=== PATIENT | female | born 1945 | race African-American/Black ===

== ENCOUNTER 2016-11-30 12:54 | Inpatient (IN) | payer OTHER ==
--- NOTE | 2016-11-30 14:02 | PDOC ---
History of Present Illness <Taqueria Harmon - Last Filed: 11/30/16 16:55> - General History Source: Patient, Care Provider, Old Records Exam Limitations: No Limitations - History of Present Illness Initial Comments: 11/30/16 14:45 The patient is a 71 year old female, with a significant past medical history of COPD (sarcoidosis), hypertension, and DVT who presents to the emergency department complaining of respiratory distress for approximately 4 days. As per machine load clerk, the patient reports she presented to Dr. Escamilla's office 4 days ago, for wheezing and bronchospasms and was supposed to be admitted. However, machine load clerk reports the patient needed to be situated at home, since her daughter was away, before she could be admitted. Coal Washer Tender reports the patient was given medication, but she does not recall the name, and it did not provide any relief. Today, she reports following up with Dr. Escamilla, who found the patient had an overactive heartbeat and was short of breath, and recommended the patient present to the ED for further evaluation. However, as per records, the patient was seen today for wheezing and bronchospasm. In the ED the patient was eating a george, egg, and cheese sandwich with fries. The patient denies any diaphoresis or chest pain. The patient denies any fever, chills, cough, headache , or dizziness. The patient denies any recent travel or sick contacts. Allergies: None reported. Past Surgical History: Left hip fracture repair (1977) Social History: Former smoker. Denies alcohol or drug use. PCP: Dr. Escamilla Supervisor [employer]: Dr. Freeman <Santo Whitten - Last Filed: 11/30/16 17:00> - General Chief Complaint: Shortness of Breath Stated Complaint: ABNORMAL HEART BEAT Time Seen by Provider: 11/30/16 13:54 Past History - Past Medical History COPD: Yes (scarodosis) HTN: Yes Other medical history: dvt - Surgical History Orthopedic Surgery: Yes (repair left hip fracture 1977) - Psycho/Social/Smoking Cessation Hx Anxiety: No Suicidal Ideation: No Smoking History: Former smoker Have you smoked in the past 12 months: No Information on smoking cessation initiated: No Hx Alcohol Use: No Drug/Substance Use Hx: No Substance Use Type: None <Taqueria Harmon - Last Filed: 11/30/16 16:55> <Santo Whitten - Last Filed: 11/30/16 17:00> - Past Medical History Allergies/Adverse Reactions: Allergies Allergy/AdvReac Type Severity Reaction Status Date / Time No Known Allergies Allergy Verified 08/31/13 14:02 Home Medications: Ambulatory Orders Oxybutynin Chloride [Ditropan -] 5 mg PO BID 08/24/13 Prednisone [Deltasone -] 30 mg PO DAILY 08/24/13 Cholecalciferol (Vitamin D3) [Vitamin D3] 50,000 unit PO DAILY 11/30/16 Furosemide [Lasix -] 40 mg PO DAILY 11/30/16 Mirtazapine [Remeron Soltab -] 15 mg PO DAILY 11/30/16 Montelukast Na [Singulair -] 10 mg PO HS 11/30/16 Moxifloxacin HCl [Vigamox 0.5% Eye Drops -] 1 drop OS QID 11/30/16 Potassium Chloride 10 meq PO DAILY 11/30/16 Prednisolone 1% Ophthalmic [Pred Forte 1% -] 1 ml OS DAILY 11/30/16 Temazepam [Restoril] 30 mg PO HS 11/30/16 Warfarin Na [Coumadin] 4 mg PO ASDIR 11/30/16 Review of Systems - Review of Systems Able to Perform ROS?: Yes Comments:: 11/30/16 14:45 GENERAL/CONSTITUTIONAL: No fever or chills. No weakness. HEAD, EYES, EARS, NOSE AND THROAT: No change in vision. No ear pain or discharge. No sore throat. CARDIOVASCULAR: +Shortness of breath, +overactive heartbeat. No chest pain. RESPIRATORY: +Wheezing, +dyspnea, +dyspnea on exertion. No cough or hemoptysis. GASTROINTESTINAL: No nausea, vomiting, diarrhea or constipation. GENITOURINARY: No dysuria, frequency, or change in urination. MUSCULOSKELETAL: No joint or muscle swelling or pain. No neck or back pain. SKIN: No rash NEUROLOGIC: No headache, vertigo, loss of consciousness, or change in strength/ sensation. ENDOCRINE: No increased thirst. No abnormal weight change. HEMATOLOGIC/LYMPHATIC: No anemia, easy bleeding, or history of blood clots. ALLERGIC/IMMUNOLOGIC: No hives or skin allergy. <Santo Whitten - Last Filed: 11/30/16 17:00> *Physical Exam - Vital Signs Last Vital Signs Temp Pulse Resp BP Pulse Ox 97.7 F 97 H 33 H 120/67 97 11/30/16 13:09 11/30/16 13:09 11/30/16 13:09 11/30/16 13:09 11/30/16 13:09 <Taqueria Harmon - Last Filed: 11/30/16 16:55> - Vital Signs Last Vital Signs Temp Pulse Resp BP Pulse Ox 97.7 F 97 H 33 H 120/67 97 11/30/16 13:09 11/30/16 13:09 11/30/16 13:09 11/30/16 13:09 11/30/16 13:09 - Physical Exam Comments: 11/30/16 14:46 GENERAL: Awake, alert, and fully oriented, in no acute distress HEAD: No signs of trauma EYES: PERRLA, EOMI, sclera anicteric, conjunctiva clear ENT: Auricles normal inspection, hearing grossly normal, nares patent, oropharynx clear without exudates. Moist mucosa NECK: Normal ROM, supple, no lymphadenopathy, JVD, or masses LUNGS: Diffuse bilateral wheezing. No crackles HEART: Regular rate and rhythm, normal S1 and S2, no murmurs, rubs or gallops ABDOMEN: Soft, nontender, normoactive bowel sounds. No guarding, no rebound. No masses EXTREMITIES: Normal range of motion, no edema. No clubbing or cyanosis. No cords, erythema, or tenderness NEUROLOGICAL: Cranial nerves II through XII grossly intact. Normal speech, normal gait SKIN: Warm, Dry, normal turgor, no rashes or lesions noted. <Santo Whitten - Last Filed: 11/30/16 17:00> ED Treatment Course - LABORATORY CBC & Chemistry Diagram: 11/30/16 14:27 11/30/16 14:27 - RADIOLOGY Radiology Studies Ordered: Category Date Time Status CHEST X-RAY PORTABLE* [RAD] Stat Radiology 11/30/16 13:55 Ordered <Taqueria Harmon - Last Filed: 11/30/16 16:55> - LABORATORY CBC & Chemistry Diagram: 11/30/16 14:27 11/30/16 14:27 - RADIOLOGY Radiograph Interpretation: 11/30/16 15:19 EXAM: CXR INTERPRETED BY: Dr. Pope REVIEWED BY: Dr. Harmon IMPRESSION: No significant interval change or gross acute lung disease is present. <Santo Whitten - Last Filed: 11/30/16 17:00> Medical Decision Making - Medical Decision Making 11/30/16 14:46 Patient was sent in by Dr. Escamilla for wheezing and bronchospasms. Will workup for pneumonia. First call placed to Dr. Walton's answering service at 16:38. Awaiting call back. Case discussed with Dr. Champion at 16:55. <Santo Whitten - Last Filed: 11/30/16 17:00> *DC/Admit/Observation/Transfer - Discharge Dispostion Admit: Yes - Attestations Physician Attestion: 11/30/16 14:02 I, Dr. Taqureia Harmon, attest that this document has been prepared under my direction and personally reviewed by me in its entirety. I further attest, that it accurately reflects all work, treatment, procedures and medical decision -making performed by me. <Taqueria Harmon - Last Filed: 11/30/16 16:55> - Attestations Scribe Attestion: 11/30/16 14:47 Documentation prepared by Santo Whitten, acting as medical driver for Taqueria Harmon DO. <Santo Whitten - Last Filed: 11/30/16 17:00> Diagnosis at time of Disposition: Bronchitis, Sarcoidosis of lung, Wheezing on auscultation - Discharge Dispostion Condition at time of disposition: Improved
[2016-11-30 14:48] LABS: ARTERIAL BLD GAS O2 SATURATION 97.4 % (90-98.9); ARTERIAL BLOOD GAS BASE EXCESS 4.9 meq/l (-2-2); ARTERIAL BLOOD GAS pH 7.36 (7.35-7.45)
[2016-11-30 14:49] LABS: ALLENS TEST POSITIVE; ART PUNCT SITE RIGHT RADIAL; LPM/O2% 2L; PT. ON O2? YES; TYPE OF O2 NASAL
--- NOTE | 2016-11-30 14:52 | EKG ---
Test Reason : Blood Pressure : / mmHG Vent. Rate : 095 BPM Atrial Rate : 095 BPM P-R Int : 128 ms QRS Dur : 068 ms QT Int : 366 ms P-R-T Axes : 060 019 032 degrees QTc Int : 459 ms NORMAL SINUS RHYTHM NORMAL ECG WHEN COMPARED WITH ECG OF 16-JUL-2007 11:31, QT HAS LENGTHENED Confirmed by MADELEINE JAMES MD ([id number]) on 11/30/2016 2:52:12 PM Referred By: Confirmed By:MADELEINE JAMES MD
[2016-11-30 14:56] LABS: MCH 24.6 pg (25.7-33.7); MCHC 30.1 g/dl (32.0-36.0); MEAN CELL VOLUME 81.5 fl (80-96); MEAN PLT VOLUME 8.4 fl (7.5-11.1); PLATELET COUNT 231 K/MM3 (134-434); RDW 17.4 % (11.6-15.6); WHITE BLOOD COUNT 12.2 K/mm3 (4.0-10.0)
[2016-11-30 15:22] LABS: ALBUMIN 3.2 g/dl (3.4-5.0); ANION GAP 12 (8-16); BILIRUBIN,TOTAL 0.2 mg/dL (0.2-1.0); CO2 32 mmol/L (21-32); CREATININE 1.1 mg/dL (0.55-1.02); GLUCOSE,RANDOM 107 mg/dL (74-106); SGPT/ALT 24 U/L (12-78); TOT PROT 6.5 g/dl (6.4-8.2)
[2016-11-30 15:24] LABS: ALK PHOS 99 U/L (45-117); TROPONIN I < 0.02 ng/ml (0.00-0.05)
[2016-11-30 15:28] LABS: SGOT/AST 18 U/L (15-37)
[2016-11-30] MEDS ORDERED: methylPREDNISolone NA SUCC 125 MG/2 ML VIAL IVPB ONE (16:38)
[2016-11-30] MEDS ORDERED: MAGNESIUM SULF 50% (8.12 MEQ/2 ML-1 GM VIAL) IVPB ONE (16:38)
[2016-11-30] MEDS ORDERED: LEVOFLOXACIN 750 MG IVPB 150 ML IVPB ONE ×2 (16:38→17:01)
[2016-11-30] MEDS ORDERED: ALBUTEROL SO4 2.5/IPRATROPIUM 0.5 INH SOL 3 ML VIAL.NEB. NEB ONE ×2 (16:39→17:01)
[2016-11-30] MEDS ORDERED: MAGNESIUM SULF 50% (8.12 MEQ/2 ML-1 GM VIAL) ONE (17:00)
[2016-11-30] MEDS ORDERED: methylPREDNISolone NA SUCC 125 MG/2 ML VIAL ONE (17:01)
[2016-11-30] MEDS ORDERED: WARFARIN NA 3 MG TABLET PO SCH (18:45)
[2016-11-30] MEDS ORDERED: ACETAMINOPHEN 325 MG TABLET (FP) PO PRN (18:46)
[2016-11-30] MEDS ORDERED: ACETAMINOPHEN 325 MG TABLET (FP) ONE (19:08)
[2016-11-30] MEDS ORDERED: WARFARIN NA 1 MG TABLET (FP) ONE (19:08)
[2016-11-30 20:34] LABS: INR 2.45 (0.82-1.09); PROTHROMBIN TIME (PATIENT) 27.5 SEC (9.98-11.88)
[2016-11-30] MEDS: methylPREDNISolone NA SUCC 40 MG/1 ML VIAL IVPB SCH (21:57)
[2016-11-30] MEDS: MONTELUKAST NA 10 MG TABLET PO SCH (22:00)
[2016-11-30] MEDS: OXYBUTYNIN CHLORIDE 5 MG TABLET PO SCH (22:00)
[2016-11-30] MEDS: INSULIN SLIDING SCALE (NOVOLOG) 1 VIAL SQ SCH (22:03)
[2016-11-30] MEDS: ALBUTEROL SO4 2.5/IPRATROPIUM 0.5 INH SOL 3 ML VIAL.NEB. NEB SCH (23:05)
[2016-11-30] MEDS: TEMAZEPAM 15 MG CAPSULE PO SCH (23:53)
[2016-12-01 00:24] VITALS: BMI 37.0
[2016-12-01] MEDS: methylPREDNISolone NA SUCC 40 MG/1 ML VIAL IVPB SCH ×4 (03:02→22:11)
[2016-12-01] MEDS: INSULIN SLIDING SCALE (NOVOLOG) 1 VIAL SQ SCH ×4 (06:13→22:18)
[2016-12-01] MEDS: FUROSEMIDE 40 MG/4 ML INJECTABLE VIAL IVPUSH SCH ×2 (06:13→15:56)
[2016-12-01] MEDS: ALBUTEROL SO4 2.5/IPRATROPIUM 0.5 INH SOL 3 ML VIAL.NEB. NEB SCH ×3 (06:19→17:15)
[2016-12-01 07:24] LABS: MCH 24.7 pg (25.7-33.7); MCHC 30.4 g/dl (32.0-36.0); MEAN CELL VOLUME 81.2 fl (80-96); MEAN PLT VOLUME 8.4 fl (7.5-11.1); NEUTROPHILS 91.2 % (42.8-82.8); PLATELET COUNT 220 K/MM3 (134-434); RDW 17.4 % (11.6-15.6); WHITE BLOOD COUNT 10.2 K/mm3 (4.0-10.0)
[2016-12-01 07:40] LABS: INR 3.25 (0.82-1.09); PROTHROMBIN TIME (PATIENT) 36.6 SEC (9.98-11.88)
[2016-12-01 07:47] LABS: ALBUMIN 2.9 g/dl (3.4-5.0); ANION GAP 8 (8-16); CALCIUM 8.7 mg/dL (8.5-10.1); CO2 33 mmol/L (21-32); CREATININE 1.3 mg/dL (0.55-1.02); GLUCOSE,RANDOM 173 mg/dL (74-106); MAGNESIUM 2.4 mg/dL (1.8-2.4); SGOT/AST 14 U/L (15-37); SGPT/ALT 19 U/L (12-78); TOT PROT 6.1 g/dl (6.4-8.2)
[2016-12-01 07:53] LABS: ALK PHOS 90 U/L (45-117); BILIRUBIN,TOTAL 0.3 mg/dL (0.2-1.0); TROPONIN I < 0.02 ng/ml (0.00-0.05)
--- NOTE | 2016-12-01 09:58 | CONSULT ---
Consult Consult Specialty:: Nephrology Reason for Consultation:: elevated creatinine - History of Present Illness Chief Complaint: shortness of breath History of Present Illness: Pt is a 71 year old female with pmhx of sarcoidosis, COPD, HTN, and DVT who presents to the ER with increased shortness of breath for the last 5 days. She also complains of wheezing. She denies chest pain but feels that her hears is running fast. I was called to evaluate her for elevated creatinine. She denies history of CKD. She denies dysuria or hematuria. She is awake and alert. She denies use of nsaids. - History Source History Provided By: Patient, Medical Record - Past Medical History Cardio/Vascular: Yes: CHF, Deep Vein Thrombosis, HTN Pulmonary: Yes: COPD, Other (sarcoidosis) ...: No Rheumatology: Yes: Sarcoidosis - Past Surgical History Additional Surgical History: hip fracture - Alcohol/Substance Use Hx Alcohol Use: No - Smoking History Smoking history: Former smoker Have you smoked in the past 12 months: No Aproximately how many cigarettes per day: 0 Home Medications - Allergies Allergies/Adverse Reactions: Allergies Allergy/AdvReac Type Severity Reaction Status Date / Time No Known Allergies Allergy Verified 11/30/16 19:09 - Home Medications Home Medications: Ambulatory Orders Oxybutynin Chloride [Ditropan -] 5 mg PO BID 08/24/13 Prednisone [Deltasone -] 30 mg PO DAILY 08/24/13 Cholecalciferol (Vitamin D3) [Vitamin D3] 50,000 unit PO DAILY 11/30/16 Furosemide [Lasix -] 40 mg PO DAILY 11/30/16 Mirtazapine [Remeron Soltab -] 15 mg PO DAILY 11/30/16 Montelukast Na [Singulair -] 10 mg PO HS 11/30/16 Moxifloxacin HCl [Vigamox 0.5% Eye Drops -] 1 drop OS QID 11/30/16 Potassium Chloride 10 meq PO DAILY 11/30/16 Prednisolone 1% Ophthalmic [Pred Forte 1% -] 1 ml OS DAILY 11/30/16 Temazepam [Restoril] 30 mg PO HS 11/30/16 Warfarin Na [Coumadin] 4 mg PO ASDIR 11/30/16 Omep 40 12/01/16 Omeprazole 40 AM 12/01/16 Sennosides [Senna] 8.6 mg PO TID 12/01/16 Family Disease History - Family Disease History Family History: Denies Physical Exam Vital Signs: Vital Signs Temperature 98.4 F 12/01/16 09:13 Pulse Rate 130 H 12/01/16 09:13 Respiratory Rate 20 12/01/16 09:13 Blood Pressure 124/76 12/01/16 09:13 O2 Sat by Pulse Oximetry (%) 97 12/01/16 09:00 Constitutional: Yes: Anxious Eyes: Yes: Conjunctiva Clear HENT: Yes: Atraumatic Cardiovascular: Yes: Tachycardia, S1, S2 Respiratory: Yes: On Nasal O2, Wheezes Gastrointestinal: Yes: Soft Renal/: Yes: WNL Extremities: Yes: WNL Edema: Yes Edema: LLE: 1+, RLE: 1+ Neurological: Yes: Oriented Psychiatric: Yes: Oriented Labs: CBC, BMP 12/01/16 05:35 12/01/16 05:35 Laboratory Tests 11/30/16 11/30/16 11/30/16 14:27 14:27 14:40 WBC 12.2 H Hgb 11.5 ABG pH 7.36 ABG pCO2 at Pt Temp 56.7 H D ABG pO2 at Pt Temp 100.0 D ABG HCO3 31.0 H ABG O2 Sat (Measured) 97.4 ABG O2 Content 15.0 Sodium 144 Potassium 3.4 L Chloride 100 Carbon Dioxide 32 Anion Gap 12 BUN 20 H Creatinine 1.1 H Creat Clearance w eGFR Hemoglobin A1c % B-Natriuretic Peptide 12/01/16 12/01/16 12/01/16 05:35 05:35 09:37 WBC 10.2 H Hgb 10.5 L ABG pH ABG pCO2 at Pt Temp ABG pO2 at Pt Temp ABG HCO3 ABG O2 Sat (Measured) ABG O2 Content Sodium 142 Potassium 4.6 D Chloride 101 Carbon Dioxide 33 H Anion Gap BUN 23 H Creatinine 1.3 H Creat Clearance w eGFR 40.49 Hemoglobin A1c % 6.7 H B-Natriuretic Peptide 164.10 H Imaging - Results Chest X-ray: Report Reviewed Ultrasound: Report Reviewed (small left kidney) Problem List - Problems (1) Acute respiratory distress syndrome Code(s): J80 - ACUTE RESPIRATORY DISTRESS SYNDROME (2) Sarcoidosis of lung Code(s): D86.0 - SARCOIDOSIS OF LUNG (3) Tachycardia Code(s): R00.0 - TACHYCARDIA, UNSPECIFIED (4) Wheezing on auscultation Code(s): R06.2 - WHEEZING (5) CKD (chronic kidney disease) Code(s): N18.9 - CHRONIC KIDNEY DISEASE, UNSPECIFIED Assessment/Plan Current Medications Generic Name Dose Route Start Last Admin Trade Name Freq PRN Reason Stop Dose Admin Acetaminophen 650 mg 11/30/16 18:46 11/30/16 19:09 Tylenol - PO 650 mg Q4H PRN Administration FEVER OR PAIN Albuterol/Ipratropium 1 amp 12/01/16 00:00 12/01/16 11:39 Duoneb - NEB 1 amp QIDR PHOEBE Administration Furosemide 40 mg 12/02/16 10:00 Lasix - PO DAILY PHOEBE Levofloxacin 100 mls @ 100 mls/hr 12/01/16 10:00 12/01/16 11:07 Levaquin 500 Mg Premixed Ivpb - IVPB 100 mls/hr DAILY PHOEBE Administration Insulin Aspart 1 vial 11/30/16 22:00 12/01/16 12:01 Novolog Vial Sliding Scale - SQ Not Given ACHS PHOEBE Protocol Methylprednisolone Sodium Succinate 40 mg 11/30/16 21:00 12/01/16 15:50 Solu-Medrol - IVPB 40 mg Q6H-IV PHOEBE Administration Mirtazapine 15 mg 12/01/16 10:00 12/01/16 10:00 Remeron - PO Not Given DAILY PHOEBE Montelukast Sodium 10 mg 11/30/16 22:00 11/30/16 22:00 Singulair - PO 10 mg HS PHOEBE Administration Moxifloxacin HCl 1 drop 12/01/16 14:00 12/01/16 15:50 Vigamox 0.5% Eye Drops - OD Not Given TID PHOEBE Oxybutynin Chloride 5 mg 11/30/16 22:00 12/01/16 11:07 Ditropan - PO 5 mg BID PHOEBE Administration Potassium Chloride 10 meq 12/01/16 10:00 12/01/16 11:07 Kcl Oral Solution - PO 10 meq DAILY PHOEBE Administration Prednisolone Acetate 14.9925 drop 12/01/16 10:00 Pred Forte 1% - OS DAILY PHOEBE Senna 1 tab 12/01/16 13:15 12/01/16 15:50 Senna - PO 1 tab BID PHOEBE Administration Temazepam 30 mg 11/30/16 23:30 11/30/16 23:53 Restoril - PO 30 mg HS PHOEBE Administration Warfarin Sodium 4 mg 12/02/16 18:00 Coumadin - PO DAILY@1800 [facility] Impression 1. azotemia - likely CKD 2. CHF 3. HTN 4. hyperlipidemia 5. hx DVT 6. COPD 7. sarcoidosis 8. anemia Plan - renal ultrasound reviewed and she does have one smaller kidney - check ua - will need to obtain outpt records to check baseline creatinine - will comment more on etiology of kidney disease after reviewing urine studies. Pt says that she is unaware if the Sarcoid affected her kidneys. - agree with steroids as she is wheezing - repeat bmp in am - monitor on tele as she is tachycardic - check lower extremity ultrasound - will follow pt Dr Doty
[2016-12-01 09:59] LABS: CHOLESTEROL 177 mg/dL (50-200)
[2016-12-01] MEDS: MIRTAZAPINE 15 MG TABLET (FP) PO SCH (10:00)
[2016-12-01] MEDS ORDERED: prednisoLONE ACETATE 1% OPHTH SUSP 5 ML BOTTLE OS SCH (10:00)
[2016-12-01 10:11] LABS: LDL CHOLESTEROL (ONLY SJRH) 90 mg/dL (5-100)
[2016-12-01] MEDS ORDERED: METOPROLOL TARTRATE 25 MG TABLET (FP) PO ONE (10:15)
[2016-12-01] MEDS: POTASSIUM CHLORIDE 40 MEQ/30 ML UNIT DOSE CUP PO SCH (11:07)
[2016-12-01] MEDS: LEVOFLOXACIN 500 MG IVPB 100 ML IVPB SCH (11:07)
[2016-12-01] MEDS: OXYBUTYNIN CHLORIDE 5 MG TABLET PO SCH ×2 (11:07→22:11)
--- NOTE | 2016-12-01 12:34 | EKG ---
Test Reason : Blood Pressure : / mmHG Vent. Rate : 132 BPM Atrial Rate : 132 BPM P-R Int : 148 ms QRS Dur : 072 ms QT Int : 280 ms P-R-T Axes : 055 028 022 degrees QTc Int : 414 ms SINUS TACHYCARDIA NONSPECIFIC T WAVE ABNORMALITY ABNORMAL ECG WHEN COMPARED WITH ECG OF 30-NOV-2016 13:15, NO SIGNIFICANT CHANGE WAS FOUND Confirmed by MARCUS ATKINSON MD ([id number]) on 12/01/2016 12:34:46 PM Referred By: SHERRI LOPEZ Confirmed By:MARCUS ATKINSON MD
--- NOTE | 2016-12-01 15:43 | HP ---
Admitting History and Physical - Primary Care Physician PCP: Digna Walton - Admission Chief Complaint: DYSPNEA/CHEST PAIN History of Present Illness: The patient is a 71 year old female, with a significant past medical history of COPD (sarcoidosis), hypertension, and DVT who presents to the emergency department complaining of respiratory distress for approximately 4 days. As per stripping machine operator, the patient reports she presented to Dr. Escamilla's office 4 days ago, for wheezing and bronchospasms and was supposed to be admitted. However, stripping machine operator reports the patient needed to be situated at home, since her daughter was away, before she could be admitted. Medicaid Business Analyst reports the patient was given medication, but she does not recall the name, and it did not provide any relief. Today, she reports following up with Dr. Escamilla, who found the patient had an overactive heartbeat and was short of breath, and recommended the patient present to the ED for further evaluation. However, as per records, the patient was seen today for wheezing and bronchospasm. In the ED the patient was eating a george, egg, and cheese sandwich with fries. The patient denies any diaphoresis or chest pain. The patient denies any fever, chills, cough, headache , or dizziness. The patient denies any recent travel or sick contacts. History Source: Patient - Past Medical History Cardiovascular: Yes: HTN Pulmonary: Yes: COPD (SARCOIDOSIS), Other ...: No - Smoking History Smoking history: Former smoker Have you smoked in the past 12 months: No Aproximately how many cigarettes per day: 0 - Alcohol/Substance Use Hx Alcohol Use: No Home Medications - Allergies Allergies/Adverse Reactions: Allergies Allergy/AdvReac Type Severity Reaction Status Date / Time No Known Allergies Allergy Verified 11/30/16 19:09 - Home Medications Home Medications: Ambulatory Orders Oxybutynin Chloride [Ditropan -] 5 mg PO BID 08/24/13 Prednisone [Deltasone -] 30 mg PO DAILY 08/24/13 Cholecalciferol (Vitamin D3) [Vitamin D3] 50,000 unit PO DAILY 11/30/16 Furosemide [Lasix -] 40 mg PO DAILY 11/30/16 Mirtazapine [Remeron Soltab -] 15 mg PO DAILY 11/30/16 Montelukast Na [Singulair -] 10 mg PO HS 11/30/16 Moxifloxacin HCl [Vigamox 0.5% Eye Drops -] 1 drop OS QID 11/30/16 Potassium Chloride 10 meq PO DAILY 11/30/16 Prednisolone 1% Ophthalmic [Pred Forte 1% -] 1 ml OS DAILY 11/30/16 Temazepam [Restoril] 30 mg PO HS 11/30/16 Warfarin Na [Coumadin] 4 mg PO ASDIR 11/30/16 Omep 40 12/01/16 Omeprazole 40 AM 12/01/16 Sennosides [Senna] 8.6 mg PO TID 12/01/16 Review of Systems - Review of Systems Constitutional: reports: Weakness Eyes: reports: Eye Pain, Recent Change in Vision, Other HENT: reports: No Symptoms Neck: reports: No Symptoms Cardiovascular: reports: Shortness of Breath Respiratory: reports: Cough, SOB Gastrointestinal: reports: No Symptoms Genitourinary: reports: No Symptoms Musculoskeletal: reports: Joint Pain, Muscle Weakness Integumentary: reports: Other Neurological: reports: Pre-Existing Deficit, Weakness Endocrine: reports: No Symptoms Hematology/Lymphatic: reports: No Symptoms Physical Examination Vital Signs: Vital Signs Temperature 98.4 F 12/01/16 09:13 Pulse Rate 130 H 12/01/16 09:13 Respiratory Rate 20 12/01/16 09:13 Blood Pressure 124/76 12/01/16 09:13 O2 Sat by Pulse Oximetry (%) 97 12/01/16 09:00 Constitutional: Yes: Moderate Distress Eyes: Yes: Tearing, Other (LEFT EYE ERYTHEMA) HENT: Yes: WNL Neck: Yes: WNL Cardiovascular: Yes: Other Respiratory: Yes: On Nasal O2, Poor Air Entry, Rhonchi, SOB Gastrointestinal: Yes: WNL ...Rectal Exam: Yes: WNL Renal/: Yes: WNL Breast(s): Yes: WNL Musculoskeletal: Yes: Muscle Weakness Extremities: Yes: WNL Edema: Yes Edema: LLE: 1+, RLE: 1+ Peripheral Pulses WNL: Yes Integumentary: Yes: Rash, Venous Stasis Changes Wound/Incision: Yes: Other Neurological: Yes: Pre-Existing Deficit, Unsteady Gait ...Motor Strength: LLE, RLE Labs: CBC, BMP 12/01/16 05:35 12/01/16 05:35 Imaging - Results Chest X-ray: Report Reviewed Problem List - Problems (1) Bronchitis Code(s): J40 - BRONCHITIS, NOT SPECIFIED ACUTE OR CHRONIC (2) Sarcoidosis of lung Code(s): D86.0 - SARCOIDOSIS OF LUNG (3) Wheezing on auscultation Code(s): R06.2 - WHEEZING (4) Acute respiratory distress syndrome Code(s): J80 - ACUTE RESPIRATORY DISTRESS SYNDROME (5) Tachycardia Code(s): R00.0 - TACHYCARDIA, UNSPECIFIED Assessment/Plan TRANSFER TO TELEMETRY CARDIO EVAL STEROIDS IV 02 SUPPORT NEBS PULM EVAL AC LABS REVIEWED
[2016-12-01] MEDS: SENNOSIDES 8.6MG TABLET (FP) PO SCH ×2 (15:50→22:12)
[2016-12-01] MEDS: MOXIFLOXACIN HCL 0.5% OPHTHALMIC 3 ML BOTTLE OD SCH ×2 (15:50→22:25)
[2016-12-01] MEDS ORDERED: FUROSEMIDE 40 MG/4 ML INJECTABLE VIAL ONE (15:55)
--- NOTE | 2016-12-01 16:05 | CON.CARD ---
Consult Consult Specialty:: Cardiology Referred by:: Dr. Walton Reason for Consultation:: SOB - History of Present Illness Chief Complaint: SOB History of Present Illness: 71 yo female with sarcoidosis, COPD, HTN, and DVT, who was admitted n 11/30/16 with SOB over that prior 4 days. She was being treated for COPD exacerbation and today developed tachycardia and was transferred to telemetry floor. Patient denies any cardiac history and currently denies any significant symptoms other than SOB. ECG demonstrated sinus tachycardia. Trops (-) x2 and BNP only 164. CXR negative for acute pulmonary process. - History Source History Provided By: Patient Limitations to Obtaining History: No Limitations - Past Medical History Cardio/Vascular: Yes: HTN Pulmonary: Yes: COPD, Other (sarcoidosis) ...: No - Past Surgical History Additional Surgical History: Left hip fracture repair - Alcohol/Substance Use Hx Alcohol Use: No - Smoking History Smoking history: Former smoker Have you smoked in the past 12 months: No Aproximately how many cigarettes per day: 0 Home Medications - Allergies Allergies/Adverse Reactions: Allergies Allergy/AdvReac Type Severity Reaction Status Date / Time No Known Allergies Allergy Verified 11/30/16 19:09 - Home Medications Home Medications: Ambulatory Orders Oxybutynin Chloride [Ditropan -] 5 mg PO BID 08/24/13 Prednisone [Deltasone -] 30 mg PO DAILY 08/24/13 Cholecalciferol (Vitamin D3) [Vitamin D3] 50,000 unit PO DAILY 11/30/16 Furosemide [Lasix -] 40 mg PO DAILY 11/30/16 Mirtazapine [Remeron Soltab -] 15 mg PO DAILY 11/30/16 Montelukast Na [Singulair -] 10 mg PO HS 11/30/16 Moxifloxacin HCl [Vigamox 0.5% Eye Drops -] 1 drop OS QID 11/30/16 Potassium Chloride 10 meq PO DAILY 11/30/16 Prednisolone 1% Ophthalmic [Pred Forte 1% -] 1 ml OS DAILY 11/30/16 Temazepam [Restoril] 30 mg PO HS 11/30/16 Warfarin Na [Coumadin] 4 mg PO ASDIR 11/30/16 Omep 40 12/01/16 Omeprazole 40 AM 12/01/16 Sennosides [Senna] 8.6 mg PO TID 12/01/16 Family Disease History - Family Disease History Family History: Denies (premature CAD or SCD) Vital Signs: Vital Signs Temperature 98.4 F 12/01/16 09:13 Pulse Rate 130 H 12/01/16 09:13 Respiratory Rate 20 12/01/16 09:13 Blood Pressure 124/76 12/01/16 09:13 O2 Sat by Pulse Oximetry (%) 97 12/01/16 09:00 Constitutional: Yes: No Distress, Obese Eyes: Yes: Conjunctiva Clear, EOM Intact HENT: Yes: Atraumatic, Normocephalic Respiratory: Yes: CTA Bilaterally Gastrointestinal: Yes: Normal Bowel Sounds, Soft. No: Tenderness Cardiovascular: Yes: Tachycardia JVD: No Carotid Bruit: No Heart Sounds: Yes: S1, S2 Murmur: No: Systolic Murmur Edema: LLE: Trace, RLE: Trace Peripheral Pulses WNL: Yes Neurological: Yes: Alert, Oriented, Cran Nerves II-XII Intact Psychiatric: Yes: WNL - Other Data Labs, Other Data: CBC, BMP 12/01/16 05:35 12/01/16 05:35 INR, PTT INR 3.25 (0.82-1.09) H D 12/01/16 06:00 Troponin, BNP 12/01/16 05:35 Troponin I < 0.02 B-Natriuretic Peptide 164.10 H Troponin, BNP 12/01/16 05:35 Troponin I < 0.02 B-Natriuretic Peptide 164.10 H Echo: Report Reviewed (12/01/16 Echo: TDS. Normal LV size. Normal to mildly reduced LV systolic function. RV systolic function normal. Mild BRAULIO. Mod to severe TR. Pulmonary hypertension with RVSP 50-60 mmHg.) Imaging - Results Chest X-ray: Report Reviewed (11/30/16: No acute pulmonary process), Image Reviewed Assessment/Plan 71 yo female with sarcoidosis, COPD, HTN, and DVT, who was admitted n 11/30/16 with SOB over that prior 4 days. She was being treated for COPD exacerbation and today developed tachycardia and was transferred to telemetry floor. Cardiology was consulted for evaluation of dyspnea. ECG demonstrates sinus tachycardia. Trops (-) x2 and BNP only 164. CXR negative for acute pulmonary process. 12/01/16 Echo: TDS. Normal LV size. Normal to mildly reduced LV systolic function. RV systolic function normal. Mild BRAULIO. Mod to severe TR. Pulmonary hypertension with RVSP 50-60 mmHg. Suspect patient's dyspnea is due to COPD exacerbation/sarcoidosis. Low suspicion for CHF given CXR, low BNP, physical exam, and today's echo results. Noted pulmonary hypertension on today's echo is not unusual in patient with chronic lung disease. Patient's tachycardia is also likely secondary to her COPD exacerbation and dose of IV lasix she received this AM. RECS: No further cardiac work-up or intervention is clinically indicated at this time. Would not treat patient's tachycardia at this time as it is likely physiologic response to her current respiratory status and/or nebulizer treatments. Will discontinue further diuresis with IV lasix and resume her oral furosemide tomorrow given low suspicion for decompensated CHF for her clinical presentation. Further recs as per pulmonary. Will follow. Call with questions.
[2016-12-01] MEDS: MONTELUKAST NA 10 MG TABLET PO SCH (22:12)
[2016-12-01] MEDS: TEMAZEPAM 15 MG CAPSULE PO SCH (22:12)
[2016-12-01] MEDS ORDERED: MAGNESIUM HYDROX 2400MG/30ML ORAL SUSPENSION 30 ML CUP PO PRN (22:37)
[2016-12-01] MEDS: DOCUSATE SODIUM 100 MG CAPSULE (FP) PO SCH (22:52)
[2016-12-02] MEDS: methylPREDNISolone NA SUCC 40 MG/1 ML VIAL IVPB SCH ×4 (03:00→22:18)
[2016-12-02] MEDS: ALBUTEROL SO4 2.5/IPRATROPIUM 0.5 INH SOL 3 ML VIAL.NEB. NEB SCH ×4 (06:00→19:31)
[2016-12-02] MEDS: INSULIN SLIDING SCALE (NOVOLOG) 1 VIAL SQ SCH ×4 (06:46→22:25)
[2016-12-02] MEDS: MOXIFLOXACIN HCL 0.5% OPHTHALMIC 3 ML BOTTLE OD SCH ×3 (06:46→22:19)
[2016-12-02] MEDS: DOCUSATE SODIUM 100 MG CAPSULE (FP) PO SCH ×3 (06:46→22:18)
[2016-12-02 07:28] LABS: MCH 24.3 pg (25.7-33.7); MCHC 30.3 g/dl (32.0-36.0); MEAN CELL VOLUME 80.2 fl (80-96); MEAN PLT VOLUME 8.2 fl (7.5-11.1); PLATELET COUNT 212 K/MM3 (134-434); RDW 17.1 % (11.6-15.6); WHITE BLOOD COUNT 11.7 K/mm3 (4.0-10.0)
[2016-12-02 07:40] LABS: INR 3.1 (0.82-1.09); PROTHROMBIN TIME (PATIENT) 34.9 SEC (9.98-11.88)
[2016-12-02 07:48] LABS: BILIRUBIN,TOTAL 0.2 mg/dL (0.2-1.0); CALCIUM 8.7 mg/dL (8.5-10.1); CREATININE 1.3 mg/dL (0.55-1.02)
[2016-12-02 07:50] LABS: TOT PROT 5.9 g/dl (6.4-8.2)
[2016-12-02] MEDS: POTASSIUM CHLORIDE 40 MEQ/30 ML UNIT DOSE CUP PO SCH ×2 (11:26→11:53)
[2016-12-02] MEDS: MIRTAZAPINE 15 MG TABLET (FP) PO SCH (11:27)
[2016-12-02] MEDS: SENNOSIDES 8.6MG TABLET (FP) PO SCH ×2 (11:27→22:19)
[2016-12-02] MEDS: OXYBUTYNIN CHLORIDE 5 MG TABLET PO SCH ×2 (11:27→22:18)
[2016-12-02] MEDS: FUROSEMIDE 40 MG TABLET (FP) PO SCH (11:27)
[2016-12-02] MEDS: LEVOFLOXACIN 500 MG IVPB 100 ML IVPB SCH (11:27)
--- NOTE | 2016-12-02 11:40 | CON.PULM ---
Consult Consult Specialty:: PULMONARY Referred by:: Dr. Escamilla Reason for Consultation:: shortness of breath - History of Present Illness Chief Complaint: shortness of breath History of Present Illness: 71yo female with h/o HTN, sarcoidosis, COPD, chronic hypoxic respiratory failure , h/o DVT who was admitted for worsening shortness of breath x 4 days. No chest pain or palpitations. No fevers, chills or sweats. She does have a nonproductive cough and wheezing. She is maintained on Symbicort at home. She is a former long time smoker, quit 3 years ago. 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 - History Source History Provided By: Patient, Medical Record Limitations to Obtaining History: No Limitations - Past Medical History Cardio/Vascular: Yes: CHF, Deep Vein Thrombosis, HTN Pulmonary: Yes: COPD, Other (sarcoidosis) ...: No Rheumatology: Yes: Sarcoidosis - Past Surgical History Additional Surgical History: hip fracture - Alcohol/Substance Use Hx Alcohol Use: No - Smoking History Smoking history: Former smoker Have you smoked in the past 12 months: No Aproximately how many cigarettes per day: 0 Home Medications - Allergies Allergies/Adverse Reactions: Allergies Allergy/AdvReac Type Severity Reaction Status Date / Time No Known Allergies Allergy Verified 11/30/16 19:09 - Home Medications Home Medications: Ambulatory Orders Oxybutynin Chloride [Ditropan -] 5 mg PO BID 08/24/13 Prednisone [Deltasone -] 30 mg PO DAILY 08/24/13 Cholecalciferol (Vitamin D3) [Vitamin D3] 50,000 unit PO DAILY 11/30/16 Furosemide [Lasix -] 40 mg PO DAILY 11/30/16 Mirtazapine [Remeron Soltab -] 15 mg PO DAILY 11/30/16 Montelukast Na [Singulair -] 10 mg PO HS 11/30/16 Moxifloxacin HCl [Vigamox 0.5% Eye Drops -] 1 drop OS QID 11/30/16 Potassium Chloride 10 meq PO DAILY 11/30/16 Prednisolone 1% Ophthalmic [Pred Forte 1% -] 1 ml OS DAILY 11/30/16 Temazepam [Restoril] 30 mg PO HS 11/30/16 Warfarin Na [Coumadin] 4 mg PO ASDIR 11/30/16 Omep 40 12/01/16 Omeprazole 40 AM 12/01/16 Sennosides [Senna] 8.6 mg PO TID 12/01/16 Family Disease History - Family Disease History Other Family History: non-contributory Review of Systems - Review of Systems Constitutional: reports: Weakness. denies: Chills, Fever Eyes: denies: Recent Change in Vision HENT: denies: Nasal Congestion, Throat Pain Neck: denies: Stiffness, Tenderness Cardiovascular: reports: Shortness of Breath. denies: Chest Pain, Edema, Palpitations Respiratory: reports: Cough, SOB, SOB on Exertion, Wheezing. denies: Hemoptysis Gastrointestinal: denies: Abdominal Pain, Diarrhea, Nausea, Vomiting Genitourinary: denies: Dysuria, Hematuria Neurological: denies: Dizziness, Headache Physical Exam Vital Sings: Vital Signs Temperature 97.8 F 12/02/16 06:00 Pulse Rate 80 12/02/16 06:00 Respiratory Rate 20 12/02/16 06:00 Blood Pressure 118/65 12/02/16 06:00 O2 Sat by Pulse Oximetry (%) 96 12/01/16 21:00 Constitutional: Yes: Calm Eyes: Yes: Conjunctiva Clear, EOM Intact HENT: Yes: Atraumatic, Normocephalic Neck: Yes: Supple, Trachea Midline Cardiovascular: Yes: Regular Rate and Rhythm Respiratory: Yes: Rhonchi, Wheezes ...Clubbing: No Gastrointestinal: Yes: Normal Bowel Sounds, Soft, Abdomen, Obese. No: Tenderness Edema: Yes Neurological: Yes: Alert, Oriented Labs: CBC, BMP 12/02/16 05:35 12/02/16 05:35 ABG Results ABG pH 7.36 (7.35-7.45) 11/30/16 14:40 ABG pCO2 at Pt Temp 56.7 mmHg (35-45) H D 11/30/16 14:40 ABG pO2 at Pt Temp 100.0 mmHg (70-100) D 11/30/16 14:40 ABG HCO3 31.0 meq/L (22-26) H 11/30/16 14:40 ABG O2 Sat (Measured) 97.4 % (90-98.9) 11/30/16 14:40 ABG O2 Content 15.0 % vol (15-22) 11/30/16 14:40 ABG Base Excess 4.9 meq/l (-2-2) H 11/30/16 14:40 Imaging - Results Chest X-ray: Report Reviewed, Image Reviewed (no infiltrates) Problem List - Problems (1) Acute exacerbation of chronic obstructive pulmonary disease (COPD) Code(s): J44.1 - CHRONIC OBSTRUCTIVE PULMONARY DISEASE W (ACUTE) EXACERBATION (2) Sarcoidosis of lung Code(s): D86.0 - SARCOIDOSIS OF LUNG (3) Chronic respiratory failure with hypoxia Code(s): J96.11 - CHRONIC RESPIRATORY FAILURE WITH HYPOXIA (4) CKD (chronic kidney disease) Code(s): N18.9 - CHRONIC KIDNEY DISEASE, UNSPECIFIED Assessment/Plan Acute COPD Exacerbation Sarcoidosis Chronic Hypoxic Respiratory Failure h/o DVT - continue IV medrol - inhaled bronchodilators standing and PRN - O2 to keep SpO2 >90% - lasix - monitor urine output, creatinine - DVT prophylaxis Thank you for this consult Mitch Hunt MD
--- NOTE | 2016-12-02 13:19 | PN ---
Progress Note, Physician Chief Complaint: AWAKE ALERT BREATHING SLOWLY IMPROVING - Current Medication List Current Medications: Active Medications Acetaminophen (Tylenol -) 650 mg PO Q4H PRN PRN Reason: FEVER OR PAIN Last Admin: 11/30/16 19:09 Dose: 650 mg Albuterol/Ipratropium (Duoneb -) 1 amp NEB QIDR [facility] Last Admin: 12/02/16 06:00 Dose: 1 amp Docusate Sodium (Colace -) 100 mg PO TID [facility] Last Admin: 12/02/16 06:46 Dose: 100 mg Furosemide (Lasix -) 40 mg PO DAILY [facility] Last Admin: 12/02/16 11:27 Dose: 40 mg Levofloxacin (Levaquin 500 Mg Premixed Ivpb -) 100 mls @ 100 mls/hr IVPB DAILY [facility] Last Admin: 12/02/16 11:27 Dose: 100 mls/hr Insulin Aspart (Novolog Vial Sliding Scale -) 1 vial SQ ACHS [facility] PRN Reason: Protocol Last Admin: 12/02/16 11:28 Dose: Not Given Magnesium Hydroxide (Milk Of Magnesia -) 30 ml PO DAILY PRN PRN Reason: CONSTIPATION Methylprednisolone Sodium Succinate (Solu-Medrol -) 40 mg IVPB Q6H-IV [facility] Last Admin: 12/02/16 11:27 Dose: 40 mg Mirtazapine (Remeron -) 15 mg PO DAILY [facility] Last Admin: 12/02/16 11:27 Dose: 15 mg Montelukast Sodium (Singulair -) 10 mg PO [facility] Last Admin: 12/01/16 22:12 Dose: 10 mg Moxifloxacin HCl (Vigamox 0.5% Eye Drops -) 1 drop OD TID [facility] Last Admin: 12/02/16 06:46 Dose: 1 drop Oxybutynin Chloride (Ditropan -) 5 mg PO BID [facility] Last Admin: 12/02/16 11:27 Dose: 5 mg Potassium Chloride (Kcl Oral Solution -) 10 meq PO DAILY [facility] Last Admin: 12/02/16 11:53 Dose: Not Given Prednisolone Acetate (Pred Forte 1% -) 14.9925 drop OS DAILY [facility] Senna (Senna -) 1 tab PO BID [facility] Last Admin: 12/02/16 11:27 Dose: 1 tab Temazepam (Restoril -) 30 mg PO [facility] Last Admin: 12/01/16 22:12 Dose: 30 mg Warfarin Sodium (Coumadin -) 4 mg PO DAILY@1800 [facility] - Objective Vital Signs: Vital Signs Temperature 97.8 F 12/02/16 06:00 Pulse Rate 80 12/02/16 06:00 Respiratory Rate 20 12/02/16 06:00 Blood Pressure 118/65 12/02/16 06:00 O2 Sat by Pulse Oximetry (%) 96 12/01/16 21:00 Constitutional: Yes: Mild Distress Eyes: Yes: WNL HENT: Yes: WNL Neck: Yes: WNL Cardiovascular: Yes: Tachycardia, Murmur Respiratory: Yes: On Nasal O2, SOB, SOB on Exertion, Tachypnea Gastrointestinal: Yes: WNL Genitourinary: Yes: WNL Musculoskeletal: Yes: Back Pain, Muscle Pain, Muscle Weakness Extremities: Yes: WNL Edema: Yes Integumentary: Yes: WNL Wound/Incision: Yes: Clean/Dry Neurological: Yes: Other ...Motor Strength: LLE, RLE Psychiatric: Yes: WNL Labs: CBC, BMP 12/02/16 05:35 12/02/16 05:35 INR, PTT INR 3.10 (0.82-1.09) H 12/02/16 05:35 Problem List - Problems (1) Bronchitis Code(s): J40 - BRONCHITIS, NOT SPECIFIED ACUTE OR CHRONIC (2) Sarcoidosis of lung Code(s): D86.0 - SARCOIDOSIS OF LUNG (3) Wheezing on auscultation Code(s): R06.2 - WHEEZING (4) Acute respiratory distress syndrome Code(s): J80 - ACUTE RESPIRATORY DISTRESS SYNDROME (5) Tachycardia Code(s): R00.0 - TACHYCARDIA, UNSPECIFIED (6) Pulmonary hypertension Code(s): I27.2 - OTHER SECONDARY PULMONARY HYPERTENSION Assessment/Plan NO SIGNIFICANT TELEMETRY ALARMS CARDIO EVAL APPRECIATED ECHO SHOWS SEVERE TRICUSPID DISEASE WITH PULMONARY HTN STEROIDS IV 02 SUPPORT NEBS PULM EVAL AC LABS REVIEWED [facility]
--- NOTE | 2016-12-02 14:44 | PN ---
Progress Note, Physician History of Present Illness: Continues to report dyspnea, but no chest pain. - Current Medication List Current Medications: Active Medications Acetaminophen (Tylenol -) 650 mg PO Q4H PRN PRN Reason: FEVER OR PAIN Last Admin: 11/30/16 19:09 Dose: 650 mg Albuterol/Ipratropium (Duoneb -) 1 amp NEB QIDR [facility] Last Admin: 12/02/16 12:00 Dose: 1 amp Docusate Sodium (Colace -) 100 mg PO TID [facility] Last Admin: 12/02/16 06:46 Dose: 100 mg Furosemide (Lasix -) 40 mg PO DAILY [facility] Last Admin: 12/02/16 11:27 Dose: 40 mg Levofloxacin (Levaquin 500 Mg Premixed Ivpb -) 100 mls @ 100 mls/hr IVPB DAILY [facility] Last Admin: 12/02/16 11:27 Dose: 100 mls/hr Insulin Aspart (Novolog Vial Sliding Scale -) 1 vial SQ ACHS [facility] PRN Reason: Protocol Last Admin: 12/02/16 11:28 Dose: Not Given Magnesium Hydroxide (Milk Of Magnesia -) 30 ml PO DAILY PRN PRN Reason: CONSTIPATION Methylprednisolone Sodium Succinate (Solu-Medrol -) 40 mg IVPB Q6H-IV [facility] Last Admin: 12/02/16 11:27 Dose: 40 mg Mirtazapine (Remeron -) 15 mg PO DAILY [facility] Last Admin: 12/02/16 11:27 Dose: 15 mg Montelukast Sodium (Singulair -) 10 mg PO HS [facility] Last Admin: 12/01/16 22:12 Dose: 10 mg Moxifloxacin HCl (Vigamox 0.5% Eye Drops -) 1 drop OD TID [facility] Last Admin: 12/02/16 06:46 Dose: 1 drop Oxybutynin Chloride (Ditropan -) 5 mg PO BID [facility] Last Admin: 12/02/16 11:27 Dose: 5 mg Potassium Chloride (Kcl Oral Solution -) 10 meq PO DAILY [facility] Last Admin: 12/02/16 11:53 Dose: Not Given Prednisolone Acetate (Pred Forte 1% -) 14.9925 drop OS DAILY [facility] Senna (Senna -) 1 tab PO BID [facility] Last Admin: 12/02/16 11:27 Dose: 1 tab Temazepam (Restoril -) 30 mg PO HS [facility] Last Admin: 12/01/16 22:12 Dose: 30 mg Warfarin Sodium (Coumadin -) 4 mg PO DAILY@1800 [facility] - Objective Vital Signs: Vital Signs Temperature 98.6 F 12/02/16 09:59 Pulse Rate 88 12/02/16 09:59 Respiratory Rate 20 12/02/16 09:59 Blood Pressure 114/74 12/02/16 09:59 O2 Sat by Pulse Oximetry (%) 96 12/01/16 21:00 Constitutional: Yes: No Distress, Obese Eyes: Yes: Conjunctiva Clear, EOM Intact HENT: Yes: Atraumatic, Normocephalic Cardiovascular: Yes: Regular Rate and Rhythm. No: JVD Respiratory: Yes: CTA Bilaterally Gastrointestinal: Yes: Normal Bowel Sounds, Soft. No: Tenderness Edema: LLE: Trace, RLE: Trace Neurological: Yes: Alert, Oriented, Cran Nerves II-XII Intact Psychiatric: Yes: WNL Labs: CBC, BMP 12/02/16 05:35 12/02/16 05:35 INR, PTT INR 3.10 (0.82-1.09) H 12/02/16 05:35 Assessment/Plan 71 yo female with sarcoidosis, COPD, HTN, and DVT, who was admitted n 11/30/16 with SOB over that prior 4 days. She was being treated for COPD exacerbation and today developed tachycardia and was transferred to telemetry floor. Cardiology was consulted for evaluation of dyspnea. ECG demonstrates sinus tachycardia. Trops (-) x2 and BNP only 164. CXR negative for acute pulmonary process. 12/01/16 Echo: TDS. Normal LV size. Normal to mildly reduced LV systolic function. RV systolic function normal. Mild BRAULIO. Mod to severe TR. Pulmonary hypertension with RVSP 50-60 mmHg. Suspect patient's dyspnea is due to COPD exacerbation/sarcoidosis. Low suspicion for CHF given CXR, low BNP, physical exam, and echo results. Noted pulmonary hypertension on 12/01/16 echo is not unusual in patient with chronic lung disease. Patient's tachycardia was also likely secondary to her COPD exacerbation and dose of IV lasix she received this AM. Currently normal HR. RECS: No further cardiac work-up or intervention is clinically indicated at this time. No furhter with IV lasix given rise in BUN and Cr with one dose of 40 mg IV x1 yesterday. Patient to continue oral furosemide 40 mg po daily. Patient reports that she has been on coumadin for her DVT diagnosed ~ 1 year ago. Unclear as to why her outside gas fitter has been keeping her on coumadin beyond 6 months for acute treatment of her DVT. Put[employer]ing And Calking Supervisor may be using anticoagulation given her pulmonary hypertension, but there is no consensus regarding the benefit of anticoagulation in this scenario. Patient was instructed to inquire from her private gas fitter regarding duration of anticoagulation therapy. Further recs as per primary team and pulmonary. Will see prn. Please call with questions.
--- NOTE | 2016-12-02 16:16 | PN ---
Progress Note, Physician History of Present Illness: Pt seen and examined at bedside. She does not feel much better. She denies hematuria or dysuria. - Current Medication List Current Medications: Active Medications Acetaminophen (Tylenol -) 650 mg PO Q4H PRN PRN Reason: FEVER OR PAIN Last Admin: 11/30/16 19:09 Dose: 650 mg Albuterol/Ipratropium (Duoneb -) 1 amp NEB QIDR [facility] Last Admin: 12/02/16 12:00 Dose: 1 amp Docusate Sodium (Colace -) 100 mg PO TID [facility] Last Admin: 12/02/16 15:22 Dose: 100 mg Furosemide (Lasix -) 40 mg PO DAILY [facility] Last Admin: 12/02/16 11:27 Dose: 40 mg Levofloxacin (Levaquin 500 Mg Premixed Ivpb -) 100 mls @ 100 mls/hr IVPB DAILY [facility] Last Admin: 12/02/16 11:27 Dose: 100 mls/hr Insulin Aspart (Novolog Vial Sliding Scale -) 1 vial SQ ACHS [facility] PRN Reason: Protocol Last Admin: 12/02/16 11:28 Dose: Not Given Magnesium Hydroxide (Milk Of Magnesia -) 30 ml PO DAILY PRN PRN Reason: CONSTIPATION Methylprednisolone Sodium Succinate (Solu-Medrol -) 40 mg IVPB Q6H-IV [facility] Last Admin: 12/02/16 15:22 Dose: 40 mg Mirtazapine (Remeron -) 15 mg PO DAILY [facility] Last Admin: 12/02/16 11:27 Dose: 15 mg Montelukast Sodium (Singulair -) 10 mg PO HS [facility] Last Admin: 12/01/16 22:12 Dose: 10 mg Moxifloxacin HCl (Vigamox 0.5% Eye Drops -) 1 drop OD TID [facility] Last Admin: 12/02/16 15:22 Dose: 1 drop Oxybutynin Chloride (Ditropan -) 5 mg PO BID [facility] Last Admin: 12/02/16 11:27 Dose: 5 mg Potassium Chloride (Kcl Oral Solution -) 10 meq PO DAILY [facility] Last Admin: 12/02/16 11:53 Dose: Not Given Prednisolone Acetate (Pred Forte 1% -) 14.9925 drop OS DAILY [facility] Senna (Senna -) 1 tab PO BID [facility] Last Admin: 12/02/16 11:27 Dose: 1 tab Temazepam (Restoril -) 30 mg PO HS [facility] Last Admin: 12/01/16 22:12 Dose: 30 mg Warfarin Sodium (Coumadin -) 4 mg PO DAILY@1800 [facility] - Objective Vital Signs: Vital Signs Temperature 97.4 F L 12/02/16 15:56 Pulse Rate 91 H 12/02/16 15:56 Respiratory Rate 20 12/02/16 15:56 Blood Pressure 125/66 12/02/16 15:56 O2 Sat by Pulse Oximetry (%) 96 12/01/16 21:00 Constitutional: Yes: Calm Eyes: Yes: Conjunctiva Clear HENT: Yes: Atraumatic Neck: Yes: Supple Cardiovascular: Yes: S1, S2 Respiratory: Yes: On Nasal O2, Wheezes Gastrointestinal: Yes: Soft, Abdomen, Obese Genitourinary: Yes: WNL Musculoskeletal: Yes: WNL Edema: Yes Edema: LLE: 2+, RLE: 2+ Neurological: Yes: Oriented Psychiatric: Yes: Oriented Labs: CBC, BMP 12/02/16 05:35 12/02/16 05:35 INR, PTT INR 3.10 (0.82-1.09) H 12/02/16 05:35 Problem List - Problems (1) Acute respiratory distress syndrome Code(s): J80 - ACUTE RESPIRATORY DISTRESS SYNDROME (2) Sarcoidosis of lung Code(s): D86.0 - SARCOIDOSIS OF LUNG (3) Tachycardia Code(s): R00.0 - TACHYCARDIA, UNSPECIFIED (4) Wheezing on auscultation Code(s): R06.2 - WHEEZING (5) CKD (chronic kidney disease) Code(s): N18.9 - CHRONIC KIDNEY DISEASE, UNSPECIFIED Assessment/Plan Current Medications Generic Name Dose Route Start Last Admin Trade Name Freq PRN Reason Stop Dose Admin Acetaminophen 650 mg 11/30/16 18:46 11/30/16 19:09 Tylenol - PO 650 mg Q4H PRN Administration FEVER OR PAIN Albuterol/Ipratropium 1 amp 12/01/16 00:00 12/02/16 12:00 Duoneb - NEB 1 amp QIDR [facility] Administration Docusate Sodium 100 mg 12/01/16 22:45 12/02/16 15:22 Colace - PO 100 mg TID [facility] Administration Furosemide 40 mg 12/02/16 10:00 12/02/16 11:27 Lasix - PO 40 mg DAILY [facility] Administration Levofloxacin 100 mls @ 100 mls/hr 12/01/16 10:00 12/02/16 11:27 Levaquin 500 Mg Premixed Ivpb - IVPB 100 mls/hr DAILY [facility] Administration Insulin Aspart 1 vial 11/30/16 22:00 12/02/16 11:28 Novolog Vial Sliding Scale - SQ Not Given ACHS [facility] Protocol Magnesium Hydroxide 30 ml 12/01/16 22:37 Milk Of Magnesia - PO DAILY PRN CONSTIPATION Methylprednisolone Sodium Succinate 40 mg 11/30/16 21:00 12/02/16 15:22 Solu-Medrol - IVPB 40 mg Q6H-IV [facility] Administration Mirtazapine 15 mg 12/01/16 10:00 12/02/16 11:27 Remeron - PO 15 mg DAILY [facility] Administration Montelukast Sodium 10 mg 11/30/16 22:00 12/01/16 22:12 Singulair - PO 10 mg HS [facility] Administration Moxifloxacin HCl 1 drop 12/01/16 14:00 12/02/16 15:22 Vigamox 0.5% Eye Drops - OD 1 drop TID [facility] Administration Oxybutynin Chloride 5 mg 11/30/16 22:00 12/02/16 11:27 Ditropan - PO 5 mg BID [facility] Administration Potassium Chloride 10 meq 12/01/16 10:00 12/02/16 11:53 Kcl Oral Solution - PO Not Given DAILY [facility] Prednisolone Acetate 14.9925 drop 12/01/16 10:00 Pred Forte 1% - OS DAILY [facility] Senna 1 tab 12/01/16 13:15 12/02/16 11:27 Senna - PO 1 tab BID [facility] Administration Temazepam 30 mg 11/30/16 23:30 12/01/16 22:12 Restoril - PO 30 mg HS [facility] Administration Warfarin Sodium 4 mg 12/02/16 18:00 Coumadin - PO DAILY@1800 [facility] Impression 1. azotemia - likely CKD 2. CHF 3. HTN 4. hyperlipidemia 5. hx DVT 6. COPD 7. sarcoidosis 8. anemia Plan - renal function not changed - check ua, spoke to nurse to get sample - will give an extra dose of lasix - repeat labs in am - lower extremity ultrasound neg for dvt - renal ultrasound reviewed and she does have one smaller kidney - will follow pt Dr Doty
[2016-12-02] MEDS ORDERED: FUROSEMIDE 40 MG/4 ML INJECTABLE VIAL IVPB ONE (16:22)
[2016-12-02] MEDS: WARFARIN NA 2 MG TABLET (UD) PO SCH (17:17)
[2016-12-02 17:30] LABS: URINE APPEARANCE CLEAR; URINE BILIRUBIN NEGATIVE (NEGATIVE); URINE COLOR STRAW; URINE GLUCOSE (UA) NEGATIVE (NEGATIVE); URINE KETONE NEGATIVE (NEGATIVE); URINE LEUK ESTERASE NEGATIVE (NEGATIVE); URINE NITRITE NEGATIVE (NEGATIVE); URINE PROTEIN NEGATIVE (NEGATIVE); URINE UROBILINOGEN NEGATIVE E.U./dl (0.2-1.0)
[2016-12-02 17:33] LABS: URINE BLOOD 1+ (NEGATIVE)
[2016-12-02 17:34] LABS: URINE BACTERIA RARE /hpf (NONE SEEN); URINE HYALINE CAST 12 /lpf; URINE MUCUS RARE; URINE RBC <1 /hpf (0-3); URINE WBC 1 /hpf (3-5)
[2016-12-02] MEDS: TEMAZEPAM 15 MG CAPSULE PO SCH (22:18)
[2016-12-02] MEDS: MONTELUKAST NA 10 MG TABLET PO SCH (22:19)
[2016-12-03] MEDS: ALBUTEROL SO4 2.5/IPRATROPIUM 0.5 INH SOL 3 ML VIAL.NEB. NEB SCH ×5 (01:00→23:05)
[2016-12-03] MEDS: methylPREDNISolone NA SUCC 40 MG/1 ML VIAL IVPB SCH ×4 (02:21→21:12)
[2016-12-03] MEDS: DOCUSATE SODIUM 100 MG CAPSULE (FP) PO SCH ×3 (05:59→21:16)
[2016-12-03] MEDS: INSULIN SLIDING SCALE (NOVOLOG) 1 VIAL SQ SCH ×4 (06:00→21:17)
[2016-12-03] MEDS: MOXIFLOXACIN HCL 0.5% OPHTHALMIC 3 ML BOTTLE OD SCH ×3 (06:00→21:18)
[2016-12-03 07:48] LABS: CALCIUM 8.3 mg/dL (8.5-10.1); CREATININE 1.3 mg/dL (0.55-1.02)
[2016-12-03] MEDS: OXYBUTYNIN CHLORIDE 5 MG TABLET PO SCH ×2 (09:42→21:16)
[2016-12-03] MEDS: SENNOSIDES 8.6MG TABLET (FP) PO SCH ×3 (09:42→21:17)
[2016-12-03] MEDS: FUROSEMIDE 40 MG TABLET (FP) PO SCH ×2 (09:42→14:34)
[2016-12-03] MEDS: POTASSIUM CHLORIDE 40 MEQ/30 ML UNIT DOSE CUP PO SCH ×2 (09:43→09:46)
[2016-12-03] MEDS ORDERED: LEVOFLOXACIN 500 MG IVPB 100 ML IVPB SCH (10:00)
--- NOTE | 2016-12-03 10:25 | PN ---
Progress Note, Physician Chief Complaint: awake c/o constipation breathing improving - Current Medication List Current Medications: Active Medications Acetaminophen (Tylenol -) 650 mg PO Q4H PRN PRN Reason: FEVER OR PAIN Albuterol/Ipratropium (Duoneb -) 1 amp NEB QIDR [facility] Last Admin: 12/03/16 05:35 Dose: 1 amp Docusate Sodium (Colace -) 100 mg PO TID [facility] Last Admin: 12/03/16 05:59 Dose: 100 mg Furosemide (Lasix -) 40 mg PO DAILY [facility] Last Admin: 12/03/16 09:42 Dose: 40 mg Levofloxacin (Levaquin 500 Mg Premixed Ivpb -) 100 mls @ 100 mls/hr IVPB DAILY [facility] Insulin Aspart (Novolog Vial Sliding Scale -) 1 vial SQ ACHS [facility] PRN Reason: Protocol Last Admin: 12/03/16 06:00 Dose: Not Given Magnesium Hydroxide (Milk Of Magnesia -) 30 ml PO DAILY PRN PRN Reason: CONSTIPATION Methylprednisolone Sodium Succinate (Solu-Medrol -) 40 mg IVPB Q6H-IV [facility] Last Admin: 12/03/16 09:42 Dose: 40 mg Mirtazapine (Remeron -) 15 mg PO HS [facility] Montelukast Sodium (Singulair -) 10 mg PO HS [facility] Moxifloxacin HCl (Vigamox 0.5% Eye Drops -) 1 drop OD TID [facility] Last Admin: 12/03/16 06:00 Dose: 1 drop Oxybutynin Chloride (Ditropan -) 5 mg PO BID [facility] Last Admin: 12/03/16 09:42 Dose: 5 mg Polyethylene Glycol (Miralax (For Daily Use) -) 17 gm PO DAILY [facility] Potassium Chloride (K-Dur -) 10 meq PO DAILY [facility] Prednisolone Acetate (Pred Forte 1% -) 14.9925 drop OS DAILY [facility] Senna (Senna -) 1 tab PO TID [facility] Temazepam (Restoril -) 30 mg PO HS [facility] Warfarin Sodium (Coumadin -) 4 mg PO DAILY@1800 [facility] Last Admin: 12/02/16 17:17 Dose: Not Given - Objective Vital Signs: Vital Signs Temperature 97.3 F L 12/03/16 06:00 Pulse Rate 94 H 12/03/16 06:00 Respiratory Rate 22 12/03/16 06:00 Blood Pressure 138/76 12/03/16 06:00 O2 Sat by Pulse Oximetry (%) 96 12/02/16 20:55 Constitutional: Yes: Mild Distress Eyes: Yes: WNL HENT: Yes: WNL Neck: Yes: WNL Cardiovascular: Yes: Regular Rate and Rhythm, Murmur Respiratory: Yes: On Nasal O2, Poor Air Entry Gastrointestinal: Yes: Distention Genitourinary: Yes: WNL Musculoskeletal: Yes: Muscle Weakness Extremities: Yes: WNL Edema: No Peripheral Pulses WNL: Yes Integumentary: Yes: WNL Wound/Incision: Yes: Clean/Dry Neurological: Yes: Unsteady Gait ...Motor Strength: LLE, RLE Psychiatric: Yes: WNL Labs: CBC, BMP 12/02/16 05:35 12/03/16 06:00 INR, PTT INR 3.10 (0.82-1.09) H 12/02/16 05:35 Problem List - Problems (1) Bronchitis Code(s): J40 - BRONCHITIS, NOT SPECIFIED ACUTE OR CHRONIC (2) Sarcoidosis of lung Code(s): D86.0 - SARCOIDOSIS OF LUNG (3) Wheezing on auscultation Code(s): R06.2 - WHEEZING (4) Acute respiratory distress syndrome Code(s): J80 - ACUTE RESPIRATORY DISTRESS SYNDROME (5) Tachycardia Code(s): R00.0 - TACHYCARDIA, UNSPECIFIED (6) Pulmonary hypertension Code(s): I27.2 - OTHER SECONDARY PULMONARY HYPERTENSION Assessment/Plan NO SIGNIFICANT TELEMETRY ALARMS NOW ON MED-SURG CARDIO EVAL APPRECIATED ECHO SHOWS SEVERE TRICUSPID DISEASE WITH PULMONARY HTN STEROIDS IV 02 SUPPORT NEBS PULM EVAL AC LABS REVIEWED [facility]
[2016-12-03] MEDS: POTASSIUM CHLORIDE TABS 10 MEQ TABLET.ER (FP) PO SCH (10:55)
[2016-12-03] MEDS: ACETAMINOPHEN 325 MG TABLET (FP) PO PRN (10:55)
--- NOTE | 2016-12-03 11:00 | PN ---
Progress Note (short form) - Note Progress Note: RENALPt is awake and alert comfortable if not moving has dyspnea Last Vital Signs Temp Pulse Resp BP Pulse Ox 97.3 F L 94 H 22 138/76 96 12/03/16 06:00 12/03/16 06:00 12/03/16 06:00 12/03/16 06:00 12/02/16 20:55 lungs has dry crackles and wheezes cvs s1s2 rr abd soft ext +edema neuro a+ox3 CBC, BMP 12/02/16 05:35 12/03/16 06:00 Current Medications Generic Name Dose Route Start Last Admin Trade Name Freq PRN Reason Stop Dose Admin Acetaminophen 650 mg 12/02/16 23:35 Tylenol - PO Q4H PRN FEVER OR PAIN Albuterol/Ipratropium 1 amp 12/03/16 00:00 12/03/16 05:35 Duoneb - NEB 1 amp QIDR [facility] Administration Docusate Sodium 100 mg 12/01/16 22:45 12/03/16 05:59 Colace - PO 100 mg TID [facility] Administration Furosemide 40 mg 12/02/16 10:00 12/03/16 09:42 Lasix - PO 40 mg DAILY [facility] Administration Levofloxacin 100 mls @ 100 mls/hr 12/03/16 10:00 Levaquin 500 Mg Premixed Ivpb - IVPB DAILY [facility] Insulin Aspart 1 vial 12/03/16 07:00 12/03/16 06:00 Novolog Vial Sliding Scale - SQ Not Given ACHS [facility] Protocol Magnesium Hydroxide 30 ml 12/01/16 22:37 Milk Of Magnesia - PO DAILY PRN CONSTIPATION Methylprednisolone Sodium Succinate 40 mg 12/03/16 03:00 12/03/16 09:42 Solu-Medrol - IVPB 40 mg Q6H-IV [facility] Administration Mirtazapine 15 mg 12/03/16 22:00 Remeron - PO HS [facility] Montelukast Sodium 10 mg 12/03/16 22:00 Singulair - PO HS [facility] Moxifloxacin HCl 1 drop 12/01/16 14:00 12/03/16 06:00 Vigamox 0.5% Eye Drops - OD 1 drop TID [facility] Administration Oxybutynin Chloride 5 mg 12/03/16 10:00 12/03/16 09:42 Ditropan - PO 5 mg BID [facility] Administration Polyethylene Glycol 17 gm 12/03/16 10:30 Miralax (For Daily Use) - PO DAILY [facility] Potassium Chloride 10 meq 12/03/16 10:30 K-Dur - PO DAILY [facility] Prednisolone Acetate 14.9925 drop 12/03/16 10:00 Pred Forte 1% - OS DAILY [facility] Senna 1 tab 12/03/16 14:00 Senna - PO TID [facility] Temazepam 30 mg 12/03/16 22:00 Restoril - PO HS [facility] Warfarin Sodium 4 mg 12/02/16 18:00 12/02/16 17:17 Coumadin - PO Not Given DAILY@1800 [facility] Impression 1. azotemia - likely CKD- has smallish kidneys 2. CHF 3. HTN 4. hyperlipidemia 5. hx DVT 6. COPD 7. sarcoidosis- possible cause of ckd 8. anemia 9. bun in part high from steoids Plan continue steroids diuretics cautious use of oxybutynin which can cause urinary retention would increase lasix to bid given edema and dyspnea at rest MV
[2016-12-03 11:01] LABS: INR 2.11 (0.82-1.09); PROTHROMBIN TIME (PATIENT) 23.6 SEC (9.98-11.88)
--- NOTE | 2016-12-03 12:35 | PN ---
Progress Note (short form) - Note Progress Note: PULMONARY States breathing slightly better but still with cough, wheezing, chest tightness. Last Vital Signs Temp Pulse Resp BP Pulse Ox 97.3 F L 94 H 22 138/76 96 12/03/16 06:00 12/03/16 06:00 12/03/16 06:00 12/03/16 06:00 12/02/16 20:55 Gen: mildly tachypneic at rest Heart: RRR Lung: scattered bilateral wheezes, rhonchi Abd: soft, nontender Ext: + edema CBC, BMP 12/02/16 05:35 12/03/16 06:00 Active Medications Acetaminophen (Tylenol -) 650 mg PO Q4H PRN PRN Reason: FEVER OR PAIN Last Admin: 12/03/16 10:55 Dose: 650 mg Albuterol/Ipratropium (Duoneb -) 1 amp NEB QIDR [facility] Last Admin: 12/03/16 05:35 Dose: 1 amp Docusate Sodium (Colace -) 100 mg PO TID [facility] Last Admin: 12/03/16 05:59 Dose: 100 mg Furosemide (Lasix -) 40 mg PO BID@0600,1400 [facility] Levofloxacin (Levaquin 500 Mg Premixed Ivpb -) 100 mls @ 100 mls/hr IVPB DAILY [facility] Last Admin: 12/03/16 10:51 Dose: 100 mls/hr Insulin Aspart (Novolog Vial Sliding Scale -) 1 vial SQ ACHS [facility] PRN Reason: Protocol Last Admin: 12/03/16 11:56 Dose: Not Given Magnesium Hydroxide (Milk Of Magnesia -) 30 ml PO DAILY PRN PRN Reason: CONSTIPATION Methylprednisolone Sodium Succinate (Solu-Medrol -) 40 mg IVPB Q6H-IV [facility] Last Admin: 12/03/16 09:42 Dose: 40 mg Mirtazapine (Remeron -) 15 mg PO HS [facility] Montelukast Sodium (Singulair -) 10 mg PO HS [facility] Moxifloxacin HCl (Vigamox 0.5% Eye Drops -) 1 drop OD TID [facility] Last Admin: 12/03/16 06:00 Dose: 1 drop Oxybutynin Chloride (Ditropan -) 5 mg PO BID [facility] Last Admin: 12/03/16 09:42 Dose: 5 mg Polyethylene Glycol (Miralax (For Daily Use) -) 17 gm PO DAILY [facility] Potassium Chloride (K-Dur -) 10 meq PO DAILY [facility] Last Admin: 12/03/16 10:55 Dose: 10 meq Prednisolone Acetate (Pred Forte 1% -) 14.9925 drop OS DAILY [facility] Senna (Senna -) 1 tab PO TID [facility] Temazepam (Restoril -) 30 mg PO HS [facility] Warfarin Sodium (Coumadin -) 4 mg PO DAILY@1800 [facility] Last Admin: 12/02/16 17:17 Dose: Not Given A/P Acute COPD Exacerbation Acute Bronchitis Sarcoidosis Chronic Hypoxic Respiratory Failure h/o DVT - continue medrol at current dose - inhaled bronchodilators standing and PRN - antibiotics - O2 to keep SpO2 >90% - lasix - monitor urine output, creatinine - DVT prophylaxis Problem List - Problems (1) Acute exacerbation of chronic obstructive pulmonary disease (COPD) Code(s): J44.1 - CHRONIC OBSTRUCTIVE PULMONARY DISEASE W (ACUTE) EXACERBATION (2) Sarcoidosis of lung Code(s): D86.0 - SARCOIDOSIS OF LUNG (3) Chronic respiratory failure with hypoxia Code(s): J96.11 - CHRONIC RESPIRATORY FAILURE WITH HYPOXIA (4) CKD (chronic kidney disease) Code(s): N18.9 - CHRONIC KIDNEY DISEASE, UNSPECIFIED
[2016-12-03] MEDS: POLYETHYLENE GLYCOL 3350 119 GM BTL PO SCH (14:35)
[2016-12-03] MEDS: WARFARIN NA 2 MG TABLET (UD) PO SCH (17:52)
--- NOTE | 2016-12-03 20:05 | CON.GI ---
Consult Consult Specialty:: GI Referred by:: Dr Champion Reason for Consultation:: Constipation - History of Present Illness Chief Complaint: Patient admitted with progressive dyspnea History of Present Illness: 71 F with 30 year h/o sarcoid, COPD, HTN, admitted with 5 days of progressive dyspnea. She states no CP but tachy on admission with rate 120-130, read as sinus tach. I am called for constipation. Patient states she has a long history of constipation and takes Senakot and a stool softener daily when at home. She states this regimen works well for her. She was placed on miralax and senna here and has already had a large BM. She denies blood in the stool. - History Source History Provided By: Patient, Family Member (Brother, who is a nurse educator and an [employer] TE[employer]ICIAN.) Limitations to Obtaining History: No Limitations - Past Medical History Cardio/Vascular: Yes: CHF, Deep Vein Thrombosis, HTN Pulmonary: Yes: COPD, Other (sarcoidosis) ...: No Rheumatology: Yes: Sarcoidosis - Past Surgical History Additional Surgical History: hip fracture - Alcohol/Substance Use Hx Alcohol Use: No - Smoking History Smoking history: Former smoker Have you smoked in the past 12 months: No Aproximately how many cigarettes per day: 0 Home Medications - Allergies Allergies/Adverse Reactions: Allergies Allergy/AdvReac Type Severity Reaction Status Date / Time No Known Allergies Allergy Verified 11/30/16 19:09 - Home Medications Home Medications: Ambulatory Orders Oxybutynin Chloride [Ditropan -] 5 mg PO BID 08/24/13 Prednisone [Deltasone -] 30 mg PO DAILY 08/24/13 Cholecalciferol (Vitamin D3) [Vitamin D3] 50,000 unit PO DAILY 11/30/16 Furosemide [Lasix -] 40 mg PO DAILY 11/30/16 Mirtazapine [Remeron Soltab -] 15 mg PO DAILY 11/30/16 Montelukast Na [Singulair -] 10 mg PO HS 11/30/16 Moxifloxacin HCl [Vigamox 0.5% Eye Drops -] 1 drop OS QID 11/30/16 Potassium Chloride 10 meq PO DAILY 11/30/16 Prednisolone 1% Ophthalmic [Pred Forte 1% -] 1 ml OS DAILY 11/30/16 Temazepam [Restoril] 30 mg PO HS 11/30/16 Warfarin Na [Coumadin] 4 mg PO ASDIR 11/30/16 Omep 40 12/01/16 Omeprazole 40 AM 12/01/16 Sennosides [Senna] 8.6 mg PO TID 12/01/16 Family Disease History - Family Disease History Other Family History: non-contributory Physical Exam-GI Vital Signs: Vital Signs Temperature 98.6 F 12/03/16 18:10 Pulse Rate 95 H 12/03/16 18:10 Respiratory Rate 22 12/03/16 18:10 Blood Pressure 129/65 12/03/16 18:10 O2 Sat by Pulse Oximetry (%) 96 12/03/16 09:00 Constitutional: Yes: Well Nourished, Mild Distress (somewhat short of breath on nasal O2) HENT: Yes: Normocephalic Neck: Yes: Supple Cardiovascular: Yes: Regular Rate and Rhythm Respiratory: Yes: On Nasal O2 (mild dyspnea) Gastrointestinal Inspection: Yes: Distention ...Auscultate: Yes: Normoactive Bowel Sounds ...Palpate: Yes: Soft, Tenderness (R/LLQ-mild) ...Percussion: Yes: Tympanitic Labs: CBC, BMP 12/02/16 05:35 12/03/16 06:00 INR, PTT INR 2.11 (0.82-1.09) H D 12/03/16 07:00 Assessment/Plan Constipation, now resolved on appropriate bowel regimen. Not a candidate for procedures due to impaired cardio-pulmonary status Continue poresent regimen. Would be happy to follow as outpatient
[2016-12-03] MEDS ORDERED: INSULIN (NOVOLOG) ASPART 100 UNITS/ML 10ML VIAL ONE (21:09)
[2016-12-03] MEDS ORDERED: TEMAZEPAM 15 MG CAPSULE PO SCH (22:00)
[2016-12-03] MEDS ORDERED: MIRTAZAPINE 15 MG TABLET (FP) PO SCH (22:00)
[2016-12-03] MEDS ORDERED: MONTELUKAST NA 10 MG TABLET PO SCH (22:00)
[2016-12-04] MEDS: predniSONE 20 MG TABLET (UD) PO SCH ×2 (00:41→09:45)
[2016-12-04] MEDS: SENNOSIDES 8.6MG TABLET (FP) PO SCH ×2 (06:35→13:06)
[2016-12-04] MEDS: FUROSEMIDE 40 MG TABLET (FP) PO SCH ×2 (06:35→13:06)
[2016-12-04] MEDS: DOCUSATE SODIUM 100 MG CAPSULE (FP) PO SCH ×2 (06:35→13:06)
[2016-12-04] MEDS: MOXIFLOXACIN HCL 0.5% OPHTHALMIC 3 ML BOTTLE OD SCH ×2 (06:36→13:04)
[2016-12-04] MEDS: INSULIN SLIDING SCALE (NOVOLOG) 1 VIAL SQ SCH ×2 (06:37→10:55)
[2016-12-04] MEDS ORDERED: INSULIN (NOVOLOG) ASPART 100 UNITS/ML 10ML VIAL ONE (06:48)
[2016-12-04] MEDS: ALBUTEROL SO4 2.5/IPRATROPIUM 0.5 INH SOL 3 ML VIAL.NEB. NEB SCH ×2 (06:50→11:35)
[2016-12-04 07:38] LABS: INR 1.8 (0.82-1.09)
[2016-12-04] MEDS ORDERED: PT OWN MED DRAWER 7, Y5N ONE (09:00)
[2016-12-04] MEDS: ACETAMINOPHEN 325 MG TABLET (FP) PO PRN (09:44)
[2016-12-04] MEDS: POLYETHYLENE GLYCOL 3350 119 GM BTL PO SCH (09:45)
[2016-12-04] MEDS: POTASSIUM CHLORIDE TABS 10 MEQ TABLET.ER (FP) PO SCH (09:45)
[2016-12-04] MEDS: OXYBUTYNIN CHLORIDE 5 MG TABLET PO SCH (09:45)
[2016-12-04] MEDS: prednisoLONE ACETATE 1% OPHTH SUSP 5 ML BOTTLE OS SCH ×2 (09:46→09:50)
[2016-12-04] MEDS ORDERED: LEVOFLOXACIN 250 MG TABLET (FP) PO SCH (10:00)
--- NOTE | 2016-12-04 11:43 | DS ---
Physical Examination Vital Signs: Vital Signs Temperature 97 F L 12/04/16 08:04 Pulse Rate 88 12/04/16 08:04 Respiratory Rate 20 12/04/16 08:04 Blood Pressure 147/80 12/04/16 08:04 O2 Sat by Pulse Oximetry (%) 98 12/04/16 09:00 Constitutional: Yes: No Distress Eyes: Yes: WNL HENT: Yes: WNL Neck: Yes: WNL Cardiovascular: Yes: WNL Respiratory: Yes: Diminished, On Nasal O2, Poor Air Entry Gastrointestinal: Yes: WNL Renal/: Yes: WNL Musculoskeletal: Yes: Muscle Weakness Extremities: Yes: WNL Edema: Yes Peripheral Pulses WNL: Yes Integumentary: Yes: WNL Wound/Incision: Yes: Clean/Dry Neurological: Yes: WNL ...Motor Strength: WNL, LLE, RLE Psychiatric: Yes: WNL Labs: CBC, BMP 12/02/16 05:35 12/03/16 06:00 Discharge Summary Reason For Visit: PULMONARY SARCOIDOSIS; BRONCHITIS Current Active Problems Acute exacerbation of chronic obstructive pulmonary disease (COPD) (Acute) Acute respiratory distress syndrome (Acute) Bronchitis (Acute) CKD (chronic kidney disease) (Acute) Chronic respiratory failure with hypoxia (Acute) Pulmonary hypertension (Acute) Sarcoidosis of lung (Acute) Tachycardia (Acute) Wheezing on auscultation (Acute) Procedures: Principal: CT SCAN Other Procedures: LABS Hospital Course: ADMITTED TACHYCARDIA/RESP DISTRESS, TREATED IV ABX/STEROIDS/02 SUPPORT Condition: Improved - Instructions Diet, Activity, Other Instructions: LOW SODIUM ADA Disposition: ALF FACILITY - Home Medications Comprehensive Discharge Medication List: Ambulatory Orders Oxybutynin Chloride [Ditropan -] 5 mg PO BID 08/24/13 Cholecalciferol (Vitamin D3) [Vitamin D3] 50,000 unit PO DAILY 11/30/16 Furosemide [Lasix -] 40 mg PO DAILY 11/30/16 Mirtazapine [Remeron Soltab -] 15 mg PO DAILY 11/30/16 Montelukast Na [Singulair -] 10 mg PO HS 11/30/16 Moxifloxacin HCl [Vigamox 0.5% -] 1 drop OS QID 11/30/16 Potassium Chloride 10 meq PO DAILY 11/30/16 Prednisolone 1% Ophthalmic [Pred Forte 1% -] 1 ml OS DAILY 11/30/16 Temazepam [Restoril -] 30 mg PO HS 11/30/16 Warfarin Na [Coumadin -] 4 mg PO ASDIR 11/30/16 Omep 40 12/01/16 Omeprazole 40 AM 12/01/16 Sennosides [Senna] 8.6 mg PO TID 12/01/16 Acetaminophen [Tylenol .Regular Strength -] 650 mg PO Q4H PRN #0 tablet Albuterol 2.5/Ipratropium 0.5 [Duoneb -] 1 amp NEB QIDR amp 12/04/16 Docusate Sodium [Colace -] 100 mg PO TID 12/04/16 Furosemide [Lasix -] 40 mg PO BID@0600,1400 tablet 12/04/16 Insulin Sliding Scale [Novolog Vial Sliding Scale -] 1 vial SQ ACHS units 12/04 Levofloxacin [Levaquin -] 250 mg PO DAILY #3 tablet 12/04/16 Magnesium Hydrox 2400MG/30Ml [Milk of Magnesia -] 30 ml PO DAILY PRN #0 Montelukast Na [Singulair -] 10 mg PO HS tablet 12/04/16 Moxifloxacin HCl [Vigamox 0.5% -] 1 drop OD TID 12/04/16 Polyethylene Glycol 3350 [Miralax 119 gm Btl -] 17 gm PO DAILY bottle 12/04/16 Potassium Chloride [K-Dur -] 10 meq PO DAILY 12/04/16 Prednisone [Deltasone -] 20 mg PO BID tablet 12/04/16 Sennosides [Senna -] 1 tab PO TID tablet 12/04/16 Temazepam [Restoril -] 30 mg PO HS MDD 1 12/04/16 Warfarin Na [Coumadin -] 4 mg PO DAILY@1800 tablet 12/04/16
--- NOTE | 2016-12-04 12:32 | PN ---
Progress Note (short form) - Note Progress Note: RENAL Pt is awake and alert comfortable if not moving has dyspnea Last Vital Signs Temp Pulse Resp BP Pulse Ox 97 F L 88 20 147/80 98 12/04/16 08:04 12/04/16 08:04 12/04/16 08:04 12/04/16 08:04 12/04/16 09:00 lungs has dry crackles no wheezes cvs s1s2 rr abd soft ext +edema neuro a+ox3 CBC, BMP 12/02/16 05:35 12/03/16 06:00 Current Medications Generic Name Dose Route Start Last Admin Trade Name Freq PRN Reason Stop Dose Admin Acetaminophen 650 mg 12/02/16 23:35 12/04/16 09:44 Tylenol - PO 650 mg Q4H PRN Administration FEVER OR PAIN Albuterol/Ipratropium 1 amp 12/03/16 00:00 12/04/16 11:35 Duoneb - NEB 1 amp QIDR [facility] Administration Docusate Sodium 100 mg 12/01/16 22:45 12/04/16 06:35 Colace - PO 100 mg TID [facility] Administration Furosemide 40 mg 12/03/16 14:00 12/04/16 06:35 Lasix - PO 40 mg BID@0600,1400 [facility] Administration Insulin Aspart 1 vial 12/03/16 07:00 12/04/16 10:55 Novolog Vial Sliding Scale - SQ Not Given ACHS [facility] Protocol Levofloxacin 250 mg 12/04/16 10:00 12/04/16 09:45 Levaquin - PO 250 mg DAILY [facility] Administration Magnesium Hydroxide 30 ml 12/01/16 22:37 Milk Of Magnesia - PO DAILY PRN CONSTIPATION Mirtazapine 15 mg 12/03/16 22:00 12/03/16 21:17 Remeron - PO 15 mg HS [facility] Administration Montelukast Sodium 10 mg 12/03/16 22:00 12/03/16 21:18 Singulair - PO 10 mg HS [facility] Administration Moxifloxacin HCl 1 drop 12/01/16 14:00 12/04/16 06:36 Vigamox 0.5% Eye Drops - OD Not Given TID [facility] Oxybutynin Chloride 5 mg 12/03/16 10:00 12/04/16 09:45 Ditropan - PO 5 mg BID [facility] Administration Polyethylene Glycol 17 gm 12/03/16 10:30 12/04/16 09:45 Miralax (For Daily Use) - PO 17 gm DAILY [facility] Administration Potassium Chloride 10 meq 12/03/16 10:30 12/04/16 09:45 K-Dur - PO 10 meq DAILY [facility] Administration Prednisolone Acetate 1 drop 12/04/16 10:00 12/04/16 09:50 Pred Forte 1% - OS Not Given DAILY [facility] Prednisone 20 mg 12/03/16 22:00 12/04/16 09:45 Deltasone - PO 20 mg BID [facility] Administration Senna 1 tab 12/03/16 14:00 12/04/16 06:35 Senna - PO 1 tab TID [facility] Administration Temazepam 30 mg 12/03/16 22:00 12/03/16 21:17 Restoril - PO 30 mg HS [facility] Administration Warfarin Sodium 4 mg 12/02/16 18:00 12/03/16 17:52 Coumadin - PO 4 mg DAILY@1800 [facility] Administration Impression 1. azotemia - likely CKD- has smallish kidneys 2. CHF 3. HTN 4. hyperlipidemia 5. hx DVT 6. COPD 7. sarcoidosis- possible cause of ckd 8. anemia 9. bun in part high from steoids Plan continue steroids diuretics cautious use of oxybutynin which can cause urinary retention continue current management no objecton to dc with close follow up MV
[2016-12-04 13:41] VITALS: BP 117/57; PULSE 98; TEMP 98
== END 2016-12-04 13:58 | DRG 191 ==
LOC: JER 12:54 → JERBED 16:56 → J7W 21:12 → J4W 12-01 14:04 → J5S 12-02 23:11
PROVIDERS: ADMIT Family Medicine; ATTEND Family Medicine
DX: J44.1 Chronic obstructive pulmonary disease with (acute) exacerbation (principal); I13.0 Hypertensive heart and chronic kidney disease with heart failure and stage 1 through stage 4 chronic kidney disease, or unspecified chronic kidney disease; J96.11 Chronic respiratory failure with hypoxia; J20.9 Acute bronchitis, unspecified; I27.2 Other secondary pulmonary hypertension; R00.0 Tachycardia, unspecified; K59.00 Constipation, unspecified; E78.5 Hyperlipidemia, unspecified; D64.9 Anemia, unspecified; N18.9 Chronic kidney disease, unspecified; Z87.891 Personal history of nicotine dependence; D86.0 Sarcoidosis of lung; I50.9 Heart failure, unspecified
CPT/HCPCS: 36415; 36600; 71010-TC; 76775-TC; 76856-TC; 80048; 80053; 80061; 81003; 81015; 82550; 82803; 83036; 83721; 83735; 83880; 84484; 85025; 85027; 85610; 86038; 93005; 93010; 93306-TC; 93880-TC; 93970-TC; 94640; 97116-GP; 97161-GP; 99284-25

== ENCOUNTER 2017-06-01 23:27 | Inpatient (IN) | payer OTHER ==
[2017-06-01 23:50] VITALS: BMI 37.1
[2017-06-02] MEDS ORDERED: ASPIRIN 81 MG CHEWABLE TABLETS PO ONE (00:28)
--- NOTE | 2017-06-02 00:28 | PDOC ---
History of Present Illness <Olga Delgadillo - Last Filed: 06/02/17 02:02> <Mita Ku - Last Filed: 06/02/17 02:37> - General Chief Complaint: Chest Pain Stated Complaint: COPD Time Seen by Provider: 06/02/17 00:07 - History of Present Illness Initial Comments: 06/02/17 00:38 The patient is a 72 year old female, with a significant past medical history of COPD (sarcoidosis), O2 dependency, hypertension, and DVT who presents to the emergency department complaining of chest pain and shortness of breath today. She describes the chest pain as diffuse across her upper chest, bilaterally. The patients daughter states her mother was also complaining of pain to her left arm at the time her chest pain started upon ems/patient arrival to the ED today. The patients daughter reports the patient was discharged from [facility] on , 05/27/17. The patient is currently sleeping and when she is aroused, wakes up and states I took my sleeping meds and i want to go to bed. The patient denies any recent travel or sick contacts. The patient denies fever, chills, cough, headache, or dizziness. The patient denies hematuria, dysuria, frequency, or urgency. The patient denies diarrhea, constipation, hematochezia. Allergies: None reported. Past Surgical History: Left hip fracture repair (1977) Social History: Former smoker. Denies alcohol or drug use. PCP: Dr. Escamilla Rake Operator: Dr. Freeman (Olga Delgadillo) Past History <Olga Delgadillo - Last Filed: 06/02/17 02:02> - Past Medical History COPD: Yes (sarcoidosis) HTN: Yes - Surgical History Abdominal Surgery: (hysterectomy) Orthopedic Surgery: Yes (repair left hip fracture 1977) - Psycho/Social/Smoking Cessation Hx Anxiety: No Suicidal Ideation: No Smoking History: Unknown if ever smoked Have you smoked in the past 12 months: No Number of Cigarettes Smoked Daily: 0 Cigars Per Day: 0 Information on smoking cessation initiated: No Hx Alcohol Use: No Drug/Substance Use Hx: No Substance Use Type: None Hx Substance Use Treatment: No <Mita Ku - Last Filed: 06/02/17 02:37> - Past Medical History Allergies/Adverse Reactions: Allergies Allergy/AdvReac Type Severity Reaction Status Date / Time No Known Allergies Allergy Verified 06/01/17 23:45 Home Medications: Ambulatory Orders Oxybutynin Chloride [Ditropan -] 5 mg PO BID 08/24/13 Cholecalciferol (Vitamin D3) [Vitamin D3] 50,000 unit PO DAILY 11/30/16 Mirtazapine [Remeron Soltab -] 15 mg PO DAILY 11/30/16 Omeprazole 40 mg PO AM 12/01/16 Sennosides [Senna] 8.6 mg PO TID 12/01/16 Acetaminophen [Tylenol .Regular Strength -] 650 mg PO Q4H PRN #0 tablet Albuterol 2.5/Ipratropium 0.5 [Duoneb -] 1 amp NEB QIDR amp 12/04/16 Docusate Sodium [Colace -] 100 mg PO TID 12/04/16 Furosemide [Lasix -] 40 mg PO BID@0600,1400 tablet 12/04/16 Insulin Sliding Scale [Novolog Vial Sliding Scale -] 1 vial SQ ACHS units 12/04 Magnesium Hydrox 2400MG/30Ml [Milk of Magnesia -] 30 ml PO DAILY PRN #0 Montelukast Na [Singulair -] 10 mg PO HS tablet 12/04/16 Potassium Chloride [K-Dur -] 10 meq PO DAILY 12/04/16 Temazepam [Restoril -] 30 mg PO HS MDD 1 12/04/16 Ferrous Sulfate 325 mg PO DAILY 12/17/16 Warfarin Na [Coumadin -] 4.5 mg PO DAILY@1800 12/17/16 Polyethylene Glycol 3350 [Miralax 119 gm Btl -] 17 gm PO DAILY PRN 06/02/17 Review of Systems - Review of Systems Able to Perform ROS?: Yes <Olga Delgadillo - Last Filed: 06/02/17 02:02> <Mita Ku - Last Filed: 06/02/17 02:37> - Review of Systems Comments:: 06/02/17 00:38 CONSTITUTIONAL: Absent: fever, chills, diaphoresis, generalized weakness, malaise, loss of appetite HEENT: Absent: rhinorrhea, nasal congestion, throat pain, throat swelling, difficulty swallowing, mouth swelling, ear pain, eye pain, visual Changes CARDIOVASCULAR: (+) chest pain, Absent: syncope, palpitations, irregular heart rate, lightheadedness, peripheral edema RESPIRATORY: (+) shortness of breath, Absent: cough, dyspnea with exertion, orthopnea, wheezing, stridor, hemoptysis GASTROINTESTINAL: Absent: abdominal pain, abdominal distension, nausea, vomiting, diarrhea, constipation, melena, hematochezia GENITOURINARY: Absent: dysuria, frequency, urgency, hesitancy, hematuria, flank pain, genital pain MUSCULOSKELETAL: Absent: myalgia, arthralgia, joint swelling SKIN: Absent: rash, itching, pallor HEMATOLOGIC/IMMUNOLOGIC: Absent: easy bleeding, easy bruising, lymphadenopathy, frequent infections ENDOCRINE: Absent: unexplained weight gain, unexplained weight loss, heat intolerance, cold intolerance NEUROLOGIC: Absent: headache, focal weakness or paresthesias, dizziness, unsteady gait, seizure, mental status changes, bladder or bowel incontinence PSYCHIATRIC: Absent: anxiety, depression, suicidal or homicidal ideation, hallucinations. (Olag Delgadillo) *Physical Exam <Olga Delgadillo - Last Filed: 06/02/17 02:02> <Mita Ku - Last Filed: 06/02/17 02:37> - Vital Signs Last Vital Signs Temp Pulse Resp BP Pulse Ox 98.0 F 102 H 16 134/77 94 L 06/01/17 23:45 06/02/17 00:10 06/01/17 23:45 06/01/17 23:45 06/01/17 23:45 - Physical Exam Comments: 06/02/17 00:39 GENERAL: (+) Mild respiratory distress, somnolent but arousable. Well developed, well nourished. Awake and alert. HEENT: Normocephalic, atraumatic. PERRLA, EOMI. No conjunctival pallor. Sclera are non- icteric. Moist mucous membranes. Oropharynx is clear. NECK: Supple. Full ROM. No JVD. Carotid pulses 2+ and symmetric, without bruits. No thyromegaly. No lymphadenopathy. CARDIOVASCULAR: (+) Tachycardic rate and normal rhythm. No murmurs, rubs, or gallops. Distal pulses are 2+ and symmetric. PULMONARY: (+) scattered course wheezes bilaterally. Mild respiratory distress. No rales or rhonchi. ABDOMINAL: Soft. Non-tender. Non-distended. No rebound or guarding. No organomegaly. Normoactive bowel sounds. MUSCULOSKELETAL Normal range of motion at all joints. No bony deformities or tenderness. No CVA tenderness. EXTREMITIES: No cyanosis. No clubbing. No edema. No calf tenderness. SKIN: Warm and dry. Normal capillary refill. No rashes. No jaundice. NEUROLOGICAL: Alert, awake, appropriate. Cranial nerves 2-12 intact. Normoreflexic in the upper and lower extremities. Normal speech. Toes are down-going bilaterally. Gait is normal without ataxia. PSYCHIATRIC: Cooperative. Good eye contact. Appropriate mood and affect. (Olga Delgadillo) Heart Score/ECG Review - History History: Slightly suspicious - Electrocardiogram EKG: Normal - Age Age: >/= 65 - Risk Factors Risk Factors Heart Score: Yes Hx Hypertension, Yes Hx Diabetes, Yes Hx Obesity Based on the list above the patient has:: >/=3 risk factors or Hx atherosclerotic disease - Troponin Troponin: </= normal limit - Score Heart Score - Total: 4 <Mita Ku - Last Filed: 06/02/17 02:37> ED Treatment Course - LABORATORY CBC & Chemistry Diagram: 06/02/17 00:50 06/02/17 00:50 <Olga Delgadillo - Last Filed: 06/02/17 02:02> - LABORATORY CBC & Chemistry Diagram: 06/02/17 00:50 06/02/17 00:50 <Mita Ku - Last Filed: 06/02/17 02:37> - ADDITIONAL ORDERS Additional order review: Laboratory Results 06/02/17 06/02/17 00:50 00:37 INR 2.45 H D Sodium 141 Potassium 4.2 Chloride 97 L Carbon Dioxide 35 H Anion Gap 9 BUN 30 H D Creatinine 1.5 H Creat Clearance w eGFR 34.23 Random Glucose 115 H D Calcium 8.4 L Magnesium 2.1 Total Bilirubin 0.4 D AST 10 L ALT 18 D Alkaline Phosphatase 62 Creatine Kinase 43 Troponin I 0.02 B-Natriuretic Peptide 209.96 H Total Protein 5.8 L Albumin 3.1 L 06/02/17 00:50 RBC 4.42 MCV 94.0 MCHC 32.9 RDW 17.1 H MPV 8.4 Neutrophils % 76.0 Lymphocytes % 14.2 D Monocytes % 7.8 D Eosinophils % 1.3 D Basophils % 0.7 D - RADIOLOGY Radiology Studies Ordered: Category Date Time Status CHEST X-RAY PORTABLE* [RAD] Stat Radiology 06/02/17 00:28 Taken Radiograph Interpretation: 06/02/17 01:29 On preliminary read by Dr. Ku, the patient's CXR reveals chronic interstitial lung disease/sarcoidoisis. Unchanged when compared to a CXR from 2013. (Olga Delgadillo) - Medications Given in the ED: ED Medications Discontinued Medications Generic Name Dose Route Start Last Admin Trade Name Freq PRN Reason Stop Dose Admin Albuterol/Ipratropium 1 amp 06/02/17 01:00 06/02/17 01:12 Duoneb - NEB 06/02/17 01:46 1 amp Q15M PHOEBE Administration Methylprednisolone Sodium Succinate 125 mg 06/02/17 00:59 06/02/17 01:12 Solu-Medrol - IVPB 06/02/17 01:00 125 mg ONCE ONE Administration Medical Decision Making <Olga Delgadillo - Last Filed: 06/02/17 02:02> <Mita Ku - Last Filed: 06/02/17 02:37> - Medical Decision Making 06/02/17 01:43 Dr. Walton was paged at this time requesting a call back for doctor to doctor consult. (Olga Delgadillo) 06/02/17 01:45 72-year-old female brought in by ambulance for chest pain and shortness of breath. Past medical history significant for sarcoidosis, blindness in the left eye Patient is sleeping. Her daughter states that the patient took her sleeping medicine prior to arrival. -the daughter states the patient was discharged from [facility] on and has since developed increasing shortness of breath -. The ambulance was called initially for the patient's shortness of breath and while on the ambulance gurney had transient chest pain, midsternal, radiating to the left. Initially it was 5 out of 10. First troponin is negative. Initially she came in sinus tachycardia 126. Heart rate is now down to 102 Given steroids and respiratory treatments Chest x-ray unchanged from prior 06/02/17 02:00 Impression COPD exacerbation (Mita Ku) *DC/Admit/Observation/Transfer <Olga Delgadillo - Last Filed: 06/02/17 02:02> - Discharge Dispostion Admit: Yes <Mita Ku - Last Filed: 06/02/17 02:37> Diagnosis at time of Disposition: Chronic respiratory failure with hypoxia, Sarcoidosis of lung - Discharge Dispostion Decision to Admit order Date/Time: Decision to Admit Order Category Date Time Status Decision to Admit to Hospital Routine Admission 06/02/17 02:32 Active - Referrals Referrals: Digna Walton MD [Primary Care Provider] - - Attestations Scribe Attestion: 06/02/17 00:39 Documentation prepared by Olga Delgadillo, acting as medical appointment scheduler for Mita Ku MD (Olga Delgadillo)
[2017-06-02] MEDS ORDERED: methylPREDNISolone NA SUCC 125 MG/2 ML VIAL IVPB ONE (00:59)
[2017-06-02 01:01] LABS: BASOPHIL 0.7 % (0-2.0); EOSINOPHIL 1.3 % (0-4.5); MCH 30.9 pg (25.7-33.7); MCHC 32.9 g/dl (32.0-36.0); MEAN PLT VOLUME 8.4 fl (7.5-11.1); PLATELET COUNT 165 K/MM3 (134-434); RDW 17.1 % (11.6-15.6); WHITE BLOOD COUNT 8.8 K/mm3 (4.0-10.0)
[2017-06-02] MEDS ORDERED: methylPREDNISolone NA SUCC 125 MG/2 ML VIAL ONE (01:05)
[2017-06-02] MEDS: ALBUTEROL SO4 2.5/IPRATROPIUM 0.5 INH SOL 3 ML VIAL.NEB. NEB SCH ×6 (01:05→12:21)
[2017-06-02 01:09] LABS: INR 2.45 (0.82-1.09); PROTHROMBIN TIME (PATIENT) 27.4 SEC (9.98-11.88)
[2017-06-02 01:35] LABS: ALBUMIN 3.1 g/dl (3.4-5.0); ANION GAP 9 (8-16); BILIRUBIN,TOTAL 0.4 mg/dL (0.2-1.0); CALCIUM 8.4 mg/dL (8.5-10.1); CO2 35 mmol/L (21-32); CREATININE 1.5 mg/dL (0.55-1.02); GLUCOSE,RANDOM 115 mg/dL (74-106); MAGNESIUM 2.1 mg/dL (1.8-2.4); SGOT/AST 10 U/L (15-37); SGPT/ALT 18 U/L (12-78); TOT PROT 5.8 g/dl (6.4-8.2)
[2017-06-02 01:38] LABS: ALK PHOS 62 U/L (45-117); CPK 43 IU/L (26-192); TROPONIN I 0.02 ng/ml (0.00-0.05)
[2017-06-02] MEDS ORDERED: POLYETHYLENE GLYCOL 3350 119 GM BTL PO PRN (02:50)
[2017-06-02] MEDS ORDERED: MAGNESIUM HYDROX 2400MG/30ML ORAL SUSPENSION 30 ML CUP PO PRN (02:50)
[2017-06-02] MEDS: FUROSEMIDE 40 MG TABLET (FP) PO SCH ×2 (06:49→13:15)
[2017-06-02] MEDS ORDERED: FUROSEMIDE 40 MG TABLET (FP) ONE (06:49)
[2017-06-02] MEDS: DOCUSATE SODIUM 100 MG CAPSULE (FP) PO SCH ×3 (06:49→21:24)
[2017-06-02] MEDS ORDERED: DOCUSATE SODIUM 100 MG CAPSULE (FP) PO ONE (06:49)
[2017-06-02] MEDS: SENNOSIDES 8.6MG TABLET (FP) PO SCH ×3 (06:50→21:24)
[2017-06-02 06:58] LABS: URINE APPEARANCE SLCLOUDY; URINE BILIRUBIN NEGATIVE (NEGATIVE); URINE BLOOD 2+ (NEGATIVE); URINE COLOR DKYELLOW; URINE GLUCOSE (UA) NEGATIVE (NEGATIVE); URINE KETONE TRACE (NEGATIVE); URINE LEUK ESTERASE TRACE (NEGATIVE); URINE NITRITE NEGATIVE (NEGATIVE); URINE PROTEIN NEGATIVE (NEGATIVE); URINE UROBILINOGEN NEGATIVE mg/dL (0.2-1.0)
[2017-06-02] MEDS: INSULIN SLIDING SCALE (NOVOLOG) 1 VIAL SQ SCH ×6 (07:24→21:24)
[2017-06-02 07:37] LABS: URINE HYALINE CAST 8 /lpf; URINE MUCUS RARE; URINE RBC 3 /hpf (0-3); URINE WBC 2 /hpf (3-5)
[2017-06-02] MEDS: methylPREDNISolone NA SUCC 125 MG/2 ML VIAL IVPB SCH ×3 (09:18→21:24)
[2017-06-02] MEDS: PANTOPRAZOLE 40 MG TABLET (FP) PO SCH (09:19)
[2017-06-02] MEDS: POTASSIUM CHLORIDE TABS 10 MEQ TABLET.ER (FP) PO SCH (09:19)
[2017-06-02] MEDS: OXYBUTYNIN CHLORIDE 5 MG TABLET PO SCH ×2 (09:19→21:24)
--- NOTE | 2017-06-02 10:45 | EKG ---
Test Reason : Blood Pressure : / mmHG Vent. Rate : 126 BPM Atrial Rate : 126 BPM P-R Int : 134 ms QRS Dur : 074 ms QT Int : 318 ms P-R-T Axes : 020 016 034 degrees QTc Int : 460 ms SINUS TACHYCARDIA NONSPECIFIC T WAVE ABNORMALITY ABNORMAL ECG WHEN COMPARED WITH ECG OF 01-DEC-2016 08:37, NO SIGNIFICANT CHANGE WAS FOUND Confirmed by TABATHA LABOY MD ([id number]) on 06/02/2017 10:44:40 AM Referred By: Confirmed By:TABATHA LABOY MD
[2017-06-02] MEDS: ACETAMINOPHEN 325 MG TABLET (FP) PO PRN (10:57)
[2017-06-02] MEDS ORDERED: ACETAMINOPHEN 325 MG TABLET (FP) ONE (10:59)
[2017-06-02] MEDS ORDERED: ALBUTEROL SO4 2.5/IPRATROPIUM 0.5 INH SOL 3 ML VIAL.NEB. NEB ONE (12:21)
--- NOTE | 2017-06-02 14:06 | CON.PULM ---
Consult Consult Specialty:: PULMONARY Referred by:: GAGE Reason for Consultation:: COUGH/WHEEZE/SOB - History of Present Illness Chief Complaint: COUGH/WHEEZE/SOB History of Present Illness: 71yo female with h/o HTN, sarcoidosis, COPD, chronic hypoxic respiratory failure , h/o DVT who was admitted for worsening shortness of breath and chest pain described as left shoulder pain radiating to arm x 4 days. No fevers, chills or sweats. She does have a nonproductive cough and wheezing. She is maintained on Symbicort at home. She is a former long time smoker, quit 3 years ago. 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 No: Fibromyalgia - Past Surgical History Past Surgical History: Yes: Hysterectomy, Joint Replacement - Alcohol/Substance Use Hx Alcohol Use: No History of Substance Use: reports: None - Smoking History Smoking history: Unknown if ever smoked Have you smoked in the past 12 months: No Aproximately how many cigarettes per day: 0 - Social History Usual Living Arrangement: Alone ADL: Independent Place of : [facility] History of Recent Travel: No Home Medications - Allergies Allergies/Adverse Reactions: Allergies Allergy/AdvReac Type Severity Reaction Status Date / Time No Known Allergies Allergy Verified 06/01/17 23:45 - Home Medications Home Medications: Ambulatory Orders Oxybutynin Chloride [Ditropan -] 5 mg PO BID 08/24/13 Cholecalciferol (Vitamin D3) [Vitamin D3] 50,000 unit PO DAILY 11/30/16 Mirtazapine [Remeron Soltab -] 15 mg PO DAILY 11/30/16 Omeprazole 40 mg PO AM 12/01/16 Sennosides [Senna] 8.6 mg PO TID 12/01/16 Acetaminophen [Tylenol .Regular Strength -] 650 mg PO Q4H PRN #0 tablet Albuterol 2.5/Ipratropium 0.5 [Duoneb -] 1 amp NEB QIDR amp 12/04/16 Docusate Sodium [Colace -] 100 mg PO TID 12/04/16 Furosemide [Lasix -] 40 mg PO BID@0600,1400 tablet 12/04/16 Insulin Sliding Scale [Novolog Vial Sliding Scale -] 1 vial SQ ACHS units 12/04 Magnesium Hydrox 2400MG/30Ml [Milk of Magnesia -] 30 ml PO DAILY PRN #0 Montelukast Na [Singulair -] 10 mg PO HS tablet 12/04/16 Potassium Chloride [K-Dur -] 10 meq PO DAILY 12/04/16 Temazepam [Restoril -] 30 mg PO HS MDD 1 12/04/16 Ferrous Sulfate 325 mg PO DAILY 12/17/16 Warfarin Na [Coumadin -] 4.5 mg PO DAILY@1800 12/17/16 Polyethylene Glycol 3350 [Miralax 119 gm Btl -] 17 gm PO DAILY PRN 06/02/17 Family Disease History - Family Disease History Family History: Unremarkable Review of Systems - Review of Systems Cardiovascular: reports: Chest Pain, Shortness of Breath. denies: Palpitations Respiratory: reports: Cough, Exercise Intolerance, SOB, SOB on Exertion, Wheezing. denies: Hemoptysis Gastrointestinal: denies: Abdominal Pain Genitourinary: denies: Burning Physical Exam Vital Sings: Vital Signs Temperature 97.5 F L 06/02/17 13:22 Pulse Rate 93 H 06/02/17 13:22 Respiratory Rate 16 06/02/17 13:22 Blood Pressure 108/66 06/02/17 13:22 O2 Sat by Pulse Oximetry (%) 96 06/02/17 13:22 Constitutional: Yes: Anxious Eyes: Yes: EOM Intact HENT: Yes: Normocephalic Neck: Yes: Trachea Midline Cardiovascular: Yes: Regular Rate and Rhythm, Tachycardia Respiratory: Yes: Diminished, Rales, Wheezes Gastrointestinal: Yes: Soft, Abdomen, Obese Edema: No Neurological: Yes: Alert Labs: ALL REVIEWED Imaging - Results Chest X-ray: Image Reviewed Problem List - Problems (1) Chronic respiratory failure with hypoxia Code(s): J96.11 - CHRONIC RESPIRATORY FAILURE WITH HYPOXIA (2) Sarcoidosis of lung Code(s): D86.0 - SARCOIDOSIS OF LUNG (3) Acute exacerbation of chronic obstructive pulmonary disease (COPD) Code(s): J44.1 - CHRONIC OBSTRUCTIVE PULMONARY DISEASE W (ACUTE) EXACERBATION (4) Acute respiratory distress syndrome Code(s): J80 - ACUTE RESPIRATORY DISTRESS SYNDROME (5) Bronchitis Code(s): J40 - BRONCHITIS, NOT SPECIFIED ACUTE OR CHRONIC (6) Pulmonary hypertension Code(s): I27.2 - OTHER SECONDARY PULMONARY HYPERTENSION (7) Tachycardia Code(s): R00.0 - TACHYCARDIA, UNSPECIFIED Assessment/Plan (1) Acute exacerbation of chronic obstructive pulmonary disease (COPD) Code(s): J44.1 - CHRONIC OBSTRUCTIVE PULMONARY DISEASE W (ACUTE) EXACERBATION (2) Sarcoidosis of lung Code(s): D86.0 - SARCOIDOSIS OF LUNG (3) Chronic respiratory failure with hypoxia Code(s): J96.11 - CHRONIC RESPIRATORY FAILURE WITH HYPOXIA (4) CKD (chronic kidney disease) Code(s): N18.9 - CHRONIC KIDNEY DISEASE, UNSPECIFIED IV STEROIDS/ANTIBIOTICS/BRONCHODILATORS/CT CHEST WHEN STABLE PANCULTURE/URINE FOR ANTIGENS INFLU SCREENING Bisi ANDERSEN MD
--- NOTE | 2017-06-02 15:16 | CON.CARD ---
Consult Consult Specialty:: Cardiology Reason for Consultation:: Chest pain - History of Present Illness History of Present Illness: 72 F with sarcoidosis, COPD, chronic respiratory failure, DVT on AC was admitted wit hincreasing dyspnea and intermittent chest pain. She describes 3 months of intermittent Lt chest pain and arm pain lasting about 30 min of gradual onset-offset. She is essentially non-ambulatory and able to ambulate with a walker at home otherwise uses a wheelchair. Currently pain free. 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 No: Fibromyalgia - Past Surgical History Past Surgical History: Yes: Hysterectomy, Joint Replacement - Alcohol/Substance Use Hx Alcohol Use: No History of Substance Use: reports: None - Smoking History Smoking history: Unknown if ever smoked Have you smoked in the past 12 months: No Aproximately how many cigarettes per day: 0 - Social History Usual Living Arrangement: Alone ADL: Independent History of Recent Travel: No Home Medications - Allergies Allergies/Adverse Reactions: Allergies Allergy/AdvReac Type Severity Reaction Status Date / Time No Known Allergies Allergy Verified 06/01/17 23:45 - Home Medications Home Medications: Ambulatory Orders Oxybutynin Chloride [Ditropan -] 5 mg PO BID 08/24/13 Cholecalciferol (Vitamin D3) [Vitamin D3] 50,000 unit PO DAILY 11/30/16 Mirtazapine [Remeron Soltab -] 15 mg PO DAILY 11/30/16 Omeprazole 40 mg PO AM 12/01/16 Sennosides [Senna] 8.6 mg PO TID 12/01/16 Acetaminophen [Tylenol .Regular Strength -] 650 mg PO Q4H PRN #0 tablet Albuterol 2.5/Ipratropium 0.5 [Duoneb -] 1 amp NEB QIDR amp 12/04/16 Docusate Sodium [Colace -] 100 mg PO TID 12/04/16 Furosemide [Lasix -] 40 mg PO BID@0600,1400 tablet 12/04/16 Insulin Sliding Scale [Novolog Vial Sliding Scale -] 1 vial SQ ACHS units 12/04 Magnesium Hydrox 2400MG/30Ml [Milk of Magnesia -] 30 ml PO DAILY PRN #0 Montelukast Na [Singulair -] 10 mg PO HS tablet 12/04/16 Potassium Chloride [K-Dur -] 10 meq PO DAILY 12/04/16 Temazepam [Restoril -] 30 mg PO HS MDD 1 12/04/16 Ferrous Sulfate 325 mg PO DAILY 12/17/16 Warfarin Na [Coumadin -] 4.5 mg PO DAILY@1800 12/17/16 Polyethylene Glycol 3350 [Miralax 119 gm Btl -] 17 gm PO DAILY PRN 06/02/17 Review of Systems - Review of Systems Constitutional: reports: No Symptoms Eyes: reports: No Symptoms HENT: reports: No Symptoms Neck: reports: No Symptoms Cardiovascular: reports: Chest Pain, Shortness of Breath Respiratory: reports: SOB Gastrointestinal: reports: No Symptoms Genitourinary: reports: No Symptoms Neurological: reports: No Symptoms Endocrine: reports: No Symptoms Vital Signs: Vital Signs Temperature 97.5 F L 06/02/17 13:22 Pulse Rate 93 H 06/02/17 13:22 Respiratory Rate 16 06/02/17 13:22 Blood Pressure 108/66 06/02/17 13:22 O2 Sat by Pulse Oximetry (%) 96 06/02/17 13:22 Constitutional: Yes: Mild Distress, Obese Eyes: Yes: Conjunctiva Clear HENT: Yes: Atraumatic, Normocephalic Neck: Yes: Supple, Trachea Midline Respiratory: Yes: Regular, Diminished, On Nasal O2, SOB Gastrointestinal: Yes: Normal Bowel Sounds, Soft Cardiovascular: Yes: Tachycardia JVD: No Carotid Bruit: No Heart Sounds: Yes: S1, S2 - Other Data Labs, Other Data: INR, PTT INR 2.45 (0.82-1.09) H D 06/02/17 00:37 Troponin, BNP 06/02/17 06:58 Troponin I < 0.02 Troponin, BNP 06/02/17 06:58 Troponin I < 0.02 NSR no STT changes Imaging - Results Chest X-ray: Report Reviewed Problem List - Problems (1) Chronic respiratory failure with hypoxia Code(s): J96.11 - CHRONIC RESPIRATORY FAILURE WITH HYPOXIA (2) Sarcoidosis of lung Code(s): D86.0 - SARCOIDOSIS OF LUNG Assessment/Plan 71 YO F with chronic respiratory failure, DVT, sarcoidosis, admitted with dyspnea and intermittent chest pain. CXR does not suggest heart failure however has mild BNP elevation. Her TP and ECG are normal. An echocardiogram from 11/2016 was technically limited but possibly with mildly reduced LV systolic function. No significant valvular pathology. Suspect COPD exacerbation with a component of mild volume overload. Patient being managed with steroids and diuretics. Avoid beta mickie or other medications for treating her sinus tachycardia. Echocardiogram Check lipid profile. If has chest pain obtain ECG. Continue Telemetry.
[2017-06-02] MEDS ORDERED: WARFARIN NA 2.5 MG TABLET (FP) ONE (17:09)
[2017-06-02] MEDS ORDERED: WARFARIN NA 2 MG TABLET (UD) ONE (17:09)
[2017-06-02] MEDS: WARFARIN NA 2.5 MG, WARFARIN NA 2 MG PO SCH (17:49)
[2017-06-02] MEDS ORDERED: WARFARIN NA 2 MG TABLET (UD) PO SCH (18:00)
[2017-06-02] MEDS: METHYL SALICYLATE/MENTHOL OINT 30 GM TUBE TP SCH (21:00)
[2017-06-02] MEDS ORDERED: PT OWN MED DRAWER 7, Y5N ONE (21:03)
[2017-06-02] MEDS: LIDOCAINE PATCH REMOVAL MC SCH (21:22)
[2017-06-02] MEDS: TEMAZEPAM 15 MG CAPSULE PO SCH (21:24)
[2017-06-02] MEDS: MONTELUKAST NA 10 MG TABLET PO SCH (21:24)
[2017-06-02] MEDS ORDERED: LIDOCAINE PATCH REMOVAL MC SCH (22:00)
[2017-06-02] MEDS ORDERED: hydrOXYzine HCL 25 MG TABLET (FP) PO SCH (22:00)
--- NOTE | 2017-06-03 02:26 | HP ---
Admitting History and Physical - Primary Care Physician PCP: Digna Walton - Admission Chief Complaint: DYSPNEA/SOB/FATIGUE/WEAKNESS History of Present Illness: 72 Y/O FEMALE WELL KNOWN TO MY SERVICE WITH LONG HISTORY COPD ACUTE ON CHRONIC WITH FREQUENT EXACERBATIONS, SARCOIDOSIS, DM, HTN, LIPIDEMIA, OBESITY, OXYGEN DEPENDENT PRESENTS TO ER WITH DAUGHTER BECAUSE SHE FEELS " I AM DYING "... PATIENT REPORTS SEVERE WEAKNESS, MALNUTRITION, POOR APPETITE, MEMORY LOSS, SHORT OF BREATH, DYSPNEA AT REST. 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 No: Fibromyalgia - Past Surgical History Past Surgical History: Yes: Hysterectomy, Joint Replacement - Smoking History Smoking history: Unknown if ever smoked Have you smoked in the past 12 months: No Aproximately how many cigarettes per day: 0 - Alcohol/Substance Use Hx Alcohol Use: No History of Substance Use: reports: None - Social History ADL: Independent History of Recent Travel: No Home Medications - Allergies Allergies/Adverse Reactions: Allergies Allergy/AdvReac Type Severity Reaction Status Date / Time No Known Allergies Allergy Verified 06/01/17 23:45 - Home Medications Home Medications: Ambulatory Orders Oxybutynin Chloride [Ditropan -] 5 mg PO BID 08/24/13 Cholecalciferol (Vitamin D3) [Vitamin D3] 50,000 unit PO DAILY 11/30/16 Mirtazapine [Remeron Soltab -] 15 mg PO DAILY 11/30/16 Omeprazole 40 mg PO AM 12/01/16 Sennosides [Senna] 8.6 mg PO TID 12/01/16 Acetaminophen [Tylenol .Regular Strength -] 650 mg PO Q4H PRN #0 tablet Albuterol 2.5/Ipratropium 0.5 [Duoneb -] 1 amp NEB QIDR amp 12/04/16 Docusate Sodium [Colace -] 100 mg PO TID 12/04/16 Furosemide [Lasix -] 40 mg PO BID@0600,1400 tablet 12/04/16 Insulin Sliding Scale [Novolog Vial Sliding Scale -] 1 vial SQ ACHS units 12/04 Magnesium Hydrox 2400MG/30Ml [Milk of Magnesia -] 30 ml PO DAILY PRN #0 Montelukast Na [Singulair -] 10 mg PO HS tablet 12/04/16 Potassium Chloride [K-Dur -] 10 meq PO DAILY 12/04/16 Temazepam [Restoril -] 30 mg PO HS MDD 1 12/04/16 Ferrous Sulfate 325 mg PO DAILY 12/17/16 Warfarin Na [Coumadin -] 4.5 mg PO DAILY@1800 12/17/16 Polyethylene Glycol 3350 [Miralax 119 gm Btl -] 17 gm PO DAILY PRN 06/02/17 Review of Systems - Review of Systems Constitutional: reports: Loss of Appetite, Weakness Eyes: reports: Other HENT: reports: No Symptoms Neck: reports: No Symptoms Cardiovascular: reports: Shortness of Breath Respiratory: reports: Cough, SOB Gastrointestinal: reports: No Symptoms Genitourinary: reports: Incontinence Musculoskeletal: reports: Back Pain, Joint Pain, Muscle Weakness Integumentary: reports: No Symptoms Neurological: reports: Pre-Existing Deficit, Weakness Endocrine: reports: No Symptoms Hematology/Lymphatic: reports: No Symptoms Psychiatric: reports: Anxiety Physical Examination Vital Signs: Vital Signs Temperature 98 F 06/02/17 21:00 Pulse Rate 117 H 06/02/17 21:00 Respiratory Rate 18 06/02/17 21:00 Blood Pressure 119/68 06/02/17 21:00 O2 Sat by Pulse Oximetry (%) 96 06/02/17 21:00 Constitutional: Yes: Moderate Distress Eyes: Yes: Ptosis, Other HENT: Yes: WNL Neck: Yes: WNL Cardiovascular: Yes: Murmur Respiratory: Yes: Cough, Diminished, On Nasal O2, SOB Gastrointestinal: Yes: WNL Musculoskeletal: Yes: Back Pain, Muscle Pain, Muscle Weakness Edema: Yes Edema: LLE: 1+, RLE: 1+ Peripheral Pulses WNL: Yes Integumentary: Yes: WNL Wound/Incision: Yes: Dressing Dry and Intact Neurological: Yes: Pre-Existing Deficit ...Motor Strength: LLE, RLE Psychiatric: Yes: Other (MEMORY LOSS) Imaging - Results Chest X-ray: Report Reviewed Problem List - Problems (1) Chronic respiratory failure with hypoxia Code(s): J96.11 - CHRONIC RESPIRATORY FAILURE WITH HYPOXIA (2) Sarcoidosis of lung Code(s): D86.0 - SARCOIDOSIS OF LUNG (3) Acute exacerbation of chronic obstructive pulmonary disease (COPD) Code(s): J44.1 - CHRONIC OBSTRUCTIVE PULMONARY DISEASE W (ACUTE) EXACERBATION (4) Acute respiratory distress syndrome Code(s): J80 - ACUTE RESPIRATORY DISTRESS SYNDROME (5) CKD (chronic kidney disease) Code(s): N18.9 - CHRONIC KIDNEY DISEASE, UNSPECIFIED (6) Pulmonary hypertension Code(s): I27.2 - OTHER SECONDARY PULMONARY HYPERTENSION (7) Shoulder pain Code(s): M25.519 - PAIN IN UNSPECIFIED SHOULDER Qualifiers: Chronicity: acute Laterality: left Qualified Code(s): M25.512 - Pain in left shoulder (8) Memory loss due to medical condition Code(s): R41.3 - OTHER AMNESIA (9) Weakness Code(s): R53.1 - WEAKNESS Assessment/Plan STEROIDS IV PULMONARY AND CARDIOLOGY EVAL CHRONIC RENAL FAILURE, WILL NEED F/U 02 SUPPORT XRAYS C-SPINE AND LEFT SHOULDER PAIN CONTROL NEUROLOGY EVAL FOR MEMORY LOSS
[2017-06-03] MEDS: methylPREDNISolone NA SUCC 125 MG/2 ML VIAL IVPB SCH ×4 (02:50→22:22)
[2017-06-03] MEDS: DOCUSATE SODIUM 100 MG CAPSULE (FP) PO SCH ×5 (05:14→22:20)
[2017-06-03] MEDS: SENNOSIDES 8.6MG TABLET (FP) PO SCH ×5 (05:14→22:20)
[2017-06-03] MEDS: INSULIN SLIDING SCALE (NOVOLOG) 1 VIAL SQ SCH ×4 (06:34→22:21)
[2017-06-03] MEDS: ALBUTEROL SO4 2.5/IPRATROPIUM 0.5 INH SOL 3 ML VIAL.NEB. NEB SCH ×5 (06:35→23:08)
[2017-06-03] MEDS: FUROSEMIDE 40 MG TABLET (FP) PO SCH ×2 (07:00→14:09)
[2017-06-03 07:33] LABS: INR 2.29 (0.82-1.09); PROTHROMBIN TIME (PATIENT) 25.6 SEC (9.98-11.88)
[2017-06-03 07:39] LABS: MCH 30.9 pg (25.7-33.7); MCHC 32.9 g/dl (32.0-36.0); MEAN CELL VOLUME 93.8 fl (80-96); MEAN PLT VOLUME 8.8 fl (7.5-11.1); PLATELET COUNT 151 K/MM3 (134-434); RDW 16.9 % (11.6-15.6); WHITE BLOOD COUNT 10.8 K/mm3 (4.0-10.0)
[2017-06-03 07:59] LABS: ALBUMIN 2.7 g/dl (3.4-5.0); ANION GAP 10 (8-16); BILIRUBIN,TOTAL 0.3 mg/dL (0.2-1.0); CALCIUM 8.1 mg/dL (8.5-10.1); CO2 32 mmol/L (21-32); CREATININE 1.2 mg/dL (0.55-1.02); GLUCOSE,RANDOM 154 mg/dL (74-106); SGOT/AST 7 U/L (15-37); SGPT/ALT 17 U/L (12-78); TOT PROT 5.1 g/dl (6.4-8.2)
[2017-06-03 08:00] LABS: ALK PHOS 49 U/L (45-117)
[2017-06-03 08:50] LABS: BASOPHIL (MANUAL) 0 % (0-2.0); PLATELET ESTIMATE ADEQUATE (NORMAL)
[2017-06-03 08:51] LABS: METAMYELOCYTE 1 % (0-2)
[2017-06-03] MEDS: LIDOCAINE 5% TOPICAL PATCH TP SCH (10:29)
[2017-06-03] MEDS: OXYBUTYNIN CHLORIDE 5 MG TABLET PO SCH ×2 (10:29→22:20)
[2017-06-03] MEDS: METHYL SALICYLATE/MENTHOL OINT 30 GM TUBE TP SCH (10:29)
[2017-06-03] MEDS: POTASSIUM CHLORIDE TABS 10 MEQ TABLET.ER (FP) PO SCH (10:29)
[2017-06-03] MEDS: PANTOPRAZOLE 40 MG TABLET (FP) PO SCH (10:30)
--- NOTE | 2017-06-03 11:08 | PN ---
Progress Note, Physician Chief Complaint: AWAKE ALERT STILL SOB - Current Medication List Current Medications: Active Medications Acetaminophen (Tylenol -) 650 mg PO Q4H PRN PRN Reason: FEVER OR PAIN Last Admin: 06/02/17 10:57 Dose: 650 mg Albuterol/Ipratropium (Duoneb -) 1 amp NEB QIDR [facility] Last Admin: 06/03/17 06:35 Dose: 1 amp Docusate Sodium (Colace -) 100 mg PO TID [facility] Last Admin: 06/03/17 10:42 Dose: 100 mg Furosemide (Lasix -) 40 mg PO BID@0600,1400 [facility] Last Admin: 06/03/17 07:00 Dose: 40 mg Hydroxyzine HCl (Atarax -) 25 mg PO HS [facility] Insulin Aspart (Novolog Vial Sliding Scale -) 1 vial SQ ACHS [facility] PRN Reason: Protocol Last Admin: 06/03/17 06:34 Dose: Not Given Lidocaine (Lidoderm Patch -) 1 patch TP DAILY [facility] Last Admin: 06/03/17 10:29 Dose: 1 patch Magnesium Hydroxide (Milk Of Magnesia -) 30 ml PO DAILY PRN PRN Reason: CONSTIPATION Methyl Salicylate (Elliott-Leigh -) 1 applic TP DAILY [facility] Last Admin: 06/03/17 10:29 Dose: 1 applic Methylprednisolone Sodium Succinate (Solu-Medrol -) 80 mg IVPB Q6H-IV [facility] Last Admin: 06/03/17 10:28 Dose: 80 mg Miscellaneous (Lidoderm Patch Removal) 1 each MC DAILY@2200 [facility] Last Admin: 06/02/17 21:22 Dose: Not Given Montelukast Sodium (Singulair -) 10 mg PO HS [facility] Last Admin: 06/02/17 21:24 Dose: 10 mg Oxybutynin Chloride (Ditropan -) 5 mg PO BID [facility] Last Admin: 06/03/17 10:29 Dose: 5 mg Pantoprazole Sodium (Protonix -) 40 mg PO DAILY [facility] Last Admin: 06/03/17 10:30 Dose: 40 mg Polyethylene Glycol (Miralax (For Daily Use) -) 17 gm PO DAILY PRN PRN Reason: CONSTIPATION Potassium Chloride (K-Dur -) 10 meq PO DAILY [facility] Last Admin: 06/03/17 10:29 Dose: 10 meq Prednisolone Acetate (Pred Forte 1% -) 1 drop OD BID [facility] Senna (Senna -) 1 tab PO TID [facility] Last Admin: 06/03/17 10:43 Dose: 1 tab Temazepam (Restoril -) 30 mg PO HS [facility] Last Admin: 06/02/17 21:24 Dose: 30 mg Tobramycin Sulfate (Tobrex Ophthalmic Ointment -) 1 applic OD TID [facility] Warfarin Sodium 2.5 mg/ (Warfarin Sodium 2 mg) 4.5 mg PO DAILY@1800 [facility] Last Admin: 06/02/17 17:49 Dose: 4.5 mg - Objective Vital Signs: Vital Signs Temperature 97.9 F 06/03/17 01:00 Pulse Rate 85 06/03/17 01:00 Respiratory Rate 18 06/03/17 01:00 Blood Pressure 95/63 06/03/17 01:00 O2 Sat by Pulse Oximetry (%) 96 06/02/17 21:00 Constitutional: Yes: Mild Distress Eyes: Yes: Ptosis HENT: Yes: WNL Neck: Yes: WNL Cardiovascular: Yes: Murmur Respiratory: Yes: Cough, On Nasal O2, Poor Air Entry Gastrointestinal: Yes: WNL Genitourinary: Yes: Incontinence Musculoskeletal: Yes: Muscle Weakness Extremities: Yes: WNL Edema: Yes Edema: LLE: 2+, RLE: 2+ Peripheral Pulses WNL: Yes Integumentary: Yes: WNL, Erythema Wound/Incision: Yes: Dressing Dry and Intact Neurological: Yes: Pre-Existing Deficit ...Motor Strength: LLE, RLE Psychiatric: Yes: WNL Labs: CBC, BMP 06/03/17 05:35 06/03/17 05:35 INR, PTT INR 2.29 (0.82-1.09) H 06/03/17 05:35 Problem List - Problems (1) Chronic respiratory failure with hypoxia Code(s): J96.11 - CHRONIC RESPIRATORY FAILURE WITH HYPOXIA (2) Sarcoidosis of lung Code(s): D86.0 - SARCOIDOSIS OF LUNG (3) Acute exacerbation of chronic obstructive pulmonary disease (COPD) Code(s): J44.1 - CHRONIC OBSTRUCTIVE PULMONARY DISEASE W (ACUTE) EXACERBATION (4) Acute respiratory distress syndrome Code(s): J80 - ACUTE RESPIRATORY DISTRESS SYNDROME (5) CKD (chronic kidney disease) Code(s): N18.9 - CHRONIC KIDNEY DISEASE, UNSPECIFIED (6) Pulmonary hypertension Code(s): I27.2 - OTHER SECONDARY PULMONARY HYPERTENSION (7) Shoulder pain Code(s): M25.519 - PAIN IN UNSPECIFIED SHOULDER Qualifiers: Chronicity: acute Laterality: left Qualified Code(s): M25.512 - Pain in left shoulder (8) Memory loss due to medical condition Code(s): R41.3 - OTHER AMNESIA (9) Weakness Code(s): R53.1 - WEAKNESS Assessment/Plan IV STEROIDS NEBS PT [place] OOB TO CHAIR 02 SUPPORT WILL
[2017-06-03] MEDS: prednisoLONE ACETATE 1% OPHTH SUSP 5 ML BOTTLE OD SCH ×2 (12:08→22:21)
--- NOTE | 2017-06-03 12:42 | PN ---
Progress Note (short form) - Note Progress Note: Awake eating lunch. Breathing feels a little better today. SOB is mildly improved. No hemoptysis. No CP. Intake & Output 05/31/17 06/01/17 06/02/17 06/03/17 23:59 23:59 23:59 23:59 Intake Total 50 240 Balance 50 240 Weight 230 lb 230 lb 222 lb 4 oz Last Vital Signs Temp Pulse Resp BP Pulse Ox 97.9 F 86 18 95/63 93 L 06/03/17 01:00 06/03/17 11:32 06/03/17 01:00 06/03/17 01:00 06/03/17 11:32 Active Medications Acetaminophen (Tylenol -) 650 mg PO Q4H PRN PRN Reason: FEVER OR PAIN Last Admin: 06/02/17 10:57 Dose: 650 mg Albuterol/Ipratropium (Duoneb -) 1 amp NEB QIDR [facility] Last Admin: 06/03/17 11:30 Dose: 1 amp Docusate Sodium (Colace -) 100 mg PO TID [facility] Last Admin: 06/03/17 10:42 Dose: 100 mg Furosemide (Lasix -) 40 mg PO BID@0600,1400 [facility] Last Admin: 06/03/17 07:00 Dose: 40 mg Hydroxyzine HCl (Atarax -) 25 mg PO HS [facility] Insulin Aspart (Novolog Vial Sliding Scale -) 1 vial SQ ACHS [facility] PRN Reason: Protocol Last Admin: 06/03/17 06:34 Dose: Not Given Lidocaine (Lidoderm Patch -) 1 patch TP DAILY [facility] Last Admin: 06/03/17 10:29 Dose: 1 patch Magnesium Hydroxide (Milk Of Magnesia -) 30 ml PO DAILY PRN PRN Reason: CONSTIPATION Methyl Salicylate (Elliott-Leigh -) 1 applic TP DAILY [facility] Last Admin: 06/03/17 10:29 Dose: 1 applic Methylprednisolone Sodium Succinate (Solu-Medrol -) 80 mg IVPB Q6H-IV [facility] Last Admin: 06/03/17 10:28 Dose: 80 mg Miscellaneous (Lidoderm Patch Removal) 1 each MC DAILY@2200 [facility] Last Admin: 06/02/17 21:22 Dose: Not Given Montelukast Sodium (Singulair -) 10 mg PO HS [facility] Last Admin: 09/13/17 21:24 Dose: 10 mg Oxybutynin Chloride (Ditropan -) 5 mg PO BID [facility] Last Admin: 06/03/17 10:29 Dose: 5 mg Pantoprazole Sodium (Protonix -) 40 mg PO DAILY [facility] Last Admin: 06/03/17 10:30 Dose: 40 mg Polyethylene Glycol (Miralax (For Daily Use) -) 17 gm PO DAILY PRN PRN Reason: CONSTIPATION Potassium Chloride (K-Dur -) 10 meq PO DAILY [facility] Last Admin: 06/03/17 10:29 Dose: 10 meq Prednisolone Acetate (Pred Forte 1% -) 1 drop OD BID [facility] Senna (Senna -) 1 tab PO TID [facility] Last Admin: 06/03/17 10:43 Dose: 1 tab Temazepam (Restoril -) 30 mg PO HS [facility] Last Admin: 06/02/17 21:24 Dose: 30 mg Tobramycin Sulfate (Tobrex Ophthalmic Ointment -) 1 applic OD TID [facility] Warfarin Sodium 2.5 mg/ (Warfarin Sodium 2 mg) 4.5 mg PO DAILY@1800 [facility] Last Admin: 06/02/17 17:49 Dose: 4.5 mg Constitutional: Yes: Awake and alert Eyes: Yes: EOM Intact HENT: Yes: Normocephalic Neck: Yes: Trachea Midline Cardiovascular: Yes: Regular Rate and Rhythm, Tachycardia Respiratory: Yes: Bilateral coarse rhonchi and expiratory Wheezes Gastrointestinal: Yes: Soft, Abdomen, Obese Edema: No Neurological: Yes: Alert Labs: Laboratory Results - last 24 hr 06/02/17 06/02/17 06/02/17 06:45 17:48 21:23 WBC RBC Hgb Hct MCV MCH MCHC RDW Plt Count MPV Neutrophils % Neutrophils % (Manual) Band Neuts % (Manual) Lymphocytes % Lymphocytes % (Manual) Monocytes % (Manual) Eosinophils % (Manual) Basophils % (Manual) Platelet Estimate INR Sodium Potassium Chloride Carbon Dioxide Anion Gap BUN Creatinine Creat Clearance w eGFR POC Glucometer 250 128 Random Glucose Calcium Total Bilirubin AST ALT Alkaline Phosphatase Total Protein Albumin Urine Color Dkyellow Urine Appearance Slcloudy Urine pH 5.0 Ur Specific [place] >= 1.030 H Urine Protein Negative Urine Glucose (UA) Negative Urine Ketones Trace H Urine Blood 2+ H Urine Nitrite Negative Urine Bilirubin Negative Urine Urobilinogen Negative Urine RBC 3 Urine WBC 2 Ur Epithelial Cells Rare Hyaline Casts 8 Urine Mucus Rare 06/03/17 06/03/17 06/03/17 05:35 05:35 05:35 WBC 10.8 H RBC 3.75 Hgb 11.6 D Hct 35.2 D MCV 93.8 MCH 30.9 MCHC 32.9 RDW 16.9 H Plt Count 151 MPV 8.8 Neutrophils % Y Neutrophils % (Manual) 85 H Band Neuts % (Manual) 2 Lymphocytes % Y Lymphocytes % (Manual) 10 Monocytes % (Manual) 2 L Eosinophils % (Manual) 0 Basophils % (Manual) 0 Platelet Estimate Adequate INR 2.29 H Sodium 141 Potassium 4.7 Chloride 99 Carbon Dioxide 32 Anion Gap 10 BUN 31 H Creatinine 1.2 H Creat Clearance w eGFR 44.29 POC Glucometer Random Glucose 154 H D Calcium 8.1 L Total Bilirubin 0.3 D AST 7 L D ALT 17 Alkaline Phosphatase 49 D Total Protein 5.1 L Albumin 2.7 L Urine Color Urine Appearance Urine pH Ur Specific [place] Urine Protein Urine Glucose (UA) Urine Ketones Urine Blood Urine Nitrite Urine Bilirubin Urine Urobilinogen Urine RBC Urine WBC Ur Epithelial Cells Hyaline Casts Urine Mucus 06/03/17 06:31 WBC RBC Hgb Hct MCV MCH MCHC RDW Plt Count MPV Neutrophils % Neutrophils % (Manual) Band Neuts % (Manual) Lymphocytes % Lymphocytes % (Manual) Monocytes % (Manual) Eosinophils % (Manual) Basophils % (Manual) Platelet Estimate INR Sodium Potassium Chloride Carbon Dioxide Anion Gap BUN Creatinine Creat Clearance w eGFR POC Glucometer 165 Random Glucose Calcium Total Bilirubin AST ALT Alkaline Phosphatase Total Protein Albumin Urine Color Urine Appearance Urine pH Ur Specific [place] Urine Protein Urine Glucose (UA) Urine Ketones Urine Blood Urine Nitrite Urine Bilirubin Urine Urobilinogen Urine RBC Urine WBC Ur Epithelial Cells Hyaline Casts Urine Mucus Problem List - Problems (1) Chronic respiratory failure with hypoxia Code(s): J96.11 - CHRONIC RESPIRATORY FAILURE WITH HYPOXIA (2) Sarcoidosis of lung Code(s): D86.0 - SARCOIDOSIS OF LUNG (3) Acute exacerbation of chronic obstructive pulmonary disease (COPD) Code(s): J44.1 - CHRONIC OBSTRUCTIVE PULMONARY DISEASE W (ACUTE) EXACERBATION (4) Acute respiratory distress syndrome Code(s): J80 - ACUTE RESPIRATORY DISTRESS SYNDROME (5) Bronchitis Code(s): J40 - BRONCHITIS, NOT SPECIFIED ACUTE OR CHRONIC (6) Pulmonary hypertension Code(s): I27.2 - OTHER SECONDARY PULMONARY HYPERTENSION (7) Tachycardia Code(s): R00.0 - TACHYCARDIA, UNSPECIFIED IV STEROIDS ABX BRONCHODILATORS CT CHEST FOLLOW CULTURES O2 NEEDED VTE PROPHYLAXIS SUNNY JUNIOR
[2017-06-03] MEDS: oxyCODONE HCL 5 MG TABLET PO PRN ×2 (12:59→18:42)
--- NOTE | 2017-06-03 14:15 | PN ---
Progress Note, Physician Chief Complaint: Cardiology FU Telem NSR Shoulder pain reproducible History of Present Illness: 72 F with sarcoidosis, COPD, chronic respiratory failure, DVT on AC was admitted wit hincreasing dyspnea and intermittent chest pain. She describes 3 months of intermittent Lt chest pain and arm pain lasting about 30 min of gradual onset-offset. She is essentially non-ambulatory and able to ambulate with a walker at home otherwise uses a wheelchair. - Current Medication List Current Medications: Active Medications Acetaminophen (Tylenol -) 650 mg PO Q4H PRN PRN Reason: FEVER OR PAIN Last Admin: 06/02/17 10:57 Dose: 650 mg Albuterol/Ipratropium (Duoneb -) 1 amp NEB QIDR [facility] Last Admin: 06/03/17 11:30 Dose: 1 amp Docusate Sodium (Colace -) 100 mg PO TID [facility] Last Admin: 06/03/17 10:42 Dose: 100 mg Furosemide (Lasix -) 40 mg PO BID@0600,1400 [facility] Last Admin: 06/03/17 07:00 Dose: 40 mg Hydroxyzine HCl (Atarax -) 25 mg PO [facility] Insulin Aspart (Novolog Vial Sliding Scale -) 1 vial SQ ACHS [facility] PRN Reason: Protocol Last Admin: 06/03/17 06:34 Dose: Not Given Lidocaine (Lidoderm Patch -) 1 patch TP DAILY [facility] Last Admin: 06/03/17 10:29 Dose: 1 patch Magnesium Hydroxide (Milk Of Magnesia -) 30 ml PO DAILY PRN PRN Reason: CONSTIPATION Methyl Salicylate (Elliott-Leigh -) 1 applic TP DAILY [facility] Last Admin: 06/03/17 10:29 Dose: 1 applic Methylprednisolone Sodium Succinate (Solu-Medrol -) 80 mg IVPB Q6H-IV [facility] Last Admin: 06/03/17 10:28 Dose: 80 mg Miscellaneous (Lidoderm Patch Removal) 1 each MC DAILY@2200 [facility] Last Admin: 06/02/17 21:22 Dose: Not Given Montelukast Sodium (Singulair -) 10 mg PO HS [facility] Last Admin: 06/02/17 21:24 Dose: 10 mg Oxybutynin Chloride (Ditropan -) 5 mg PO BID [facility] Last Admin: 06/03/17 10:29 Dose: 5 mg Oxycodone HCl (Roxicodone -) 5 mg PO Q6H PRN PRN Reason: PAIN Pantoprazole Sodium (Protonix -) 40 mg PO DAILY [facility] Last Admin: 06/03/17 10:30 Dose: 40 mg Polyethylene Glycol (Miralax (For Daily Use) -) 17 gm PO DAILY PRN PRN Reason: CONSTIPATION Potassium Chloride (K-Dur -) 10 meq PO DAILY [facility] Last Admin: 06/03/17 10:29 Dose: 10 meq Prednisolone Acetate (Pred Forte 1% -) 1 drop OD BID [facility] Senna (Senna -) 1 tab PO TID [facility] Last Admin: 06/03/17 10:43 Dose: 1 tab Temazepam (Restoril -) 30 mg PO HS [facility] Last Admin: 06/02/17 21:24 Dose: 30 mg Tobramycin Sulfate (Tobrex Ophthalmic Ointment -) 1 applic OD TID [facility] Warfarin Sodium 2.5 mg/ (Warfarin Sodium 2 mg) 4.5 mg PO DAILY@1800 [facility] Last Admin: 06/02/17 17:49 Dose: 4.5 mg - Objective Vital Signs: Vital Signs Temperature 97.9 F 06/03/17 01:00 Pulse Rate 86 06/03/17 11:32 Respiratory Rate 18 06/03/17 01:00 Blood Pressure 95/63 06/03/17 01:00 O2 Sat by Pulse Oximetry (%) 93 L 06/03/17 11:32 Constitutional: Yes: No Distress, Calm Eyes: Yes: Conjunctiva Clear, EOM Intact HENT: Yes: Atraumatic, Normocephalic Neck: Yes: Supple, Trachea Midline Respiratory: Yes: Regular, Rhonchi Gastrointestinal: Yes: Normal Bowel Sounds Edema: Yes Edema: LLE: Trace, RLE: Trace Labs: CBC, BMP 06/03/17 05:35 06/03/17 05:35 INR, PTT INR 2.29 (0.82-1.09) H 06/03/17 05:35 Problem List - Problems (1) Chronic respiratory failure with hypoxia Code(s): J96.11 - CHRONIC RESPIRATORY FAILURE WITH HYPOXIA (2) Sarcoidosis of lung Code(s): D86.0 - SARCOIDOSIS OF LUNG Assessment/Plan 71 YO F with chronic respiratory failure, DVT, sarcoidosis, admitted with dyspnea and intermittent chest pain/shoulder pain. CXR does not suggest heart failure however has mild BNP elevation. Her TP and ECG are normal. An echocardiogram from 11/2016 was technically limited but possibly with mildly reduced LV systolic function. No significant valvular pathology. Reproducible and musculoskeletal shoulder pain. Echocardiogram DC Telemetry tomorrow if OK
[2017-06-03] MEDS: TOBRAMYCIN 0.3% OPHTH OINT 3.5 GM OD SCH ×2 (16:09→22:22)
[2017-06-03] MEDS ORDERED: WARFARIN NA 2 MG TABLET (UD) ONE (16:13)
[2017-06-03] MEDS ORDERED: WARFARIN NA 2.5 MG TABLET (FP) ONE (16:13)
[2017-06-03] MEDS: WARFARIN NA 2.5 MG, WARFARIN NA 2 MG PO SCH (17:09)
--- NOTE | 2017-06-03 18:45 | CONSULT ---
Consult Consult Specialty:: Nephrology Reason for Consultation:: CKD - History of Present Illness Chief Complaint: chest pain History of Present Illness: Pt is a 72 year old female with pmhx of COPD, sarcoidosis, DVT and HTN who presented to the ER complaining of chest pain and shortness of breath. She felt the symptoms before coming to the hospital. The chest pain was sharp and radiated down her arm. She also complains of shortness of breath. I was called to evaluate her for elevated creatinine. She denies history of CKD. She does have sarcoid. She denies nsaid use. She denies hematuria or dysuria. She does complain of lower extremity edema. - History Source History Provided By: Patient - Past Medical History Cardio/Vascular: Yes: CHF, Deep Vein Thrombosis, HTN Pulmonary: Yes: COPD, Other (sarcoidosis) ...: No Musculoskeletal: Yes: Chronic low back pain Rheumatology: Yes: Sarcoidosis - Past Surgical History Past Surgical History: Yes: Hysterectomy, Joint Replacement - Alcohol/Substance Use Hx Alcohol Use: No History of Substance Use: reports: None - Smoking History Smoking history: Unknown if ever smoked Have you smoked in the past 12 months: No Aproximately how many cigarettes per day: 0 - Social History Usual Living Arrangement: Alone ADL: Independent History of Recent Travel: No Home Medications - Allergies Allergies/Adverse Reactions: Allergies Allergy/AdvReac Type Severity Reaction Status Date / Time No Known Allergies Allergy Verified 06/01/17 23:45 - Home Medications Home Medications: Ambulatory Orders Oxybutynin Chloride [Ditropan -] 5 mg PO BID 08/24/13 Cholecalciferol (Vitamin D3) [Vitamin D3] 50,000 unit PO DAILY 11/30/16 Mirtazapine [Remeron Soltab -] 15 mg PO DAILY 11/30/16 Omeprazole 40 mg PO AM 12/01/16 Sennosides [Senna] 8.6 mg PO TID 12/01/16 Acetaminophen [Tylenol .Regular Strength -] 650 mg PO Q4H PRN #0 tablet Albuterol 2.5/Ipratropium 0.5 [Duoneb -] 1 amp NEB QIDR amp 12/04/16 Docusate Sodium [Colace -] 100 mg PO TID 12/04/16 Furosemide [Lasix -] 40 mg PO BID@0600,1400 tablet 12/04/16 Insulin Sliding Scale [Novolog Vial Sliding Scale -] 1 vial SQ ACHS units 12/04 Magnesium Hydrox 2400MG/30Ml [Milk of Magnesia -] 30 ml PO DAILY PRN #0 Montelukast Na [Singulair -] 10 mg PO HS tablet 12/04/16 Potassium Chloride [K-Dur -] 10 meq PO DAILY 12/04/16 Temazepam [Restoril -] 30 mg PO HS MDD 1 12/04/16 Ferrous Sulfate 325 mg PO DAILY 12/17/16 Warfarin Na [Coumadin -] 4.5 mg PO DAILY@1800 12/17/16 Polyethylene Glycol 3350 [Miralax 119 gm Btl -] 17 gm PO DAILY PRN 06/02/17 Family Disease History - Family Disease History Family History: Denies Review of Systems - Review of Systems Constitutional: reports: Malaise Eyes: reports: No Symptoms HENT: reports: No Symptoms Neck: reports: No Symptoms Cardiovascular: reports: Chest Pain, Edema, Shortness of Breath Respiratory: reports: SOB Musculoskeletal: reports: No Symptoms Integumentary: reports: No Symptoms Neurological: reports: No Symptoms Endocrine: reports: No Symptoms Physical Exam Vital Signs: Vital Signs Temperature 97.9 F 06/03/17 14:00 Pulse Rate 96 H 06/03/17 14:00 Respiratory Rate 18 06/03/17 01:00 Blood Pressure 111/47 06/03/17 14:00 O2 Sat by Pulse Oximetry (%) 93 L 06/03/17 11:32 Constitutional: Yes: Calm HENT: Yes: Atraumatic Cardiovascular: Yes: S1, S2 Respiratory: Yes: Diminished, On Nasal O2 Gastrointestinal: Yes: Soft, Abdomen, Obese Renal/: Yes: WNL Musculoskeletal: Yes: WNL Edema: Yes Edema: LLE: 1+, RLE: 1+ Neurological: Yes: Oriented Psychiatric: Yes: Oriented Labs: CBC, BMP 06/03/17 05:35 06/03/17 05:35 Laboratory Tests 06/02/17 06/02/17 06/02/17 00:50 00:50 06:45 WBC 8.8 Hgb 13.7 D Sodium Potassium Chloride Carbon Dioxide Anion Gap BUN 30 H D Creatinine 1.5 H Creat Clearance w eGFR Urine Color Dkyellow Urine Appearance Slcloudy Urine pH 5.0 Ur Specific [place] >= 1.030 H Urine Protein Negative Urine Glucose (UA) Negative Urine Ketones Trace H Urine Blood 2+ H Urine Nitrite Negative Urine Bilirubin Negative Urine Urobilinogen Negative Urine RBC 3 Urine WBC 2 06/03/17 06/03/17 05:35 05:35 WBC 10.8 H Hgb 11.6 D Sodium 141 Potassium 4.7 Chloride 99 Carbon Dioxide 32 Anion Gap 10 BUN 31 H Creatinine 1.2 H Creat Clearance w eGFR 44.29 Urine Color Urine Appearance Urine pH Ur Specific [place] Urine Protein Urine Glucose (UA) Urine Ketones Urine Blood Urine Nitrite Urine Bilirubin Urine Urobilinogen Urine RBC Urine WBC Imaging - Results Chest X-ray: Report Reviewed Cat Scan: Report Reviewed Problem List - Problems (1) Chronic respiratory failure with hypoxia Code(s): J96.11 - CHRONIC RESPIRATORY FAILURE WITH HYPOXIA (2) Sarcoidosis of lung Code(s): D86.0 - SARCOIDOSIS OF LUNG (3) CKD (chronic kidney disease) Code(s): N18.9 - CHRONIC KIDNEY DISEASE, UNSPECIFIED Assessment/Plan Current Medications Generic Name Dose Route Start Last Admin Trade Name Freq PRN Reason Stop Dose Admin Acetaminophen 650 mg 06/02/17 02:50 06/02/17 10:57 Tylenol - PO 650 mg Q4H PRN Administration FEVER OR PAIN Albuterol/Ipratropium 1 amp 06/02/17 06:00 06/03/17 18:21 Duoneb - NEB 1 amp QIDR [facility] Administration Docusate Sodium 100 mg 06/02/17 06:00 06/03/17 14:09 Colace - PO 100 mg TID [facility] Administration Furosemide 40 mg 06/02/17 06:00 06/03/17 14:09 Lasix - PO 40 mg BID@0600,1400 [facility] Administration Hydroxyzine HCl 25 mg 06/03/17 22:00 Atarax - PO HS [facility] Insulin Aspart 1 vial 06/02/17 07:00 06/03/17 17:09 Novolog Vial Sliding Scale - SQ Not Given ACHS [facility] Protocol Lidocaine 1 patch 06/03/17 10:00 06/03/17 10:29 Lidoderm Patch - TP 1 patch DAILY [facility] Administration Magnesium Hydroxide 30 ml 06/02/17 02:50 Milk Of Magnesia - PO DAILY PRN CONSTIPATION Methyl Salicylate 1 applic 06/02/17 18:15 06/03/17 10:29 Elliott-Leigh - TP 1 applic DAILY [facility] Administration Methylprednisolone Sodium Succinate 80 mg 06/02/17 09:00 06/03/17 16:10 Solu-Medrol - IVPB 80 mg Q6H-IV [facility] Administration Miscellaneous 1 each 06/02/17 22:00 06/02/17 21:22 Lidoderm Patch Removal MC Not Given DAILY@2200 [facility] Montelukast Sodium 10 mg 06/02/17 22:00 06/02/17 21:24 Singulair - PO 10 mg HS [facility] Administration Oxybutynin Chloride 5 mg 06/02/17 10:00 06/03/17 10:29 Ditropan - PO 5 mg BID [facility] Administration Oxycodone HCl 5 mg 06/03/17 12:56 06/03/17 12:59 Roxicodone - PO 5 mg Q6H PRN Administration PAIN Pantoprazole Sodium 40 mg 06/02/17 10:00 06/03/17 10:30 Protonix - PO 40 mg DAILY [facility] Administration Polyethylene Glycol 17 gm 06/02/17 02:50 Miralax (For Daily Use) - PO DAILY PRN CONSTIPATION Potassium Chloride 10 meq 06/02/17 10:00 06/03/17 10:29 K-Dur - PO 10 meq DAILY [facility] Administration Prednisolone Acetate 1 drop 06/03/17 11:15 06/03/17 12:08 Pred Forte 1% - OD 1 drop BID [facility] Administration Senna 1 tab 06/02/17 06:00 06/03/17 14:09 Senna - PO 1 tab TID [facility] Administration Temazepam 30 mg 06/02/17 22:00 06/02/17 21:24 Restoril - PO 30 mg HS [facility] Administration Tobramycin Sulfate 1 applic 06/03/17 14:00 06/03/17 16:09 Tobrex Ophthalmic Ointment - OD 1 applic TID [facility] Administration Warfarin Sodium 2.5 mg/ 4.5 mg 06/02/17 18:00 06/03/17 17:09 Warfarin Sodium 2 mg PO 4.5 mg DAILY@1800 [facility] Administration Impression 1. CKD however will need to get baseline creatinine 2. sarcoid 3. r/p acs 4. hx DVT 5. COPD 6. 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
[2017-06-03] MEDS ORDERED: PT OWN MED DRAWER 7, Y5N ONE (22:00)
[2017-06-03] MEDS: MONTELUKAST NA 10 MG TABLET PO SCH (22:20)
[2017-06-03] MEDS: TEMAZEPAM 15 MG CAPSULE PO SCH (22:21)
[2017-06-03] MEDS: LIDOCAINE PATCH REMOVAL MC SCH (22:22)
[2017-06-03] MEDS: hydrOXYzine HCL 25 MG TABLET (FP) PO SCH (22:22)
[2017-06-04] MEDS: methylPREDNISolone NA SUCC 125 MG/2 ML VIAL IVPB SCH ×2 (03:32→08:46)
[2017-06-04] MEDS: ALBUTEROL SO4 2.5/IPRATROPIUM 0.5 INH SOL 3 ML VIAL.NEB. NEB SCH ×3 (06:22→17:22)
[2017-06-04] MEDS: FUROSEMIDE 40 MG TABLET (FP) PO SCH ×2 (06:32→14:29)
[2017-06-04] MEDS: TOBRAMYCIN 0.3% OPHTH OINT 3.5 GM OD SCH ×2 (06:32→21:42)
[2017-06-04] MEDS: DOCUSATE SODIUM 100 MG CAPSULE (FP) PO SCH ×3 (06:32→21:26)
[2017-06-04] MEDS: SENNOSIDES 8.6MG TABLET (FP) PO SCH ×3 (06:32→21:26)
[2017-06-04] MEDS: INSULIN SLIDING SCALE (NOVOLOG) 1 VIAL SQ SCH ×4 (06:35→21:40)
[2017-06-04] MEDS: oxyCODONE HCL 5 MG TABLET PO PRN (08:47)
[2017-06-04 08:58] LABS: ALBUMIN 2.9 g/dl (3.4-5.0); ALK PHOS 54 U/L (45-117); ANION GAP 9 (8-16); BILIRUBIN,TOTAL 0.2 mg/dL (0.2-1.0); CALCIUM 8.3 mg/dL (8.5-10.1); CO2 31 mmol/L (21-32); CREATININE 1.3 mg/dL (0.55-1.02); GLUCOSE,RANDOM 182 mg/dL (74-106); SGOT/AST 9 U/L (15-37); SGPT/ALT 18 U/L (12-78); TOT PROT 5.6 g/dl (6.4-8.2)
[2017-06-04] MEDS: METHYL SALICYLATE/MENTHOL OINT 30 GM TUBE TP SCH (10:40)
[2017-06-04] MEDS: OXYBUTYNIN CHLORIDE 5 MG TABLET PO SCH ×2 (10:41→21:27)
[2017-06-04] MEDS: POTASSIUM CHLORIDE TABS 10 MEQ TABLET.ER (FP) PO SCH (10:41)
[2017-06-04] MEDS: LIDOCAINE 5% TOPICAL PATCH TP SCH (10:41)
[2017-06-04] MEDS: CALCITONIN - SALMON SYNTHETIC 3.7 ML SPRAY.PUMP NS SCH (10:42)
[2017-06-04] MEDS: PANTOPRAZOLE 40 MG TABLET (FP) PO SCH (10:44)
[2017-06-04] MEDS: prednisoLONE ACETATE 1% OPHTH SUSP 5 ML BOTTLE OD SCH ×2 (10:44→21:31)
[2017-06-04] MEDS: CHOLECALCIFEROL (VITAMIN D3) 1,000 UNIT TABLET (FP) PO SCH (10:45)
--- NOTE | 2017-06-04 11:30 | PN ---
Progress Note, Physician History of Present Illness: PULMONARY ALERT,ON NASAL O2,DYSPNEIC. - Current Medication List Current Medications: Active Medications Acetaminophen (Tylenol -) 650 mg PO Q4H PRN PRN Reason: FEVER OR PAIN Last Admin: 06/02/17 10:57 Dose: 650 mg Albuterol/Ipratropium (Duoneb -) 1 amp NEB QIDR ON LICENSE OF [facility] Last Admin: 06/04/17 06:22 Dose: 1 amp Calcitonin (Miacalcin [facility] -) 200 units NS DAILY ON LICENSE OF [facility] Last Admin: 06/04/17 10:42 Dose: 200 units Cholecalciferol (Vitamin D3 -) 1,000 unit PO DAILY ON LICENSE OF [facility] Last Admin: 06/04/17 10:45 Dose: 1,000 unit Docusate Sodium (Colace -) 100 mg PO TID ON LICENSE OF [facility] Last Admin: 06/04/17 06:32 Dose: 100 mg Furosemide (Lasix -) 40 mg PO BID@0600,1400 ON LICENSE OF [facility] Last Admin: 06/04/17 06:32 Dose: 40 mg Hydroxyzine HCl (Atarax -) 25 mg PO HS ON LICENSE OF [facility] Last Admin: 06/03/17 22:22 Dose: 25 mg Insulin Aspart (Novolog Vial Sliding Scale -) 1 vial SQ ACHS [facility] PRN Reason: Protocol Last Admin: 06/04/17 06:35 Dose: Not Given Lidocaine (Lidoderm Patch -) 1 patch TP DAILY ON LICENSE OF [facility] Last Admin: 06/04/17 10:41 Dose: 1 patch Magnesium Hydroxide (Milk Of Magnesia -) 30 ml PO DAILY PRN PRN Reason: CONSTIPATION Methyl Salicylate (Elliott-Leigh -) 1 applic TP DAILY ON LICENSE OF [facility] Last Admin: 06/04/17 10:40 Dose: 1 applic Methylprednisolone Sodium Succinate (Solu-Medrol -) 80 mg IVPB Q6H-IV ON LICENSE OF [facility] Last Admin: 06/04/17 08:46 Dose: 80 mg Miscellaneous (Lidoderm Patch Removal) 1 each MC DAILY@2200 ON LICENSE OF [facility] Last Admin: 06/03/17 22:22 Dose: 1 each Montelukast Sodium (Singulair -) 10 mg PO HS ON LICENSE OF [facility] Last Admin: 06/03/17 22:20 Dose: 10 mg Oxybutynin Chloride (Ditropan -) 5 mg PO BID ON LICENSE OF [facility] Last Admin: 06/04/17 10:41 Dose: 5 mg Oxycodone HCl (Roxicodone -) 5 mg PO Q6H PRN PRN Reason: PAIN Last Admin: 06/04/17 08:47 Dose: 5 mg Pantoprazole Sodium (Protonix -) 40 mg PO DAILY ON [facility] OF [facility] Last Admin: 06/04/17 10:44 Dose: 40 mg Polyethylene Glycol (Miralax (For Daily Use) -) 17 gm PO DAILY PRN PRN Reason: CONSTIPATION Potassium Chloride (K-Dur -) 10 meq PO DAILY ON [facility] OF [facility] Last Admin: 06/04/17 10:41 Dose: 10 meq Prednisolone Acetate (Pred Forte 1% -) 1 drop OD BID ON LICENSE OF [facility] Last Admin: 06/04/17 10:44 Dose: Not Given Senna (Senna -) 1 tab PO TID ON LICENSE OF [facility] Last Admin: 06/04/17 06:32 Dose: 1 tab Temazepam (Restoril -) 30 mg PO HS ON [facility] OF [facility] Last Admin: 06/03/17 22:21 Dose: 30 mg Tobramycin Sulfate (Tobrex Ophthalmic Ointment -) 1 applic OD TID ON LICENSE OF [facility] Last Admin: 06/04/17 06:32 Dose: 1 applic Warfarin Sodium 2.5 mg/ (Warfarin Sodium 2 mg) 4.5 mg PO DAILY@1800 ON LICENSE OF [facility] Last Admin: 06/03/17 17:09 Dose: 4.5 mg - Objective Vital Signs: Vital Signs Temperature 98.2 F 06/04/17 06:00 Pulse Rate 91 H 06/04/17 06:00 Respiratory Rate 16 06/04/17 06:00 Blood Pressure 105/64 06/04/17 06:00 O2 Sat by Pulse Oximetry (%) 93 L 06/03/17 21:00 Constitutional: Yes: Well Nourished, Calm Eyes: Yes: WNL HENT: Yes: WNL Neck: Yes: WNL Cardiovascular: Yes: Regular Rate and Rhythm, S1, S2 Respiratory: Yes: Rhonchi (CALI RHONCHI AND CRACKLES) Gastrointestinal: Yes: Normal Bowel Sounds, Soft Extremities: Yes: WNL Edema: No Labs: CBC, BMP 06/03/17 05:35 06/04/17 06:00 INR, PTT INR 2.29 (0.82-1.09) H 06/03/17 05:35 - ....Imaging Cat Scan: Report Reviewed, Image Reviewed Assessment/Plan Problem List - Problems (1) Chronic respiratory failure with hypoxia Code(s): J96.11 - CHRONIC RESPIRATORY FAILURE WITH HYPOXIA (2) Sarcoidosis of lung Code(s): D86.0 - SARCOIDOSIS OF LUNG END STAGE WITH FIBROTIC LUNG (3) Acute exacerbation of chronic obstructive pulmonary disease (COPD) Code(s): J44.1 - CHRONIC OBSTRUCTIVE PULMONARY DISEASE W (ACUTE) EXACERBATION (4) Acute respiratory distress syndrome Code(s): J80 - ACUTE RESPIRATORY DISTRESS SYNDROME (5) Bronchitis Code(s): J40 - BRONCHITIS, NOT SPECIFIED ACUTE OR CHRONIC (6) Pulmonary hypertension Code(s): I27.2 - OTHER SECONDARY PULMONARY HYPERTENSION (7) Tachycardia Code(s): R00.0 - TACHYCARDIA, UNSPECIFIED CONT.IV STEROIDS ABX BRONCHODILATORS O2 VTE PROPHYLAXIS [place] [place]
[2017-06-04] MEDS ORDERED: INSULIN (NOVOLOG) ASPART 100 UNITS/ML 10ML VIAL ONE (11:36)
--- NOTE | 2017-06-04 12:29 | PN ---
Progress Note, Physician History of Present Illness: Pt seen and examined at bedside. She is awake and alert. She feels that her breathing is a little better. - Current Medication List Current Medications: Active Medications Acetaminophen (Tylenol -) 650 mg PO Q4H PRN PRN Reason: FEVER OR PAIN Last Admin: 06/02/17 10:57 Dose: 650 mg Albuterol/Ipratropium (Duoneb -) 1 amp NEB QIDR [facility] Last Admin: 06/04/17 11:20 Dose: 1 amp Calcitonin (Miacalcin Montezuma -) 200 units NS DAILY [facility] Last Admin: 06/04/17 10:42 Dose: 200 units Cholecalciferol (Vitamin D3 -) 1,000 unit PO DAILY [facility] Last Admin: 06/04/17 10:45 Dose: 1,000 unit Docusate Sodium (Colace -) 100 mg PO TID [facility] Last Admin: 06/04/17 06:32 Dose: 100 mg Furosemide (Lasix -) 40 mg PO BID@0600,1400 [facility] Last Admin: 06/04/17 06:32 Dose: 40 mg Hydroxyzine HCl (Atarax -) 25 mg PO HS [facility] Last Admin: 06/03/17 22:22 Dose: 25 mg Insulin Aspart (Novolog Vial Sliding Scale -) 1 vial SQ ACHS [facility] PRN Reason: Protocol Last Admin: 06/04/17 11:43 Dose: 2 units Lidocaine (Lidoderm Patch -) 1 patch TP DAILY [facility] Last Admin: 06/04/17 10:41 Dose: 1 patch Magnesium Hydroxide (Milk Of Magnesia -) 30 ml PO DAILY PRN PRN Reason: CONSTIPATION Methyl Salicylate (Elliott-Leigh -) 1 applic TP DAILY [facility] Last Admin: 06/04/17 10:40 Dose: 1 applic Methylprednisolone Sodium Succinate (Solu-Medrol -) 80 mg IVPB Q6H-IV [facility] Last Admin: 06/04/17 08:46 Dose: 80 mg Miscellaneous (Lidoderm Patch Removal) 1 each MC DAILY@2200 [facility] Last Admin: 06/03/17 22:22 Dose: 1 each Montelukast Sodium (Singulair -) 10 mg PO HS [facility] Last Admin: 06/03/17 22:20 Dose: 10 mg Oxybutynin Chloride (Ditropan -) 5 mg PO BID [facility] Last Admin: 09/15/17 10:41 Dose: 5 mg Oxycodone HCl (Roxicodone -) 5 mg PO Q6H PRN PRN Reason: PAIN Last Admin: 06/04/17 08:47 Dose: 5 mg Pantoprazole Sodium (Protonix -) 40 mg PO DAILY [facility] Last Admin: 06/04/17 10:44 Dose: 40 mg Polyethylene Glycol (Miralax (For Daily Use) -) 17 gm PO DAILY PRN PRN Reason: CONSTIPATION Potassium Chloride (K-Dur -) 10 meq PO DAILY [facility] Last Admin: 06/04/17 10:41 Dose: 10 meq Prednisolone Acetate (Pred Forte 1% -) 1 drop OD BID [facility] Last Admin: 06/04/17 10:44 Dose: Not Given Senna (Senna -) 1 tab PO TID [facility] Last Admin: 06/04/17 06:32 Dose: 1 tab Temazepam (Restoril -) 30 mg PO HS [facility] Last Admin: 06/03/17 22:21 Dose: 30 mg Tobramycin Sulfate (Tobrex Ophthalmic Ointment -) 1 applic OD TID [facility] Last Admin: 06/04/17 06:32 Dose: 1 applic Warfarin Sodium 2.5 mg/ (Warfarin Sodium 2 mg) 4.5 mg PO DAILY@1800 [facility] Last Admin: 06/03/17 17:09 Dose: 4.5 mg - Objective Vital Signs: Vital Signs Temperature 97.4 F L 06/04/17 10:00 Pulse Rate 89 06/04/17 11:20 Respiratory Rate 18 06/04/17 10:00 Blood Pressure 103/58 06/04/17 10:00 O2 Sat by Pulse Oximetry (%) 98 06/04/17 11:20 Constitutional: Yes: Calm HENT: Yes: Atraumatic Cardiovascular: Yes: S1, S2 Respiratory: Yes: On Nasal O2 Gastrointestinal: Yes: Soft Genitourinary: Yes: WNL Edema: Yes Edema: LLE: 1+, RLE: 1+ Neurological: Yes: Oriented Psychiatric: Yes: Oriented Labs: CBC, BMP 06/03/17 05:35 06/04/17 06:00 INR, PTT INR 2.29 (0.82-1.09) H 06/03/17 05:35 - ....Imaging Ultrasound: Report Reviewed Problem List - Problems (1) Chronic respiratory failure with hypoxia Code(s): J96.11 - CHRONIC RESPIRATORY FAILURE WITH HYPOXIA (2) Sarcoidosis of lung Code(s): D86.0 - SARCOIDOSIS OF LUNG (3) CKD (chronic kidney disease) Code(s): N18.9 - CHRONIC KIDNEY DISEASE, UNSPECIFIED Assessment/Plan Current Medications Generic Name Dose Route Start Last Admin Trade Name Freq PRN Reason Stop Dose Admin Acetaminophen 650 mg 06/02/17 02:50 06/02/17 10:57 Tylenol - PO 650 mg Q4H PRN Administration FEVER OR PAIN Albuterol/Ipratropium 1 amp 06/02/17 06:00 06/04/17 11:20 Duoneb - NEB 1 amp QIDR [facility] Administration Calcitonin 200 units 06/04/17 10:00 06/04/17 10:42 Miacalcin Montezuma - NS 200 units DAILY [facility] Administration Cholecalciferol 1,000 unit 06/04/17 10:00 06/04/17 10:45 Vitamin D3 - PO 1,000 unit DAILY [facility] Administration Docusate Sodium 100 mg 06/02/17 06:00 06/04/17 06:32 Colace - PO 100 mg TID [facility] Administration Furosemide 40 mg 06/02/17 06:00 06/04/17 06:32 Lasix - PO 40 mg BID@0600,1400 [facility] Administration Hydroxyzine HCl 25 mg 06/03/17 22:00 06/03/17 22:22 Atarax - PO 25 mg HS [facility] Administration Insulin Aspart 1 vial 06/02/17 07:00 06/04/17 11:43 Novolog Vial Sliding Scale - SQ 2 units ACHS [facility] Administration Protocol Lidocaine 1 patch 06/03/17 10:00 06/04/17 10:41 Lidoderm Patch - TP 1 patch DAILY [facility] Administration Magnesium Hydroxide 30 ml 06/02/17 02:50 Milk Of Magnesia - PO DAILY PRN CONSTIPATION Methyl Salicylate 1 applic 06/02/17 18:15 06/04/17 10:40 Elliott-Leigh - TP 1 applic DAILY [facility] Administration Methylprednisolone Sodium Succinate 80 mg 06/02/17 09:00 06/04/17 08:46 Solu-Medrol - IVPB 80 mg Q6H-IV [facility] Administration Miscellaneous 1 each 06/02/17 22:00 06/03/17 22:22 Lidoderm Patch Removal MC 1 each DAILY@2200 [facility] Administration Montelukast Sodium 10 mg 06/02/17 22:00 06/03/17 22:20 Singulair - PO 10 mg HS [facility] Administration Oxybutynin Chloride 5 mg 06/02/17 10:00 06/04/17 10:41 Ditropan - PO 5 mg BID [facility] Administration Oxycodone HCl 5 mg 06/03/17 12:56 06/04/17 08:47 Roxicodone - PO 5 mg Q6H PRN Administration PAIN Pantoprazole Sodium 40 mg 06/02/17 10:00 06/04/17 10:44 Protonix - PO 40 mg DAILY [facility] Administration Polyethylene Glycol 17 gm 06/02/17 02:50 Miralax (For Daily Use) - PO DAILY PRN CONSTIPATION Potassium Chloride 10 meq 06/02/17 10:00 06/04/17 10:41 K-Dur - PO 10 meq DAILY [facility] Administration Prednisolone Acetate 1 drop 06/03/17 11:15 06/04/17 10:44 Pred Forte 1% - OD Not Given BID [facility] Senna 1 tab 06/02/17 06:00 06/04/17 06:32 Senna - PO 1 tab TID [facility] Administration Temazepam 30 mg 06/02/17 22:00 06/03/17 22:21 Restoril - PO 30 mg HS [facility] Administration Tobramycin Sulfate 1 applic 06/03/17 14:00 06/04/17 06:32 Tobrex Ophthalmic Ointment - OD 1 applic TID [facility] Administration Warfarin Sodium 2.5 mg/ 4.5 mg 06/02/17 18:00 06/03/17 17:09 Warfarin Sodium 2 mg PO 4.5 mg DAILY@1800 [facility] Administration Impression 1. CKD 2. sarcoid 3. r/p acs 4. hx DVT 5. COPD 6. 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
--- NOTE | 2017-06-04 12:34 | PN ---
Progress Note, Physician Chief Complaint: AWAKE ALERT FEELING BETTER - Current Medication List Current Medications: Active Medications Acetaminophen (Tylenol -) 650 mg PO Q4H PRN PRN Reason: FEVER OR PAIN Last Admin: 06/02/17 10:57 Dose: 650 mg Albuterol/Ipratropium (Duoneb -) 1 amp NEB QIDR [facility] Last Admin: 06/04/17 11:20 Dose: 1 amp Calcitonin (Miacalcin [place] -) 200 units NS DAILY [facility] Last Admin: 06/04/17 10:42 Dose: 200 units Cholecalciferol (Vitamin D3 -) 1,000 unit PO DAILY [facility] Last Admin: 06/04/17 10:45 Dose: 1,000 unit Docusate Sodium (Colace -) 100 mg PO TID [facility] Last Admin: 06/04/17 06:32 Dose: 100 mg Furosemide (Lasix -) 40 mg PO BID@0600,1400 [facility] Last Admin: 06/04/17 06:32 Dose: 40 mg Hydroxyzine HCl (Atarax -) 25 mg PO HS [facility] Last Admin: 06/03/17 22:22 Dose: 25 mg Zoledronic Acid 5 mg/ (Miscellaneous) 100 mls @ 100 mls/hr IV ONCE ONE Stop: 06/04/17 13:29 Insulin Aspart (Novolog Vial Sliding Scale -) 1 vial SQ ACHS [facility] PRN Reason: Protocol Last Admin: 06/04/17 11:43 Dose: 2 units Lidocaine (Lidoderm Patch -) 1 patch TP DAILY [facility] Last Admin: 06/04/17 10:41 Dose: 1 patch Magnesium Hydroxide (Milk Of Magnesia -) 30 ml PO DAILY PRN PRN Reason: CONSTIPATION Methyl Salicylate (Elliott-Leigh -) 1 applic TP DAILY [facility] Last Admin: 06/04/17 10:40 Dose: 1 applic Methylprednisolone Sodium Succinate (Solu-Medrol -) 80 mg IVPB Q6H-IV [facility] Last Admin: 06/04/17 08:46 Dose: 80 mg Miscellaneous (Lidoderm Patch Removal) 1 each MC DAILY@2200 [facility] Last Admin: 06/03/17 22:22 Dose: 1 each Montelukast Sodium (Singulair -) 10 mg PO HS [facility] Last Admin: 06/03/17 22:20 Dose: 10 mg Oxybutynin Chloride (Ditropan -) 5 mg PO BID [facility] Last Admin: 06/04/17 10:41 Dose: 5 mg Oxycodone HCl (Roxicodone -) 5 mg PO Q6H PRN PRN Reason: PAIN Last Admin: 06/04/17 08:47 Dose: 5 mg Pantoprazole Sodium (Protonix -) 40 mg PO DAILY [facility] Last Admin: 06/04/17 10:44 Dose: 40 mg Polyethylene Glycol (Miralax (For Daily Use) -) 17 gm PO DAILY PRN PRN Reason: CONSTIPATION Potassium Chloride (K-Dur -) 10 meq PO DAILY [facility] Last Admin: 06/04/17 10:41 Dose: 10 meq Prednisolone Acetate (Pred Forte 1% -) 1 drop OD BID [facility] Last Admin: 06/04/17 10:44 Dose: Not Given Senna (Senna -) 1 tab PO TID [facility] Last Admin: 06/04/17 06:32 Dose: 1 tab Temazepam (Restoril -) 30 mg PO HS [facility] Last Admin: 06/03/17 22:21 Dose: 30 mg Tobramycin Sulfate (Tobrex Ophthalmic Ointment -) 1 applic OD TID [facility] Last Admin: 06/04/17 06:32 Dose: 1 applic Warfarin Sodium 2.5 mg/ (Warfarin Sodium 2 mg) 4.5 mg PO DAILY@1800 [facility] Last Admin: 06/03/17 17:09 Dose: 4.5 mg - Objective Vital Signs: Vital Signs Temperature 97.4 F L 06/04/17 10:00 Pulse Rate 89 06/04/17 11:20 Respiratory Rate 18 06/04/17 10:00 Blood Pressure 103/58 06/04/17 10:00 O2 Sat by Pulse Oximetry (%) 98 06/04/17 11:20 Constitutional: Yes: Mild Distress Eyes: Yes: Ptosis HENT: Yes: WNL Neck: Yes: WNL Cardiovascular: Yes: WNL Respiratory: Yes: Diminished, On Nasal O2 Gastrointestinal: Yes: WNL Genitourinary: Yes: Incontinence Musculoskeletal: Yes: Back Pain, Muscle Pain Extremities: Yes: WNL Edema: Yes Edema: LLE: 1+, RLE: 1+ Peripheral Pulses WNL: Yes Integumentary: Yes: WNL Wound/Incision: Yes: Clean/Dry Neurological: Yes: Pre-Existing Deficit ...Motor Strength: LLE, RLE Psychiatric: Yes: WNL Labs: CBC, BMP 06/03/17 05:35 06/04/17 06:00 INR, PTT INR 2.29 (0.82-1.09) H 06/03/17 05:35 Problem List - Problems (1) Chronic respiratory failure with hypoxia Code(s): J96.11 - CHRONIC RESPIRATORY FAILURE WITH HYPOXIA (2) Sarcoidosis of lung Code(s): D86.0 - SARCOIDOSIS OF LUNG (3) Acute exacerbation of chronic obstructive pulmonary disease (COPD) Code(s): J44.1 - CHRONIC OBSTRUCTIVE PULMONARY DISEASE W (ACUTE) EXACERBATION (4) Acute respiratory distress syndrome Code(s): J80 - ACUTE RESPIRATORY DISTRESS SYNDROME (5) CKD (chronic kidney disease) Code(s): N18.9 - CHRONIC KIDNEY DISEASE, UNSPECIFIED (6) Pulmonary hypertension Code(s): I27.2 - OTHER SECONDARY PULMONARY HYPERTENSION (7) Shoulder pain Code(s): M25.519 - PAIN IN UNSPECIFIED SHOULDER Qualifiers: Chronicity: acute Laterality: left Qualified Code(s): M25.512 - Pain in left shoulder (8) Memory loss due to medical condition Code(s): R41.3 - OTHER AMNESIA (9) Weakness Code(s): R53.1 - WEAKNESS Assessment/Plan IV STEROIDS TAPER TO PREDNISONE PO NEBS BID PT EVAL OOB TO CHAIR 02 SUPPORT RECLAST IV X 1 ANNUAL DOSE FOR OSTEOPOROSIS TX/PREVENTION
[2017-06-04] MEDS ORDERED: ZOLEDRONIC ACID/MAN/WATER 100 ML IVPB ONE (13:00)
[2017-06-04 13:58] LABS: URINE APPEARANCE CLEAR; URINE BILIRUBIN NEGATIVE (NEGATIVE); URINE BLOOD 1+ (NEGATIVE); URINE COLOR STRAW; URINE GLUCOSE (UA) 2+ (NEGATIVE); URINE KETONE NEGATIVE (NEGATIVE); URINE LEUK ESTERASE NEGATIVE (NEGATIVE); URINE NITRITE NEGATIVE (NEGATIVE); URINE PROTEIN NEGATIVE (NEGATIVE); URINE UROBILINOGEN NEGATIVE mg/dL (0.2-1.0)
[2017-06-04 14:10] LABS: URINE CREATININE 28.7 mg/dL (20-320)
[2017-06-04 14:35] LABS: URINE HYALINE CAST 26 /lpf; URINE MUCUS RARE; URINE RBC 1 /hpf (0-3); URINE WBC 1 /hpf (3-5)
[2017-06-04 19:04] LABS: INR 3.15 (0.82-1.09); PROTHROMBIN TIME (PATIENT) 35.5 SEC (9.98-11.88)
[2017-06-04] MEDS: WARFARIN NA 2.5 MG, WARFARIN NA 2 MG PO SCH (19:27)
[2017-06-04] MEDS: MONTELUKAST NA 10 MG TABLET PO SCH (21:26)
[2017-06-04] MEDS: TEMAZEPAM 15 MG CAPSULE PO SCH (21:27)
[2017-06-04] MEDS ORDERED: PT OWN MED DRAWER 7, Y5N ONE (21:30)
[2017-06-04] MEDS: hydrOXYzine HCL 25 MG TABLET (FP) PO SCH (21:30)
[2017-06-04] MEDS: LIDOCAINE PATCH REMOVAL MC SCH (21:39)
[2017-06-05] MEDS: INSULIN SLIDING SCALE (NOVOLOG) 1 VIAL SQ SCH ×4 (06:25→21:42)
[2017-06-05] MEDS: ALBUTEROL SO4 2.5/IPRATROPIUM 0.5 INH SOL 3 ML VIAL.NEB. NEB SCH ×4 (06:26→17:13)
[2017-06-05] MEDS: DOCUSATE SODIUM 100 MG CAPSULE (FP) PO SCH ×3 (06:29→21:43)
[2017-06-05] MEDS: FUROSEMIDE 40 MG TABLET (FP) PO SCH ×2 (06:29→14:53)
[2017-06-05] MEDS: SENNOSIDES 8.6MG TABLET (FP) PO SCH ×3 (06:29→21:43)
[2017-06-05 07:33] LABS: MCH 30.4 pg (25.7-33.7); MCHC 32.4 g/dl (32.0-36.0); MEAN CELL VOLUME 93.9 fl (80-96); MEAN PLT VOLUME 8.5 fl (7.5-11.1); PLATELET COUNT 146 K/MM3 (134-434); RDW 16.9 % (11.6-15.6); WHITE BLOOD COUNT 8.1 K/mm3 (4.0-10.0)
[2017-06-05 07:59] LABS: ANION GAP 5 (8-16); CALCIUM 7.9 mg/dL (8.5-10.1); CO2 38 mmol/L (21-32); CREATININE 0.9 mg/dL (0.55-1.02); GLUCOSE,RANDOM 74 mg/dL (74-106)
[2017-06-05 08:05] LABS: INR 2.46 (0.82-1.09); PROTHROMBIN TIME (PATIENT) 27.6 SEC (9.98-11.88)
[2017-06-05] MEDS ORDERED: PT OWN MED DRAWER 7, Y5N ONE ×2 (10:06→21:40)
[2017-06-05] MEDS: predniSONE 20 MG TABLET (UD) PO SCH (10:08)
[2017-06-05] MEDS: CHOLECALCIFEROL (VITAMIN D3) 1,000 UNIT TABLET (FP) PO SCH (10:09)
[2017-06-05] MEDS: POTASSIUM CHLORIDE TABS 10 MEQ TABLET.ER (FP) PO SCH (10:09)
[2017-06-05] MEDS: PANTOPRAZOLE 40 MG TABLET (FP) PO SCH (10:10)
[2017-06-05] MEDS: OXYBUTYNIN CHLORIDE 5 MG TABLET PO SCH ×2 (10:10→21:43)
[2017-06-05] MEDS: LIDOCAINE 5% TOPICAL PATCH TP SCH (10:11)
[2017-06-05] MEDS: METHYL SALICYLATE/MENTHOL OINT 30 GM TUBE TP SCH (10:48)
[2017-06-05] MEDS: TOBRAMYCIN 0.3% OPHTH OINT 3.5 GM OD SCH ×2 (10:48→21:42)
--- NOTE | 2017-06-05 11:25 | PN ---
Progress Note, Physician Chief Complaint: AWAKE ALERT FEELING BETTER NAD - Current Medication List Current Medications: Active Medications Acetaminophen (Tylenol -) 650 mg PO Q4H PRN PRN Reason: FEVER OR PAIN Last Admin: 06/02/17 10:57 Dose: 650 mg Albuterol/Ipratropium (Duoneb -) 1 amp NEB QIDR [facility] Last Admin: 06/05/17 06:26 Dose: 1 amp Calcitonin (Miacalcin [place] -) 200 units NS DAILY [facility] Last Admin: 06/04/17 10:42 Dose: 200 units Cholecalciferol (Vitamin D3 -) 1,000 unit PO DAILY [facility] Last Admin: 06/05/17 10:09 Dose: 1,000 unit Docusate Sodium (Colace -) 100 mg PO TID [facility] Last Admin: 06/05/17 06:29 Dose: 100 mg Furosemide (Lasix -) 40 mg PO BID@0600,1400 [facility] Last Admin: 06/05/17 06:29 Dose: 40 mg Hydroxyzine HCl (Atarax -) 25 mg PO [facility] Last Admin: 06/04/17 21:30 Dose: 25 mg Insulin Aspart (Novolog Vial Sliding Scale -) 1 vial SQ ACHS [facility] PRN Reason: Protocol Last Admin: 06/05/17 06:25 Dose: Not Given Lidocaine (Lidoderm Patch -) 1 patch TP DAILY [facility] Last Admin: 06/05/17 10:11 Dose: 1 patch Magnesium Hydroxide (Milk Of Magnesia -) 30 ml PO DAILY PRN PRN Reason: CONSTIPATION Methyl Salicylate (Elliott-Leigh -) 1 applic TP DAILY [facility] Last Admin: 06/04/17 10:40 Dose: 1 applic Miscellaneous (Lidoderm Patch Removal) 1 each MC DAILY@2200 [facility] Last Admin: 06/04/17 21:39 Dose: Not Given Montelukast Sodium (Singulair -) 10 mg PO HS [facility] Last Admin: 06/04/17 21:26 Dose: 10 mg Oxybutynin Chloride (Ditropan -) 5 mg PO BID [facility] Last Admin: 06/05/17 10:10 Dose: 5 mg Pantoprazole Sodium (Protonix -) 40 mg PO DAILY [facility] Last Admin: 06/05/17 10:10 Dose: 40 mg Polyethylene Glycol (Miralax (For Daily Use) -) 17 gm PO DAILY PRN PRN Reason: CONSTIPATION Potassium Chloride (K-Dur -) 10 meq PO DAILY [facility] Last Admin: 06/05/17 10:09 Dose: 10 meq Prednisone (Deltasone -) 50 mg PO DAILY [facility] Last Admin: 06/05/17 10:08 Dose: 50 mg Senna (Senna -) 1 tab PO TID [facility] Last Admin: 06/05/17 06:29 Dose: 1 tab Temazepam (Restoril -) 30 mg PO HS [facility] Last Admin: 06/04/17 21:27 Dose: 30 mg Tobramycin Sulfate (Tobrex Ophthalmic Ointment -) 1 applic OD BID [facility] Last Admin: 06/04/17 21:42 Dose: 1 applic Warfarin Sodium 2.5 mg/ (Warfarin Sodium 2 mg) 4.5 mg PO DAILY@1800 [facility] Last Admin: 06/04/17 19:27 Dose: Not Given - Objective Vital Signs: Vital Signs Temperature 98.2 F 06/05/17 06:00 Pulse Rate 81 06/05/17 06:00 Respiratory Rate 22 06/05/17 06:00 Blood Pressure 110/55 06/05/17 06:00 O2 Sat by Pulse Oximetry (%) 98 06/04/17 21:00 Constitutional: Yes: Mild Distress Eyes: Yes: WNL HENT: Yes: WNL Neck: Yes: WNL Cardiovascular: Yes: WNL Respiratory: Yes: Diminished, On Nasal O2 Gastrointestinal: Yes: WNL Musculoskeletal: Yes: Back Pain, Muscle Weakness Extremities: Yes: WNL Edema: Yes Edema: LLE: Trace, RLE: Trace Peripheral Pulses WNL: Yes Integumentary: Yes: Pressure Ulcer, Venous Stasis Changes Wound/Incision: Yes: Dressing Dry and Intact Neurological: Yes: Pre-Existing Deficit, Unsteady Gait, Weakness ...Motor Strength: LLE, RLE Psychiatric: Yes: Other Labs: CBC, BMP 06/05/17 05:48 06/05/17 05:48 INR, PTT INR 2.46 (0.82-1.09) H 06/05/17 05:48 Problem List - Problems (1) Chronic respiratory failure with hypoxia Code(s): J96.11 - CHRONIC RESPIRATORY FAILURE WITH HYPOXIA (2) Sarcoidosis of lung Code(s): D86.0 - SARCOIDOSIS OF LUNG (3) Acute exacerbation of chronic obstructive pulmonary disease (COPD) Code(s): J44.1 - CHRONIC OBSTRUCTIVE PULMONARY DISEASE W (ACUTE) EXACERBATION (4) Acute respiratory distress syndrome Code(s): J80 - ACUTE RESPIRATORY DISTRESS SYNDROME (5) CKD (chronic kidney disease) Code(s): N18.9 - CHRONIC KIDNEY DISEASE, UNSPECIFIED (6) Pulmonary hypertension Code(s): I27.2 - OTHER SECONDARY PULMONARY HYPERTENSION (7) Shoulder pain Code(s): M25.519 - PAIN IN UNSPECIFIED SHOULDER Qualifiers: Chronicity: acute Laterality: left Qualified Code(s): M25.512 - Pain in left shoulder (8) Memory loss due to medical condition Code(s): R41.3 - OTHER AMNESIA (9) Weakness Code(s): R53.1 - WEAKNESS Assessment/Plan IV STEROIDS TAPER TO PREDNISONE PO NEBS BID PT EVAL OOB TO CHAIR 02 SUPPORT RECLAST IV X 1 ANNUAL DOSE FOR OSTEOPOROSIS TX/PREVENTION
[2017-06-05] MEDS: CALCITONIN - SALMON SYNTHETIC 3.7 ML SPRAY.PUMP NS SCH (12:09)
--- NOTE | 2017-06-05 13:21 | PN ---
Progress Note (short form) - Note Progress Note: Breathing feels a little better today. SOB is slowly improving. No hemoptysis. No CP. Intake & Output 06/02/17 06/03/17 06/04/17 06/05/17 23:59 23:59 23:59 23:59 Intake Total 50 240 720 390 Balance 50 240 720 390 Weight 230 lb 222 lb 4 oz 228 lb 1 oz 223 lb 12.8 oz Last Vital Signs Temp Pulse Resp BP Pulse Ox 98.8 F 85 20 125/60 98 06/05/17 10:00 06/05/17 10:00 06/05/17 10:00 06/05/17 10:00 06/04/17 21:00 Active Medications Acetaminophen (Tylenol -) 650 mg PO Q4H PRN PRN Reason: FEVER OR PAIN Last Admin: 06/02/17 10:57 Dose: 650 mg Albuterol/Ipratropium (Duoneb -) 1 amp NEB QIDR [facility] Last Admin: 06/05/17 11:44 Dose: 1 amp Calcitonin (Miacalcin [place] -) 200 units NS DAILY [facility] Last Admin: 06/05/17 12:09 Dose: 200 units Cholecalciferol (Vitamin D3 -) 1,000 unit PO DAILY [facility] Last Admin: 06/05/17 10:09 Dose: 1,000 unit Docusate Sodium (Colace -) 100 mg PO TID [facility] Last Admin: 06/05/17 06:29 Dose: 100 mg Furosemide (Lasix -) 40 mg PO BID@0600,1400 [facility] Last Admin: 06/05/17 06:29 Dose: 40 mg Hydroxyzine HCl (Atarax -) 25 mg PO HS [facility] Last Admin: 06/04/17 21:30 Dose: 25 mg Insulin Aspart (Novolog Vial Sliding Scale -) 1 vial SQ ACHS [facility] PRN Reason: Protocol Last Admin: 06/05/17 12:21 Dose: Not Given Lidocaine (Lidoderm Patch -) 1 patch TP DAILY [facility] Last Admin: 06/05/17 10:11 Dose: 1 patch Magnesium Hydroxide (Milk Of Magnesia -) 30 ml PO DAILY PRN PRN Reason: CONSTIPATION Methyl Salicylate (Elliott-Leigh -) 1 applic TP DAILY [facility] Last Admin: 06/04/17 10:40 Dose: 1 applic Miscellaneous (Lidoderm Patch Removal) 1 each MC DAILY@2200 [facility] Last Admin: 06/04/17 21:39 Dose: Not Given Montelukast Sodium (Singulair -) 10 mg PO [facility] Last Admin: 06/04/17 21:26 Dose: 10 mg Oxybutynin Chloride (Ditropan -) 5 mg PO BID [facility] Last Admin: 06/05/17 10:10 Dose: 5 mg Pantoprazole Sodium (Protonix -) 40 mg PO DAILY [facility] Last Admin: 06/05/17 10:10 Dose: 40 mg Polyethylene Glycol (Miralax (For Daily Use) -) 17 gm PO DAILY PRN PRN Reason: CONSTIPATION Potassium Chloride (K-Dur -) 10 meq PO DAILY [facility] Last Admin: 06/05/17 10:09 Dose: 10 meq Prednisone (Deltasone -) 50 mg PO DAILY [facility] Last Admin: 06/05/17 10:08 Dose: 50 mg Senna (Senna -) 1 tab PO TID [facility] Last Admin: 06/05/17 06:29 Dose: 1 tab Temazepam (Restoril -) 30 mg PO [facility] Last Admin: 06/04/17 21:27 Dose: 30 mg Tobramycin Sulfate (Tobrex Ophthalmic Ointment -) 1 applic OD BID [facility] Last Admin: 06/04/17 21:42 Dose: 1 applic Warfarin Sodium 2.5 mg/ (Warfarin Sodium 2 mg) 4.5 mg PO DAILY@1800 [facility] Last Admin: 06/04/17 19:27 Dose: Not Given Constitutional: Yes: Awake and alert Eyes: Yes: EOM Intact HENT: Yes: Normocephalic Neck: Yes: Trachea Midline Cardiovascular: Yes: Regular Rate and Rhythm, Tachycardia Respiratory: Yes: Bilateral scattered rhonchi, no expiratory Wheezes Gastrointestinal: Yes: Soft, Abdomen, Obese Edema: No Neurological: Yes: Alert Labs: Laboratory Results - last 24 hr 06/04/17 06/04/17 06/04/17 13:35 13:35 17:20 WBC RBC Hgb Hct MCV MCH MCHC RDW Plt Count MPV PT with INR 35.50 H INR 3.15 H D Sodium Potassium Chloride Carbon Dioxide Anion Gap BUN Creatinine POC Glucometer Random Glucose Calcium Urine Color Straw Urine Appearance Clear Urine pH 5.0 Ur Specific [place] 1.010 Urine Protein Negative Urine Glucose (UA) 2+ H Urine Ketones Negative Urine Blood 1+ H Urine Nitrite Negative Urine Bilirubin Negative Urine Urobilinogen Negative Urine RBC 1 Urine WBC 1 Ur Epithelial Cells Rare Hyaline Casts 26 Urine Mucus Rare U Random Total Protein 5 Urine Creatinine 28.7 Protein/Creatinin Ratio 0.174 06/04/17 06/04/17 06/05/17 17:33 21:37 05:47 WBC RBC Hgb Hct MCV MCH MCHC RDW Plt Count MPV PT with INR INR Sodium Potassium Chloride Carbon Dioxide Anion Gap BUN Creatinine POC Glucometer 249 149 94 Random Glucose Calcium Urine Color Urine Appearance Urine pH Ur Specific [place] Urine Protein Urine Glucose (UA) Urine Ketones Urine Blood Urine Nitrite Urine Bilirubin Urine Urobilinogen Urine RBC Urine WBC Ur Epithelial Cells Hyaline Casts Urine Mucus U Random Total Protein Urine Creatinine Protein/Creatinin Ratio 06/05/17 06/05/17 06/05/17 05:48 05:48 05:48 WBC 8.1 RBC 3.71 Hgb 11.3 Hct 34.9 MCV 93.9 MCH 30.4 MCHC 32.4 RDW 16.9 H Plt Count 146 MPV 8.5 PT with INR 27.60 H INR 2.46 H Sodium 143 Potassium 3.8 Chloride 100 Carbon Dioxide 38 H D Anion Gap 5 L BUN 26 H D Creatinine 0.9 D POC Glucometer Random Glucose 74 D Calcium 7.9 L Urine Color Urine Appearance Urine pH Ur Specific [place] Urine Protein Urine Glucose (UA) Urine Ketones Urine Blood Urine Nitrite Urine Bilirubin Urine Urobilinogen Urine RBC Urine WBC Ur Epithelial Cells Hyaline Casts Urine Mucus U Random Total Protein Urine Creatinine Protein/Creatinin Ratio 06/05/17 12:19 WBC RBC Hgb Hct MCV MCH MCHC RDW Plt Count MPV PT with INR INR Sodium Potassium Chloride Carbon Dioxide Anion Gap BUN Creatinine POC Glucometer 101 Random Glucose Calcium Urine Color Urine Appearance Urine pH Ur Specific [place] Urine Protein Urine Glucose (UA) Urine Ketones Urine Blood Urine Nitrite Urine Bilirubin Urine Urobilinogen Urine RBC Urine WBC Ur Epithelial Cells Hyaline Casts Urine Mucus U Random Total Protein Urine Creatinine Protein/Creatinin Ratio Problem List - Problems (1) Chronic respiratory failure with hypoxia Code(s): J96.11 - CHRONIC RESPIRATORY FAILURE WITH HYPOXIA (2) Sarcoidosis of lung Code(s): D86.0 - SARCOIDOSIS OF LUNG (3) Acute exacerbation of chronic obstructive pulmonary disease (COPD) Code(s): J44.1 - CHRONIC OBSTRUCTIVE PULMONARY DISEASE W (ACUTE) EXACERBATION (4) Acute respiratory distress syndrome Code(s): J80 - ACUTE RESPIRATORY DISTRESS SYNDROME (5) Bronchitis Code(s): J40 - BRONCHITIS, NOT SPECIFIED ACUTE OR CHRONIC (6) Pulmonary hypertension Code(s): I27.2 - OTHER SECONDARY PULMONARY HYPERTENSION (7) Tachycardia Code(s): R00.0 - TACHYCARDIA, UNSPECIFIED AGREE WITH PREDNISONE SINGULAIR BRONCHODILATORS O2 NEEDED VTE PROPHYLAXIS [facility]
[2017-06-05] MEDS ORDERED: WARFARIN NA 2.5 MG TABLET (FP) ONE (17:59)
[2017-06-05] MEDS ORDERED: WARFARIN NA 2 MG TABLET (UD) ONE (17:59)
[2017-06-05] MEDS: WARFARIN NA 2.5 MG, WARFARIN NA 2 MG PO SCH (18:00)
[2017-06-05] MEDS: MONTELUKAST NA 10 MG TABLET PO SCH (21:43)
[2017-06-05] MEDS: TEMAZEPAM 15 MG CAPSULE PO SCH (21:43)
[2017-06-05] MEDS: hydrOXYzine HCL 25 MG TABLET (FP) PO SCH (21:43)
[2017-06-05] MEDS: LIDOCAINE PATCH REMOVAL MC SCH (21:44)
--- NOTE | 2017-06-05 22:28 | PN ---
Progress Note (short form) - Note Progress Note: Probable CKD sarcoidosis r/o acs hx DVT COPD HTN Current Medications Acetaminophen (Tylenol -) 650 mg PO Q4H PRN PRN Reason: FEVER OR PAIN Last Admin: 06/02/17 10:57 Dose: 650 mg Albuterol/Ipratropium (Duoneb -) 1 amp NEB QIDR [facility] Last Admin: 06/05/17 17:13 Dose: 1 amp Calcitonin (Miacalcin [place] -) 200 units NS DAILY [facility] Last Admin: 06/05/17 12:09 Dose: 200 units Cholecalciferol (Vitamin D3 -) 1,000 unit PO DAILY [facility] Last Admin: 06/05/17 10:09 Dose: 1,000 unit Docusate Sodium (Colace -) 100 mg PO TID [facility] Last Admin: 06/05/17 21:43 Dose: 100 mg Furosemide (Lasix -) 40 mg PO BID@0600,1400 [facility] Last Admin: 06/05/17 14:53 Dose: 40 mg Hydroxyzine HCl (Atarax -) 25 mg PO [facility] Last Admin: 06/05/17 21:43 Dose: 25 mg Insulin Aspart (Novolog Vial Sliding Scale -) 1 vial SQ ACHS [facility] PRN Reason: Protocol Last Admin: 06/05/17 21:42 Dose: Not Given Lidocaine (Lidoderm Patch -) 1 patch TP DAILY [facility] Last Admin: 06/05/17 10:11 Dose: 1 patch Magnesium Hydroxide (Milk Of Magnesia -) 30 ml PO DAILY PRN PRN Reason: CONSTIPATION Methyl Salicylate (Elliott-Leigh -) 1 applic TP DAILY [facility] Last Admin: 06/05/17 10:48 Dose: 1 applic Miscellaneous (Lidoderm Patch Removal) 1 each MC DAILY@2200 [facility] Last Admin: 06/05/17 21:44 Dose: Not Given Montelukast Sodium (Singulair -) 10 mg PO HS [facility] Last Admin: 06/05/17 21:43 Dose: 10 mg Oxybutynin Chloride (Ditropan -) 5 mg PO BID [facility] Last Admin: 06/05/17 21:43 Dose: 5 mg Pantoprazole Sodium (Protonix -) 40 mg PO DAILY [facility] Last Admin: 06/05/17 10:10 Dose: 40 mg Polyethylene Glycol (Miralax (For Daily Use) -) 17 gm PO DAILY PRN PRN Reason: CONSTIPATION Potassium Chloride (K-Dur -) 10 meq PO DAILY [facility] Last Admin: 06/05/17 10:09 Dose: 10 meq Prednisone (Deltasone -) 50 mg PO DAILY [facility] Last Admin: 06/05/17 10:08 Dose: 50 mg Senna (Senna -) 1 tab PO TID [facility] Last Admin: 06/05/17 21:43 Dose: 1 tab Temazepam (Restoril -) 30 mg PO HS [facility] Last Admin: 06/05/17 21:43 Dose: 30 mg Tobramycin Sulfate (Tobrex Ophthalmic Ointment -) 1 applic OD BID [facility] Last Admin: 06/05/17 21:42 Dose: 1 applic Warfarin Sodium 2.5 mg/ (Warfarin Sodium 2 mg) 4.5 mg PO DAILY@1800 [facility] Last Admin: 06/05/17 18:00 Dose: 4.5 mg Last Vital Signs Temp Pulse Resp BP Pulse Ox 98.1 F 90 20 103/56 98 06/05/17 18:00 06/05/17 18:00 06/05/17 18:00 06/05/17 18:00 06/04/17 21:00 Lungs dec BS Heart RRR Abd soft nontender CBC, BMP 06/05/17 05:48 06/05/17 05:48 s/p raheem, probably prerenal, now pretty much resolved persisting prerenal azotemia remaining, high BUN 2/2 steroids I expect it to resolve completely with hydration and tapering of steroids
[2017-06-06] MEDS: ALBUTEROL SO4 2.5/IPRATROPIUM 0.5 INH SOL 3 ML VIAL.NEB. NEB SCH ×5 (00:35→23:11)
[2017-06-06] MEDS: INSULIN SLIDING SCALE (NOVOLOG) 1 VIAL SQ SCH ×4 (06:30→22:00)
[2017-06-06] MEDS: SENNOSIDES 8.6MG TABLET (FP) PO SCH ×3 (06:30→22:05)
[2017-06-06] MEDS: DOCUSATE SODIUM 100 MG CAPSULE (FP) PO SCH ×3 (06:30→21:59)
[2017-06-06] MEDS: FUROSEMIDE 40 MG TABLET (FP) PO SCH ×2 (06:30→14:14)
[2017-06-06 08:00] LABS: INR 1.57 (0.82-1.09); PROTHROMBIN TIME (PATIENT) 17.4 SEC (9.98-11.88)
[2017-06-06] MEDS: PANTOPRAZOLE 40 MG TABLET (FP) PO SCH (09:29)
[2017-06-06] MEDS: predniSONE 20 MG TABLET (UD) PO SCH (09:29)
[2017-06-06] MEDS: CALCITONIN - SALMON SYNTHETIC 3.7 ML SPRAY.PUMP NS SCH (09:30)
[2017-06-06] MEDS: CHOLECALCIFEROL (VITAMIN D3) 1,000 UNIT TABLET (FP) PO SCH (09:30)
[2017-06-06] MEDS: LIDOCAINE 5% TOPICAL PATCH TP SCH (09:30)
[2017-06-06] MEDS: OXYBUTYNIN CHLORIDE 5 MG TABLET PO SCH ×2 (09:30→21:59)
[2017-06-06] MEDS: METHYL SALICYLATE/MENTHOL OINT 30 GM TUBE TP SCH (09:30)
[2017-06-06] MEDS: POTASSIUM CHLORIDE TABS 10 MEQ TABLET.ER (FP) PO SCH (09:30)
[2017-06-06] MEDS: TOBRAMYCIN 0.3% OPHTH OINT 3.5 GM OD SCH ×2 (09:31→22:06)
[2017-06-06] MEDS: ACETAMINOPHEN 325 MG TABLET (FP) PO PRN (10:11)
--- NOTE | 2017-06-06 13:17 | PN ---
Progress Note (short form) - Note Progress Note: OOB to chair. Appears overall better today. SOB is improving. No hemoptysis. No CP. Intake & Output 06/03/17 06/04/17 06/05/17 06/06/17 23:59 23:59 23:59 23:59 Intake Total 240 720 490 350 Balance 240 720 490 350 Weight 222 lb 4 oz 228 lb 1 oz 223 lb 12.8 oz 225 lb Last Vital Signs Temp Pulse Resp BP Pulse Ox 98.7 F 93 H 18 129/73 98 06/06/17 10:00 06/06/17 10:00 06/06/17 10:00 06/06/17 10:00 06/04/17 21:00 Active Medications Acetaminophen (Tylenol -) 650 mg PO Q4H PRN PRN Reason: FEVER OR PAIN Last Admin: 06/06/17 10:11 Dose: 650 mg Albuterol/Ipratropium (Duoneb -) 1 amp NEB QIDR [facility] Last Admin: 06/06/17 12:39 Dose: 1 amp Calcitonin (Miacalcin [place] -) 200 units NS DAILY [facility] Last Admin: 06/06/17 09:30 Dose: 200 units Cholecalciferol (Vitamin D3 -) 1,000 unit PO DAILY [facility] Last Admin: 06/06/17 09:30 Dose: 1,000 unit Docusate Sodium (Colace -) 100 mg PO TID [facility] Last Admin: 06/06/17 06:30 Dose: 100 mg Furosemide (Lasix -) 40 mg PO BID@0600,1400 [facility] Last Admin: 06/06/17 06:30 Dose: 40 mg Hydroxyzine HCl (Atarax -) 25 mg PO HS [facility] Last Admin: 06/05/17 21:43 Dose: 25 mg Insulin Aspart (Novolog Vial Sliding Scale -) 1 vial SQ ACHS [facility] PRN Reason: Protocol Last Admin: 06/06/17 06:30 Dose: Not Given Lidocaine (Lidoderm Patch -) 1 patch TP DAILY [facility] Last Admin: 06/06/17 09:30 Dose: 1 patch Magnesium Hydroxide (Milk Of Magnesia -) 30 ml PO DAILY [facility] PRN Reason: CONSTIPATION Methyl Salicylate ([place]lliott-Leigh -) 1 applic TP DAILY [facility] Last Admin: 06/06/17 09:30 Dose: 1 applic Miscellaneous (Lidoderm Patch Removal) 1 each MC DAILY@2200 [facility] Last Admin: 06/05/17 21:44 Dose: Not Given Montelukast Sodium (Singulair -) 10 mg PO [facility] Last Admin: 06/05/17 21:43 Dose: 10 mg Oxybutynin Chloride (Ditropan -) 5 mg PO BID [facility] Last Admin: 06/06/17 09:30 Dose: 5 mg Pantoprazole Sodium (Protonix -) 40 mg PO DAILY [facility] Last Admin: 06/06/17 09:29 Dose: 40 mg Polyethylene Glycol (Miralax (For Daily Use) -) 17 gm PO DAILY PRN PRN Reason: CONSTIPATION Potassium Chloride (K-Dur -) 10 meq PO DAILY [facility] Last Admin: 06/06/17 09:30 Dose: 10 meq Prednisone (Deltasone -) 50 mg PO DAILY [facility] Last Admin: 06/06/17 09:29 Dose: 50 mg Senna (Senna -) 1 tab PO TID [facility] Last Admin: 06/06/17 06:30 Dose: 1 tab Temazepam (Restoril -) 30 mg PO [facility] Last Admin: 06/05/17 21:43 Dose: 30 mg Tobramycin Sulfate (Tobrex Ophthalmic Ointment -) 1 applic OD BID [facility] Last Admin: 06/06/17 09:31 Dose: 1 applic Warfarin Sodium 2.5 mg/ (Warfarin Sodium 2 mg) 4.5 mg PO DAILY@1800 [facility] Last Admin: 06/05/17 18:00 Dose: 4.5 mg Constitutional: Yes: Awake and alert Eyes: Yes: EOM Intact HENT: Yes: Normocephalic Neck: Yes: Trachea Midline Cardiovascular: Yes: Regular Rate and Rhythm Respiratory: Yes: Bilateral scattered rhonchi, no expiratory Wheezes Gastrointestinal: Yes: Soft, Abdomen, Obese Edema: No Neurological: Yes: Alert Labs: Laboratory Results - last 24 hr 06/05/17 06/05/17 06/06/17 17:20 21:31 05:45 PT with INR 17.40 H INR 1.57 H D POC Glucometer 206 143 06/06/17 06/06/17 06:29 12:06 PT with INR INR POC Glucometer 83 92 Problem List - Problems (1) Chronic respiratory failure with hypoxia Code(s): J96.11 - CHRONIC RESPIRATORY FAILURE WITH HYPOXIA (2) Sarcoidosis of lung Code(s): D86.0 - SARCOIDOSIS OF LUNG (3) Acute exacerbation of chronic obstructive pulmonary disease (COPD) Code(s): J44.1 - CHRONIC OBSTRUCTIVE PULMONARY DISEASE W (ACUTE) EXACERBATION (4) Acute respiratory distress syndrome Code(s): J80 - ACUTE RESPIRATORY DISTRESS SYNDROME (5) Bronchitis Code(s): J40 - BRONCHITIS, NOT SPECIFIED ACUTE OR CHRONIC (6) Pulmonary hypertension Code(s): I27.2 - OTHER SECONDARY PULMONARY HYPERTENSION (7) Tachycardia Code(s): R00.0 - TACHYCARDIA, UNSPECIFIED PREDNISONE SINGULAIR BRONCHODILATORS O2 NEEDED VTE PROPHYLAXIS LASIX D/C PLANNING DR JUNIOR
--- NOTE | 2017-06-06 13:59 | PN ---
Progress Note, Physician Chief Complaint: awake alert feeling better - Current Medication List Current Medications: Active Medications Acetaminophen (Tylenol -) 650 mg PO Q4H PRN PRN Reason: FEVER OR PAIN Last Admin: 06/06/17 10:11 Dose: 650 mg Albuterol/Ipratropium (Duoneb -) 1 amp NEB QIDR [facility] Last Admin: 06/06/17 12:39 Dose: 1 amp Calcitonin (Miacalcin [place] -) 200 units NS DAILY [facility] Last Admin: 06/06/17 09:30 Dose: 200 units Cholecalciferol (Vitamin D3 -) 1,000 unit PO DAILY [facility] Last Admin: 06/06/17 09:30 Dose: 1,000 unit Docusate Sodium (Colace -) 100 mg PO TID [facility] Last Admin: 06/06/17 06:30 Dose: 100 mg Furosemide (Lasix -) 40 mg PO BID@0600,1400 [facility] Last Admin: 06/06/17 06:30 Dose: 40 mg Hydroxyzine HCl (Atarax -) 25 mg PO [facility] Last Admin: 06/05/17 21:43 Dose: 25 mg Insulin Aspart (Novolog Vial Sliding Scale -) 1 vial SQ ACHS [facility] PRN Reason: Protocol Last Admin: 06/06/17 06:30 Dose: Not Given Lidocaine (Lidoderm Patch -) 1 patch TP DAILY [facility] Last Admin: 06/06/17 09:30 Dose: 1 patch Magnesium Hydroxide (Milk Of Magnesia -) 30 ml PO DAILY PRN PRN Reason: CONSTIPATION Methyl Salicylate (Elliott-Leigh -) 1 applic TP DAILY [facility] Last Admin: 06/06/17 09:30 Dose: 1 applic Miscellaneous (Lidoderm Patch Removal) 1 each MC DAILY@2200 [facility] Last Admin: 06/05/17 21:44 Dose: Not Given Montelukast Sodium (Singulair -) 10 mg PO [facility] Last Admin: 06/05/17 21:43 Dose: 10 mg Oxybutynin Chloride (Ditropan -) 5 mg PO BID [facility] Last Admin: 06/06/17 09:30 Dose: 5 mg Pantoprazole Sodium (Protonix -) 40 mg PO DAILY [facility] Last Admin: 06/06/17 09:29 Dose: 40 mg Polyethylene Glycol (Miralax (For Daily Use) -) 17 gm PO DAILY PRN PRN Reason: CONSTIPATION Potassium Chloride (K-Dur -) 10 meq PO DAILY [facility] Last Admin: 06/06/17 09:30 Dose: 10 meq Prednisone (Deltasone -) 50 mg PO DAILY [facility] Last Admin: 06/06/17 09:29 Dose: 50 mg Senna (Senna -) 1 tab PO TID [facility] Last Admin: 06/06/17 06:30 Dose: 1 tab Temazepam (Restoril -) 30 mg PO HS [facility] Last Admin: 06/05/17 21:43 Dose: 30 mg Tobramycin Sulfate (Tobrex Ophthalmic Ointment -) 1 applic OD BID [facility] Last Admin: 06/06/17 09:31 Dose: 1 applic Warfarin Sodium 2.5 mg/ (Warfarin Sodium 2 mg) 4.5 mg PO DAILY@1800 [facility] Last Admin: 06/05/17 18:00 Dose: 4.5 mg - Objective Vital Signs: Vital Signs Temperature 98.7 F 06/06/17 10:00 Pulse Rate 93 H 06/06/17 10:00 Respiratory Rate 18 06/06/17 10:00 Blood Pressure 129/73 06/06/17 10:00 O2 Sat by Pulse Oximetry (%) 98 06/04/17 21:00 Constitutional: Yes: No Distress Eyes: Yes: WNL HENT: Yes: WNL Neck: Yes: WNL Cardiovascular: Yes: WNL Respiratory: Yes: On Nasal O2, SOB Gastrointestinal: Yes: WNL Musculoskeletal: Yes: WNL Extremities: Yes: WNL Edema: No Peripheral Pulses WNL: Yes Integumentary: Yes: WNL Wound/Incision: Yes: Clean/Dry Neurological: Yes: WNL ...Motor Strength: WNL Psychiatric: Yes: WNL Labs: CBC, BMP 06/05/17 05:48 06/05/17 05:48 INR, PTT INR 1.57 (0.82-1.09) H D 06/06/17 05:45 Problem List - Problems (1) Chronic respiratory failure with hypoxia Code(s): J96.11 - CHRONIC RESPIRATORY FAILURE WITH HYPOXIA (2) Sarcoidosis of lung Code(s): D86.0 - SARCOIDOSIS OF LUNG (3) Acute exacerbation of chronic obstructive pulmonary disease (COPD) Code(s): J44.1 - CHRONIC OBSTRUCTIVE PULMONARY DISEASE W (ACUTE) EXACERBATION (4) Acute respiratory distress syndrome Code(s): J80 - ACUTE RESPIRATORY DISTRESS SYNDROME (5) CKD (chronic kidney disease) Code(s): N18.9 - CHRONIC KIDNEY DISEASE, UNSPECIFIED (6) Pulmonary hypertension Code(s): I27.2 - OTHER SECONDARY PULMONARY HYPERTENSION (7) Shoulder pain Code(s): M25.519 - PAIN IN UNSPECIFIED SHOULDER Qualifiers: Chronicity: acute Laterality: left Qualified Code(s): M25.512 - Pain in left shoulder (8) Memory loss due to medical condition Code(s): R41.3 - OTHER AMNESIA (9) Weakness Code(s): R53.1 - WEAKNESS Assessment/Plan prednisone po taper pt eval oob to chair dc tomorrow home with vns
--- NOTE | 2017-06-06 17:02 | PN ---
Progress Note (short form) - Note Progress Note: Probable CKD sarcoidosis r/o acs hx DVT COPD HTN Last Vital Signs Temp Pulse Resp BP Pulse Ox 98.1 F 90 20 103/56 98 06/05/17 18:00 06/05/17 18:00 06/05/17 18:00 06/05/17 18:00 06/04/17 21:00 Lungs dec BS Heart RRR Abd soft nontender CBC, BMP 06/05/17 05:48 06/05/17 05:48 IMP- s/p raheem, probably prerenal, now pretty much resolved Plan- cmp tomorrow
[2017-06-06] MEDS ORDERED: WARFARIN NA 2 MG TABLET (UD) ONE (17:35)
[2017-06-06] MEDS ORDERED: WARFARIN NA 2.5 MG TABLET (FP) ONE (17:35)
[2017-06-06] MEDS: WARFARIN NA 2.5 MG, WARFARIN NA 2 MG PO SCH (17:49)
[2017-06-06] MEDS ORDERED: PT OWN MED DRAWER 7, Y5N ONE (21:48)
[2017-06-06] MEDS: TEMAZEPAM 15 MG CAPSULE PO SCH (21:59)
[2017-06-06] MEDS: LIDOCAINE PATCH REMOVAL MC SCH (22:00)
[2017-06-06] MEDS: hydrOXYzine HCL 25 MG TABLET (FP) PO SCH (22:00)
[2017-06-06] MEDS: MONTELUKAST NA 10 MG TABLET PO SCH (22:05)
[2017-06-07] MEDS: ALBUTEROL SO4 2.5/IPRATROPIUM 0.5 INH SOL 3 ML VIAL.NEB. NEB SCH ×2 (06:29→11:22)
[2017-06-07] MEDS: FUROSEMIDE 40 MG TABLET (FP) PO SCH ×2 (06:40→14:58)
[2017-06-07] MEDS: INSULIN SLIDING SCALE (NOVOLOG) 1 VIAL SQ SCH ×2 (06:41→12:19)
[2017-06-07] MEDS: SENNOSIDES 8.6MG TABLET (FP) PO SCH ×2 (06:41→14:58)
[2017-06-07] MEDS: DOCUSATE SODIUM 100 MG CAPSULE (FP) PO SCH ×2 (06:41→14:58)
[2017-06-07 06:46] VITALS: PULSE 83
--- NOTE | 2017-06-07 06:48 | DS ---
Physical Examination Vital Signs: Vital Signs Temperature 98.2 F 06/07/17 02:00 Pulse Rate 77 06/07/17 02:00 Respiratory Rate 20 06/07/17 02:00 Blood Pressure 114/66 06/07/17 02:00 O2 Sat by Pulse Oximetry (%) 98 06/04/17 21:00 Constitutional: Yes: No Distress Eyes: Yes: WNL HENT: Yes: WNL Neck: Yes: WNL Cardiovascular: Yes: WNL Respiratory: Yes: WNL Gastrointestinal: Yes: WNL Renal/: Yes: WNL Musculoskeletal: Yes: Back Pain Extremities: Yes: WNL Edema: Yes Peripheral Pulses WNL: Yes Integumentary: Yes: WNL Wound/Incision: Yes: Clean/Dry Neurological: Yes: Pre-Existing Deficit ...Motor Strength: LLE, RLE Psychiatric: Yes: WNL Labs: CBC, BMP 06/05/17 05:48 06/05/17 05:48 Discharge Summary Reason For Visit: CHRONIC OBSTRUCTION PULMONARY DISEASE/W ACCUTE EXA Current Active Problems Chronic respiratory failure with hypoxia (Acute) Memory loss due to medical condition (Acute) Sarcoidosis of lung (Acute) Shoulder pain (Acute) Weakness (Acute) Procedures: Principal: CT SCAN LUNGS Hospital Course: ADMITTED FOR ACUTE ON CHRONIC RESP DISTRESS/COPD WITH SARCOIDOSIS, TREATED WITH IV STEROIDS AND ABX, IMPROVED OVER STAY AT HOSPITAL WILL DC HOME WITH HOME CARE SERVICE AND F/U INR OUT PATIENT Condition: Stable - Instructions Diet, Activity, Other Instructions: CHECK INR IN 2 DAYS LOW SODIUM LOW FAT DIET TAPER PREDNISONE Referrals: Digna Walton MD [Primary Care Provider] - Disposition: VNS/HOME HEALTH CARE - Home Medications Comprehensive Discharge Medication List: Ambulatory Orders Oxybutynin Chloride [Ditropan -] 5 mg PO BID 08/24/13 Cholecalciferol (Vitamin D3) [Vitamin D3] 50,000 unit PO DAILY 11/30/16 Mirtazapine [Remeron Soltab -] 15 mg PO DAILY 11/30/16 Omeprazole 40 mg PO AM 12/01/16 Sennosides [Senna] 8.6 mg PO TID 12/01/16 Acetaminophen [Tylenol .Regular Strength -] 650 mg PO Q4H PRN #0 tablet Albuterol 2.5/Ipratropium 0.5 [Duoneb -] 1 amp NEB QIDR amp 12/04/16 Docusate Sodium [Colace -] 100 mg PO TID 12/04/16 Furosemide [Lasix -] 40 mg PO BID@0600,1400 tablet 12/04/16 Insulin Sliding Scale [Novolog Vial Sliding Scale -] 1 vial SQ ACHS units 12/04 Magnesium Hydrox 2400MG/30Ml [Milk of Magnesia -] 30 ml PO DAILY PRN #0 Montelukast Na [Singulair -] 10 mg PO HS tablet 12/04/16 Potassium Chloride [K-Dur -] 10 meq PO DAILY 12/04/16 Temazepam [Restoril -] 30 mg PO HS [facility] 1 12/04/16 Ferrous Sulfate 325 mg PO DAILY 12/17/16 Warfarin Na [Coumadin -] 4.5 mg PO DAILY@1800 12/17/16 Polyethylene Glycol 3350 [Miralax 119 gm Btl -] 17 gm PO DAILY PRN 06/02/17
[2017-06-07 07:36] LABS: INR 1.57 (0.82-1.09); PROTHROMBIN TIME (PATIENT) 17.4 SEC (9.98-11.88)
[2017-06-07 07:58] LABS: ALBUMIN 2.8 g/dl (3.4-5.0); CALCIUM 8.4 mg/dL (8.5-10.1)
[2017-06-07 08:06] LABS: ALK PHOS 52 U/L (45-117); ANION GAP 10 (8-16); BILIRUBIN,TOTAL 0.6 mg/dL (0.2-1.0); CO2 37 mmol/L (21-32); CREATININE 0.9 mg/dL (0.55-1.02); GLUCOSE,RANDOM 65 mg/dL (74-106); SGOT/AST 8 U/L (15-37); SGPT/ALT 18 U/L (12-78); TOT PROT 5.1 g/dl (6.4-8.2)
[2017-06-07] MEDS ORDERED: PT OWN MED DRAWER 7, Y5N ONE ×2 (10:30→12:48)
[2017-06-07] MEDS: POTASSIUM CHLORIDE TABS 10 MEQ TABLET.ER (FP) PO SCH (10:31)
[2017-06-07] MEDS: predniSONE 20 MG TABLET (UD) PO SCH (10:31)
[2017-06-07] MEDS: PANTOPRAZOLE 40 MG TABLET (FP) PO SCH (10:32)
[2017-06-07] MEDS: OXYBUTYNIN CHLORIDE 5 MG TABLET PO SCH (10:32)
[2017-06-07] MEDS: LIDOCAINE 5% TOPICAL PATCH TP SCH (10:32)
[2017-06-07] MEDS: CHOLECALCIFEROL (VITAMIN D3) 1,000 UNIT TABLET (FP) PO SCH (10:32)
[2017-06-07] MEDS: TOBRAMYCIN 0.3% OPHTH OINT 3.5 GM OD SCH (10:33)
[2017-06-07] MEDS: METHYL SALICYLATE/MENTHOL OINT 30 GM TUBE TP SCH (10:33)
[2017-06-07] MEDS: CALCITONIN - SALMON SYNTHETIC 3.7 ML SPRAY.PUMP NS SCH (12:56)
--- NOTE | 2017-06-07 13:20 | PN ---
Progress Note, Physician History of Present Illness: Pt seen and examined at bedside. She is awake and alert. She is eager to go home. She denies dysuria or hematuria. - Current Medication List Current Medications: Active Medications Acetaminophen (Tylenol -) 650 mg PO Q4H PRN PRN Reason: FEVER OR PAIN Last Admin: 06/06/17 10:11 Dose: 650 mg Albuterol/Ipratropium (Duoneb -) 1 amp NEB QIDR [facility] Last Admin: 06/07/17 11:22 Dose: 1 amp Calcitonin (Miacalcin [place] -) 200 units NS DAILY [facility] Last Admin: 06/07/17 12:56 Dose: 200 units Cholecalciferol (Vitamin D3 -) 1,000 unit PO DAILY [facility] Last Admin: 06/07/17 10:32 Dose: 1,000 unit Docusate Sodium (Colace -) 100 mg PO TID [facility] Last Admin: 06/07/17 06:41 Dose: 100 mg Furosemide (Lasix -) 40 mg PO BID@0600,1400 [facility] Last Admin: 06/07/17 06:40 Dose: 40 mg Hydroxyzine HCl (Atarax -) 25 mg PO HS [facility] Last Admin: 06/06/17 22:00 Dose: 25 mg Insulin Aspart (Novolog Vial Sliding Scale -) 1 vial SQ ACHS [facility] PRN Reason: Protocol Last Admin: 06/07/17 12:19 Dose: Not Given Lidocaine (Lidoderm Patch -) 1 patch TP DAILY [facility] Last Admin: 06/07/17 10:32 Dose: 1 patch Magnesium Hydroxide (Milk Of Magnesia -) 30 ml PO DAILY PRN PRN Reason: CONSTIPATION Methyl Salicylate (Elliott-Leigh -) 1 applic TP DAILY [facility] Last Admin: 06/07/17 10:33 Dose: 1 applic Miscellaneous (Lidoderm Patch Removal) 1 each MC DAILY@2200 [facility] Last Admin: 06/06/17 22:00 Dose: Not Given Montelukast Sodium (Singulair -) 10 mg PO HS [facility] Last Admin: 06/06/17 22:05 Dose: 10 mg Oxybutynin Chloride (Ditropan -) 5 mg PO BID [facility] Last Admin: 06/07/17 10:32 Dose: 5 mg Pantoprazole Sodium (Protonix -) 40 mg PO DAILY [facility] Last Admin: 06/07/17 10:32 Dose: 40 mg Polyethylene Glycol (Miralax (For Daily Use) -) 17 gm PO DAILY PRN PRN Reason: CONSTIPATION Potassium Chloride (K-Dur -) 10 meq PO DAILY [facility] Last Admin: 06/07/17 10:31 Dose: 10 meq Prednisone (Deltasone -) 50 mg PO DAILY [facility] Last Admin: 06/07/17 10:31 Dose: 50 mg Senna (Senna -) 1 tab PO TID [facility] Last Admin: 06/07/17 06:41 Dose: 1 tab Temazepam (Restoril -) 30 mg PO HS [facility] Last Admin: 06/06/17 21:59 Dose: 30 mg Tobramycin Sulfate (Tobrex Ophthalmic Ointment -) 1 applic OD BID [facility] Last Admin: 06/07/17 10:33 Dose: 1 applic Warfarin Sodium 2.5 mg/ (Warfarin Sodium 2 mg) 4.5 mg PO DAILY@1800 [facility] Last Admin: 06/06/17 17:49 Dose: 4.5 mg - Objective Vital Signs: Vital Signs Temperature 98 F 06/07/17 06:00 Pulse Rate 83 06/07/17 11:22 Respiratory Rate 18 06/07/17 06:00 Blood Pressure 122/81 06/07/17 06:00 O2 Sat by Pulse Oximetry (%) 98 06/07/17 11:22 Constitutional: Yes: Calm Eyes: Yes: Conjunctiva Clear HENT: Yes: Atraumatic Neck: Yes: Supple Cardiovascular: Yes: S1, S2 Respiratory: Yes: On Nasal O2 Gastrointestinal: Yes: Soft Genitourinary: Yes: WNL Edema: Yes Edema: LLE: 1+, RLE: 1+ Neurological: Yes: Oriented Psychiatric: Yes: Oriented Labs: CBC, BMP 06/05/17 05:48 06/07/17 05:35 INR, PTT INR 1.57 (0.82-1.09) H 06/07/17 05:35 Problem List - Problems (1) Chronic respiratory failure with hypoxia Code(s): J96.11 - CHRONIC RESPIRATORY FAILURE WITH HYPOXIA (2) Sarcoidosis of lung Code(s): D86.0 - SARCOIDOSIS OF LUNG (3) CKD (chronic kidney disease) Code(s): N18.9 - CHRONIC KIDNEY DISEASE, UNSPECIFIED Assessment/Plan Current Medications Generic Name Dose Route Start Last Admin Trade Name Freq PRN Reason Stop Dose Admin Acetaminophen 650 mg 06/02/17 02:50 06/06/17 10:11 Tylenol - PO 650 mg Q4H PRN Administration FEVER OR PAIN Albuterol/Ipratropium 1 amp 06/02/17 06:00 06/07/17 11:22 Duoneb - NEB 1 amp QIDR [facility] Administration Calcitonin 200 units 06/04/17 10:00 06/07/17 12:56 Miacalcin [place] - NS 200 units DAILY [facility] Administration Cholecalciferol 1,000 unit 06/04/17 10:00 06/07/17 10:32 Vitamin D3 - PO 1,000 unit DAILY [facility] Administration Docusate Sodium 100 mg 06/02/17 06:00 06/07/17 06:41 Colace - PO 100 mg TID [facility] Administration Furosemide 40 mg 06/04/17 14:00 06/07/17 06:40 Lasix - PO 40 mg BID@0600,1400 [facility] Administration Hydroxyzine HCl 25 mg 06/03/17 22:00 06/06/17 22:00 Atarax - PO 25 mg HS [facility] Administration Insulin Aspart 1 vial 06/02/17 07:00 06/07/17 12:19 Novolog Vial Sliding Scale - SQ Not Given ACHS [facility] Protocol Lidocaine 1 patch 06/03/17 10:00 06/07/17 10:32 Lidoderm Patch - TP 1 patch DAILY [facility] Administration Magnesium Hydroxide 30 ml 06/02/17 02:50 Milk Of Magnesia - PO DAILY PRN CONSTIPATION Methyl Salicylate 1 applic 06/02/17 18:15 06/07/17 10:33 [place]-Leigh - TP 1 applic DAILY [facility] Administration Miscellaneous 1 each 06/02/17 22:00 06/06/17 22:00 Lidoderm Patch Removal MC Not Given DAILY@2200 [facility] Montelukast Sodium 10 mg 06/02/17 22:00 06/06/17 22:05 Singulair - PO 10 mg HS [facility] Administration Oxybutynin Chloride 5 mg 06/02/17 10:00 06/07/17 10:32 Ditropan - PO 5 mg BID [facility] Administration Pantoprazole Sodium 40 mg 06/02/17 10:00 06/07/17 10:32 Protonix - PO 40 mg DAILY [facility] Administration Polyethylene Glycol 17 gm 06/02/17 02:50 Miralax (For Daily Use) - PO DAILY PRN CONSTIPATION Potassium Chloride 10 meq 06/02/17 10:00 06/07/17 10:31 K-Dur - PO 10 meq DAILY [facility] Administration Prednisone 50 mg 06/05/17 10:00 06/07/17 10:31 Deltasone - PO 50 mg DAILY [facility] Administration Senna 1 tab 06/02/17 06:00 06/07/17 06:41 Senna - PO 1 tab TID [facility] Administration Temazepam 30 mg 06/02/17 22:00 06/06/17 21:59 Restoril - PO 30 mg HS [facility] Administration Tobramycin Sulfate 1 applic 06/04/17 22:00 06/07/17 10:33 Tobrex Ophthalmic Ointment - OD 1 applic BID [facility] Administration Warfarin Sodium 2.5 mg/ 4.5 mg 06/02/17 18:00 06/06/17 17:49 Warfarin Sodium 2 mg PO 4.5 mg DAILY@1800 [facility] Administration Laboratory Tests 06/02/17 06/07/17 00:50 05:35 Creatinine 1.5 H 0.9 Impression 1. CKD 2. sarcoid 3. r/p acs 4. hx DVT 5. COPD 6. HTN Plan - renal function has stabilized - repeat ua as outpt to asses for hematuria and proteinuria - will need renal workup - possible sarcoid involvement of kidneys - discussed fluid and sodium restriction - cont with diuretics - monitor andreas Doty
[2017-06-07 14:48] VITALS: BP 118/74; TEMP 98.6
== END 2017-06-07 15:16 | disposition home health service (06) | DRG 191 ==
LOC: JER 23:27 → JERBED 06-02 02:32 → UNDOADMIN 06-02 02:44 → JERBED 06-02 02:44 → J4W 06-02 14:00
PROVIDERS: ADMIT Family Medicine; ATTEND Family Medicine
DX: J44.1 Chronic obstructive pulmonary disease with (acute) exacerbation (principal); J96.11 Chronic respiratory failure with hypoxia; Z99.81 Dependence on supplemental oxygen; Z86.718 Personal history of other venous thrombosis and embolism; Z87.891 Personal history of nicotine dependence; D86.0 Sarcoidosis of lung; E66.9 Obesity, unspecified; Z79.4 Long term (current) use of insulin; E11.22 Type 2 diabetes mellitus with diabetic chronic kidney disease; I12.9 Hypertensive chronic kidney disease with stage 1 through stage 4 chronic kidney disease, or unspecified chronic kidney disease; N18.9 Chronic kidney disease, unspecified; I27.2 Other secondary pulmonary hypertension; M25.512 Pain in left shoulder; R41.3 Other amnesia; Z68.36 Body mass index [BMI] 36.0-36.9, adult
CPT/HCPCS: 36415; 71010-TC; 71250-TC; 72050-TC; 73030-TC-LT; 76775-TC; 76856-TC; 80048; 80053; 81003; 81015; 82570; 83735; 83880; 84156; 84484; 85025; 85027; 85610; 87804; 87899; 93005; 93010; 94640; 99285-25; J3489

== ENCOUNTER 2017-10-01 08:51 | Inpatient (IN) | payer OTHER ==
[2017-10-01] MEDS ORDERED: methylPREDNISolone NA SUCC 125 MG/2 ML VIAL IVPB ONE (09:17)
[2017-10-01] MEDS ORDERED: ALBUTEROL SO4 2.5/IPRATROPIUM 0.5 INH SOL 3 ML VIAL.NEB. NEB ONE (09:17)
--- NOTE | 2017-10-01 09:17 | PDOC ---
History of Present Illness - General History Source: Patient Exam Limitations: No Limitations - History of Present Illness Initial Comments: 10/01/17 11:49 The patient is a 72 year old female, with a significant past medical history of COPD (sarcoidosis, on steroids), O2 dependency, hypertension, and DVT(on coumadin) who presents to the emergency department complaining of shortness of breath and a dry cough for approximately 4 days. The patient reports an increased nonproductive cough and associated shortness of breath for the past 4 days. Over the past couple of days patient has been using her inhaler, and her PCP, increased her dose of Prednisone to 30 daily, with minimal relief of symptoms. Today, patients SOB worsened and EMS was activated. During transport patient was given Epinephrine, 10 mg of Decadron, and 2 Combivents. Patient denies any associated chest pain, diaphoresis, palpitations, or lower extremity edema. She denies any recent fever, chills, congestion, headache, or dizziness. She denies any abdominal pain, nausea, vomiting, diarrhea, or constipation. She denies any dysuria, hematuria, frequency, or urgency. She denies any recent travel or sick contacts. Allergies: None reported. Past Surgical History: Left hip fracture repair (1977), Hysterectomy Social History: Former smoker. Denies alcohol or drug use. PCP: Dr. Khan Product Introduction Manager: Dr. Freeman <Santo Whitten - Last Filed: 10/01/17 13:06> - General History Source: Patient Exam Limitations: No Limitations <Migue Sarabia - Last Filed: 10/01/17 13:35> - General Chief Complaint: Shortness of Breath Stated Complaint: SOB Time Seen by Provider: 10/01/17 09:10 Past History <Santo Whitten - Last Filed: 10/01/17 13:06> - Past Medical History COPD: Yes (sarcoidosis) Diabetes: Yes HTN: Yes - Surgical History Abdominal Surgery: (hysterectomy) Orthopedic Surgery: Yes (repair left hip fracture 1977) - Suicide/Smoking/Psychosocial Hx Smoking History: Unknown if ever smoked Have you smoked in the past 12 months: No Number of Cigarettes Smoked Daily: 0 Cigars Per Day: 0 Information on smoking cessation initiated: No Hx Alcohol Use: No Drug/Substance Use Hx: No Substance Use Type: None Hx Substance Use Treatment: No <Migue Sarabia - Last Filed: 10/01/17 13:35> - Past Medical History Allergies/Adverse Reactions: Allergies Allergy/AdvReac Type Severity Reaction Status Date / Time No Known Allergies Allergy Verified 10/01/17 09:10 Home Medications: Ambulatory Orders Oxybutynin Chloride [Ditropan -] 15 mg PO DAILY 08/24/13 Omeprazole 40 mg PO AM 12/01/16 Sennosides [Senna] 8.6 mg PO TID 12/01/16 Albuterol 2.5/Ipratropium 0.5 [Duoneb -] 1 amp NEB QIDR amp 12/04/16 Montelukast Na [Singulair -] 10 mg PO HS tablet 12/04/16 Potassium Chloride [K-Dur -] 10 meq PO DAILY 12/04/16 Temazepam [Restoril -] 30 mg PO HS MDD 1 12/04/16 Warfarin Na [Coumadin -] 5 mg PO ASDIR 12/17/16 Furosemide [Lasix -] 40 mg PO BID@0600,1400 tablet 06/07/17 Calcium Carbonate/Vitamin D3 [Calcium 600 + Vit D 200 Tablet] 1 each PO DAILY Divalproex *ER* [Depakote *ER* -] 500 mg PO DAILY 10/01/17 Docusate Sodium [Colace] 100 mg PO TID 10/01/17 Mirtazapine [Remeron Soltab -] 15 mg PO DAILY 10/01/17 Prednisone [Deltasone -] 30 mg PO DAILY 10/01/17 Warfarin Na [Coumadin -] 4 mg PO ASDIR 10/01/17 Review of Systems - Review of Systems Able to Perform ROS?: Yes Comments:: 10/01/17 11:49 CONSTITUTIONAL: No reported: Fever, Chills, Diaphoresis, Generalized Weakness, Malaise, Loss of Appetite HEENT: No reported: Rhinorrhea, Nasal Congestion, Throat Pain, Throat Swelling, Difficulty Swallowing, Mouth Swelling, Ear Pain, Eye Pain, Visual Changes CARDIOVASCULAR: No reported: Chest Pain, Syncope, Palpitations, Irregular Heart Rate, Lightheadedness, Peripheral Edema RESPIRATORY: Reported: Cough, shortness of breath No reported: SOB with Exertion, Orthopnea, Wheezing, Stridor, Hemoptysis GASTROINTESTINAL: No reported: Abdominal pain, Abdominal Distension, Nausea, Vomiting, Diarrhea, Constipation, Melena, Hematochezia GENITOURINARY: No reported: Dysuria, Frequency, Urgency, Hesitancy, Flank Pain, Genital Pain MUSCULOSKELETAL: No reported: Myalgia, Arthralgia, Joint Swelling, Back pain, Neck Pain SKIN: No reported: Rash, Itching, Pallor NEUROLOGIC: No reported: Headache, Focal Weakness, Paresthesias, Vertigo, Lightheadedness, Unsteady Gait, Seizure, Mental Status Changes, Incontinence <Narda Whittenomilsy - Last Filed: 10/01/17 13:06> *Physical Exam - Vital Signs Last Vital Signs Temp Pulse Resp BP Pulse Ox 99.5 F 82 26 H 129/63 100 10/01/17 09:04 10/01/17 09:04 10/01/17 09:04 10/01/17 09:04 10/01/17 09:30 <FishNardaluda - Last Filed: 10/01/17 13:06> - Vital Signs Last Vital Signs Temp Pulse Resp BP Pulse Ox 99.5 F 82 26 H 129/63 100 10/01/17 09:04 10/01/17 09:04 10/01/17 09:04 10/01/17 09:04 10/01/17 09:04 - Physical Exam Comments: 10/01/17 11:19 GENERAL: The patient is somnolent but arounsable to verbal stimuli and fully oriented, +moderate respiratory distress, speaking in short segments, obese HEAD: Normocephalic, atraumatic. EYES: extraocular movements intact, sclera anicteric, conjunctiva clear. ENT: Normal voice, Moist mucous membranes. NECK: Normal range of motion, supple LUNGS: deminished breath sounds, wheezing diffusely HEART: Regular rate and rhythm, normal S1 and S2 without murmur, rub or gallop. ABDOMEN: Soft, nontender, normoactive bowel sounds. No guarding, no rebound. . No CVA tenderness EXTREMITIES: Normal range of motion, open wound on LLE no discharge, surrounding hyperpigmentation without redness, warmth. +edema NEUROLOGICAL: No facial assymetry, Normal speech, PSYCH: Normal mood, normal affect. SKIN: Warm, Dry, normal turgor, <No,Migue - Last Filed: 10/01/17 13:35> Heart Score/ECG Review - ECG Impressions Comment:: 10/01/17 09:50 Twelve-lead EKG was performed and reviewed by me. There is normal sinus rhythm with a rate of 102 Low voltage QRS T wave flattening in the lateral and inferior leads T-wave inversion in the anterior leads <Migue Sarabia - Last Filed: 10/01/17 13:35> ED Treatment Course - LABORATORY CBC & Chemistry Diagram: 10/01/17 09:30 10/01/17 09:30 - ADDITIONAL ORDERS Additional order review: Laboratory Results 10/01/17 10/01/17 09:30 09:30 PT with INR 18.60 H INR 1.65 H Sodium 144 Potassium 4.7 Chloride 106 Carbon Dioxide 33 H Anion Gap 5 L BUN 25 H Creatinine 1.2 H Creat Clearance w eGFR 44.29 Random Glucose 85 Calcium 8.0 L Total Bilirubin 0.4 D AST 32 D ALT 21 Alkaline Phosphatase 74 Total Protein 6.5 D Albumin 3.2 L 10/01/17 09:30 RBC 4.14 MCV 95.5 MCHC 30.1 L RDW 16.1 H MPV 8.2 Neutrophils % No Result Required. Lymphocytes % No Result Required. - RADIOLOGY Radiograph Interpretation: 10/01/17 13:06 EXAM: CXR INTERPRETED BY: Dr. Hernandez REVIEWED BY: Dr. Sarabia IMPRESSION: Unchanged contour of the cardiomediastinal silhouette. No pneumothorax is seen. Patient is rotated toward the right side. Increased lung markings noted in the right lower lobe. No evidence of blunting of the costophrenic angles. Bilateral apical pleural thickening. Mediastinal, hilar calcified adenopathy. The trachea is deviated to the right side. Please refer to the CT of the chest June 03, 2017 for additional findings. No evidence - Medications Given in the ED: ED Medications Discontinued Medications Generic Name Dose Route Start Last Admin Trade Name Freq PRN Reason Stop Dose Admin Albuterol/Ipratropium 1 amp 10/01/17 09:17 10/01/17 09:05 Duoneb - NEB 10/01/17 09:18 1 amp ONCE ONE Administration Magnesium Sulfate/Dextrose 2 200 mls @ 100 mls/hr 10/01/17 09:19 10/01/17 10: 22 gm/ Miscellaneous IVPB 10/01/17 11:18 100 mls/hr ONCE ONE Administration Methylprednisolone Sodium Succinate 125 mg 10/01/17 09:17 10/01/17 09:50 Solu-Medrol - IVPB 10/01/17 09:18 125 mg ONCE ONE Administration <Santo Whitten - Last Filed: 10/01/17 13:06> - LABORATORY CBC & Chemistry Diagram: 10/01/17 09:30 10/01/17 09:30 <Migue Sarabia - Last Filed: 10/01/17 13:35> Medical Decision Making - Medical Decision Making 10/01/17 11:22 First call placed to Dr. Khan at 11:23. Awaiting call back. Case discussed with Dr. Khan at 11:24 First call placed to Dr. Freeman at 11:27. Awaiting call back. Case discussed with Dr. Freeman at 11:28. <WhittenNardaluda - Last Filed: 10/01/17 13:06> - Medical Decision Making 10/01/17 09:48 72y F hx of COPD, Sarcoidosis, htn, dvt on coumadin presents with complaint of sob/couhg presents in acute respiratory distress, poorly moving air, hypoxic per EMS -given Decadron, epinephrine, Combivent by EMS. On arrival I was immediately bedside, the patient was started on BiPAP with significant improvement in her work of breathing, several Combivent, given magnesium and Solu-Medrol. Suspect COPD exacerbation possibly overlying pneumonia Will obtain chest x-ray, blood work, VBG anticipate admission will continue to closely monitor consider possible and the patient for respiratory failure 10/01/17 09:50 10/01/17 11:14 no infiltrate on exam labs reviewed abg pending merrill lstart pt on azithromycin due to suspect copd exacerbation will admit for further management will notify dr. khan 10/01/17 11:[address] khan and dr. freeman agree with admissio nfor furthe rmangaement Case discussed in detail with admitting physician including history, physical exam and ancillary studies. Admitting physician has assumed care for the patient, will follow all pending diagnostics and will complete the evaluation and treatment. 10/01/17 13:28 pts abg unchnaged clinically seems a bit more awake, as she vigourously shook her head when i asked her a quetsion and responds appropriately when i ask her questions. will obtain another blood gas at 2pm to reasses hussain fo rintubation. CRITICAL CARE DOCUMENTATION: I spent ~100 minutes of Critical Care time, excluding separately billable procedures, involving high complexity decision making to assess, manipulate and support vital system function(s) to treat single or multiple vital organ system failure and/or to prevent further life threatening deterioration of the patient' s condition. 10/01/17 13:34 will upgrade pt to ICU dr. bryanna vaughan. <Migue Sarabia - Last Filed: 10/01/17 13:35> *DC/Admit/Observation/Transfer - Attestations Scribe Attestion: 10/01/17 11:23 Documentation prepared by Santo Whitten, acting as medical language specialist for Migue Sarabia MD. <Santo Whitten - Last Filed: 10/01/17 13:06> - Discharge Dispostion Admit: Yes <Migue Sarabia - Last Filed: 10/01/17 13:35> Diagnosis at time of Disposition: COPD exacerbation, Sarcoid - Discharge Dispostion Condition at time of disposition: Guarded
[2017-10-01 09:44] LABS: HEMATOCRIT 39.6 % (32.4-45.2); HEMOGLOBIN 11.9 GM/dL (10.7-15.3); MCH 28.8 pg (25.7-33.7); MCHC 30.1 g/dl (32.0-36.0); MEAN CELL VOLUME 95.5 fl (80-96); MEAN PLT VOLUME 8.2 fl (7.5-11.1); PLATELET COUNT 248 K/MM3 (134-434); RBC 4.14 M/mm3 (3.60-5.2); RDW 16.1 % (11.6-15.6); WHITE BLOOD COUNT 9.4 K/mm3 (4.0-10.0)
[2017-10-01 10:01] LABS: INR 1.65 (0.82-1.09); PROTHROMBIN TIME (PATIENT) 18.6 SEC (9.98-11.88)
[2017-10-01 10:07] LABS: ALBUMIN 3.2 g/dl (3.4-5.0); ANION GAP 5 (8-16); BILIRUBIN,TOTAL 0.4 mg/dL (0.2-1.0); BLOOD UREA NITROGEN 25 mg/dL (7-18); CHLORIDE 106 mmol/L (98-107); CO2 33 mmol/L (21-32); CREATININE 1.2 mg/dL (0.55-1.02); GLUCOSE,RANDOM 85 mg/dL (74-106); SGPT/ALT 21 U/L (12-78); SODIUM 144 mmol/L (136-145)
[2017-10-01 10:08] LABS: ALK PHOS 74 U/L (45-117); TOT PROT 6.5 g/dl (6.4-8.2)
[2017-10-01 10:27] LABS: POTASSIUM 4.7 mmol/L (3.5-5.1); SGOT/AST 32 U/L (15-37)
[2017-10-01] MEDS ORDERED: AZITHROMYCIN IVPB 500 MG in DEXTROSE 5%-WATER - 250 ML IVPB ONE (10:40)
[2017-10-01 10:59] LABS: PLATELET ESTIMATE ADEQUATE
[2017-10-01] MEDS ORDERED: ALBUTEROL SO4 0.083% IH SOL 2.5 MG/3 ML VIAL.NEB. NEB ONE ×2 (11:34→11:55)
[2017-10-01 12:31] LABS: ARTERIAL BLOOD GAS pH 7.21 (7.35-7.45)
[2017-10-01 12:32] LABS: ALLENS TEST POSITIVE; ARTERIAL BLD GAS O2 SATURATION 98.8 % (90-98.9); ARTERIAL BLOOD GAS BASE EXCESS 1.8 meq/l (-2-2)
[2017-10-01 13:21] LABS: ALLENS TEST POSITIVE
[2017-10-01 13:24] LABS: ARTERIAL BLD GAS O2 SATURATION 99.1 % (90-98.9)
[2017-10-01 13:27] LABS: ARTERIAL BLOOD GAS pH 7.19 (7.35-7.45)
[2017-10-01 13:28] LABS: ARTERIAL BLOOD GAS BASE EXCESS -0.2 meq/l (-2-2)
--- NOTE | 2017-10-01 13:51 | PDOC ---
ED Treatment Course - LABORATORY CBC & Chemistry Diagram: 10/01/17 09:30 10/01/17 09:30 - ADDITIONAL ORDERS Additional order review: Laboratory Results 10/01/17 10/01/17 10/01/17 09:30 09:30 01:13 PT with INR 18.60 H INR 1.65 H Anticoagulation Therapy No Result Required. Puncture Site Right radial ABG pH 7.19 L* D ABG pCO2 at Pt Temp 79.0 H* D ABG pO2 at Pt Temp 166.0 H* D ABG HCO3 29.2 H ABG O2 Sat (Measured) 99.1 H ABG O2 Content 15.0 ABG Base Excess -0.2 Sorin Test Positive O2 Delivery Device Bipap Oxygen Flow Rate 35% Vent Mode S/t Vent Rate 14 Mechanical Rate Bipap PEEP 0.0 Pressure Support Vent 16/8 Sodium 144 Potassium 4.7 Chloride 106 Carbon Dioxide 33 H Anion Gap 5 L BUN 25 H Creatinine 1.2 H Creat Clearance w eGFR 44.29 Random Glucose 85 Calcium 8.0 L Total Bilirubin 0.4 D AST 32 D ALT 21 Alkaline Phosphatase 74 Total Protein 6.5 D Albumin 3.2 L 10/01/17 09:30 RBC 4.14 MCV 95.5 MCHC 30.1 L RDW 16.1 H MPV 8.2 Neutrophils % No Result Required. Lymphocytes % No Result Required. - RADIOLOGY Radiology Studies Ordered: Category Date Time Status CHEST X-RAY PORTABLE* [RAD] Stat Radiology 10/01/17 09:18 Completed - Medications Given in the ED: ED Medications Discontinued Medications Generic Name Dose Route Start Last Admin Trade Name Freq PRN Reason Stop Dose Admin Albuterol Sulfate 2 amp 10/01/17 11:55 10/01/17 12:00 Ventolin 0.083% Nebulizer Soln - NEB 10/01/17 11:56 2 amp ONCE ONE Administration Albuterol/Ipratropium 1 amp 10/01/17 09:17 10/01/17 09:05 Duoneb - NEB 10/01/17 09:18 1 amp ONCE ONE Administration Magnesium Sulfate/Dextrose 2 200 mls @ 100 mls/hr 10/01/17 09:19 10/01/17 10: 22 gm/ Miscellaneous IVPB 10/01/17 11:18 100 mls/hr ONCE ONE Administration Azithromycin 500 mg/ Dextrose 250 mls @ 250 mls/hr 10/01/17 10:40 10/01/17 11 :03 IVPB 10/01/17 11:39 250 mls/hr ONCE ONE Administration Methylprednisolone Sodium Succinate 125 mg 10/01/17 09:17 10/01/17 09:50 Solu-Medrol - IVPB 10/01/17 09:18 125 mg ONCE ONE Administration Medical Decision Making - Medical Decision Making 10/01/17 14:15 pt upgraded to ICU clinically seems better blood gas also seem much better *DC/Admit/Observation/Transfer Diagnosis at time of Disposition: COPD exacerbation, Sarcoid - Discharge Dispostion Condition at time of disposition: Critical Admit: Yes - Referrals - Patient Instructions - Post Discharge Activity
--- NOTE | 2017-10-01 13:53 | PN ---
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 FAILURE COPD LV DYSFUNCTION PULMONARY HTN H/O DVT NICOLE PLAN NIPPV INTUBATE IF PT DEVELOPES PROGRESSIVE RESPIRATORY DISTRESS/LETHARGY STEROIDS BRONCHODILATORS ABX ICU MONITORING F/U ABGS CHEST X-RAYS AC DR NORTON Problem List - Problems (1) Acute on chronic respiratory failure with hypoxia and hypercapnia Code(s): J96.21 - ACUTE AND CHRONIC RESPIRATORY FAILURE WITH HYPOXIA; J96.22 - ACUTE AND CHRONIC RESPIRATORY FAILURE WITH HYPERCAPNIA (2) COPD exacerbation Code(s): J44.1 - CHRONIC OBSTRUCTIVE PULMONARY DISEASE W (ACUTE) EXACERBATION (3) Sarcoid Code(s): D86.9 - SARCOIDOSIS, UNSPECIFIED (4) Pulmonary hypertension Code(s): I27.2 - OTHER SECONDARY PULMONARY HYPERTENSION * DO NOT USE * (5) Sarcoidosis of lung Code(s): D86.0 - SARCOIDOSIS OF LUNG (6) LV dysfunction Code(s): I51.9 - HEART DISEASE, UNSPECIFIED (7) DVT (deep venous thrombosis) Code(s): I82.409 - ACUTE EMBOLISM AND THOMBOS UNSP DEEP VN UNSP LOWER EXTREMITY (8) HTN (hypertension) Code(s): I10 - ESSENTIAL (PRIMARY) HYPERTENSION
[2017-10-01 14:10] LABS: ARTERIAL BLD GAS O2 SATURATION 99.3 % (90-98.9); ARTERIAL BLOOD GAS BASE EXCESS 1.1 meq/l (-2-2); ARTERIAL BLOOD GAS PCO2 64.1 mmHg (35-45); ARTERIAL BLOOD GAS pH 7.27 (7.35-7.45)
[2017-10-01 14:12] LABS: ALLENS TEST POSITIVE
[2017-10-01] MEDS ORDERED: ALBUTEROL SO4 2.5/IPRATROPIUM 0.5 INH SOL 3 ML VIAL.NEB. NEB PRN (14:40)
--- NOTE | 2017-10-01 14:50 | HP ---
Admitting History and Physical - Primary Care Physician PCP: Digna Walton - Admission Chief Complaint: RESP. DISTRESS History of Present Illness: ACUTE ON CHRONIC COPD WITH RESP DISTRESS History Source: Patient Limitations to Obtaining History: Clinical Condition - Past Medical History Cardiovascular: Yes: CHF, Deep Vein Thrombosis, HTN Pulmonary: Yes: COPD, Other (sarcoidosis) Heme/Onc: Yes: Anemia Musculoskeletal: Yes: Chronic low back pain Rheumatology: Yes: Sarcoidosis - Past Surgical History Past Surgical History: Yes: Hysterectomy, Joint Replacement - Smoking History Smoking history: Unknown if ever smoked Have you smoked in the past 12 months: No Aproximately how many cigarettes per day: 0 - Alcohol/Substance Use Hx Alcohol Use: No History of Substance Use: reports: None - Social History ADL: Independent History of Recent Travel: No Home Medications - Allergies Allergies/Adverse Reactions: Allergies Allergy/AdvReac Type Severity Reaction Status Date / Time No Known Allergies Allergy Verified 10/01/17 09:10 - Home Medications Home Medications: Ambulatory Orders Oxybutynin Chloride [Ditropan -] 15 mg PO DAILY 08/24/13 Omeprazole 40 mg PO AM 12/01/16 Sennosides [Senna] 8.6 mg PO TID 12/01/16 Albuterol 2.5/Ipratropium 0.5 [Duoneb -] 1 amp NEB QIDR amp 12/04/16 Montelukast Na [Singulair -] 10 mg PO HS tablet 12/04/16 Potassium Chloride [K-Dur -] 10 meq PO DAILY 12/04/16 Temazepam [Restoril -] 30 mg PO HS MDD 1 12/04/16 Warfarin Na [Coumadin -] 5 mg PO ASDIR 12/17/16 Furosemide [Lasix -] 40 mg PO BID@0600,1400 tablet 06/07/17 Calcium Carbonate/Vitamin D3 [Calcium 600 + Vit D 200 Tablet] 1 each PO DAILY Divalproex *ER* [Depakote *ER* -] 500 mg PO DAILY 10/01/17 Docusate Sodium [Colace] 100 mg PO TID 10/01/17 Mirtazapine [Remeron Soltab -] 15 mg PO DAILY 10/01/17 Prednisone [Deltasone -] 30 mg PO DAILY 10/01/17 Warfarin Na [Coumadin -] 4 mg PO ASDIR 10/01/17 Review of Systems - Review of Systems Constitutional: reports: Weakness Eyes: reports: No Symptoms HENT: reports: No Symptoms Neck: reports: No Symptoms Cardiovascular: reports: Shortness of Breath Respiratory: reports: Orthopnea, SOB Gastrointestinal: reports: No Symptoms Genitourinary: reports: No Symptoms Musculoskeletal: reports: Joint Pain Integumentary: reports: Wound (LEFT LEG) Neurological: reports: Pre-Existing Deficit Endocrine: reports: No Symptoms Hematology/Lymphatic: reports: No Symptoms Psychiatric: reports: No Symptoms Physical Examination Vital Signs: Vital Signs Temperature 99.5 F 10/01/17 09:04 Pulse Rate 99 H 10/01/17 14:10 Respiratory Rate 22 10/01/17 14:10 Blood Pressure 109/61 10/01/17 14:10 O2 Sat by Pulse Oximetry (%) 100 10/01/17 14:13 Constitutional: Yes: Severe Distress Eyes: Yes: WNL HENT: Yes: WNL Neck: Yes: WNL Cardiovascular: Yes: Tachycardia Respiratory: Yes: On BiPap, Poor Air Entry, SOB Gastrointestinal: Yes: WNL Renal/: Yes: WNL Musculoskeletal: Yes: Muscle Weakness Extremities: Yes: Other Edema: Yes Peripheral Pulses WNL: Yes Integumentary: Yes: Laceration (LEFT LEG) Wound/Incision: Yes: Dressing Removed (LEFT LOWER LEG WOUND HEALING WITH NO DISCHARGE CLEAN BORDERS, DRESSING REAPLLIED) Neurological: Yes: Pre-Existing Deficit, Unsteady Gait ...Motor Strength: LLE, RLE Psychiatric: Yes: WNL Labs: CBC, BMP 10/01/17 09:30 10/01/17 09:30 Imaging - Results Chest X-ray: Report Reviewed Problem List - Problems (1) Acute on chronic respiratory failure with hypoxia and hypercapnia Code(s): J96.21 - ACUTE AND CHRONIC RESPIRATORY FAILURE WITH HYPOXIA; J96.22 - ACUTE AND CHRONIC RESPIRATORY FAILURE WITH HYPERCAPNIA (2) COPD exacerbation Code(s): J44.1 - CHRONIC OBSTRUCTIVE PULMONARY DISEASE W (ACUTE) EXACERBATION (3) DVT (deep venous thrombosis) Code(s): I82.409 - ACUTE EMBOLISM AND THOMBOS UNSP DEEP VN UNSP LOWER EXTREMITY Qualifiers: DVT location: lower extremity (4) HTN (hypertension) Code(s): I10 - ESSENTIAL (PRIMARY) HYPERTENSION Qualifiers: Hypertension type: essential hypertension Qualified Code(s): I10 - Essential (primary) hypertension (5) LV dysfunction Code(s): I51.9 - HEART DISEASE, UNSPECIFIED (6) Sarcoid Code(s): D86.9 - SARCOIDOSIS, UNSPECIFIED (7) Acute exacerbation of chronic obstructive pulmonary disease (COPD) Code(s): J44.1 - CHRONIC OBSTRUCTIVE PULMONARY DISEASE W (ACUTE) EXACERBATION (8) CKD (chronic kidney disease) Code(s): N18.9 - CHRONIC KIDNEY DISEASE, UNSPECIFIED (9) Sarcoidosis of lung Code(s): D86.0 - SARCOIDOSIS OF LUNG (10) Weakness Code(s): R53.1 - WEAKNESS Assessment/Plan BIPAP FOR RESP SUPPORT NEBS STEROIDS PAIN CONTROL CHECK LABS/INR PULM EVAL ICU ADMISSION
[2017-10-01 16:16] VITALS: BMI 36.6
--- NOTE | 2017-10-01 17:14 | CONSULT ---
Consult Consult Specialty:: Pulm/CCU Referred by:: Dr. Walton Reason for Consultation:: COPD exacerbation - History of Present Illness Chief Complaint: SOB History of Present Illness: Patient is a 72 year old F with pmh of COPD, O2 dependent, HTN, and DVT (on coumadin) who presented with SOB and dry cough x4 days. Patient seen in ICU currently satting 100% on Bipap. Patient is lethargic, so history obtained from EMR. "The patient is a 72 year old female, with a significant past medical history of COPD (sarcoidosis, on steroids), O2 dependency, hypertension, and DVT(on coumadin) who presents to the emergency department complaining of shortness of breath and a dry cough for approximately 4 days. The patient reports an increased nonproductive cough and associated shortness of breath for the past 4 days. Over the past couple of days patient has been using her inhaler, and her PCP, increased her dose of Prednisone to 30 daily, with minimal relief of symptoms. Today, patients SOB worsened and EMS was activated. During transport patient was given Epinephrine, 10 mg of Decadron, and 2 Combivents. Patient denies any associated chest pain, diaphoresis, palpitations, or lower extremity edema. She denies any recent fever, chills, congestion, headache, or dizziness. She denies any abdominal pain, nausea, vomiting, diarrhea, or constipation. She denies any dysuria, hematuria, frequency, or urgency. She denies any recent travel or sick contacts." In the ICU, patient appears to be doing better. Patient is tired, but comfortable on bipap. - History Source History Provided By: Medical Record Limitations to Obtaining History: No Limitations - Past Medical History Cardio/Vascular: Yes: CHF, Deep Vein Thrombosis, HTN Pulmonary: Yes: COPD, Other (sarcoidosis) Musculoskeletal: Yes: Chronic low back pain Rheumatology: Yes: Sarcoidosis - Past Surgical History Past Surgical History: Yes: Hysterectomy, Joint Replacement - Alcohol/Substance Use Hx Alcohol Use: No History of Substance Use: reports: None - Smoking History Smoking history: Former smoker Have you smoked in the past 12 months: No - Social History Usual Living Arrangement: Alone ADL: Independent History of Recent Travel: No Home Medications - Allergies Allergies/Adverse Reactions: Allergies Allergy/AdvReac Type Severity Reaction Status Date / Time No Known Allergies Allergy Verified 10/01/17 09:10 - Home Medications Home Medications: Ambulatory Orders Oxybutynin Chloride [Ditropan -] 15 mg PO DAILY 08/24/13 Omeprazole 40 mg PO AM 12/01/16 Sennosides [Senna] 8.6 mg PO TID 12/01/16 Albuterol 2.5/Ipratropium 0.5 [Duoneb -] 1 amp NEB QIDR amp 12/04/16 Montelukast Na [Singulair -] 10 mg PO HS tablet 12/04/16 Potassium Chloride [K-Dur -] 10 meq PO DAILY 12/04/16 Temazepam [Restoril -] 30 mg PO HS MDD 1 12/04/16 Warfarin Na [Coumadin -] 5 mg PO ASDIR 12/17/16 Furosemide [Lasix -] 40 mg PO BID@0600,1400 tablet 06/07/17 Calcium Carbonate/Vitamin D3 [Calcium 600 + Vit D 200 Tablet] 1 each PO DAILY Divalproex *ER* [Depakote *ER* -] 500 mg PO DAILY 10/01/17 Docusate Sodium [Colace] 100 mg PO TID 10/01/17 Mirtazapine [Remeron Soltab -] 15 mg PO DAILY 10/01/17 Prednisone [Deltasone -] 30 mg PO DAILY 10/01/17 Warfarin Na [Coumadin -] 4 mg PO ASDIR 10/01/17 Physical Exam Vital Signs: Vital Signs Temperature 97.8 F 10/01/17 15:00 Pulse Rate 102 H 10/01/17 15:00 Respiratory Rate 20 10/01/17 15:00 Blood Pressure 122/67 10/01/17 15:00 O2 Sat by Pulse Oximetry (%) 100 10/01/17 14:13 GENERAL: Patient is lethargic but arousable. Patient apepars comfortable on bipap. HEAD: Normocephalic, atraumatic. EYES: Extraocular movements intact, sclera anicteric, conjunctiva clear. ENT: Unable to examine 2/2 to bipap NECK: Normal range of motion, supple LUNGS: Diminished breath sounds, Mild wheezing bilaterally HEART: Tachycardic, normal S1 and S2 without murmur, rub or gallop. ABDOMEN: Soft, nontender, normoactive bowel sounds. No guarding, no rebound. No CVA tenderness EXTREMITIES: Normal range of motion, Wound on LLE with dressing. mild pitting edema b/l NEUROLOGICAL: No facial asymmetry, Normal speech, Patient lethargic but arousable PSYCH: Normal mood, normal affect. SKIN: Warm, Dry, normal turgor, Labs: CBC, BMP 10/01/17 09:30 10/01/17 09:30 Assessment/Plan Patient is a 72 year old F with pmh of COPD, O2 dependent, HTN, and DVT (on coumadin) who presented with SOB and dry cough x4 days admitted to the ICU for COPD exacerbation. #Acute COPD exacerbation -3 ABG's in the ED. Patient trending in the right direction. -Patient received 1 dose of azithromycin & 2g Mg in the ED -Will repeat ABG. If patient worsens, may consider intubation -Duonebs q4h prn -Solumederol 60 mg q6h -F/u blood cx #History of DVTs -Patient on coumadin 4mg daily at home. INR subtheraputic in ICU -Currently cannot tolerate PO intake -Started lovenox 100 mg bid (1mg/kg bid) -Monitor INR and monitor for bleeding -Will order duplex to r/o dvt #HTN -Monitor BP -Hold antihypertensives while patient's BP is within range. Dispo: Continue ICU level of care
--- NOTE | 2017-10-01 17:26 | CONS ---
DATE OF CONSULTATION: REFERRING PHYSICIAN: Digna Walton MD HISTORY: The patient is a 72-year-old black female known to me from previous hospitalizations with past medical history of advanced pulmonary sarcoidosis with chronic hypoxic respiratory failure, advanced COPD, history of DVT, hypertension, history of smoking quit a few years ago admitted to [facility] who presented to [facility] earlier today with complaint of increased shortness of breath, dry cough for approximately 4 days. The patient apparently a week or so prior to this admission started developing a cough. She went to her PMD at which time she was given antibiotics as well as prednisone dose that was increased to 30 mg daily with minimal improvement. Today the patient started developing increasing shortness of breath and increasing cough. She was also noted to be with increasing lethargy. She presented to the emergency room with the above. On route to the emergency room, the patient was administered epinephrine and Decadron and 2 Combivents without any significant improvement. In the emergency room, the patient was noted to be lethargic. She was also noted to have acute or chronic hypoxemic, hypercapnic respiratory failure for which she was placed on BiPAP. There is no history of recent travel. There is no history of occupational exposure to chemicals or fumes. According to the sister, there are no recent fevers or chills. She did have some mild chest congestion or cough but no hemoptysis. Her cough was productive of clear sputum. PAST MEDICAL HISTORY: Again, includes advanced pulmonary sarcoid on chronic steroids, O2-dependent COPD, hypertension, DVT. REVIEW OF SYSTEMS: Unable to obtain from the patient as she is lethargic. MEDICATIONS: Prior to admission include Ditropan, omeprazole, Senna, DuoNeb, Singulair, K-Dur, Restoril, Coumadin, Lasix, Depakote, Remeron, Deltasone, and Coumadin. PHYSICAL EXAMINATION: General: The patient is an obese female well developed, well nourished lethargic on BiPAP. Vital Signs: Blood pressure is 109/61, respiratory rate is 22, O2 saturation is 97%. HEENT: Normocephalic and atraumatic. Neck: Supple. Heart: Regular S1, S2. Chest: A few scattered rhonchi bilaterally. Abdomen: Soft. Bowel sounds positive. Extremities: Left lower extremity mildly edematous. LABORATORIES: WBC 9.4, hemoglobin 11.9, hematocrit 39.6 with a platelet count of 248,000. There were 26 lymphocytes, 58 polys, 10 monocytes. INR is 1.65. Initial blood gas: PH 7.2, PCO2 of 80, PO2 of 160, bicarbonate 31, saturation 98. That was on a BiPAP at a rate of 14, IPAP of 12, and EPAP of 8. After changes, follow up blood gas pH 7.27, PCO2 of 64, PO2 of 163, bicarbonate 28, and saturation of 99. That was on BiPAP rate of 20, IPAP of 18, and EPAP of 8. Chemistry: BUN 25, creatinine 1.2. Chest x-ray reveals no acute infiltrates and/or effusions. There are chronic changes bilaterally. IMPRESSION: Acute on chronic hypoxemic, hypercapnic respiratory failure secondary to: 1. Advanced pulmonary sarcoid. 2. Chronic obstructive pulmonary disease exacerbation. 3. Most likely upper respiratory infection. 4. Hypertension. 5. History of deep vein thrombosis. PLAN: IV steroids. Inhaled bronchodilators. Supplemental O2 to maintain O2 saturations 90% of greater. BiPAP as needed. Obtain follow up arterial blood gases. Follow up chest x-rays and pending cultures. Continue anticoagulation and ICU monitoring. PAMELA NORTON M.D. [id number]
[2017-10-01] MEDS: methylPREDNISolone NA SUCC 40 MG/1 ML VIAL IVPUSH SCH ×2 (18:07→20:21)
[2017-10-01 18:36] LABS: ARTERIAL BLD GAS O2 SATURATION 98.9 % (90-98.9); ARTERIAL BLOOD GAS BASE EXCESS 1.3 meq/l (-2-2); ARTERIAL BLOOD GAS pH 7.28 (7.35-7.45)
[2017-10-01 18:38] LABS: ALLENS TEST POSITIVE
[2017-10-01 18:44] LABS: ARTERIAL BLOOD GAS PCO2 62.6 mmHg (35-45)
[2017-10-01] MEDS ORDERED: ENOXAPARIN NA (PORCINE) 100 MG/1 ML DISP.SYRIN SQ ONE (20:30)
[2017-10-02] MEDS: methylPREDNISolone NA SUCC 40 MG/1 ML VIAL IVPUSH SCH ×4 (02:15→21:25)
[2017-10-02] MEDS ORDERED: FUROSEMIDE 40 MG TABLET (FP) PO SCH (06:00)
[2017-10-02 06:17] LABS: BASO % 0.1 % (0-2.0); HEMOGLOBIN 10.1 GM/dL (10.7-15.3); LYMPH % 7.7 % (8-40); MCH 29.9 pg (25.7-33.7); MCHC 31.7 g/dl (32.0-36.0); MEAN CELL VOLUME 94.3 fl (80-96); MEAN PLT VOLUME 8.3 fl (7.5-11.1); MONO % 2.2 % (3.8-10.2); PLATELET COUNT 222 K/MM3 (134-434); RBC 3.39 M/mm3 (3.60-5.2); RDW 15.3 % (11.6-15.6); WHITE BLOOD COUNT 5.2 K/mm3 (4.0-10.0)
[2017-10-02 06:26] LABS: INR 2.1 (0.82-1.09); PROTHROMBIN TIME (PATIENT) 23.7 SEC (9.98-11.88)
[2017-10-02 06:29] LABS: ACTIVATED PTT 34.3 SECONDS (26.9-34.4)
[2017-10-02] MEDS: FUROSEMIDE 40 MG/4 ML INJECTABLE VIAL IVPUSH SCH ×2 (06:42→14:02)
[2017-10-02] MEDS: SENNOSIDES 8.6MG TABLET (FP) PO SCH ×3 (06:42→22:45)
[2017-10-02] MEDS: DOCUSATE SODIUM 100 MG CAPSULE (FP) PO SCH ×3 (06:42→21:28)
[2017-10-02 07:13] LABS: ARTERIAL BLD GAS O2 SATURATION 98.6 % (90-98.9); ARTERIAL BLOOD GAS BASE EXCESS 7.6 meq/l (-2-2); ARTERIAL BLOOD GAS pH 7.36 (7.35-7.45)
[2017-10-02 07:21] LABS: ALBUMIN 2.8 g/dl (3.4-5.0); ANION GAP 2 (8-16); BILIRUBIN,TOTAL 0.4 mg/dL (0.2-1.0); BLOOD UREA NITROGEN 24 mg/dL (7-18); CALCIUM 7.5 mg/dL (8.5-10.1); CHLORIDE 105 mmol/L (98-107); CO2 36 mmol/L (21-32); GLUCOSE,RANDOM 148 mg/dL (74-106); MAGNESIUM 2.7 mg/dL (1.8-2.4); POTASSIUM 4.6 mmol/L (3.5-5.1); SGOT/AST 8 U/L (15-37); SGPT/ALT 16 U/L (12-78); SODIUM 143 mmol/L (136-145)
[2017-10-02 07:21] LABS: ALLENS TEST POSITIVE
[2017-10-02 07:22] LABS: ALK PHOS 65 U/L (45-117); TOT PROT 5.7 g/dl (6.4-8.2)
[2017-10-02 07:42] LABS: ARTERIAL BLOOD GAS PCO2 62.1 mmHg (35-45)
[2017-10-02] MEDS ORDERED: PT OWN MED DRAWER 7, Y5N ONE ×2 (09:51→21:05)
[2017-10-02] MEDS: PANTOPRAZOLE 40 MG TABLET (FP) PO SCH (09:56)
[2017-10-02] MEDS: OXYBUTYNIN CHLORIDE 5 MG TABLET PO SCH ×2 (09:56→21:27)
[2017-10-02] MEDS: DIVALPROEX SODIUM 500 MG TABLET E.C. PO SCH ×2 (09:57→22:36)
[2017-10-02] MEDS ORDERED: ENOXAPARIN NA (PORCINE) 100 MG/1 ML DISP.SYRIN SQ SCH (10:00)
--- NOTE | 2017-10-02 10:48 | PN ---
Progress Note (short form) - Note Progress Note: PULMONARY/CCM Pt seen and examined in the ICU. Remains on BiPAP but reports improvement in breathing. +cough and wheezing. ABG this AM showing normalization of pH. Last Vital Signs Temp Pulse Resp BP Pulse Ox 98.2 F 92 H 20 116/65 100 10/02/17 06:00 10/02/17 09:00 10/02/17 06:00 10/02/17 06:00 10/02/17 09:00 Intake & Output 09/29/17 09/30/17 10/01/17 10/02/17 23:59 23:59 23:59 23:59 Intake Total 0 Output Total 900 Balance 0 -900 Weight 106.282 kg Gen: mildly tachypneic on BiPAP Heart: RRR Lung:distant breath sounds Abd: soft, nontender Ext: no edema CBC, BMP 10/02/17 05:50 10/02/17 05:50 Active Medications Albuterol/Ipratropium (Duoneb -) 1 amp NEB Q4H PRN PRN Reason: SHORTNESS OF BREATH Divalproex Sodium (Depakote -) 500 mg PO BID [facility] Last Admin: 10/02/17 09:57 Dose: 500 mg Docusate Sodium (Colace -) 100 mg PO TID [facility] Last Admin: 10/02/17 06:42 Dose: 100 mg Enoxaparin Sodium (Lovenox -) 100 mg SQ BID [facility] Last Admin: 10/02/17 09:56 Dose: 100 mg Furosemide (Lasix Injection -) 40 mg IVPUSH BID@0600,1400 [facility] Last Admin: 10/02/17 06:42 Dose: 40 mg Methylprednisolone Sodium Succinate (Solu-Medrol -) 60 mg IVPUSH Q6H-IV [facility] Last Admin: 10/02/17 09:55 Dose: 60 mg Montelukast Sodium (Singulair -) 10 mg PO HS [facility] Oxybutynin Chloride (Ditropan -) 5 mg PO BID [facility] Last Admin: 10/02/17 09:56 Dose: 5 mg Pantoprazole Sodium (Protonix -) 40 mg PO DAILY [facility] Last Admin: 10/02/17 09:56 Dose: 40 mg Senna (Senna -) 1 tab PO TID [facility] Last Admin: 10/02/17 06:42 Dose: 1 tab Temazepam (Restoril -) 15 mg PO HS [facility] Warfarin Sodium (Coumadin -) 5 mg PO DAILY@1800 [facility] A/P Acute on Chronic Hypoxic and Hypercapneic Respiratory Failrue Acute COPD Exacerbation Pulmonary Sarcoidosis Pulmonary HTN Acute on Chronic Diastolic Heart Failure h/o DVT Acute Kidney Injury improving - continue medrol at current dose - inhaled bronchodilators standing and PRN - IV lasix - monitor urine output, creatinine - continue anticoagulation - wean off BiPAP - PO as tolerated - can monitor on telemetry critical care time spent in reviewing chart, evaluating patient and formulating plan 35 min
--- NOTE | 2017-10-02 13:43 | PN ---
Progress Note, Physician Chief Complaint: AWAKE ON NC FEELING BETTER - Current Medication List Current Medications: Active Medications Albuterol/Ipratropium (Duoneb -) 1 amp NEB Q4H PRN PRN Reason: SHORTNESS OF BREATH Divalproex Sodium (Depakote -) 500 mg PO BID [facility] Last Admin: 10/02/17 09:57 Dose: 500 mg Docusate Sodium (Colace -) 100 mg PO TID [facility] Last Admin: 10/02/17 06:42 Dose: 100 mg Enoxaparin Sodium (Lovenox -) 100 mg SQ BID [facility] Last Admin: 10/02/17 09:56 Dose: 100 mg Furosemide (Lasix Injection -) 40 mg IVPUSH BID@0600,1400 [facility] Last Admin: 10/02/17 06:42 Dose: 40 mg Methylprednisolone Sodium Succinate (Solu-Medrol -) 60 mg IVPUSH Q6H-IV [facility] Last Admin: 10/02/17 09:55 Dose: 60 mg Montelukast Sodium (Singulair -) 10 mg PO [facility] Oxybutynin Chloride (Ditropan -) 5 mg PO BID [facility] Last Admin: 10/02/17 09:56 Dose: 5 mg Pantoprazole Sodium (Protonix -) 40 mg PO DAILY [facility] Last Admin: 10/02/17 09:56 Dose: 40 mg Senna (Senna -) 1 tab PO TID [facility] Last Admin: 10/02/17 06:42 Dose: 1 tab Temazepam (Restoril -) 15 mg PO [facility] Warfarin Sodium (Coumadin -) 5 mg PO DAILY@1800 [facility] - Objective Vital Signs: Vital Signs Temperature 98.8 F 10/02/17 10:00 Pulse Rate 86 10/02/17 10:00 Respiratory Rate 22 10/02/17 10:00 Blood Pressure 99/79 10/02/17 10:00 O2 Sat by Pulse Oximetry (%) 100 10/02/17 11:30 Constitutional: Yes: Mild Distress Eyes: Yes: WNL HENT: Yes: WNL Neck: Yes: WNL Cardiovascular: Yes: Other Respiratory: Yes: On Nasal O2, Poor Air Entry Gastrointestinal: Yes: WNL Genitourinary: Yes: Incontinence Musculoskeletal: Yes: Muscle Weakness Extremities: Yes: Other Edema: Yes Peripheral Pulses WNL: Yes Integumentary: Yes: Venous Stasis Changes Wound/Incision: Yes: Dressing Dry and Intact Neurological: Yes: Pre-Existing Deficit ...Motor Strength: LLE Psychiatric: Yes: WNL Labs: CBC, BMP 10/02/17 05:50 10/02/17 05:50 INR, PTT INR 2.10 (0.82-1.09) H 10/02/17 05:50 Problem List - Problems (1) Acute on chronic respiratory failure with hypoxia and hypercapnia Code(s): J96.21 - ACUTE AND CHRONIC RESPIRATORY FAILURE WITH HYPOXIA; J96.22 - ACUTE AND CHRONIC RESPIRATORY FAILURE WITH HYPERCAPNIA (2) COPD exacerbation Code(s): J44.1 - CHRONIC OBSTRUCTIVE PULMONARY DISEASE W (ACUTE) EXACERBATION (3) DVT (deep venous thrombosis) Code(s): I82.409 - ACUTE EMBOLISM AND THOMBOS UNSP DEEP VN UNSP LOWER EXTREMITY Qualifiers: DVT location: lower extremity (4) HTN (hypertension) Code(s): I10 - ESSENTIAL (PRIMARY) HYPERTENSION Qualifiers: Hypertension type: essential hypertension Qualified Code(s): I10 - Essential (primary) hypertension (5) LV dysfunction Code(s): I51.9 - HEART DISEASE, UNSPECIFIED (6) Sarcoid Code(s): D86.9 - SARCOIDOSIS, UNSPECIFIED (7) Acute exacerbation of chronic obstructive pulmonary disease (COPD) Code(s): J44.1 - CHRONIC OBSTRUCTIVE PULMONARY DISEASE W (ACUTE) EXACERBATION (8) CKD (chronic kidney disease) Code(s): N18.9 - CHRONIC KIDNEY DISEASE, UNSPECIFIED (9) Sarcoidosis of lung Code(s): D86.0 - SARCOIDOSIS OF LUNG (10) Weakness Code(s): R53.1 - WEAKNESS Assessment/Plan BIPAP FOR RESP SUPPORT NEBS STEROIDS PAIN CONTROL CHECK LABS/INR PULM EVAL APPRECIATED ECHO ORDERED PT EVAL ICU ADMISSION
[2017-10-02 15:05] LABS: INR 2.39 (0.82-1.09)
--- NOTE | 2017-10-02 15:47 | CON.CARD ---
Consult Consult Specialty:: cardiology Referred by:: Isabelle Reason for Consultation:: Shortness of breath - History of Present Illness Chief Complaint: Shortness of breath History of Present Illness: The patient is a 72-year-old female, who is obese, history of hypertension, sarcoidosis, COPD, on home oxygen, DVT on Coumadin, admitted 10/02/17 with generalized weakness and shortness of breath. The patient is symptomatically better. She is in mild respiratory distress. Denied chest pains and palpitations. - History Source History Provided By: Patient, Family Member, Medical Record Limitations to Obtaining History: Poor Historian - Past Medical History Cardio/Vascular: Yes: CHF, Deep Vein Thrombosis, HTN Pulmonary: Yes: COPD, Other (sarcoidosis) Musculoskeletal: Yes: Chronic low back pain Rheumatology: Yes: Sarcoidosis - Past Surgical History Past Surgical History: Yes: Hysterectomy, Joint Replacement - Alcohol/Substance Use Hx Alcohol Use: No History of Substance Use: reports: None - Smoking History Smoking history: Unknown if ever smoked Have you smoked in the past 12 months: No Aproximately how many cigarettes per day: 0 - Social History Usual Living Arrangement: Alone ADL: Independent History of Recent Travel: No Home Medications - Allergies Allergies/Adverse Reactions: Allergies Allergy/AdvReac Type Severity Reaction Status Date / Time No Known Allergies Allergy Verified 10/01/17 09:10 - Home Medications Home Medications: Ambulatory Orders Oxybutynin Chloride [Ditropan -] 15 mg PO DAILY 08/24/13 Omeprazole 40 mg PO AM 12/01/16 Sennosides [Senna] 8.6 mg PO TID 12/01/16 Albuterol 2.5/Ipratropium 0.5 [Duoneb -] 1 amp NEB QIDR amp 12/04/16 Montelukast Na [Singulair -] 10 mg PO HS tablet 12/04/16 Potassium Chloride [K-Dur -] 10 meq PO DAILY 12/04/16 Temazepam [Restoril -] 30 mg PO HS [facility] 1 12/04/16 Warfarin Na [Coumadin -] 5 mg PO ASDIR 12/17/16 Furosemide [Lasix -] 40 mg PO BID@0600,1400 tablet 06/07/17 Calcium Carbonate/Vitamin D3 [Calcium 600 + Vit D 200 Tablet] 1 each PO DAILY Divalproex *ER* [Depakote *ER* -] 500 mg PO DAILY 10/01/17 Docusate Sodium [Colace] 100 mg PO TID 10/01/17 Mirtazapine [Remeron Soltab -] 15 mg PO DAILY 10/01/17 Prednisone [Deltasone -] 30 mg PO DAILY 10/01/17 Warfarin Na [Coumadin -] 4 mg PO ASDIR 10/01/17 Review of Systems - Review of Systems Constitutional: reports: Lethargy, Malaise Eyes: reports: No Symptoms HENT: reports: No Symptoms Neck: reports: No Symptoms Cardiovascular: reports: Edema Respiratory: reports: Cough, SOB Gastrointestinal: reports: No Symptoms Genitourinary: reports: No Symptoms Breasts: reports: No Symptoms Reported Musculoskeletal: reports: Back Pain Integumentary: reports: No Symptoms Neurological: reports: No Symptoms Endocrine: reports: No Symptoms Hematology/Lymphatic: reports: No Symptoms Psychiatric: reports: No Symptoms Vital Signs: Vital Signs Temperature 98.7 F 10/02/17 14:00 Pulse Rate 108 H 10/02/17 14:00 Respiratory Rate 21 10/02/17 14:00 Blood Pressure 103/61 10/02/17 14:00 O2 Sat by Pulse Oximetry (%) 100 10/02/17 14:38 Constitutional: Yes: Obese Eyes: Yes: WNL HENT: Yes: WNL, Atraumatic, Normocephalic Neck: Yes: WNL, Supple, Trachea Midline Respiratory: Yes: Accessory Muscle Use, Cough, On Nasal O2, Poor Air Entry, SOB Gastrointestinal: Yes: WNL, Normal Bowel Sounds, Soft Renal/: Yes: WNL Cardiovascular: Yes: WNL, Regular Rate and Rhythm JVD: No Carotid Bruit: No PMI: Non-Displaced Heart Sounds: Yes: S1, S2 Murmur: Yes: Systolic Murmur, Grade 2 Musculoskeletal: Yes: Back Pain Edema: Yes Edema: LLE: 1+, RLE: 1+ Peripheral Pulses: 1+ Left Carotid, 1+ Right Carotid, 1+ Left Femoral, 1+ Right Femoral, 1+ Left Popliteal, 1+ Right Popliteal, 1+ Left Doralis Pedis, 1+ Right Dorsalis Pedis Integumentary: Yes: WNL Neurological: Yes: WNL Psychiatric: Yes: WNL - Other Data Labs, Other Data: CBC, BMP 10/02/17 05:50 10/02/17 05:50 INR, PTT INR 2.39 (0.82-1.09) H 10/02/17 14:30 Assessment/Plan 72-year-old obese female, we have a history of hypertension, COPD and sarcoidosis, on home oxygen, DVT of her lower extremity on Coumadin, now presenting with generalized weakness and shortness of breath. The patient has mild pulmonary congestion. She is responding to Lasix. There is no evidence of ischemia nor acute coronary syndrome. No angina. Telemetry showing sinus tachycardia at 110 bpm. Please continue intravenous Lasix as currently. Arrange for an echocardiogram. Aggressive respiratory toilet. Out of bed to chair, as possible. The patient is stable from the cardiac standpoint. We will follow results.
--- NOTE | 2017-10-02 17:17 | EKG ---
Test Reason : Blood Pressure : / mmHG Vent. Rate : 102 BPM Atrial Rate : 102 BPM P-R Int : 122 ms QRS Dur : 074 ms QT Int : 344 ms P-R-T Axes : 062 004 008 degrees QTc Int : 448 ms SINUS TACHYCARDIA LOW VOLTAGE QRS T WAVE ABNORMALITY, CONSIDER ANTERIOR ISCHEMIA ABNORMAL ECG WHEN COMPARED WITH ECG OF 01-JUN-2017 23:42, T WAVE INVERSION NOW EVIDENT IN ANTERIOR LEADS Confirmed by SHEREEN LUND MD ([id number]) on 10/02/2017 5:17:03 PM Referred By: Confirmed By:SHEREEN LUND MD
[2017-10-02] MEDS ORDERED: ACETAMINOPHEN 325 MG TABLET (FP) ONE (17:59)
[2017-10-02] MEDS: WARFARIN NA 5 MG TABLET (UD) PO SCH (18:04)
[2017-10-02] MEDS ORDERED: ACETAMINOPHEN 325 MG TABLET (FP) PO PRN (19:33)
[2017-10-02] MEDS: MONTELUKAST NA 10 MG TABLET PO SCH (21:28)
[2017-10-02] MEDS: TEMAZEPAM 15 MG CAPSULE PO SCH (21:28)
[2017-10-03] MEDS: methylPREDNISolone NA SUCC 40 MG/1 ML VIAL IVPUSH SCH ×4 (04:44→21:15)
[2017-10-03] MEDS: TEMAZEPAM 15 MG CAPSULE PO SCH ×2 (04:58→21:26)
[2017-10-03] MEDS: FUROSEMIDE 40 MG/4 ML INJECTABLE VIAL IVPUSH SCH ×2 (05:35→15:10)
[2017-10-03] MEDS: DOCUSATE SODIUM 100 MG CAPSULE (FP) PO SCH ×3 (05:35→21:15)
[2017-10-03] MEDS: SENNOSIDES 8.6MG TABLET (FP) PO SCH ×3 (05:35→21:15)
[2017-10-03 06:26] LABS: HEMATOCRIT 30.8 % (32.4-45.2); LYMPH % 6.9 % (8-40); MCH 30.6 pg (25.7-33.7); MCHC 32.4 g/dl (32.0-36.0); MEAN CELL VOLUME 94.3 fl (80-96); MEAN PLT VOLUME 8.1 fl (7.5-11.1); MONO % 3.6 % (3.8-10.2); NEUT % 89.5 % (42.8-82.8); PLATELET COUNT 214 K/MM3 (134-434); RBC 3.27 M/mm3 (3.60-5.2); RDW 15.6 % (11.6-15.6); WHITE BLOOD COUNT 7.9 K/mm3 (4.0-10.0)
[2017-10-03 07:07] LABS: CHLORIDE 102 mmol/L (98-107); POTASSIUM 4.8 mmol/L (3.5-5.1); SODIUM 142 mmol/L (136-145)
[2017-10-03 07:15] LABS: ALBUMIN 2.8 g/dl (3.4-5.0); ALK PHOS 61 U/L (45-117); ANION GAP 3 (8-16); BILIRUBIN,TOTAL 0.2 mg/dL (0.2-1.0); BLOOD UREA NITROGEN 32 mg/dL (7-18); CALCIUM 7.2 mg/dL (8.5-10.1); CO2 37 mmol/L (21-32); CREATININE 1.3 mg/dL (0.55-1.02); GLUCOSE,RANDOM 134 mg/dL (74-106); MAGNESIUM 2.4 mg/dL (1.8-2.4); PHOSPHOROUS 3.4 mg/dL (2.5-4.9); SGOT/AST 6 U/L (15-37); SGPT/ALT 16 U/L (12-78); TOT PROT 5.7 g/dl (6.4-8.2)
[2017-10-03] MEDS ORDERED: PT OWN MED DRAWER 7, Y5N ONE ×2 (09:34→21:14)
[2017-10-03] MEDS: OXYBUTYNIN CHLORIDE 5 MG TABLET PO SCH ×2 (09:37→21:15)
[2017-10-03] MEDS: DIVALPROEX SODIUM 500 MG TABLET E.C. PO SCH ×2 (09:37→21:15)
[2017-10-03] MEDS: PANTOPRAZOLE 40 MG TABLET (FP) PO SCH (09:37)
--- NOTE | 2017-10-03 11:07 | PN ---
Progress Note (short form) - Note Progress Note: PULMONARY Off BiPAP, still some shortness of breath. +cough and wheezing. Cough productive of green sputum. Last Vital Signs Temp Pulse Resp BP Pulse Ox 98.4 F 82 22 108/64 100 10/03/17 10:00 10/03/17 10:00 10/03/17 10:00 10/03/17 10:00 10/03/17 09:30 Intake & Output 09/30/17 10/01/17 10/02/17 10/03/17 23:59 23:59 23:59 23:59 Intake Total 0 120 120 Output Total 1300 300 Balance 0 -1180 -180 Weight 106.282 kg Gen: less tachypneic Heart: RRR Lung: scattered rhonchi Abd: soft, nontender Ext: no edema CBC, BMP 10/03/17 06:00 10/03/17 06:00 INR, PTT INR 2.39 (0.82-1.09) H 10/02/17 14:30 Active Medications Acetaminophen (Tylenol -) 650 mg PO Q6H PRN PRN Reason: FEVER Last Admin: 10/03/17 09:38 Dose: 650 mg Albuterol/Ipratropium (Duoneb -) 1 amp NEB Q4H PRN PRN Reason: SHORTNESS OF BREATH Divalproex Sodium (Depakote -) 500 mg PO BID [facility] Last Admin: 10/03/17 09:37 Dose: 500 mg Docusate Sodium (Colace -) 100 mg PO TID [facility] Last Admin: 10/03/17 05:35 Dose: 100 mg Furosemide (Lasix Injection -) 40 mg IVPUSH BID@0600,1400 [facility] Last Admin: 10/03/17 05:35 Dose: 40 mg Methylprednisolone Sodium Succinate (Solu-Medrol -) 60 mg IVPUSH Q6H-IV [facility] Last Admin: 10/03/17 09:36 Dose: 60 mg Montelukast Sodium (Singulair -) 10 mg PO HS [facility] Last Admin: 10/02/17 21:28 Dose: 10 mg Oxybutynin Chloride (Ditropan -) 5 mg PO BID [facility] Last Admin: 10/03/17 09:37 Dose: 5 mg Pantoprazole Sodium (Protonix -) 40 mg PO DAILY [facility] Last Admin: 10/03/17 09:37 Dose: 40 mg Senna (Senna -) 1 tab PO TID [facility] Last Admin: 10/03/17 05:35 Dose: 1 tab Temazepam (Restoril -) 15 mg PO HS [facility] Last Admin: 10/03/17 04:58 Dose: Not Given Warfarin Sodium (Coumadin -) 5 mg PO DAILY@1800 [facility] Last Admin: 10/02/17 18:04 Dose: 5 mg A/P Acute on Chronic Hypoxic and Hypercapneic Respiratory Failrue Acute COPD Exacerbation Pulmonary Sarcoidosis Pulmonary HTN Acute on Chronic Diastolic Heart Failure h/o DVT Acute Kidney Injury improving - continue medrol at current dose, can decrease in AM if continues to improve - inhaled bronchodilators standing and PRN - continue lasix - monitor urine output, creatinine - continue anticoagulation - BiPAP as needed - PO as tolerated
[2017-10-03] MEDS ORDERED: METOPROLOL TARTRATE 5 MG/5 ML VIAL IVPUSH PRN (11:23)
[2017-10-03] MEDS ORDERED: DIGOXIN 0.5 MG/2 ML AMPUL ONE (11:55)
--- NOTE | 2017-10-03 12:12 | PN ---
Progress Note, Physician Chief Complaint: Shortness of breath - Current Medication List Current Medications: Active Medications Acetaminophen (Tylenol -) 650 mg PO Q6H PRN PRN Reason: FEVER Last Admin: 10/03/17 09:38 Dose: 650 mg Albuterol/Ipratropium (Duoneb -) 1 amp NEB Q4H PRN PRN Reason: SHORTNESS OF BREATH Divalproex Sodium (Depakote -) 500 mg PO BID [facility] Last Admin: 10/03/17 09:37 Dose: 500 mg Docusate Sodium (Colace -) 100 mg PO TID [facility] Last Admin: 10/03/17 05:35 Dose: 100 mg Furosemide (Lasix Injection -) 40 mg IVPUSH BID@0600,1400 [facility] Last Admin: 10/03/17 05:35 Dose: 40 mg Methylprednisolone Sodium Succinate (Solu-Medrol -) 60 mg IVPUSH Q6H-IV [facility] Last Admin: 10/03/17 09:36 Dose: 60 mg Metoprolol Tartrate (Lopressor Injection -) 5 mg IVPUSH Q4H PRN PRN Reason: HYPERTENSION Montelukast Sodium (Singulair -) 10 mg PO [facility] Last Admin: 10/02/17 21:28 Dose: 10 mg Oxybutynin Chloride (Ditropan -) 5 mg PO BID [facility] Last Admin: 10/03/17 09:37 Dose: 5 mg Pantoprazole Sodium (Protonix -) 40 mg PO DAILY [facility] Last Admin: 10/03/17 09:37 Dose: 40 mg Senna (Senna -) 1 tab PO TID [facility] Last Admin: 10/03/17 05:35 Dose: 1 tab Temazepam (Restoril -) 15 mg PO [facility] Last Admin: 10/03/17 04:58 Dose: Not Given Warfarin Sodium (Coumadin -) 5 mg PO DAILY@1800 [facility] Last Admin: 10/02/17 18:04 Dose: 5 mg - Objective Vital Signs: Vital Signs Temperature 98.4 F 10/03/17 10:00 Pulse Rate 82 10/03/17 10:00 Respiratory Rate 22 10/03/17 10:00 Blood Pressure 108/64 10/03/17 10:00 O2 Sat by Pulse Oximetry (%) 100 10/03/17 09:30 Constitutional: Yes: No Distress, Calm, Obese Eyes: Yes: WNL HENT: Yes: WNL, Atraumatic, Normocephalic Neck: Yes: WNL, Supple, Trachea Midline Cardiovascular: Yes: Tachycardia, Pulse Irregular, S1, S2 Respiratory: Yes: Accessory Muscle Use, Poor Air Entry, Rhonchi, SOB Gastrointestinal: Yes: WNL, Normal Bowel Sounds, Soft ...Rectal Exam: Yes: Deferred Genitourinary: Yes: WNL Musculoskeletal: Yes: WNL Extremities: Yes: WNL Edema: Yes Edema: LLE: 1+, RLE: 1+ Peripheral Pulses WNL: No Peripheral Pulses: Left Radial: 1+, Right Radial: 1+, Left Doralis Pedis: 1+, Right Dorsalis Pedis: 1+, Left Femoral: 1+, Right Femoral: 1+ Integumentary: Yes: WNL Neurological: Yes: WNL, Alert, Oriented Psychiatric: Yes: WNL, Alert, Oriented Labs: CBC, BMP 10/03/17 06:00 10/03/17 06:00 INR, PTT INR 2.39 (0.82-1.09) H 10/02/17 14:30 Assessment/Plan The patient went into rapid atrial fibrillation. She is completely asymptomatic. The blood pressure is low. She received 5 mg of metoprolol push. Ventricular rates in the 160s. Please load digoxin. Give 0.5 mg IV now. 4 hours after the initial dose, give 0.25 IV once. 4 hours after the second dose, give another 0.25 mg IV. Do not complete the full load, if ventricular rates are below 100. Make sure that potassium is well repleted. Target INR is 2-3. The patient is already on Coumadin for a DVT. Please arrange for an echocardiogram.
[2017-10-03] MEDS ORDERED: DIGOXIN 0.5 MG/2 ML AMPUL IVPUSH ONE ×3 (12:30→20:30)
--- NOTE | 2017-10-03 12:38 | PN ---
Progress Note, Physician Chief Complaint: ASLEEP EVENTS REVIEWED NO ACUTE CHANGES - Current Medication List Current Medications: Active Medications Acetaminophen (Tylenol -) 650 mg PO Q6H PRN PRN Reason: FEVER Last Admin: 10/03/17 09:38 Dose: 650 mg Albuterol/Ipratropium (Duoneb -) 1 amp NEB Q4H PRN PRN Reason: SHORTNESS OF BREATH Digoxin (Lanoxin Injection -) 0.25 mg IVPUSH ONCE ONE Stop: 10/03/17 16:31 Digoxin (Lanoxin Injection -) 0.25 mg IVPUSH ONCE ONE Stop: 10/03/17 20:31 Divalproex Sodium (Depakote -) 500 mg PO BID [facility] Last Admin: 10/03/17 09:37 Dose: 500 mg Docusate Sodium (Colace -) 100 mg PO TID [facility] Last Admin: 10/03/17 05:35 Dose: 100 mg Furosemide (Lasix Injection -) 40 mg IVPUSH BID@0600,1400 [facility] Last Admin: 10/03/17 05:35 Dose: 40 mg Methylprednisolone Sodium Succinate (Solu-Medrol -) 60 mg IVPUSH Q6H-IV [facility] Last Admin: 10/03/17 09:36 Dose: 60 mg Metoprolol Tartrate (Lopressor Injection -) 5 mg IVPUSH Q4H PRN PRN Reason: HYPERTENSION Last Admin: 10/03/17 11:25 Dose: 5 mg Montelukast Sodium (Singulair -) 10 mg PO [facility] Last Admin: 10/02/17 21:28 Dose: 10 mg Oxybutynin Chloride (Ditropan -) 5 mg PO BID [facility] Last Admin: 10/03/17 09:37 Dose: 5 mg Pantoprazole Sodium (Protonix -) 40 mg PO DAILY [facility] Last Admin: 10/03/17 09:37 Dose: 40 mg Senna (Senna -) 1 tab PO TID [facility] Last Admin: 10/03/17 05:35 Dose: 1 tab Temazepam (Restoril -) 15 mg PO HS [facility] Last Admin: 10/03/17 04:58 Dose: Not Given Warfarin Sodium (Coumadin -) 5 mg PO DAILY@1800 [facility] Last Admin: 10/02/17 18:04 Dose: 5 mg - Objective Vital Signs: Vital Signs Temperature 98.4 F 10/03/17 10:00 Pulse Rate 155 H 10/03/17 11:55 Respiratory Rate 22 10/03/17 10:00 Blood Pressure 104/60 10/03/17 11:25 O2 Sat by Pulse Oximetry (%) 100 10/03/17 09:30 Constitutional: Yes: No Distress Eyes: Yes: WNL HENT: Yes: WNL Neck: Yes: WNL Cardiovascular: Yes: Pulse Irregular Respiratory: Yes: On Nasal O2, Poor Air Entry Gastrointestinal: Yes: WNL Genitourinary: Yes: Incontinence Musculoskeletal: Yes: Muscle Weakness Extremities: Yes: Other Edema: Yes Peripheral Pulses WNL: Yes Integumentary: Yes: Other Wound/Incision: Yes: Dressing Dry and Intact (LEFT LEG LACERATION HEALING) Neurological: Yes: Pre-Existing Deficit, Unsteady Gait ...Motor Strength: WNL Psychiatric: Yes: WNL Labs: CBC, BMP 10/03/17 06:00 10/03/17 06:00 INR, PTT INR 2.39 (0.82-1.09) H 10/02/17 14:30 Problem List - Problems (1) Acute on chronic respiratory failure with hypoxia and hypercapnia Code(s): J96.21 - ACUTE AND CHRONIC RESPIRATORY FAILURE WITH HYPOXIA; J96.22 - ACUTE AND CHRONIC RESPIRATORY FAILURE WITH HYPERCAPNIA (2) COPD exacerbation Code(s): J44.1 - CHRONIC OBSTRUCTIVE PULMONARY DISEASE W (ACUTE) EXACERBATION (3) DVT (deep venous thrombosis) Code(s): I82.409 - ACUTE EMBOLISM AND THOMBOS UNSP DEEP VN UNSP LOWER EXTREMITY Qualifiers: DVT location: lower extremity (4) HTN (hypertension) Code(s): I10 - ESSENTIAL (PRIMARY) HYPERTENSION Qualifiers: Hypertension type: essential hypertension Qualified Code(s): I10 - Essential (primary) hypertension (5) LV dysfunction Code(s): I51.9 - HEART DISEASE, UNSPECIFIED (6) Sarcoid Code(s): D86.9 - SARCOIDOSIS, UNSPECIFIED (7) Acute exacerbation of chronic obstructive pulmonary disease (COPD) Code(s): J44.1 - CHRONIC OBSTRUCTIVE PULMONARY DISEASE W (ACUTE) EXACERBATION (8) CKD (chronic kidney disease) Code(s): N18.9 - CHRONIC KIDNEY DISEASE, UNSPECIFIED (9) Sarcoidosis of lung Code(s): D86.0 - SARCOIDOSIS OF LUNG (10) Weakness Code(s): R53.1 - WEAKNESS Assessment/Plan BIPAP FOR RESP SUPPORT NEBS STEROIDS PAIN CONTROL CHECK LABS/INR PULM EVAL APPRECIATED ECHO ORDERED PT EVAL ICU ADMISSION
[2017-10-03] MEDS ORDERED: dilTIAZem HCL 125 MG/25 ML - 5 ML VIAL ONE (13:40)
[2017-10-03 14:43] LABS: INR 2.04 (0.82-1.09)
[2017-10-03] MEDS ORDERED: DILTIAZEM INJECTION 125 MG in DEXTROSE 5%-WATER - 100 ML IVPB SCH (15:00)
[2017-10-03] MEDS: WARFARIN NA 5 MG TABLET (UD) PO SCH (18:03)
[2017-10-03] MEDS: COLLAGENASE CLOSTRIDIUM HIST. 30 GRAMS TUBE TP SCH (18:14)
[2017-10-03] MEDS: MONTELUKAST NA 10 MG TABLET PO SCH (21:15)
[2017-10-04] MEDS: methylPREDNISolone NA SUCC 40 MG/1 ML VIAL IVPUSH SCH ×3 (02:04→17:17)
[2017-10-04] MEDS: DOCUSATE SODIUM 100 MG CAPSULE (FP) PO SCH ×3 (05:47→21:17)
[2017-10-04] MEDS: FUROSEMIDE 40 MG/4 ML INJECTABLE VIAL IVPUSH SCH ×2 (05:47→13:40)
[2017-10-04] MEDS: SENNOSIDES 8.6MG TABLET (FP) PO SCH ×3 (05:47→21:17)
[2017-10-04 07:24] LABS: HEMATOCRIT 34.8 % (32.4-45.2); HEMOGLOBIN 10.8 GM/dL (10.7-15.3); MCH 29.5 pg (25.7-33.7); MCHC 30.9 g/dl (32.0-36.0); MEAN CELL VOLUME 95.3 fl (80-96); MEAN PLT VOLUME 8.2 fl (7.5-11.1); PLATELET COUNT 208 K/MM3 (134-434); RBC 3.65 M/mm3 (3.60-5.2); RDW 15.7 % (11.6-15.6); WHITE BLOOD COUNT 9.8 K/mm3 (4.0-10.0)
[2017-10-04 07:25] LABS: ALBUMIN 2.9 g/dl (3.4-5.0); ANION GAP 2 (8-16); BLOOD UREA NITROGEN 37 mg/dL (7-18); CALCIUM 7.8 mg/dL (8.5-10.1); CHLORIDE 100 mmol/L (98-107); CO2 40 mmol/L (21-32); CREATININE 1.2 mg/dL (0.55-1.02); GLUCOSE,RANDOM 129 mg/dL (74-106); MAGNESIUM 2.8 mg/dL (1.8-2.4); PHOSPHOROUS 4.1 mg/dL (2.5-4.9); POTASSIUM 5.1 mmol/L (3.5-5.1); SGOT/AST 14 U/L (15-37); SGPT/ALT 20 U/L (12-78); SODIUM 142 mmol/L (136-145)
[2017-10-04 07:30] LABS: ALK PHOS 63 U/L (45-117); BILIRUBIN,TOTAL 0.2 mg/dL (0.2-1.0); TOT PROT 6.1 g/dl (6.4-8.2)
[2017-10-04 07:31] LABS: INR 2.58 (0.82-1.09); PROTHROMBIN TIME (PATIENT) 29.2 SEC (9.98-11.88)
[2017-10-04] MEDS: OXYBUTYNIN CHLORIDE 5 MG TABLET PO SCH ×2 (09:38→21:18)
[2017-10-04] MEDS: PANTOPRAZOLE 40 MG TABLET (FP) PO SCH (09:38)
[2017-10-04] MEDS: COLLAGENASE CLOSTRIDIUM HIST. 30 GRAMS TUBE TP SCH (09:38)
[2017-10-04] MEDS ORDERED: PT OWN MED DRAWER 7, Y5N ONE ×3 (10:37→21:17)
[2017-10-04] MEDS: DIVALPROEX SODIUM 500 MG TABLET E.C. PO SCH ×2 (10:39→21:18)
[2017-10-04 10:53] LABS: PLATELET ESTIMATE NORMAL
--- NOTE | 2017-10-04 11:27 | EKG ---
Test Reason : Blood Pressure : / mmHG Vent. Rate : 167 BPM Atrial Rate : 174 BPM P-R Int : 000 ms QRS Dur : 070 ms QT Int : 266 ms P-R-T Axes : 000 048 -12 degrees QTc Int : 443 ms ATRIAL FIBRILLATION WITH RAPID VENTRICULAR RESPONSE NONSPECIFIC T WAVE ABNORMALITY ABNORMAL ECG WHEN COMPARED WITH ECG OF 01-OCT-2017 09:05, ATRIAL FIBRILLATION HAS REPLACED SINUS RHYTHM VENT. RATE HAS INCREASED BY 65 BPM Confirmed by SHEREEN LUND MD ([id number]) on 10/04/2017 11:26:56 AM Referred By: Fco KELLER Confirmed By:SHEREEN LUND MD
[2017-10-04] MEDS: dilTIAZem HCL 30 MG TABLET (FP) PO SCH ×2 (11:50→17:17)
--- NOTE | 2017-10-04 12:03 | PN ---
Progress Note, Physician Chief Complaint: less sob tele nsr History of Present Illness: The patient is a 72-year-old female, who is obese, history of hypertension, sarcoidosis, COPD, on home oxygen, DVT on Coumadin, admitted 10/02/17 with generalized weakness and shortness of breath. she went into af with RVR given IV dilt 10/03/17 now in nsr. Echo done results pending. - Current Medication List Current Medications: Active Medications Acetaminophen (Tylenol -) 650 mg PO Q6H PRN PRN Reason: FEVER Last Admin: 10/03/17 09:38 Dose: 650 mg Albuterol/Ipratropium (Duoneb -) 1 amp NEB Q4H PRN PRN Reason: SHORTNESS OF BREATH Collagenase (Santyl -) 1 applic TP DAILY [facility] Last Admin: 10/04/17 09:38 Dose: 1 applic Diltiazem HCl (Cardizem -) 30 mg PO Q6HPO [facility] Last Admin: 10/04/17 11:50 Dose: 30 mg Divalproex Sodium (Depakote -) 500 mg PO BID [facility] Last Admin: 10/04/17 10:39 Dose: 500 mg Docusate Sodium (Colace -) 100 mg PO TID [facility] Last Admin: 10/04/17 05:47 Dose: 100 mg Furosemide (Lasix Injection -) 40 mg IVPUSH BID@0600,1400 [facility] Last Admin: 10/04/17 05:47 Dose: 40 mg Methylprednisolone Sodium Succinate (Solu-Medrol -) 60 mg IVPUSH Q6H-IV [facility] Last Admin: 10/04/17 09:38 Dose: 60 mg Metoprolol Tartrate (Lopressor Injection -) 5 mg IVPUSH Q4H PRN PRN Reason: HYPERTENSION Last Admin: 10/03/17 11:25 Dose: 5 mg Montelukast Sodium (Singulair -) 10 mg PO HS [facility] Last Admin: 10/03/17 21:15 Dose: 10 mg Oxybutynin Chloride (Ditropan -) 5 mg PO BID [facility] Last Admin: 10/04/17 09:38 Dose: 5 mg Pantoprazole Sodium (Protonix -) 40 mg PO DAILY [facility] Last Admin: 10/04/17 09:38 Dose: 40 mg Senna (Senna -) 1 tab PO TID [facility] Last Admin: 10/04/17 05:47 Dose: 1 tab Temazepam (Restoril -) 15 mg PO HS [facility] Last Admin: 10/03/17 21:26 Dose: 15 mg Warfarin Sodium (Coumadin -) 5 mg PO DAILY@1800 [facility] Last Admin: 10/03/17 18:03 Dose: 5 mg - Objective Vital Signs: Vital Signs Temperature 98.1 F 10/04/17 08:43 Pulse Rate 73 10/04/17 10:43 Respiratory Rate 20 10/04/17 08:43 Blood Pressure 118/68 10/04/17 08:43 O2 Sat by Pulse Oximetry (%) 100 10/04/17 10:43 Constitutional: Yes: No Distress Eyes: Yes: Conjunctiva Clear, EOM Intact HENT: Yes: Atraumatic Neck: Yes: Trachea Midline Cardiovascular: Yes: Regular Rate and Rhythm Respiratory: Yes: CTA Bilaterally Gastrointestinal: Yes: Normal Bowel Sounds, Soft Extremities: Yes: WNL Edema: No Peripheral Pulses WNL: Yes Labs: CBC, BMP 10/04/17 05:20 10/04/17 05:20 INR, PTT INR 2.58 (0.82-1.09) H 10/04/17 05:20 Problem List - Problems (1) PAF (paroxysmal atrial fibrillation) Assessment/Plan: Continue coumadin for INR 2-3. Echo done, results pending. Continue digoxin 0.125mg daily. Code(s): I48.0 - PAROXYSMAL ATRIAL FIBRILLATION
--- NOTE | 2017-10-04 13:24 | PN ---
Progress Note (short form) - Note Progress Note: PULMONARY Has not needed BiPAP. States breathing is improving. +cough with green sputum and wheezing. Cough productive of green sputum. Last Vital Signs Temp Pulse Resp BP Pulse Ox 98.1 F 73 20 118/68 98 10/04/17 08:43 10/04/17 10:43 10/04/17 08:43 10/04/17 08:43 10/04/17 12:30 Gen: less tachypneic Heart: RRR Lung: scattered rhonchi Abd: soft, nontender Ext: no edema CBC, BMP 10/04/17 05:20 10/04/17 05:20 Active Medications Acetaminophen (Tylenol -) 650 mg PO Q6H PRN PRN Reason: FEVER Last Admin: 10/03/17 09:38 Dose: 650 mg Albuterol/Ipratropium (Duoneb -) 1 amp NEB Q4H PRN PRN Reason: SHORTNESS OF BREATH Collagenase (Santyl -) 1 applic TP DAILY [facility] Last Admin: 10/04/17 09:38 Dose: 1 applic Diltiazem HCl (Cardizem -) 30 mg PO Q6HPO [facility] Last Admin: 10/04/17 11:50 Dose: 30 mg Divalproex Sodium (Depakote -) 500 mg PO BID [facility] Last Admin: 10/04/17 10:39 Dose: 500 mg Docusate Sodium (Colace -) 100 mg PO TID [facility] Last Admin: 10/04/17 05:47 Dose: 100 mg Furosemide (Lasix Injection -) 40 mg IVPUSH BID@0600,1400 [facility] Last Admin: 10/04/17 05:47 Dose: 40 mg Methylprednisolone Sodium Succinate (Solu-Medrol -) 60 mg IVPUSH Q6H-IV [facility] Last Admin: 10/04/17 09:38 Dose: 60 mg Metoprolol Tartrate (Lopressor Injection -) 5 mg IVPUSH Q4H PRN PRN Reason: HYPERTENSION Last Admin: 10/03/17 11:25 Dose: 5 mg Montelukast Sodium (Singulair -) 10 mg PO HS [facility] Last Admin: 10/03/17 21:15 Dose: 10 mg Oxybutynin Chloride (Ditropan -) 5 mg PO BID [facility] Last Admin: 10/04/17 09:38 Dose: 5 mg Pantoprazole Sodium (Protonix -) 40 mg PO DAILY [facility] Last Admin: 10/04/17 09:38 Dose: 40 mg Senna (Senna -) 1 tab PO TID [facility] Last Admin: 10/04/17 05:47 Dose: 1 tab Temazepam (Restoril -) 15 mg PO HS [facility] Last Admin: 10/03/17 21:26 Dose: 15 mg Warfarin Sodium (Coumadin -) 5 mg PO DAILY@1800 [facility] Last Admin: 10/03/17 18:03 Dose: 5 mg A/P Acute on Chronic Hypoxic and Hypercapneic Respiratory Failure improving Acute COPD Exacerbation Pulmonary Sarcoidosis Pulmonary HTN Acute on Chronic Diastolic Heart Failure h/o DVT Acute Kidney Injury improving - will decrease medrol to 40mg q8h - inhaled bronchodilators standing and PRN - continue lasix - monitor urine output, creatinine - continue anticoagulation - BiPAP as needed - PO as tolerated - PT eval
[2017-10-04] MEDS: WARFARIN NA 5 MG TABLET (UD) PO SCH (17:19)
--- NOTE | 2017-10-04 17:36 | PN ---
Progress Note, Physician Chief Complaint: AWAKE ALERT FAMILY BEDSIDE FEELING BETTER - Current Medication List Current Medications: Active Medications Acetaminophen (Tylenol -) 650 mg PO Q6H PRN PRN Reason: FEVER Last Admin: 10/03/17 09:38 Dose: 650 mg Albuterol/Ipratropium (Duoneb -) 1 amp NEB Q4H PRN PRN Reason: SHORTNESS OF BREATH Collagenase (Santyl -) 1 applic TP DAILY [facility] Last Admin: 10/04/17 09:38 Dose: 1 applic Diltiazem HCl (Cardizem -) 30 mg PO Q6HPO [facility] Last Admin: 10/04/17 17:17 Dose: 30 mg Divalproex Sodium (Depakote -) 500 mg PO BID [facility] Last Admin: 10/04/17 10:39 Dose: 500 mg Docusate Sodium (Colace -) 100 mg PO TID [facility] Last Admin: 10/04/17 13:40 Dose: 100 mg Furosemide (Lasix Injection -) 40 mg IVPUSH BID@0600,1400 [facility] Last Admin: 10/04/17 13:40 Dose: 40 mg Methylprednisolone Sodium Succinate (Solu-Medrol -) 40 mg IVPUSH Q8H-IV [facility] Last Admin: 10/04/17 17:17 Dose: 40 mg Metoprolol Tartrate (Lopressor Injection -) 5 mg IVPUSH Q4H PRN PRN Reason: HYPERTENSION Last Admin: 10/03/17 11:25 Dose: 5 mg Montelukast Sodium (Singulair -) 10 mg PO HS [facility] Last Admin: 10/03/17 21:15 Dose: 10 mg Oxybutynin Chloride (Ditropan -) 5 mg PO BID [facility] Last Admin: 10/04/17 09:38 Dose: 5 mg Pantoprazole Sodium (Protonix -) 40 mg PO DAILY [facility] Last Admin: 10/04/17 09:38 Dose: 40 mg Senna (Senna -) 1 tab PO TID [facility] Last Admin: 10/04/17 13:40 Dose: 1 tab Temazepam (Restoril -) 15 mg PO HS [facility] Last Admin: 10/03/17 21:26 Dose: 15 mg Warfarin Sodium (Coumadin -) 5 mg PO DAILY@1800 [facility] Last Admin: 10/04/17 17:19 Dose: 5 mg - Objective Vital Signs: Vital Signs Temperature 98.1 F 10/04/17 08:43 Pulse Rate 69 10/04/17 16:00 Respiratory Rate 20 10/04/17 16:00 Blood Pressure 138/65 10/04/17 16:00 O2 Sat by Pulse Oximetry (%) 100 10/04/17 15:13 Constitutional: Yes: Mild Distress Eyes: Yes: WNL HENT: Yes: WNL Neck: Yes: WNL Cardiovascular: Yes: WNL Respiratory: Yes: Cough, On Nasal O2, Poor Air Entry Gastrointestinal: Yes: WNL Genitourinary: Yes: Incontinence Musculoskeletal: Yes: Muscle Weakness Extremities: Yes: Other Edema: Yes Peripheral Pulses WNL: Yes Integumentary: Yes: Laceration Wound/Incision: Yes: Dressing Dry and Intact Neurological: Yes: Pre-Existing Deficit ...Motor Strength: LLE, RLE (DECREASED ROM) Psychiatric: Yes: Other Labs: CBC, BMP 10/04/17 05:20 10/04/17 05:20 INR, PTT INR 2.58 (0.82-1.09) H 10/04/17 05:20 Problem List - Problems (1) Acute on chronic respiratory failure with hypoxia and hypercapnia Code(s): J96.21 - ACUTE AND CHRONIC RESPIRATORY FAILURE WITH HYPOXIA; J96.22 - ACUTE AND CHRONIC RESPIRATORY FAILURE WITH HYPERCAPNIA (2) COPD exacerbation Code(s): J44.1 - CHRONIC OBSTRUCTIVE PULMONARY DISEASE W (ACUTE) EXACERBATION (3) DVT (deep venous thrombosis) Code(s): I82.409 - ACUTE EMBOLISM AND THOMBOS UNSP DEEP VN UNSP LOWER EXTREMITY Qualifiers: DVT location: lower extremity (4) HTN (hypertension) Code(s): I10 - ESSENTIAL (PRIMARY) HYPERTENSION Qualifiers: Hypertension type: essential hypertension Qualified Code(s): I10 - Essential (primary) hypertension (5) LV dysfunction Code(s): I51.9 - HEART DISEASE, UNSPECIFIED (6) Sarcoid Code(s): D86.9 - SARCOIDOSIS, UNSPECIFIED (7) Acute exacerbation of chronic obstructive pulmonary disease (COPD) Code(s): J44.1 - CHRONIC OBSTRUCTIVE PULMONARY DISEASE W (ACUTE) EXACERBATION (8) CKD (chronic kidney disease) Code(s): N18.9 - CHRONIC KIDNEY DISEASE, UNSPECIFIED (9) Sarcoidosis of lung Code(s): D86.0 - SARCOIDOSIS OF LUNG (10) Weakness Code(s): R53.1 - WEAKNESS Assessment/Plan BIPAP FOR RESP SUPPORT NEBS STEROIDS PAIN CONTROL CHECK LABS/INR PULM EVAL APPRECIATED ECHO ORDERED RESULTS PENDING PT EVAL ICU ADMISSION TRANSFER YON
[2017-10-04 19:52] LABS: INR 3.34 (0.82-1.09); PROTHROMBIN TIME (PATIENT) 37.7 SEC (9.98-11.88)
[2017-10-04] MEDS: MONTELUKAST NA 10 MG TABLET PO SCH (21:17)
[2017-10-04] MEDS: TEMAZEPAM 15 MG CAPSULE PO SCH (21:17)
[2017-10-05] MEDS: dilTIAZem HCL 30 MG TABLET (FP) PO SCH ×5 (00:22→23:54)
[2017-10-05] MEDS: methylPREDNISolone NA SUCC 40 MG/1 ML VIAL IVPUSH SCH ×3 (01:33→17:51)
[2017-10-05] MEDS: FUROSEMIDE 40 MG/4 ML INJECTABLE VIAL IVPUSH SCH ×2 (06:12→14:35)
[2017-10-05] MEDS: DOCUSATE SODIUM 100 MG CAPSULE (FP) PO SCH ×3 (06:12→21:05)
[2017-10-05] MEDS: SENNOSIDES 8.6MG TABLET (FP) PO SCH ×3 (06:13→21:03)
--- NOTE | 2017-10-05 08:54 | PN ---
Progress Note, Physician History of Present Illness: FEELS BETTER - Current Medication List Current Medications: Active Medications Acetaminophen (Tylenol -) 650 mg PO Q6H PRN PRN Reason: FEVER Last Admin: 10/03/17 09:38 Dose: 650 mg Albuterol/Ipratropium (Duoneb -) 1 amp NEB Q4H PRN PRN Reason: SHORTNESS OF BREATH Collagenase (Santyl -) 1 applic TP DAILY [facility] Last Admin: 10/04/17 09:38 Dose: 1 applic Diltiazem HCl (Cardizem -) 30 mg PO Q6HPO [facility] Last Admin: 10/05/17 06:13 Dose: 30 mg Divalproex Sodium (Depakote -) 500 mg PO BID [facility] Last Admin: 10/04/17 21:18 Dose: 500 mg Docusate Sodium (Colace -) 100 mg PO TID [facility] Last Admin: 10/05/17 06:12 Dose: 100 mg Furosemide (Lasix Injection -) 40 mg IVPUSH BID@0600,1400 [facility] Last Admin: 10/05/17 06:12 Dose: 40 mg Methylprednisolone Sodium Succinate (Solu-Medrol -) 40 mg IVPUSH Q8H-IV [facility] Last Admin: 10/05/17 01:33 Dose: 40 mg Metoprolol Tartrate (Lopressor Injection -) 5 mg IVPUSH Q4H PRN PRN Reason: HYPERTENSION Last Admin: 10/03/17 11:25 Dose: 5 mg Montelukast Sodium (Singulair -) 10 mg PO HS [facility] Last Admin: 10/04/17 21:17 Dose: 10 mg Oxybutynin Chloride (Ditropan -) 5 mg PO BID [facility] Last Admin: 10/04/17 21:18 Dose: 5 mg Pantoprazole Sodium (Protonix -) 40 mg PO DAILY [facility] Last Admin: 10/04/17 09:38 Dose: 40 mg Senna (Senna -) 1 tab PO TID [facility] Last Admin: 10/05/17 06:13 Dose: 1 tab Temazepam (Restoril -) 15 mg PO HS [facility] Last Admin: 10/04/17 21:17 Dose: 15 mg Warfarin Sodium (Coumadin -) 5 mg PO DAILY@1800 [facility] Last Admin: 10/04/17 17:19 Dose: 5 mg - Objective Vital Signs: Vital Signs Temperature 98.5 F 10/05/17 06:32 Pulse Rate 76 10/05/17 06:00 Respiratory Rate 20 10/05/17 06:00 Blood Pressure 112/54 10/05/17 06:00 O2 Sat by Pulse Oximetry (%) 98 10/04/17 21:00 Cardiovascular: Yes: S1, S2 Respiratory: Yes: Rhonchi, Wheezes Gastrointestinal: Yes: Normal Bowel Sounds, Soft Edema: No Labs: CBC, BMP 10/04/17 05:20 10/04/17 05:20 INR, PTT INR 3.34 (0.82-1.09) H 10/04/17 18:45 Problem List - Problems (1) CHF (congestive heart failure) Assessment/Plan: IV LASIX CARDIO ON BOARD Code(s): I50.9 - HEART FAILURE, UNSPECIFIED (2) Acute on chronic respiratory failure with hypoxia and hypercapnia Assessment/Plan: IV STEROIDS NEBS OXYGEN Code(s): J96.21 - ACUTE AND CHRONIC RESPIRATORY FAILURE WITH HYPOXIA; J96.22 - ACUTE AND CHRONIC RESPIRATORY FAILURE WITH HYPERCAPNIA (3) COPD exacerbation Assessment/Plan: ABOVE Code(s): J44.1 - CHRONIC OBSTRUCTIVE PULMONARY DISEASE W (ACUTE) EXACERBATION (4) DVT (deep venous thrombosis) Assessment/Plan: ON COUMADIN INR HIGH--FOLLOW Code(s): I82.409 - ACUTE EMBOLISM AND THOMBOS UNSP DEEP VN UNSP LOWER EXTREMITY Qualifiers: DVT location: lower extremity
[2017-10-05] MEDS ORDERED: PT OWN MED DRAWER 7, Y5N ONE (09:57)
[2017-10-05 10:02] LABS: ANION GAP 4 (8-16); BLOOD UREA NITROGEN 35 mg/dL (7-18); CALCIUM 7.9 mg/dL (8.5-10.1); CHLORIDE 94 mmol/L (98-107); CO2 44 mmol/L (21-32); CREATININE 1.1 mg/dL (0.55-1.02); GLUCOSE,RANDOM 153 mg/dL (74-106); SODIUM 142 mmol/L (136-145)
[2017-10-05 10:07] LABS: POTASSIUM 4.5 mmol/L (3.5-5.1)
[2017-10-05] MEDS: PANTOPRAZOLE 40 MG TABLET (FP) PO SCH (10:28)
[2017-10-05] MEDS: OXYBUTYNIN CHLORIDE 5 MG TABLET PO SCH ×2 (10:28→21:05)
[2017-10-05] MEDS: COLLAGENASE CLOSTRIDIUM HIST. 30 GRAMS TUBE TP SCH (10:29)
[2017-10-05] MEDS: DIVALPROEX SODIUM 500 MG TABLET E.C. PO SCH (10:29)
--- NOTE | 2017-10-05 11:04 | PN ---
Progress Note, Physician Chief Complaint: Paroxsymal Atrial Fibrillation History of Present Illness: This is a 72-year-old female, with a PMH of hypertension, sarcoidosis, COPD, on home oxygen, DVT on Coumadin, admitted 10/02/17 with generalized weakness and shortness of breath. she went into af with RVR given IV dilt 10/03/17 now in nsr. Echo done results pending. 10/05/16 Maintaining NSR. Hemodynamically stable. - Current Medication List Current Medications: Active Medications Acetaminophen (Tylenol -) 650 mg PO Q6H PRN PRN Reason: FEVER Last Admin: 10/03/17 09:38 Dose: 650 mg Albuterol/Ipratropium (Duoneb -) 1 amp NEB Q4H PRN PRN Reason: SHORTNESS OF BREATH Albuterol/Ipratropium (Duoneb -) 1 amp NEB RQID [facility] Collagenase (Santyl -) 1 applic TP DAILY [facility] Last Admin: 10/05/17 10:29 Dose: 1 applic Diltiazem HCl (Cardizem -) 30 mg PO Q6HPO [facility] Last Admin: 10/05/17 06:13 Dose: 30 mg Divalproex Sodium (Depakote -) 500 mg PO BID [facility] Last Admin: 10/05/17 10:29 Dose: 500 mg Docusate Sodium (Colace -) 100 mg PO TID [facility] Last Admin: 10/05/17 06:12 Dose: 100 mg Furosemide (Lasix Injection -) 40 mg IVPUSH BID@0600,1400 [facility] Last Admin: 10/05/17 06:12 Dose: 40 mg Methylprednisolone Sodium Succinate (Solu-Medrol -) 40 mg IVPUSH Q8H-IV [facility] Last Admin: 10/05/17 10:28 Dose: 40 mg Metoprolol Tartrate (Lopressor Injection -) 5 mg IVPUSH Q4H PRN PRN Reason: HYPERTENSION Last Admin: 10/03/17 11:25 Dose: 5 mg Montelukast Sodium (Singulair -) 10 mg PO HS [facility] Last Admin: 10/04/17 21:17 Dose: 10 mg Oxybutynin Chloride (Ditropan -) 5 mg PO BID [facility] Last Admin: 10/05/17 10:28 Dose: 5 mg Pantoprazole Sodium (Protonix -) 40 mg PO DAILY [facility] Last Admin: 10/05/17 10:28 Dose: 40 mg Senna (Senna -) 1 tab PO TID [facility] Last Admin: 10/05/17 06:13 Dose: 1 tab Temazepam (Restoril -) 15 mg PO HS [facility] Last Admin: 10/04/17 21:17 Dose: 15 mg Warfarin Sodium (Coumadin -) 5 mg PO DAILY@1800 [facility] Last Admin: 10/04/17 17:19 Dose: 5 mg - Objective Vital Signs: Vital Signs Temperature 98.2 F 10/05/17 08:00 Pulse Rate 74 10/05/17 08:00 Respiratory Rate 16 10/05/17 08:00 Blood Pressure 120/64 10/05/17 08:00 O2 Sat by Pulse Oximetry (%) 100 10/05/17 09:30 Constitutional: Yes: No Distress HENT: Yes: WNL (NL S1S2 No [facility]) Cardiovascular: Yes: Regular Rate and Rhythm Respiratory: Yes: CTA Bilaterally Gastrointestinal: Yes: Normal Bowel Sounds, Soft Extremities: Yes: WNL Edema: No Peripheral Pulses WNL: Yes Neurological: Yes: Alert, Oriented (Grossly nonfocal) Labs: CBC, BMP 10/04/17 05:20 INR, PTT INR 3.34 (0.82-1.09) H 10/04/17 18:45 Assessment/Plan [facility] *LIVE* Paroxysmal AFIB Continue coumadin for INR 2-3. Presently INR is 4.6 (hold until at goal) Echo done, results pending. Continue digoxin 0.125mg daily. Continue Diltiazem 30 mg PO Q6H
[2017-10-05 11:13] LABS: INR 4.6 (0.82-1.09)
[2017-10-05] MEDS: ALBUTEROL SO4 2.5/IPRATROPIUM 0.5 INH SOL 3 ML VIAL.NEB. NEB SCH ×3 (11:44→21:00)
--- NOTE | 2017-10-05 14:21 | PN ---
Progress Note (short form) - Note Progress Note: PULMONARY Breathing continues to improve +cough with green sputum and wheezing. Not using BiPAP. Last Vital Signs Temp Pulse Resp BP Pulse Ox 98 F 76 16 111/57 100 10/05/17 13:03 10/05/17 13:03 10/05/17 13:03 10/05/17 13:03 10/05/17 09:30 Gen: less tachypneic Heart: RRR Lung: scattered rhonchi Abd: soft, nontender Ext: no edema CBC, BMP 10/04/17 05:20 10/05/17 09:30 INR, PTT INR 4.60 (0.82-1.09) H* D 10/05/17 09:30 Active Medications Acetaminophen (Tylenol -) 650 mg PO Q6H PRN PRN Reason: FEVER Last Admin: 10/03/17 09:38 Dose: 650 mg Albuterol/Ipratropium (Duoneb -) 1 amp NEB Q4H PRN PRN Reason: SHORTNESS OF BREATH Albuterol/Ipratropium (Duoneb -) [address] [facility] Last Admin: 10/05/17 11:44 Dose: 1 amp Collagenase (Santyl -) [address] [facility] Last Admin: 10/05/17 10:29 Dose: 1 applic Diltiazem HCl (Cardizem -) [address] [facility] Last Admin: 10/05/17 12:28 Dose: 30 mg Divalproex Sodium (Depakote -) [address] [facility] Last Admin: 10/05/17 10:29 Dose: 500 mg Docusate Sodium (Colace -) [address] [facility] Last Admin: 10/05/17 06:12 Dose: 100 mg Furosemide (Lasix Injection -) 40 mg IVPUSH BID@0600,1400 [facility] Last Admin: 10/05/17 06:12 Dose: 40 mg Methylprednisolone Sodium Succinate (Solu-Medrol -) 40 mg IVPUSH Q8H-IV [facility] Last Admin: 10/05/17 10:28 Dose: 40 mg Metoprolol Tartrate (Lopressor Injection -) 5 mg IVPUSH Q4H PRN PRN Reason: HYPERTENSION Last Admin: 10/03/17 11:25 Dose: 5 mg Montelukast Sodium (Singulair -) [address] [facility] Last Admin: 10/04/17 21:17 Dose: 10 mg Oxybutynin Chloride (Ditropan -) [address] [facility] Last Admin: 10/05/17 10:28 Dose: 5 mg Pantoprazole Sodium (Protonix -) [address] [facility] Last Admin: 10/05/17 10:28 Dose: 40 mg Senna (Senna -) [address] [facility] Last Admin: 10/05/17 06:13 Dose: 1 tab Temazepam (Restoril -) 15 mg PO [facility] Last Admin: 10/04/17 21:17 Dose: 15 mg Warfarin Sodium (Coumadin -) 5 mg PO DAILY@1800 [facility] Last Admin: 10/04/17 17:19 Dose: 5 mg A/P Acute on Chronic Hypoxic and Hypercapneic Respiratory Failure improving Acute COPD Exacerbation Pulmonary Sarcoidosis Pulmonary HTN Acute on Chronic Diastolic Heart Failure h/o DVT Acute Kidney Injury improving - continue medrol at 40mg q8h - inhaled bronchodilators standing and PRN - continue lasix - monitor urine output, creatinine - continue anticoagulation, target INR 2-3 - BiPAP as needed - PO as tolerated - PT eval
[2017-10-05] MEDS: TEMAZEPAM 15 MG CAPSULE PO SCH (21:03)
[2017-10-05] MEDS: MONTELUKAST NA 10 MG TABLET PO SCH (21:04)
[2017-10-05] MEDS: DIVALPROEX SODIUM 250 MG TABLET E.C. (FP) PO SCH (21:13)
[2017-10-06] MEDS: methylPREDNISolone NA SUCC 40 MG/1 ML VIAL IVPUSH SCH ×3 (01:01→17:43)
[2017-10-06] MEDS ORDERED: PT OWN MED DRAWER 7, Y5N ONE (05:18)
[2017-10-06] MEDS: DOCUSATE SODIUM 100 MG CAPSULE (FP) PO SCH ×3 (05:43→22:13)
[2017-10-06] MEDS: SENNOSIDES 8.6MG TABLET (FP) PO SCH ×3 (05:43→22:14)
[2017-10-06] MEDS: FUROSEMIDE 40 MG/4 ML INJECTABLE VIAL IVPUSH SCH ×2 (05:43→13:42)
[2017-10-06] MEDS: dilTIAZem HCL 30 MG TABLET (FP) PO SCH ×3 (05:43→17:43)
[2017-10-06 06:47] LABS: INR 3.99 (0.82-1.09); PROTHROMBIN TIME (PATIENT) 45.1 SEC (9.98-11.88)
[2017-10-06 07:16] LABS: CHLORIDE 91 mmol/L (98-107); POTASSIUM 4.5 mmol/L (3.5-5.1); SODIUM 143 mmol/L (136-145)
[2017-10-06 07:25] LABS: ANION GAP 7 (8-16); BLOOD UREA NITROGEN 39 mg/dL (7-18); CALCIUM 8.1 mg/dL (8.5-10.1); CO2 45 mmol/L (21-32); CREATININE 1.2 mg/dL (0.55-1.02); GLUCOSE,RANDOM 168 mg/dL (74-106)
[2017-10-06] MEDS: ALBUTEROL SO4 2.5/IPRATROPIUM 0.5 INH SOL 3 ML VIAL.NEB. NEB SCH ×4 (08:10→20:59)
[2017-10-06] MEDS: OXYBUTYNIN CHLORIDE 5 MG TABLET PO SCH ×2 (09:05→22:14)
[2017-10-06] MEDS: PANTOPRAZOLE 40 MG TABLET (FP) PO SCH (09:06)
[2017-10-06] MEDS: DIVALPROEX SODIUM 250 MG TABLET E.C. (FP) PO SCH (09:06)
[2017-10-06] MEDS: COLLAGENASE CLOSTRIDIUM HIST. 30 GRAMS TUBE TP SCH (09:07)
--- NOTE | 2017-10-06 09:17 | PN ---
Progress Note, Physician History of Present Illness: FEELS BETTER - Current Medication List Current Medications: Active Medications Acetaminophen (Tylenol -) 650 mg PO Q6H PRN PRN Reason: FEVER Last Admin: 10/03/17 09:38 Dose: 650 mg Albuterol/Ipratropium (Duoneb -) 1 amp NEB Q4H PRN PRN Reason: SHORTNESS OF BREATH Albuterol/Ipratropium (Duoneb -) [address] [facility] Last Admin: 10/06/17 08:10 Dose: 1 amp Collagenase (Santyl -) [address] [facility] Last Admin: 10/06/17 09:07 Dose: 1 applic Diltiazem HCl (Cardizem -) [address] [facility] Last Admin: 10/06/17 05:43 Dose: 30 mg Divalproex Sodium (Depakote -) [address] [facility] Last Admin: 10/06/17 09:06 Dose: 500 mg Docusate Sodium (Colace -) [address] [facility] Last Admin: 10/06/17 05:43 Dose: 100 mg Furosemide (Lasix Injection -) 40 mg IVPUSH BID@0600,1400 [facility] Last Admin: 10/06/17 05:43 Dose: 40 mg Methylprednisolone Sodium Succinate (Solu-Medrol -) 40 mg IVPUSH Q8H-IV [facility] Last Admin: 10/06/17 09:06 Dose: 40 mg Metoprolol Tartrate (Lopressor Injection -) 5 mg IVPUSH Q4H PRN PRN Reason: HYPERTENSION Last Admin: 10/03/17 11:25 Dose: 5 mg Montelukast Sodium (Singulair -) 10 mg PO [facility] Last Admin: 10/05/17 21:04 Dose: 10 mg Oxybutynin Chloride (Ditropan -) [address] [facility] Last Admin: 10/06/17 09:05 Dose: 5 mg Pantoprazole Sodium (Protonix -) [address] [facility] Last Admin: 10/06/17 09:06 Dose: 40 mg Senna (Senna -) [address] [facility] Last Admin: 10/06/17 05:43 Dose: 1 tab Temazepam (Restoril -) 15 mg PO [facility] Last Admin: 10/05/17 21:03 Dose: 15 mg Warfarin Sodium (Coumadin -) 5 mg PO DAILY@1800 [facility] Last Admin: 10/04/17 17:19 Dose: 5 mg - Objective Vital Signs: Vital Signs Temperature 97.4 F L 10/06/17 07:19 Pulse Rate 72 10/06/17 07:19 Respiratory Rate 19 10/06/17 07:34 Blood Pressure 126/62 10/06/17 07:19 O2 Sat by Pulse Oximetry (%) 98 10/06/17 07:34 Cardiovascular: Yes: S1, S2 Respiratory: Yes: Diminished, On Nasal O2, Rhonchi Gastrointestinal: Yes: Normal Bowel Sounds, Soft Labs: CBC, BMP 10/04/17 05:20 10/06/17 05:10 INR, PTT INR 3.99 (0.82-1.09) H 10/06/17 05:10 Problem List - Problems (1) CHF (congestive heart failure) Assessment/Plan: IV LASIX CARDIO ON BOARD Code(s): I50.9 - HEART FAILURE, UNSPECIFIED (2) Acute on chronic respiratory failure with hypoxia and hypercapnia Assessment/Plan: IV STEROIDS NEBS OXYGEN Code(s): J96.21 - ACUTE AND CHRONIC RESPIRATORY FAILURE WITH HYPOXIA; J96.22 - ACUTE AND CHRONIC RESPIRATORY FAILURE WITH HYPERCAPNIA (3) COPD exacerbation Assessment/Plan: ABOVE Code(s): J44.1 - CHRONIC OBSTRUCTIVE PULMONARY DISEASE W (ACUTE) EXACERBATION (4) DVT (deep venous thrombosis) Assessment/Plan: ON COUMADIN INR HIGH--FOLLOW Code(s): I82.409 - ACUTE EMBOLISM AND THOMBOS UNSP DEEP VN UNSP LOWER EXTREMITY Qualifiers: DVT location: lower extremity
--- NOTE | 2017-10-06 13:26 | PN ---
Progress Note, Physician Chief Complaint: Paroxsymal Atrial Fibrillation History of Present Illness: This is a 72-year-old female, with a PMH of hypertension, sarcoidosis, COPD, on home oxygen, DVT on Coumadin, admitted 10/02/17 with generalized weakness and shortness of breath. she went into af with RVR given IV dilt 10/03/17 now in nsr. . 10/06/16 Maintaining NSR. Hemodynamically stable. - Current Medication List Current Medications: Active Medications Acetaminophen (Tylenol -) 650 mg PO Q6H PRN PRN Reason: FEVER Last Admin: 10/03/17 09:38 Dose: 650 mg Albuterol/Ipratropium (Duoneb -) 1 amp NEB Q4H PRN PRN Reason: SHORTNESS OF BREATH Albuterol/Ipratropium (Duoneb -) 1 amp NEB RQID [facility] Last Admin: 10/06/17 11:47 Dose: 1 amp Collagenase (Santyl -) 1 applic TP DAILY [facility] Last Admin: 10/06/17 09:07 Dose: 1 applic Diltiazem HCl (Cardizem -) 30 mg PO Q6HPO [facility] Last Admin: 10/06/17 11:53 Dose: 30 mg Divalproex Sodium (Depakote -) 500 mg PO BID [facility] Last Admin: 10/06/17 09:06 Dose: 500 mg Docusate Sodium (Colace -) 100 mg PO TID [facility] Last Admin: 10/06/17 05:43 Dose: 100 mg Furosemide (Lasix Injection -) 40 mg IVPUSH BID@0600,1400 [facility] Last Admin: 10/06/17 05:43 Dose: 40 mg Methylprednisolone Sodium Succinate (Solu-Medrol -) 40 mg IVPUSH Q8H-IV [facility] Last Admin: 10/06/17 09:06 Dose: 40 mg Metoprolol Tartrate (Lopressor Injection -) 5 mg IVPUSH Q4H PRN PRN Reason: HYPERTENSION Last Admin: 10/03/17 11:25 Dose: 5 mg Montelukast Sodium (Singulair -) 10 mg PO HS [facility] Last Admin: 10/05/17 21:04 Dose: 10 mg Oxybutynin Chloride (Ditropan -) 5 mg PO BID [facility] Last Admin: 10/06/17 09:05 Dose: 5 mg Pantoprazole Sodium (Protonix -) 40 mg PO DAILY [facility] Last Admin: 10/06/17 09:06 Dose: 40 mg Senna (Senna -) 1 tab PO TID [facility] Last Admin: 10/06/17 05:43 Dose: 1 tab Temazepam (Restoril -) 15 mg PO HS [facility] Last Admin: 10/05/17 21:03 Dose: 15 mg Warfarin Sodium (Coumadin -) 5 mg PO DAILY@1800 [facility] Last Admin: 10/04/17 17:19 Dose: 5 mg - Objective Vital Signs: Vital Signs Temperature 97.4 F L 10/06/17 07:19 Pulse Rate 72 10/06/17 07:19 Respiratory Rate 19 10/06/17 07:34 Blood Pressure 126/62 10/06/17 07:19 O2 Sat by Pulse Oximetry (%) 98 10/06/17 07:34 Constitutional: Yes: No Distress HENT: Yes: WNL Neck: Yes: WNL Cardiovascular: Yes: Regular Rate and Rhythm (Nl S1S2 No [facility]) Respiratory: Yes: CTA Bilaterally Gastrointestinal: Yes: Soft Extremities: Yes: WNL Edema: No Labs: CBC, BMP 10/04/17 05:20 10/06/17 05:10 INR, PTT INR 3.99 (0.82-1.09) H 10/06/17 05:10 Assessment/Plan [facility] *LIVE* Paroxysmal AFIB Continue coumadin for INR 2-3. Echo done, results pending. Continue digoxin 0.125mg daily. Continue Diltiazem 30 mg PO Q6H Consider changing to PO Lasix Call us prn
--- NOTE | 2017-10-06 13:29 | PN ---
Progress Note (short form) - Note Progress Note: PULMONARY Breathing about the same as yesterday. +cough with green sputum and wheezing. Not using BiPAP. Last Vital Signs Temp Pulse Resp BP Pulse Ox 97.4 F L 72 19 126/62 98 10/06/17 07:19 10/06/17 07:19 10/06/17 07:34 10/06/17 07:19 10/06/17 07:34 Gen: NAD at rest Heart: RRR Lung: scattered rhonchi Abd: soft, nontender Ext: no edema CBC, BMP 10/04/17 05:20 10/06/17 05:10 Active Medications Acetaminophen (Tylenol -) 650 mg PO Q6H PRN PRN Reason: FEVER Last Admin: 10/03/17 09:38 Dose: 650 mg Albuterol/Ipratropium (Duoneb -) 1 amp NEB Q4H PRN PRN Reason: SHORTNESS OF BREATH Albuterol/Ipratropium (Duoneb -) 1 amp NEB RQID [facility] Last Admin: 10/06/17 11:47 Dose: 1 amp Collagenase (Santyl -) 1 applic TP DAILY [facility] Last Admin: 10/06/17 09:07 Dose: 1 applic Diltiazem HCl (Cardizem -) 30 mg PO Q6HPO [facility] Last Admin: 10/06/17 11:53 Dose: 30 mg Divalproex Sodium (Depakote -) 500 mg PO BID [facility] Last Admin: 10/06/17 09:06 Dose: 500 mg Docusate Sodium (Colace -) 100 mg PO TID [facility] Last Admin: 10/06/17 05:43 Dose: 100 mg Furosemide (Lasix Injection -) 40 mg IVPUSH BID@0600,1400 [facility] Last Admin: 10/06/17 05:43 Dose: 40 mg Methylprednisolone Sodium Succinate (Solu-Medrol -) 40 mg IVPUSH Q8H-IV [facility] Last Admin: 10/06/17 09:06 Dose: 40 mg Metoprolol Tartrate (Lopressor Injection -) 5 mg IVPUSH Q4H PRN PRN Reason: HYPERTENSION Last Admin: 10/03/17 11:25 Dose: 5 mg Montelukast Sodium (Singulair -) 10 mg PO HS [facility] Last Admin: 10/05/17 21:04 Dose: 10 mg Oxybutynin Chloride (Ditropan -) 5 mg PO BID [facility] Last Admin: 10/06/17 09:05 Dose: 5 mg Pantoprazole Sodium (Protonix -) 40 mg PO DAILY [facility] Last Admin: 10/06/17 09:06 Dose: 40 mg Senna (Senna -) 1 tab PO TID [facility] Last Admin: 10/06/17 05:43 Dose: 1 tab Temazepam (Restoril -) 15 mg PO HS [facility] Last Admin: 10/05/17 21:03 Dose: 15 mg Warfarin Sodium (Coumadin -) 5 mg PO DAILY@1800 [facility] Last Admin: 10/04/17 17:19 Dose: 5 mg A/P Acute on Chronic Hypoxic and Hypercapneic Respiratory Failure improving Acute COPD Exacerbation Pulmonary Sarcoidosis Pulmonary HTN Acute on Chronic Diastolic Heart Failure h/o DVT Acute Kidney Injury improving - continue medrol at 40mg q8h, taper in AM if continues to improve - inhaled bronchodilators standing and PRN - singulair - continue lasix - monitor urine output, creatinine - continue anticoagulation, target INR 2-3 - BiPAP as needed - PO as tolerated - PT eval
[2017-10-06] MEDS ORDERED: ACETAMINOPHEN 325 MG TABLET (FP) PO PRN (19:26)
[2017-10-06] MEDS ORDERED: DIVALPROEX SODIUM 250 MG TABLET E.C. (FP) PO SCH (22:00)
[2017-10-06] MEDS: TEMAZEPAM 15 MG CAPSULE PO SCH (22:14)
[2017-10-06] MEDS: MONTELUKAST NA 10 MG TABLET PO SCH (22:14)
[2017-10-07] MEDS: methylPREDNISolone NA SUCC 40 MG/1 ML VIAL IVPUSH SCH ×3 (01:40→18:19)
[2017-10-07] MEDS: dilTIAZem HCL 30 MG TABLET (FP) PO SCH ×4 (01:40→18:19)
[2017-10-07] MEDS: DOCUSATE SODIUM 100 MG CAPSULE (FP) PO SCH ×3 (06:48→22:56)
[2017-10-07] MEDS: FUROSEMIDE 40 MG/4 ML INJECTABLE VIAL IVPUSH SCH ×2 (06:48→15:18)
[2017-10-07] MEDS: SENNOSIDES 8.6MG TABLET (FP) PO SCH ×3 (06:48→22:56)
[2017-10-07] MEDS: ALBUTEROL SO4 2.5/IPRATROPIUM 0.5 INH SOL 3 ML VIAL.NEB. NEB SCH ×4 (07:55→20:30)
[2017-10-07 07:57] LABS: HEMATOCRIT 36.7 % (32.4-45.2); HEMOGLOBIN 11.4 GM/dL (10.7-15.3); MCH 29.1 pg (25.7-33.7); MEAN CELL VOLUME 93.9 fl (80-96); MEAN PLT VOLUME 8.3 fl (7.5-11.1); PLATELET COUNT 173 K/MM3 (134-434); RBC 3.91 M/mm3 (3.60-5.2); RDW 15.9 % (11.6-15.6); WHITE BLOOD COUNT 10.8 K/mm3 (4.0-10.0)
[2017-10-07 08:36] LABS: CHLORIDE 89 mmol/L (98-107); POTASSIUM 4.6 mmol/L (3.5-5.1); SODIUM 141 mmol/L (136-145)
[2017-10-07 08:52] LABS: ANION GAP 7 (8-16); BLOOD UREA NITROGEN 39 mg/dL (7-18); CALCIUM 7.7 mg/dL (8.5-10.1); CO2 45 mmol/L (21-32); CREATININE 1.1 mg/dL (0.55-1.02); GLUCOSE,RANDOM 161 mg/dL (74-106)
[2017-10-07] MEDS ORDERED: PT OWN MED DRAWER 7, Y5N ONE ×2 (10:35→22:50)
[2017-10-07] MEDS: DIVALPROEX SODIUM 500 MG TABLET E.C. PO SCH ×2 (10:37→22:55)
[2017-10-07] MEDS: PANTOPRAZOLE 40 MG TABLET (FP) PO SCH (10:37)
[2017-10-07] MEDS: OXYBUTYNIN CHLORIDE 5 MG TABLET PO SCH ×2 (10:37→22:56)
[2017-10-07] MEDS: COLLAGENASE CLOSTRIDIUM HIST. 30 GRAMS TUBE TP SCH (10:38)
[2017-10-07 12:12] LABS: INR 2.13 (0.82-1.09); PROTHROMBIN TIME (PATIENT) 24.1 SEC (9.98-11.88)
--- NOTE | 2017-10-07 12:34 | PN ---
Progress Note (short form) - Note Progress Note: Breathing feels slightly better. Did not use NIPPV overnight as she said her breathing felt stable. Residual congested cough. No CP. Intake & Output 10/04/17 10/05/17 10/06/17 10/07/17 23:59 23:59 23:59 23:59 Intake Total 7546 297 0527 Output Total 400 300 Balance 910 120 727 Last Vital Signs Temp Pulse Resp BP Pulse Ox 97.8 F 73 20 117/81 99 10/07/17 06:00 10/07/17 07:55 10/07/17 06:00 10/07/17 06:00 10/07/17 07:55 Active Medications Acetaminophen (Tylenol -) 650 mg PO Q6H PRN PRN Reason: FEVER Albuterol/Ipratropium (Duoneb -) 1 amp NEB RQID [facility] Last Admin: 10/07/17 11:15 Dose: 1 amp Collagenase (Santyl -) 1 applic TP DAILY [facility] Last Admin: 10/07/17 10:38 Dose: 1 applic Diltiazem HCl (Cardizem -) 30 mg PO Q6HPO [facility] Last Admin: 10/07/17 12:02 Dose: 30 mg Divalproex Sodium (Depakote -) 500 mg PO BID [facility] Last Admin: 10/07/17 10:37 Dose: 500 mg Docusate Sodium (Colace -) 100 mg PO TID [facility] Last Admin: 10/07/17 06:48 Dose: 100 mg Furosemide (Lasix Injection -) 40 mg IVPUSH BID@0600,1400 [facility] Last Admin: 10/07/17 06:48 Dose: 40 mg Methylprednisolone Sodium Succinate (Solu-Medrol -) 40 mg IVPUSH Q8H-IV [facility] Last Admin: 10/07/17 10:38 Dose: 40 mg Montelukast Sodium (Singulair -) 10 mg PO HS [facility] Last Admin: 10/06/17 22:14 Dose: 10 mg Oxybutynin Chloride (Ditropan -) 5 mg PO BID [facility] Last Admin: 10/07/17 10:37 Dose: 5 mg Pantoprazole Sodium (Protonix -) 40 mg PO DAILY [facility] Last Admin: 10/07/17 10:37 Dose: 40 mg Senna (Senna -) 1 tab PO TID [facility] Last Admin: 10/07/17 06:48 Dose: 1 tab Temazepam (Restoril -) 15 mg PO HS [facility] Last Admin: 10/06/17 22:14 Dose: 15 mg Warfarin Sodium (Coumadin -) 5 mg PO DAILY@1800 [facility] Gen: NAD at rest Heart: RRR Lung: scattered rhonchi Abd: soft, nontender Ext: no edema Laboratory Results - last 24 hr 10/07/17 10/07/17 10/07/17 07:30 07:30 11:17 WBC 10.8 H RBC 3.91 Hgb 11.4 Hct 36.7 MCV 93.9 MCH 29.1 MCHC 31.0 L RDW 15.9 H Plt Count 173 MPV 8.3 PT with INR 24.10 H INR 2.13 H D Sodium 141 Potassium 4.6 Chloride 89 L Carbon Dioxide 45 H Anion Gap 7 L BUN 39 H Creatinine 1.1 H Random Glucose 161 H Calcium 7.7 L A/P Acute on Chronic Hypoxic and Hypercapneic Respiratory Failure improving Acute COPD Exacerbation Pulmonary Sarcoidosis Pulmonary HTN Acute on Chronic Diastolic Heart Failure h/o DVT Acute Kidney Injury improving Probable sleep apnea - Taper Medrol - inhaled bronchodilators standing and PRN - singulair - Lasix - Anticoagulation, target INR 2-3 - NIPPV as tolerated - PO as tolerated - PT Dr Shen
--- NOTE | 2017-10-07 16:19 | PN ---
Progress Note, Physician Chief Complaint: in bed on nasal canula gettting her nebulizer - Current Medication List Current Medications: Active Medications Acetaminophen (Tylenol -) 650 mg PO Q6H PRN PRN Reason: FEVER Albuterol/Ipratropium (Duoneb -) 1 amp NEB RQID [facility] Last Admin: 10/07/17 11:15 Dose: 1 amp Collagenase (Santyl -) 1 applic TP DAILY [facility] Last Admin: 10/07/17 10:38 Dose: 1 applic Diltiazem HCl (Cardizem -) 30 mg PO Q6HPO [facility] Last Admin: 10/07/17 12:02 Dose: 30 mg Divalproex Sodium (Depakote -) 500 mg PO BID [facility] Last Admin: 10/07/17 10:37 Dose: 500 mg Docusate Sodium (Colace -) 100 mg PO TID [facility] Last Admin: 10/07/17 14:59 Dose: 100 mg Furosemide (Lasix Injection -) 40 mg IVPUSH BID@0600,1400 [facility] Last Admin: 10/07/17 15:18 Dose: 40 mg Methylprednisolone Sodium Succinate (Solu-Medrol -) 40 mg IVPUSH Q8H-IV [facility] Last Admin: 10/07/17 10:38 Dose: 40 mg Montelukast Sodium (Singulair -) 10 mg PO HS [facility] Last Admin: 10/06/17 22:14 Dose: 10 mg Oxybutynin Chloride (Ditropan -) 5 mg PO BID [facility] Last Admin: 10/07/17 10:37 Dose: 5 mg Pantoprazole Sodium (Protonix -) 40 mg PO DAILY [facility] Last Admin: 10/07/17 10:37 Dose: 40 mg Senna (Senna -) 1 tab PO TID [facility] Last Admin: 10/07/17 14:59 Dose: 1 tab Temazepam (Restoril -) 15 mg PO HS [facility] Last Admin: 10/06/17 22:14 Dose: 15 mg Warfarin Sodium (Coumadin -) 5 mg PO DAILY@1800 [facility] - Objective Vital Signs: Vital Signs Temperature 98.0 F 10/07/17 15:41 Pulse Rate 88 10/07/17 15:41 Respiratory Rate 22 10/07/17 15:41 Blood Pressure 119/77 10/07/17 15:41 O2 Sat by Pulse Oximetry (%) 95 10/07/17 10:00 Constitutional: Yes: Calm Cardiovascular: Yes: Regular Rate and Rhythm, S1, S2 Respiratory: Yes: On Nasal O2, Wheezes Gastrointestinal: Yes: Normal Bowel Sounds, Soft Edema: No Neurological: Yes: Alert Labs: CBC, BMP 10/07/17 07:30 10/07/17 07:30 INR, PTT INR 2.13 (0.82-1.09) H D 10/07/17 11:17 Problem List - Problems (1) Acute on chronic respiratory failure with hypoxia and hypercapnia Assessment/Plan: steroids taper oxygen Code(s): J96.21 - ACUTE AND CHRONIC RESPIRATORY FAILURE WITH HYPOXIA; J96.22 - ACUTE AND CHRONIC RESPIRATORY FAILURE WITH HYPERCAPNIA (2) DVT (deep venous thrombosis) Assessment/Plan: rafael Code(s): I82.409 - ACUTE EMBOLISM AND THOMBOS UNSP DEEP VN UNSP LOWER EXTREMITY Qualifiers: DVT location: lower extremity (3) PAF (paroxysmal atrial fibrillation) Assessment/Plan: digoxin coumadin cardize Code(s): I48.0 - PAROXYSMAL ATRIAL FIBRILLATION
[2017-10-07] MEDS ORDERED: WARFARIN NA 5 MG TABLET (UD) PO SCH (18:00)
[2017-10-07] MEDS: TEMAZEPAM 15 MG CAPSULE PO SCH (22:56)
[2017-10-07] MEDS: MONTELUKAST NA 10 MG TABLET PO SCH (22:56)
[2017-10-08] MEDS: dilTIAZem HCL 30 MG TABLET (FP) PO SCH ×5 (01:55→23:04)
[2017-10-08] MEDS: methylPREDNISolone NA SUCC 40 MG/1 ML VIAL IVPUSH SCH ×3 (01:55→23:23)
[2017-10-08] MEDS: FUROSEMIDE 40 MG/4 ML INJECTABLE VIAL IVPUSH SCH ×2 (06:28→14:40)
[2017-10-08] MEDS: DOCUSATE SODIUM 100 MG CAPSULE (FP) PO SCH ×3 (06:28→23:04)
[2017-10-08] MEDS: SENNOSIDES 8.6MG TABLET (FP) PO SCH ×3 (06:28→23:04)
[2017-10-08] MEDS: ALBUTEROL SO4 2.5/IPRATROPIUM 0.5 INH SOL 3 ML VIAL.NEB. NEB SCH ×4 (07:35→20:43)
[2017-10-08 07:36] LABS: HEMATOCRIT 36.3 % (32.4-45.2); HEMOGLOBIN 11.5 GM/dL (10.7-15.3); MCH 29.6 pg (25.7-33.7); MCHC 31.7 g/dl (32.0-36.0); MEAN CELL VOLUME 93.2 fl (80-96); MEAN PLT VOLUME 8.7 fl (7.5-11.1); PLATELET COUNT 182 K/MM3 (134-434); RDW 15.4 % (11.6-15.6); WHITE BLOOD COUNT 10.7 K/mm3 (4.0-10.0)
[2017-10-08 08:07] LABS: CHLORIDE 85 mmol/L (98-107); POTASSIUM 4.3 mmol/L (3.5-5.1); SODIUM 139 mmol/L (136-145)
[2017-10-08 08:18] LABS: ALK PHOS 61 U/L (45-117); BILIRUBIN,TOTAL 0.5 mg/dL (0.2-1.0); BLOOD UREA NITROGEN 41 mg/dL (7-18); CALCIUM 8.2 mg/dL (8.5-10.1); CREATININE 1.1 mg/dL (0.55-1.02); GLUCOSE,RANDOM 178 mg/dL (74-106); SGOT/AST 6 U/L (15-37); SGPT/ALT 17 U/L (12-78); TOT PROT 6.2 g/dl (6.4-8.2)
--- NOTE | 2017-10-08 08:22 | HOSP ---
Physical Examination Vital Signs: Vital Signs Temperature 98.1 F 10/07/17 22:00 Pulse Rate 78 10/07/17 22:00 Respiratory Rate 19 10/07/17 22:00 Blood Pressure 133/65 10/07/17 22:00 O2 Sat by Pulse Oximetry (%) 98 10/08/17 07:30 Labs: CBC, BMP 10/08/17 06:40 Hospitalist Encounter Assessment: Called by primary nurse regarding patient reporting chest pain that began this morning at 0700 Patient is a 72 year old female with a past medical history of hypertension, sarcoidosis, COPD (home oxygen dependent), DVT on Coumadin. She was admitted on 10/02/2017 for generalized weakness and shortness of breath. As per medical records, patient went into rapid afib with rvr on 10/03/17, now in NSR Cardiology following EKG ordered which shows NSR 71s On exam patient is awake alert, in no acute distress Vitals stable, receiving a neb treatment Patient reports that she is having chest pain since 0700 this morning Describes the chest pain as mid sternal, non radiating that feels like pressure "like a brick on my chest" Pain reproducible on palpation of chest Lungs diminished anteriorly, no wheezing auscultated Plan: Trend troponins Monitor vitals Monitor oxygen saturations Pain management Cardiology follow up
[2017-10-08 08:47] LABS: ANION GAP 12 (8-16); CO2 42 mmol/L (21-32)
[2017-10-08 09:12] LABS: INR 1.53 (0.82-1.09); PROTHROMBIN TIME (PATIENT) 17.3 SEC (9.98-11.88)
[2017-10-08] MEDS ORDERED: PT OWN MED DRAWER 7, Y5N ONE (09:24)
[2017-10-08] MEDS: PANTOPRAZOLE 40 MG TABLET (FP) PO SCH (09:37)
[2017-10-08] MEDS: COLLAGENASE CLOSTRIDIUM HIST. 30 GRAMS TUBE TP SCH (09:37)
[2017-10-08] MEDS: OXYBUTYNIN CHLORIDE 5 MG TABLET PO SCH ×2 (09:37→23:04)
[2017-10-08] MEDS: DIVALPROEX SODIUM 500 MG TABLET E.C. PO SCH ×2 (09:37→23:24)
--- NOTE | 2017-10-08 10:12 | PN ---
Progress Note, Physician Chief Complaint: COPD exacerbation History of Present Illness: Overnight events noted mid sternal chest pain likely musculoskelatal EKG-NSR Trop negative received tylenol this am which helped with the pain - Current Medication List Current Medications: Active Medications Acetaminophen (Tylenol -) 650 mg PO Q6H PRN PRN Reason: FEVER Albuterol/Ipratropium (Duoneb -) 1 amp NEB RQID [facility] Last Admin: 10/08/17 07:35 Dose: 1 amp Collagenase (Santyl -) 1 applic TP DAILY [facility] Last Admin: 10/08/17 09:37 Dose: 1 applic Diltiazem HCl (Cardizem -) 30 mg PO Q6HPO [facility] Last Admin: 10/08/17 06:28 Dose: 30 mg Divalproex Sodium (Depakote -) 500 mg PO BID [facility] Last Admin: 10/08/17 09:37 Dose: 500 mg Docusate Sodium (Colace -) 100 mg PO TID [facility] Last Admin: 10/08/17 06:28 Dose: 100 mg Furosemide (Lasix Injection -) 40 mg IVPUSH BID@0600,1400 [facility] Last Admin: 10/08/17 06:28 Dose: 40 mg Methylprednisolone Sodium Succinate (Solu-Medrol -) 40 mg IVPUSH Q8H-IV [facility] Last Admin: 10/08/17 09:37 Dose: 40 mg Montelukast Sodium (Singulair -) 10 mg PO HS [facility] Last Admin: 10/07/17 22:56 Dose: 10 mg Oxybutynin Chloride (Ditropan -) 5 mg PO BID [facility] Last Admin: 10/08/17 09:37 Dose: 5 mg Pantoprazole Sodium (Protonix -) 40 mg PO DAILY [facility] Last Admin: 10/08/17 09:37 Dose: 40 mg Senna (Senna -) 1 tab PO TID [facility] Last Admin: 10/08/17 06:28 Dose: 1 tab Temazepam (Restoril -) 15 mg PO HS [facility] Last Admin: 10/07/17 22:56 Dose: 15 mg Warfarin Sodium (Coumadin -) 4 mg PO DAILY@1800 [facility] - Objective Vital Signs: Vital Signs Temperature 97.7 F 10/08/17 09:00 Pulse Rate 82 10/08/17 09:00 Respiratory Rate 20 10/08/17 09:00 Blood Pressure 143/64 10/08/17 09:00 O2 Sat by Pulse Oximetry (%) 98 10/08/17 07:30 Constitutional: Yes: Well Nourished, No Distress, Calm Cardiovascular: Yes: Regular Rate and Rhythm Respiratory: Yes: Regular, Wheezes (diffuse) Gastrointestinal: Yes: WNL Musculoskeletal: Yes: WNL Extremities: Yes: WNL Edema: No Peripheral Pulses WNL: Yes Neurological: Yes: Alert, Oriented Psychiatric: Yes: Alert, Oriented Labs: CBC, BMP 10/08/17 06:40 10/08/17 06:40 INR, PTT INR 1.53 (0.82-1.09) H 10/08/17 06:40 Problem List - Problems (1) Acute on chronic respiratory failure with hypoxia and hypercapnia Assessment/Plan: -seen by pulmonary -on bronchodilators -nasal o2 -tapering IV steroids Code(s): J96.21 - ACUTE AND CHRONIC RESPIRATORY FAILURE WITH HYPOXIA; J96.22 - ACUTE AND CHRONIC RESPIRATORY FAILURE WITH HYPERCAPNIA (2) CHF (congestive heart failure) Assessment/Plan: -on diuretics Code(s): I50.9 - HEART FAILURE, UNSPECIFIED (3) COPD exacerbation Assessment/Plan: -seen by pulmonary -on bronchodilators -nasal o2 -tapering IV steroids Code(s): J44.1 - CHRONIC OBSTRUCTIVE PULMONARY DISEASE W (ACUTE) EXACERBATION (4) DVT (deep venous thrombosis) Assessment/Plan: -On AC -Warfarin -INR sub-therapeutic, warfarin increased to 5 mg daily. Code(s): I82.409 - ACUTE EMBOLISM AND THOMBOS UNSP DEEP VN UNSP LOWER EXTREMITY Qualifiers: DVT location: lower extremity (5) PAF (paroxysmal atrial fibrillation) Assessment/Plan: -controlled -on AC Code(s): I48.0 - PAROXYSMAL ATRIAL FIBRILLATION Assessment/Plan see problem list
--- NOTE | 2017-10-08 13:26 | EKG ---
Test Reason : Blood Pressure : / mmHG Vent. Rate : 071 BPM Atrial Rate : 071 BPM P-R Int : 118 ms QRS Dur : 084 ms QT Int : 368 ms P-R-T Axes : 026 032 042 degrees QTc Int : 399 ms NORMAL SINUS RHYTHM NORMAL ECG Confirmed by MD NICOLE GREGORY ([id number]) on 10/08/2017 1:25:46 PM Referred By: Confirmed By:MAR NICOLE MD
--- NOTE | 2017-10-08 13:33 | PN ---
Progress Note, Physician Chief Complaint: cough/wheeze/sob History of Present Illness: REVIEWED - Current Medication List Current Medications: Active Medications Acetaminophen (Tylenol -) 650 mg PO Q6H PRN PRN Reason: FEVER Last Admin: 10/08/17 11:27 Dose: 650 mg Albuterol/Ipratropium (Duoneb -) 1 amp NEB RQID [facility] Last Admin: 10/08/17 12:28 Dose: 1 amp Collagenase (Santyl -) 1 applic TP DAILY [facility] Last Admin: 10/08/17 09:37 Dose: 1 applic Diltiazem HCl (Cardizem -) 30 mg PO Q6HPO [facility] Last Admin: 10/08/17 12:24 Dose: 30 mg Divalproex Sodium (Depakote -) 500 mg PO BID [facility] Last Admin: 10/08/17 09:37 Dose: 500 mg Docusate Sodium (Colace -) 100 mg PO TID [facility] Last Admin: 10/08/17 06:28 Dose: 100 mg Furosemide (Lasix Injection -) 40 mg IVPUSH BID@0600,1400 [facility] Last Admin: 10/08/17 06:28 Dose: 40 mg Methylprednisolone Sodium Succinate (Solu-Medrol -) 40 mg IVPUSH Q8H-IV [facility] Last Admin: 10/08/17 09:37 Dose: 40 mg Montelukast Sodium (Singulair -) 10 mg PO HS [facility] Last Admin: 10/07/17 22:56 Dose: 10 mg Oxybutynin Chloride (Ditropan -) 5 mg PO BID [facility] Last Admin: 10/08/17 09:37 Dose: 5 mg Pantoprazole Sodium (Protonix -) 40 mg PO DAILY [facility] Last Admin: 10/08/17 09:37 Dose: 40 mg Senna (Senna -) 1 tab PO TID [facility] Last Admin: 10/08/17 06:28 Dose: 1 tab Temazepam (Restoril -) 15 mg PO HS [facility] Last Admin: 10/07/17 22:56 Dose: 15 mg Warfarin Sodium (Coumadin -) 5 mg PO ONCE@1800 [facility] Stop: 10/08/17 18:01 - Objective Vital Signs: Vital Signs Temperature 97.7 F 10/08/17 09:00 Pulse Rate 82 10/08/17 09:00 Respiratory Rate 20 10/08/17 09:00 Blood Pressure 143/64 10/08/17 09:00 O2 Sat by Pulse Oximetry (%) 98 10/08/17 07:30 Constitutional: Yes: Calm Eyes: Yes: EOM Intact HENT: Yes: Normocephalic Neck: Yes: Trachea Midline Cardiovascular: Yes: Regular Rate and Rhythm Respiratory: Yes: Wheezes (B/L DIFFUSE) Gastrointestinal: Yes: Normal Bowel Sounds Edema: No Labs: CBC, BMP 10/08/17 06:40 10/08/17 06:40 INR, PTT INR 1.53 (0.82-1.09) H 10/08/17 06:40 - ....Imaging Chest X-ray: Report Reviewed, Image Reviewed EKG: Report Reviewed, Image Reviewed Problem List - Problems (1) Acute on chronic respiratory failure with hypoxia and hypercapnia Code(s): J96.21 - ACUTE AND CHRONIC RESPIRATORY FAILURE WITH HYPOXIA; J96.22 - ACUTE AND CHRONIC RESPIRATORY FAILURE WITH HYPERCAPNIA (2) CHF (congestive heart failure) Code(s): I50.9 - HEART FAILURE, UNSPECIFIED (3) COPD exacerbation Code(s): J44.1 - CHRONIC OBSTRUCTIVE PULMONARY DISEASE W (ACUTE) EXACERBATION (4) DVT (deep venous thrombosis) Code(s): I82.409 - ACUTE EMBOLISM AND THOMBOS UNSP DEEP VN UNSP LOWER EXTREMITY Qualifiers: DVT location: lower extremity (5) HTN (hypertension) Code(s): I10 - ESSENTIAL (PRIMARY) HYPERTENSION Qualifiers: Hypertension type: essential hypertension Qualified Code(s): I10 - Essential (primary) hypertension (6) LV dysfunction Code(s): I51.9 - HEART DISEASE, UNSPECIFIED (7) PAF (paroxysmal atrial fibrillation) Code(s): I48.0 - PAROXYSMAL ATRIAL FIBRILLATION (8) Sarcoid Code(s): D86.9 - SARCOIDOSIS, UNSPECIFIED Assessment/Plan Acute on Chronic Hypoxic and Hypercapneic Respiratory Failure improving Acute COPD Exacerbation Pulmonary Sarcoidosis Pulmonary HTN Acute on Chronic Diastolic Heart Failure h/o DVT Acute Kidney Injury improving Probable sleep apnea - Taper Medrol - inhaled bronchodilators standing and PRN - singulair - Lasix - Anticoagulation, target INR 2-3 - NIPPV as tolerated - PO as tolerated - PT Bisi ANDERSEN MD
--- NOTE | 2017-10-08 13:42 | DS ---
Physical Examination Vital Signs: Vital Signs Temperature 97.7 F 10/08/17 09:00 Pulse Rate 82 10/08/17 09:00 Respiratory Rate 20 10/08/17 09:00 Blood Pressure 143/64 10/08/17 09:00 O2 Sat by Pulse Oximetry (%) 98 10/08/17 07:30 Constitutional: Yes: Well Nourished, No Distress, Calm Cardiovascular: Yes: Pulse Irregular Respiratory: Yes: Regular, Wheezes (diffuse) Gastrointestinal: Yes: Normal Bowel Sounds, Soft, Abdomen, Obese Musculoskeletal: Yes: WNL Extremities: Yes: WNL Edema: No Peripheral Pulses WNL: Yes Neurological: Yes: Alert, Oriented Psychiatric: Yes: Alert, Oriented Labs: CBC, BMP 10/08/17 06:40 10/08/17 06:40 Discharge Summary Reason For Visit: ACUTE EXACERBATION OF CHRONIC COPD Current Active Problems Acute on chronic respiratory failure with hypoxia and hypercapnia (Acute) CHF (congestive heart failure) (Acute) COPD exacerbation (Acute) DVT (deep venous thrombosis) (Acute) HTN (hypertension) (Acute) LV dysfunction (Acute) PAF (paroxysmal atrial fibrillation) (Acute) Sarcoid (Acute) Hospital Course: The patient is a 72 year old female, with a significant past medical history of COPD (sarcoidosis, on steroids), O2 dependency, hypertension, and DVT(on coumadin) who presents to the emergency department complaining of shortness of breath and a dry cough for approximately 4 days. The patient reports an increased nonproductive cough and associated shortness of breath for the past 4 days. Over the past couple of days patient has been using her inhaler, and her PCP, increased her dose of Prednisone to 30 daily, with minimal relief of symptoms. Today, patients SOB worsened and EMS was activated. During transport patient was given Epinephrine, 10 mg of Decadron, and 2 Combivents. Patient denies any associated chest pain, diaphoresis, palpitations, or lower extremity edema. She denies any recent fever, chills, congestion, headache, or dizziness. She denies any abdominal pain, nausea, vomiting, diarrhea, or constipation. She denies any dysuria, hematuria, frequency, or urgency. She denies any recent travel or sick contacts. Condition: Stable - Instructions Referrals: Digna Walton MD [Primary Care Provider] - Disposition: VNS/HOME HEALTH CARE - Home Medications Comprehensive Discharge Medication List: Ambulatory Orders Oxybutynin Chloride [Ditropan -] 15 mg PO DAILY 08/24/13 Omeprazole 40 mg PO AM 12/01/16 Sennosides [Senna] 8.6 mg PO TID 12/01/16 Albuterol 2.5/Ipratropium 0.5 [Duoneb -] 1 amp NEB QIDR amp 12/04/16 Montelukast Na [Singulair -] 10 mg PO HS tablet 12/04/16 Potassium Chloride [K-Dur -] 10 meq PO DAILY 12/04/16 Temazepam [Restoril -] 30 mg PO HS MDD 1 12/04/16 Warfarin Na [Coumadin -] 5 mg PO ASDIR 12/17/16 Furosemide [Lasix -] 40 mg PO BID@0600,1400 tablet 06/07/17 Calcium Carbonate/Vitamin D3 [Calcium 600 + Vit D 200 Tablet] 1 each PO DAILY Divalproex *ER* [Depakote *ER* -] 500 mg PO DAILY 10/01/17 Docusate Sodium [Colace] 100 mg PO TID 10/01/17 Mirtazapine [Remeron Soltab -] 15 mg PO DAILY 10/01/17 Prednisone [Deltasone -] 30 mg PO DAILY 10/01/17 Warfarin Na [Coumadin -] 4 mg PO ASDIR 10/01/17
[2017-10-08 13:59] LABS: ANISOCYTOSIS 0; MACROCYTOSIS 1+; OVALOCYTE 1+; PLATELET ESTIMATE NORMAL; TEAR DROP CELLS 1+
[2017-10-08] MEDS ORDERED: WARFARIN NA 5 MG TABLET (UD) PO ONE (18:00)
[2017-10-08] MEDS ORDERED: WARFARIN NA 2 MG TABLET (UD) PO SCH (18:00)
[2017-10-08] MEDS: WARFARIN NA 5 MG TABLET (UD) PO SCH (18:03)
[2017-10-08 22:22] LABS: INR 1.8 (0.82-1.09); PROTHROMBIN TIME (PATIENT) 20.3 SEC (9.98-11.88)
[2017-10-08] MEDS: TEMAZEPAM 15 MG CAPSULE PO SCH (23:04)
[2017-10-08] MEDS: MONTELUKAST NA 10 MG TABLET PO SCH (23:04)
[2017-10-09] MEDS: DOCUSATE SODIUM 100 MG CAPSULE (FP) PO SCH ×3 (05:46→22:16)
[2017-10-09] MEDS: FUROSEMIDE 40 MG/4 ML INJECTABLE VIAL IVPUSH SCH ×2 (05:46→15:15)
[2017-10-09] MEDS: dilTIAZem HCL 30 MG TABLET (FP) PO SCH ×4 (05:46→23:34)
[2017-10-09] MEDS: SENNOSIDES 8.6MG TABLET (FP) PO SCH ×3 (05:46→22:17)
[2017-10-09] MEDS: ALBUTEROL SO4 2.5/IPRATROPIUM 0.5 INH SOL 3 ML VIAL.NEB. NEB SCH ×4 (07:50→20:51)
[2017-10-09 08:28] LABS: INR 1.86 (0.82-1.09)
[2017-10-09 08:52] LABS: ALBUMIN 2.9 g/dl (3.4-5.0); BLOOD UREA NITROGEN 41 mg/dL (7-18); CALCIUM 7.8 mg/dL (8.5-10.1); CHLORIDE 84 mmol/L (98-107); CREATININE 1.1 mg/dL (0.55-1.02); GLUCOSE,RANDOM 174 mg/dL (74-106); POTASSIUM 4.4 mmol/L (3.5-5.1); SGOT/AST 7 U/L (15-37); SGPT/ALT 16 U/L (12-78); SODIUM 138 mmol/L (136-145)
[2017-10-09 08:54] LABS: ALK PHOS 60 U/L (45-117); BILIRUBIN,TOTAL 0.4 mg/dL (0.2-1.0); TOT PROT 6.1 g/dl (6.4-8.2)
[2017-10-09 10:20] LABS: ANION GAP 7 (8-16); CO2 47 mmol/L (21-32)
[2017-10-09] MEDS ORDERED: PT OWN MED DRAWER 7, Y5N ONE ×2 (10:27→21:24)
[2017-10-09] MEDS: DIVALPROEX SODIUM 500 MG TABLET E.C. PO SCH ×2 (10:33→22:16)
[2017-10-09] MEDS: methylPREDNISolone NA SUCC 40 MG/1 ML VIAL IVPUSH SCH ×2 (10:33→22:17)
[2017-10-09] MEDS: OXYBUTYNIN CHLORIDE 5 MG TABLET PO SCH ×2 (10:33→22:16)
[2017-10-09] MEDS: PANTOPRAZOLE 40 MG TABLET (FP) PO SCH (10:33)
--- NOTE | 2017-10-09 13:09 | PN ---
Progress Note (short form) - Note Progress Note: Breathing feels slightly better. Did not use NIPPV overnight again as she said her breathing felt stable. Residual congested cough. No CP. Intake & Output 10/06/17 10/07/17 10/08/17 10/09/17 23:59 23:59 23:59 23:59 Intake Total 1027 970 740 250 Output Total 300 350 Balance 727 970 390 250 Last Vital Signs Temp Pulse Resp BP Pulse Ox 98.8 F 83 18 133/77 96 10/09/17 10:00 10/09/17 10:00 10/09/17 10:00 10/09/17 10:00 10/08/17 22:00 Active Medications Acetaminophen (Tylenol -) 650 mg PO Q6H PRN PRN Reason: FEVER Last Admin: 10/08/17 11:27 Dose: 650 mg Albuterol/Ipratropium (Duoneb -) 1 amp NEB RQID [facility] Last Admin: 10/09/17 11:30 Dose: 1 amp Collagenase (Santyl -) 1 applic TP DAILY [facility] Last Admin: 10/08/17 09:37 Dose: 1 applic Diltiazem HCl (Cardizem -) 30 mg PO Q6HPO [facility] Last Admin: 10/09/17 12:31 Dose: 30 mg Divalproex Sodium (Depakote -) 500 mg PO BID [facility] Last Admin: 10/09/17 10:33 Dose: 500 mg Docusate Sodium (Colace -) 100 mg PO TID [facility] Last Admin: 10/09/17 05:46 Dose: 100 mg Furosemide (Lasix Injection -) 40 mg IVPUSH BID@0600,1400 [facility] Last Admin: 10/09/17 05:46 Dose: 40 mg Methylprednisolone Sodium Succinate (Solu-Medrol -) 40 mg IVPUSH BID [facility] Last Admin: 10/09/17 10:33 Dose: 40 mg Montelukast Sodium (Singulair -) 10 mg PO HS [facility] Last Admin: 10/08/17 23:04 Dose: 10 mg Oxybutynin Chloride (Ditropan -) 5 mg PO BID [facility] Last Admin: 10/09/17 10:33 Dose: 5 mg Pantoprazole Sodium (Protonix -) 40 mg PO DAILY [facility] Last Admin: 10/09/17 10:33 Dose: 40 mg Senna (Senna -) 1 tab PO TID [facility] Last Admin: 10/09/17 05:46 Dose: 1 tab Temazepam (Restoril -) 15 mg PO HS [facility] Last Admin: 10/08/17 23:04 Dose: 15 mg Warfarin Sodium (Coumadin -) 5 mg PO DAILY@1800 [facility] Last Admin: 10/08/17 18:03 Dose: 5 mg Gen: NAD at rest Heart: RRR Lung: scattered rhonchi, slight expiratory wheeze Abd: soft, nontender Ext: no edema Laboratory Results - last 24 hr 10/08/17 10/08/17 10/08/17 06:40 14:14 21:55 Neutrophils % (Manual) 90.1 H* Band Neutrophils % 3.9 Lymphocytes % (Manual) 1.0 L D Monocytes % (Manual) 1 L Eosinophils % (Manual) 0.0 Basophils % (Manual) 0.0 Myelocytes % (Man) 2 Metamyelocytes 0 Hypochromia 0 Platelet Estimate Normal Polychromasia 0 Poikilocytosis 1+ Anisocytosis 0 Microcytosis 0 Macrocytosis 1+ Tear Drop Cells 1+ Ovalocytes 1+ PT with INR 20.30 H INR 1.80 H Sodium Potassium Chloride Carbon Dioxide Anion Gap BUN Creatinine Creat Clearance w eGFR Random Glucose Calcium Total Bilirubin AST ALT Alkaline Phosphatase Troponin I 0.02 Total Protein Albumin 10/08/17 10/09/17 10/09/17 21:55 07:00 07:00 Neutrophils % (Manual) Band Neutrophils % Lymphocytes % (Manual) Monocytes % (Manual) Eosinophils % (Manual) Basophils % (Manual) Myelocytes % (Man) Metamyelocytes Hypochromia Platelet Estimate Polychromasia Poikilocytosis Anisocytosis Microcytosis Macrocytosis Tear Drop Cells Ovalocytes PT with INR 21.00 H INR 1.86 H Sodium 138 Potassium 4.4 Chloride 84 L Carbon Dioxide 47 H Anion Gap 7 L BUN 41 H Creatinine 1.1 H Creat Clearance w eGFR 48.96 Random Glucose 174 H Calcium 7.8 L Total Bilirubin 0.4 AST 7 L ALT 16 Alkaline Phosphatase 60 Troponin I 0.03 Total Protein 6.1 L Albumin 2.9 L A/P Acute on Chronic Hypoxic and Hypercapneic Respiratory Failure improving Acute COPD Exacerbation Pulmonary Sarcoidosis Pulmonary HTN Acute on Chronic Diastolic Heart Failure h/o DVT Acute Kidney Injury improving Probable sleep apnea - Would keep Medrol at current dose - inhaled bronchodilators standing and PRN - singulair - Lasix - Anticoagulation, target INR 2-3 - D/C NIPPV - PO as tolerated - PT Dr Shen
[2017-10-09] MEDS: COLLAGENASE CLOSTRIDIUM HIST. 30 GRAMS TUBE TP SCH (15:15)
--- NOTE | 2017-10-09 15:43 | PN ---
Progress Note, Physician Chief Complaint: COPD exacerbation History of Present Illness: NAD, breathing improved seen by pulmonary - Current Medication List Current Medications: Active Medications Acetaminophen (Tylenol -) 650 mg PO Q6H PRN PRN Reason: FEVER Last Admin: 10/08/17 11:27 Dose: 650 mg Albuterol/Ipratropium (Duoneb -) 1 amp NEB RQID [facility] 234 BEDS AT [facility] Last Admin: 10/09/17 11:30 Dose: 1 amp Collagenase (Santyl -) 1 applic TP DAILY [facility] 234 BEDS AT [facility] Last Admin: 10/09/17 15:15 Dose: 1 applic Diltiazem HCl (Cardizem -) 30 mg PO Q6HPO [facility]CLUDE 234 BEDS AT [facility] Last Admin: 10/09/17 12:31 Dose: 30 mg Divalproex Sodium (Depakote -) 500 mg PO BID [facility] 234 BEDS AT [facility] Last Admin: 10/09/17 10:33 Dose: 500 mg Docusate Sodium (Colace -) 100 mg PO TID [facility] 234 BEDS AT [facility] Last Admin: 10/09/17 15:15 Dose: 100 mg Furosemide (Lasix Injection -) 40 mg IVPUSH BID@0600,1400 [facility] 234 BEDS AT [facility] Last Admin: 10/09/17 15:15 Dose: 40 mg Methylprednisolone Sodium Succinate (Solu-Medrol -) 40 mg IVPUSH BID [facility]CLUDE 234 BEDS AT [facility] Last Admin: 10/09/17 10:33 Dose: 40 mg Montelukast Sodium (Singulair -) 10 mg PO [facility] Last Admin: 10/08/17 23:04 Dose: 10 mg Oxybutynin Chloride (Ditropan -) 5 mg PO BID [facility]CLUDE 234 BEDS AT [facility] Last Admin: 10/09/17 10:33 Dose: 5 mg Pantoprazole Sodium (Protonix -) 40 mg PO DAILY [facility] 234 BEDS AT [facility] Last Admin: 10/09/17 10:33 Dose: 40 mg Senna (Senna -) 1 tab PO TID [facility] 234 BEDS AT [facility] Last Admin: 10/09/17 15:15 Dose: 1 tab Temazepam (Restoril -) 15 mg PO HS [facility] 234 BEDS AT [facility] Last Admin: 10/08/17 23:04 Dose: 15 mg Warfarin Sodium (Coumadin -) 5 mg PO DAILY@1800 [facility]CLUDE 234 BEDS AT [facility] Last Admin: 10/08/17 18:03 Dose: 5 mg - Objective Vital Signs: Vital Signs Temperature 98.8 F 10/09/17 10:00 Pulse Rate 83 10/09/17 10:00 Respiratory Rate 18 10/09/17 10:00 Blood Pressure 133/77 10/09/17 10:00 O2 Sat by Pulse Oximetry (%) 96 10/08/17 22:00 Constitutional: Yes: Well Nourished, No Distress, Calm Cardiovascular: Yes: Regular Rate and Rhythm Respiratory: Yes: Regular Musculoskeletal: Yes: WNL Extremities: Yes: WNL Edema: No Peripheral Pulses WNL: Yes Neurological: Yes: Alert, Oriented Psychiatric: Yes: Alert, Oriented Labs: CBC, BMP 10/08/17 06:40 10/09/17 07:00 INR, PTT INR 1.86 (0.82-1.09) H 10/09/17 07:00 Problem List - Problems (1) Acute on chronic respiratory failure with hypoxia and hypercapnia Assessment/Plan: -seen by pulmonary -on bronchodilators -nasal o2 -d/c home on PO tapering steroids Code(s): J96.21 - ACUTE AND CHRONIC RESPIRATORY FAILURE WITH HYPOXIA; J96.22 - ACUTE AND CHRONIC RESPIRATORY FAILURE WITH HYPERCAPNIA (2) CHF (congestive heart failure) Assessment/Plan: -on diuretics Code(s): I50.9 - HEART FAILURE, UNSPECIFIED (3) COPD exacerbation Assessment/Plan: -seen by pulmonary -on bronchodilators -nasal o2 -tapering po steroids Code(s): J44.1 - CHRONIC OBSTRUCTIVE PULMONARY DISEASE W (ACUTE) EXACERBATION (4) DVT (deep venous thrombosis) Assessment/Plan: -On AC -Warfarin -INR sub-therapeutic, warfarin increased to 2.5 MW and 5 mg all other days upon discharge. F/U with PCP for INR check within 2 weeks Code(s): I82.409 - ACUTE EMBOLISM AND THOMBOS UNSP DEEP VN UNSP LOWER EXTREMITY Qualifiers: DVT location: lower extremity (5) PAF (paroxysmal atrial fibrillation) Assessment/Plan: -controlled -on AC Code(s): I48.0 - PAROXYSMAL ATRIAL FIBRILLATION Assessment/Plan see problem list d/c home with VNS
[2017-10-09] MEDS: WARFARIN NA 5 MG TABLET (UD) PO SCH (18:10)
[2017-10-09] MEDS: TEMAZEPAM 15 MG CAPSULE PO SCH (22:16)
[2017-10-09] MEDS: MONTELUKAST NA 10 MG TABLET PO SCH (22:17)
[2017-10-10] MEDS: SENNOSIDES 8.6MG TABLET (FP) PO SCH ×2 (06:06→15:25)
[2017-10-10] MEDS: FUROSEMIDE 40 MG/4 ML INJECTABLE VIAL IVPUSH SCH ×2 (06:06→15:25)
[2017-10-10] MEDS: dilTIAZem HCL 30 MG TABLET (FP) PO SCH ×2 (06:06→12:36)
[2017-10-10] MEDS: DOCUSATE SODIUM 100 MG CAPSULE (FP) PO SCH ×2 (06:06→15:25)
[2017-10-10 08:19] LABS: INR 2.42 (0.82-1.09); PROTHROMBIN TIME (PATIENT) 27.3 SEC (9.98-11.88)
[2017-10-10] MEDS: ALBUTEROL SO4 2.5/IPRATROPIUM 0.5 INH SOL 3 ML VIAL.NEB. NEB SCH (08:34)
[2017-10-10] MEDS ORDERED: PT OWN MED DRAWER 7, Y5N ONE (10:45)
[2017-10-10] MEDS: OXYBUTYNIN CHLORIDE 5 MG TABLET PO SCH (10:47)
[2017-10-10] MEDS: DIVALPROEX SODIUM 500 MG TABLET E.C. PO SCH (10:47)
[2017-10-10] MEDS: PANTOPRAZOLE 40 MG TABLET (FP) PO SCH (10:47)
[2017-10-10] MEDS: methylPREDNISolone NA SUCC 40 MG/1 ML VIAL IVPUSH SCH (10:47)
[2017-10-10] MEDS: COLLAGENASE CLOSTRIDIUM HIST. 30 GRAMS TUBE TP SCH (10:48)
--- NOTE | 2017-10-10 12:55 | PN ---
Progress Note (short form) - Note Progress Note: Breathing feels slightly better. Did not require NIPPV overnight. Residual congested cough. No CP. Intake & Output 10/07/17 10/08/17 10/09/17 10/10/17 23:59 23:59 23:59 23:59 Intake Total 138 782 5288 250 Output Total 350 Balance 921 034 8322 250 Last Vital Signs Temp Pulse Resp BP Pulse Ox 98.3 F 90 22 109/51 95 10/10/17 06:00 10/10/17 06:00 10/10/17 06:00 10/10/17 06:00 10/09/17 22:00 Active Medications Acetaminophen (Tylenol -) 650 mg PO Q6H PRN PRN Reason: FEVER Last Admin: 10/08/17 11:27 Dose: 650 mg Collagenase (Santyl -) 1 applic TP DAILY [facility] Last Admin: 10/10/17 10:48 Dose: 1 applic Diltiazem HCl (Cardizem -) 30 mg PO Q6HPO [facility] Last Admin: 10/10/17 12:36 Dose: 30 mg Divalproex Sodium (Depakote -) 500 mg PO BID [facility] Last Admin: 10/10/17 10:47 Dose: 500 mg Docusate Sodium (Colace -) 100 mg PO TID [facility] Last Admin: 10/10/17 06:06 Dose: 100 mg Furosemide (Lasix Injection -) 40 mg IVPUSH BID@0600,1400 [facility] Last Admin: 10/10/17 06:06 Dose: 40 mg Methylprednisolone Sodium Succinate (Solu-Medrol -) 40 mg IVPUSH BID [facility] Last Admin: 10/10/17 10:47 Dose: 40 mg Montelukast Sodium (Singulair -) 10 mg PO [facility] Last Admin: 10/09/17 22:17 Dose: 10 mg Oxybutynin Chloride (Ditropan -) 5 mg PO BID [facility] Last Admin: 10/10/17 10:47 Dose: 5 mg Pantoprazole Sodium (Protonix -) 40 mg PO DAILY [facility] Last Admin: 10/10/17 10:47 Dose: 40 mg Senna (Senna -) 1 tab PO TID [facility] Last Admin: 10/10/17 06:06 Dose: 1 tab Temazepam (Restoril -) 15 mg PO [facility] Last Admin: 10/09/17 22:16 Dose: 15 mg Warfarin Sodium (Coumadin -) 5 mg PO DAILY@1800 [facility] Last Admin: 10/09/17 18:10 Dose: 5 mg Gen: NAD at rest Heart: RRR Lung: scattered rhonchi, No expiratory wheeze Abd: soft, nontender Ext: no edema Laboratory Results - last 24 hr 10/09/17 10/10/17 07:00 07:05 PT with INR 27.30 H INR 2.42 H D TSH 0.43 Free T4 0.53 L A/P Acute on Chronic Hypoxic and Hypercapneic Respiratory Failure improving Acute COPD Exacerbation Pulmonary Sarcoidosis Pulmonary HTN Acute on Chronic Diastolic Heart Failure h/o DVT Acute Kidney Injury improving Probable sleep apnea - Agree with Prednisone - Inhaled bronchodilators standing and PRN - Singulair - Lasix - Anticoagulation, target INR 2-3 - NIPPV was D/Boubacar - PO as tolerated - PT - D/C planning to home: Patient has home O2 2 to 3 L [facility] Shen
[2017-10-10 15:01] VITALS: BP 113/70; PULSE 94; TEMP 98.5
== END 2017-10-10 17:35 | disposition home health service (06) | DRG 189 ==
LOC: JER 08:51 → JERBED 11:27 → JICU 15:10 → J2W 10-02 19:45 → J5S 10-06 18:27
PROVIDERS: ADMIT Family Medicine; ATTEND Family Medicine
PROC: 5A09457 Assistance with Respiratory Ventilation, 24-96 Consecutive Hours, Continuous Positive Airway Pressure (ICD-10-PCS; principal; 2017-10-01)
DX: J96.21 Acute and chronic respiratory failure with hypoxia (principal); I50.33 Acute on chronic diastolic (congestive) heart failure; J44.1 Chronic obstructive pulmonary disease with (acute) exacerbation; N17.9 Acute kidney failure, unspecified; J96.22 Acute and chronic respiratory failure with hypercapnia; D86.0 Sarcoidosis of lung; I27.20 Pulmonary hypertension, unspecified; I48.0 Paroxysmal atrial fibrillation; D86.9 Sarcoidosis, unspecified; Z99.81 Dependence on supplemental oxygen; I11.0 Hypertensive heart disease with heart failure; Z86.718 Personal history of other venous thrombosis and embolism; Z79.01 Long term (current) use of anticoagulants; Z87.891 Personal history of nicotine dependence; E66.9 Obesity, unspecified; Z68.36 Body mass index [BMI] 36.0-36.9, adult; Z90.710 Acquired absence of both cervix and uterus; G47.30 Sleep apnea, unspecified
CPT/HCPCS: 36415; 36600; 71045-TC; 80048; 80053; 82803; 83735; 83880; 84100; 84439; 84443; 84484; 85025; 85027; 85610; 85730; 87040; 93005; 93010; 93306-TC; 93970-TC; 94010; 94640; 94660; 97116-GP; 97161-GP; 99285-25

== ENCOUNTER 2017-10-26 17:45 | Inpatient (IN) | payer OTHER ==
[2017-10-26] MEDS ORDERED: SODIUM CHLORIDE 0.9% 1000 ML INFUS.BAG IV STA (18:10)
[2017-10-26 18:51] LABS: BASO % 0.6 % (0-2.0); HEMATOCRIT 36.5 % (32.4-45.2); HEMOGLOBIN 11.7 GM/dL (10.7-15.3); LYMPH % 13.7 % (8-40); MCH 30.2 pg (25.7-33.7); MCHC 32.1 g/dl (32.0-36.0); MEAN CELL VOLUME 93.9 fl (80-96); MEAN PLT VOLUME 8.2 fl (7.5-11.1); MONO % 7.3 % (3.8-10.2); NEUT % 77.4 % (42.8-82.8); PLATELET COUNT 140 K/MM3 (134-434); RBC 3.88 M/mm3 (3.60-5.2); RDW 18.6 % (11.6-15.6); WHITE BLOOD COUNT 4.9 K/mm3 (4.0-10.0)
[2017-10-26 18:53] VITALS: BMI 34.7
[2017-10-26 18:57] LABS: VENOUS PH 7.32 (7.32-7.42); VENOUS PO2 22.2 mmHg (28-48)
[2017-10-26 19:01] LABS: VENOUS PC02 66.3 mmHg (38-52)
[2017-10-26 19:05] LABS: INR 3.19 (0.82-1.09); PROTHROMBIN TIME (PATIENT) 36.1 SEC (9.98-11.88)
[2017-10-26 19:06] LABS: URINE APPEARANCE CLEAR; URINE BILIRUBIN NEGATIVE (NEGATIVE); URINE BLOOD 2+ (NEGATIVE); URINE COLOR YELLOW; URINE GLUCOSE (UA) NEGATIVE (NEGATIVE); URINE KETONE TRACE (NEGATIVE); URINE LEUK ESTERASE TRACE (NEGATIVE); URINE NITRITE NEGATIVE (NEGATIVE); URINE PROTEIN NEGATIVE (NEGATIVE); URINE UROBILINOGEN NEGATIVE mg/dL (0.2-1.0)
[2017-10-26 19:08] LABS: ACTIVATED PTT 28.3 SECONDS (26.9-34.4)
[2017-10-26] MEDS ORDERED: ACETAMINOPHEN 1000 MG/100 ML VIAL (NON FORMULARY) IVPB ONE (19:16)
[2017-10-26] MEDS ORDERED: SODIUM CHLORIDE 0.9% 1000 ML INFUS.BAG IV ONE ×2 (19:16→20:47)
[2017-10-26] MEDS ORDERED: ACETAMINOPHEN INJECTION 100 ML IVPB ONE (19:17)
[2017-10-26 19:35] LABS: URINE BACTERIA RARE /hpf (NONE SEEN); URINE MUCUS MODERATE
--- NOTE | 2017-10-26 19:43 | PDOC ---
History of Present Illness - General History Source: Patient, Family (Daughter) Exam Limitations: No Limitations - History of Present Illness Initial Comments: 10/26/17 20:01 The patient is a 72 year old female with a significant PMH of COPD (on 3L home O2), sarcoidosis, HTN, diabetes, and DVT (on Coumadin) who presents to the emergency department from Dr. Giang office with increased shortness of breath and fever beginning earlier today. The patient fever was T. max 103.4F at triage. The patients daughter reports that the patient is short of breath at baseline secondary to COPD but had increased difficulty breathing today. She reports receiving antibiotics earlier today by Dr. Walton, but presents to the ED for further evaluation. The patient reports a history of DVT in her left leg. The patients daughter also notes the patient has a wound and small associated blister with a wound VAC on her left leg. The patient denies chest pain, headache and dizziness. Denies fever, chills, nausea, vomit, diarrhea and constipation. Denies dysuria, frequency, urgency and hematuria. Allergies: NKA Past surgical history: Hysterectomy. Left hip repair. Social history: Former smoker. No reported alcohol or drug use. PCP: Dr. Walton Ticket Counter: Dr. Freeman <Jensen Vance - Last Filed: 10/26/17 20:02> - General History Source: Patient <Sonny Quinonez - Last Filed: 10/27/17 19:13> - General Chief Complaint: SIRS, Suspected/Possible Stated Complaint: COLD SYMPTOMS Time Seen by Provider: 10/26/17 18:10 Past History <Jensen Vance - Last Filed: 10/26/17 20:02> - Past Medical History COPD: Yes (sarcoidosis) Diabetes: Yes HTN: Yes - Surgical History Abdominal Surgery: (hysterectomy) Orthopedic Surgery: Yes (repair left hip fracture 1977) - Suicide/Smoking/Psychosocial Hx Smoking History: Former smoker Have you smoked in the past 12 months: No Number of Cigarettes Smoked Daily: 0 If you are a former smoker, when did you quit?: 30 years ago Cigars Per Day: 0 Information on smoking cessation initiated: No Hx Alcohol Use: No Drug/Substance Use Hx: No Substance Use Type: None Hx Substance Use Treatment: No <Sonny Quinonez - Last Filed: 10/27/17 19:13> - Past Medical History Allergies/Adverse Reactions: Allergies Allergy/AdvReac Type Severity Reaction Status Date / Time No Known Allergies Allergy Verified 10/01/17 09:10 Review of Systems - Review of Systems Able to Perform ROS?: Yes Comments:: 10/26/17 20:01 CONSTITUTIONAL: Absent: fever, chills, diaphoresis, generalized weakness, malaise, loss of appetite HEENT: Absent: rhinorrhea, nasal congestion, throat pain, throat swelling, difficulty swallowing, mouth swelling, ear pain, eye pain, visual Changes CARDIOVASCULAR: Absent: chest pain, syncope, palpitations, irregular heart rate, lightheadedness , peripheral edema RESPIRATORY: (+) Increased shortness of breath. Absent: cough, dyspnea with exertion, orthopnea, wheezing, stridor, hemoptysis GASTROINTESTINAL: Absent: abdominal pain, abdominal distension, nausea, vomiting, diarrhea, constipation, melena, hematochezia GENITOURINARY: Absent: dysuria, frequency, urgency, hesitancy, hematuria, flank pain, genital pain MUSCULOSKELETAL: Absent: myalgia, arthralgia, joint swelling SKIN: (+) Wound with Wound VAC on left leg. Absent: rash, itching, pallor HEMATOLOGIC/IMMUNOLOGIC: Absent: easy bleeding, easy bruising, lymphadenopathy, frequent infections ENDOCRINE: Absent: unexplained weight gain, unexplained weight loss, heat intolerance, cold intolerance NEUROLOGIC: Absent: headache, focal weakness or paresthesias, dizziness, unsteady gait, seizure, mental status changes, bladder or bowel incontinence PSYCHIATRIC: Absent: anxiety, depression, suicidal or homicidal ideation, hallucinations. <Jensen Vance - Last Filed: 10/26/17 20:02> *Physical Exam - Vital Signs Last Vital Signs Temp Pulse Resp BP Pulse Ox 103.4 F H 117 H 20 90/62 95 10/26/17 18:56 10/26/17 18:54 10/26/17 18:54 10/26/17 18:18 10/26/17 19:07 - Physical Exam Comments: 10/26/17 20:02 GENERAL: Well developed, well nourished. Awake and alert. No acute distress. HEENT: Normocephalic, atraumatic. PERRLA, EOMI. No conjunctival pallor. Sclera are non- icteric. Moist mucous membranes. Oropharynx is clear. NECK: Supple. Full ROM. No JVD. Carotid pulses 2+ and symmetric, without bruits. No thyromegaly. No lymphadenopathy. CARDIOVASCULAR: Regular rate and rhythm. No murmurs, rubs, or gallops. Distal pulses are 2+ and symmetric. PULMONARY: (+) Mild respiratory distress. (+) Bilateral wheezing and rhonchi. ABDOMINAL: (+) Obese. Soft. Non-tender. Non-distended. No rebound or guarding. No organomegaly. Normoactive bowel sounds. MUSCULOSKELETAL Normal range of motion at all joints. No bony deformities or tenderness. No CVA tenderness. EXTREMITIES: (+) Wound VAC in place on lateral left knee. Not warm, no erythema , nontender No cyanosis. No clubbing. No calf tenderness. SKIN: Warm and dry. Normal capillary refill. No rashes. No jaundice. NEUROLOGICAL: Alert, awake, appropriate. Cranial nerves 2-12 intact. No deficits to light touch and temperature in face, upper extremities and lower extremities. No motor deficits in the in face, upper extremities and lower extremities. Normoreflexic in the upper and lower extremities. Normal speech. Toes are downgoing bilaterally. Gait is normal without ataxia. PSYCHIATRIC: Cooperative. Good eye contact. Appropriate mood and affect. <Jensen Vance - Last Filed: 10/26/17 20:02> - Vital Signs Last Vital Signs Temp Pulse Resp BP Pulse Ox 103.4 F H 117 H 20 90/62 95 10/26/17 18:56 10/26/17 18:54 10/26/17 18:54 10/26/17 18:18 10/26/17 19:07 <Sonny Quinonez - Last Filed: 10/27/17 19:13> ED Treatment Course - LABORATORY CBC & Chemistry Diagram: 10/26/17 18:30 10/26/17 18:30 - ADDITIONAL ORDERS Additional order review: Laboratory Results 10/26/17 10/26/17 10/26/17 18:44 18:44 18:30 PT with INR INR PTT (Actin FS) VBG pH 7.32 POC VBG pCO2 66.3 H* POC VBG pO2 22.2 L Mixed VBG HCO3 32.8 H Urine Color Yellow Urine Appearance Clear Urine pH 5.0 Ur Specific [place] 1.020 Urine Protein Negative Urine Glucose (UA) Negative Urine Ketones Trace H Urine Blood 2+ H Urine Nitrite Negative Urine Bilirubin Negative Urine Urobilinogen Negative Ur Leukocyte Esterase Trace Urine WBC (Auto) 17 Urine RBC (Auto) 4 Urine Bacteria Rare Urine Mucus Moderate Blood Type Cancelled Antibody Screen Cancelled 10/26/17 18:30 PT with INR 36.10 H INR 3.19 H D PTT (Actin FS) 28.3 VBG pH POC VBG pCO2 POC VBG pO2 Mixed VBG HCO3 Urine Color Urine Appearance Urine pH Ur Specific [place] Urine Protein Urine Glucose (UA) Urine Ketones Urine Blood Urine Nitrite Urine Bilirubin Urine Urobilinogen Ur Leukocyte Esterase Urine WBC (Auto) Urine RBC (Auto) Urine Bacteria Urine Mucus Blood Type Antibody Screen 10/26/17 18:30 RBC 3.88 MCV 93.9 MCHC 32.1 RDW 18.6 H D MPV 8.2 Neutrophils % 77.4 Lymphocytes % 13.7 D Monocytes % 7.3 D Eosinophils % 1.0 D Basophils % 0.6 D - Medications Given in the ED: ED Medications Discontinued Medications Generic Name Dose Route Start Last Admin Trade Name Favio PRN Reason Stop Dose Admin Acetaminophen 1,000 mg 10/26/17 19:16 10/26/17 19:19 Ofirmev Injection - IVPB 10/26/17 19:17 1,000 mg ONCE ONE Administration Sodium Chloride 6,000 ml 10/26/17 18:10 10/26/17 19:30 Normal Saline - IV 10/26/17 18:11 Not Given ONCE STA Sodium Chloride 2,000 ml 10/26/17 19:16 10/26/17 19:19 Normal Saline - IV 10/26/17 19:17 2,000 ml ONCE ONE Administration <Jensen Vance - Last Filed: 10/26/17 20:02> - LABORATORY CBC & Chemistry Diagram: 10/27/17 11:03 10/27/17 11:03 - ADDITIONAL ORDERS Additional order review: Laboratory Results 10/26/17 10/26/17 10/26/17 18:44 18:44 18:30 PT with INR INR PTT (Actin FS) VBG pH 7.32 POC VBG pCO2 66.3 H* POC VBG pO2 22.2 L Mixed VBG HCO3 32.8 H Urine Color Yellow Urine Appearance Clear Urine pH 5.0 Ur Specific [place] 1.020 Urine Protein Negative Urine Glucose (UA) Negative Urine Ketones Trace H Urine Blood 2+ H Urine Nitrite Negative Urine Bilirubin Negative Urine Urobilinogen Negative Ur Leukocyte Esterase Trace Urine WBC (Auto) 17 Urine RBC (Auto) 4 Urine Bacteria Rare Urine Mucus Moderate Blood Type Cancelled Antibody Screen Cancelled 10/26/17 18:30 PT with INR 36.10 H INR 3.19 H D PTT (Actin FS) 28.3 VBG pH POC VBG pCO2 POC VBG pO2 Mixed VBG HCO3 Urine Color Urine Appearance Urine pH Ur Specific [place] Urine Protein Urine Glucose (UA) Urine Ketones Urine Blood Urine Nitrite Urine Bilirubin Urine Urobilinogen Ur Leukocyte Esterase Urine WBC (Auto) Urine RBC (Auto) Urine Bacteria Urine Mucus Blood Type Antibody Screen 10/26/17 18:30 RBC 3.88 MCV 93.9 MCHC 32.1 RDW 18.6 H D MPV 8.2 Neutrophils % 77.4 Lymphocytes % 13.7 D Monocytes % 7.3 D Eosinophils % 1.0 D Basophils % 0.6 D - Medications Given in the ED: ED Medications Discontinued Medications Generic Name Dose Route Start Last Admin Trade Name Favio PRN Reason Stop Dose Admin Acetaminophen 1,000 mg 10/26/17 19:16 10/26/17 19:19 Ofirmev Injection - IVPB 10/26/17 19:17 1,000 mg ONCE ONE Administration Sodium Chloride 6,000 ml 10/26/17 18:10 10/26/17 19:30 Normal Saline - IV 10/26/17 18:11 Not Given ONCE STA Sodium Chloride 2,000 ml 10/26/17 19:16 10/26/17 19:19 Normal Saline - IV 10/26/17 19:17 2,000 ml ONCE ONE Administration <Sonny Quinonez - Last Filed: 10/27/17 19:13> Medical Decision Making - Medical Decision Making 10/27/17 19:10 Dr. Quinonez: The scribe's documentation has been prepared under my direction and personally reviewed by me in its entirery. I confirm that the note above accurately reflects all work, treatment, procedures, and medical decision making performed by me. 10/27/17 19:11 patient was admitted for fever and possible pneumonia. given IV fluids for hypotension. Admitted to hospital for further evaluation and care. <Sonny Quinonez - Last Filed: 10/27/17 19:13> *DC/Admit/Observation/Transfer - Attestations Scribe Attestion: 10/26/17 20:02 Documentation prepared by Jensen Vance, acting as forensic medical examiner for Sonny Quinonez DO. <Jensen Vance - Last Filed: 10/26/17 20:02> - Discharge Dispostion Admit: Yes <Sonny Quinonez - Last Filed: 10/27/17 19:13> Diagnosis at time of Disposition: Acute exacerbation of chronic obstructive pulmonary disease (COPD), Pneumonia - Discharge Dispostion Condition at time of disposition: Stable
[2017-10-26] MEDS ORDERED: methylPREDNISolone NA SUCC 125 MG/2 ML VIAL IVPB ONE (19:44)
[2017-10-26] MEDS ORDERED: AZITHROMYCIN IVPB 500 MG in DEXTROSE 5%-WATER - 250 ML IVPB ONE (19:45)
[2017-10-26] MEDS ORDERED: ALBUTEROL SO4 2.5/IPRATROPIUM 0.5 INH SOL 3 ML VIAL.NEB. NEB STA (19:45)
[2017-10-26] MEDS ORDERED: CEFTRIAXONE 1 GM/50 ML BAG ONE (19:52)
[2017-10-26] MEDS ORDERED: methylPREDNISolone NA SUCC 125 MG/2 ML VIAL ONE ×2 (19:52→19:57)
[2017-10-26] MEDS ORDERED: AZITHROMYCIN IVPB 250 ML IVPB ONE (19:52)
[2017-10-26] MEDS ORDERED: OSELTAMIVIR PHOSPHATE 75 MG CAPSULE PO ONE (20:08)
[2017-10-26] MEDS ORDERED: OSELTAMIVIR PHOSPHATE 75 MG CAPSULE ONE (20:23)
--- NOTE | 2017-10-26 21:50 | HP ---
Admitting History and Physical - Primary Care Physician PCP: Digna Walton - Admission Chief Complaint: SOB, Fever History of Present Illness: This is a 72 y/o woman with a past medical history of COPD (on 3LNC), Sarcoidosis, HTN, DM, DVT (on Coumadin), L- leg wound (wound vac). Who presents to the ED with SOB and fever. Per patient's daughter, the patient was seen at the PMDs office started on Ceftin and Tamiflu. Daughter reports patient had recent admission- COPD Exacerbation for 10 days. On arrival to ED T- Max 103.4 History Source: Patient, Family Member Limitations to Obtaining History: No Limitations - Past Medical History Cardiovascular: Yes: CHF, Deep Vein Thrombosis, HTN Pulmonary: Yes: COPD, O2 Dependent, Other (sarcoidosis) Heme/Onc: Yes: Anemia Musculoskeletal: Yes: Chronic low back pain Rheumatology: Yes: Sarcoidosis Endocrine: Yes: Diabetes Mellitus - Past Surgical History Past Surgical History: Yes: Hysterectomy, Joint Replacement - Smoking History Smoking history: Former smoker Have you smoked in the past 12 months: No Aproximately how many cigarettes per day: 0 If you are a former smoker, when did you quit?: 30 years ago - Alcohol/Substance Use Hx Alcohol Use: No History of Substance Use: reports: None - Social History Usual Living Arrangement: Yes: Alone ADL: Independent History of Recent Travel: No Home Medications - Allergies Allergies/Adverse Reactions: Allergies Allergy/AdvReac Type Severity Reaction Status Date / Time No Known Allergies Allergy Verified 10/01/17 09:10 - Home Medications Home Medications: Ambulatory Orders Albuterol 2.5/Ipratropium 0.5 [Duoneb -] 1 amp NEB QIDR amp 12/04/16 Calcium Carbonate/Vitamin D3 [Calcium 600-Vit D3 200 Tablet] 1 each PO DAILY # 30 tab 10/09/17 Diltiazem [Cardizem -] 30 mg PO Q6HPO #120 tablet 10/09/17 Divalproex *ER* [Depakote *ER* -] 500 mg PO DAILY #30 tab 10/09/17 Docusate Sodium [Colace] 100 mg PO TID #30 tab 10/09/17 Furosemide [Lasix -] 40 mg PO BID@0600,1400 #60 tablet 10/09/17 Mirtazapine [Remeron Soltab -] 15 mg PO DAILY #30 tab 10/09/17 Montelukast Na [Singulair -] 10 mg PO HS #30 tablet 10/09/17 Omeprazole 40 mg PO AM #30 tab 10/09/17 Oxybutynin Chloride [Ditropan -] 15 mg PO DAILY #30 tab 10/09/17 Potassium Chloride [K-Dur -] 10 meq PO DAILY #30 tab 10/09/17 Prednisone 10 mg PO ASDIR #65 tablet 10/09/17 Sennosides [Senna] 8.6 mg PO TID #30 tab 10/09/17 Temazepam [Restoril -] 30 mg PO HS #30 tab MDD 1 10/09/17 Warfarin Na [Coumadin -] 5 mg PO ASDIR #60 tab 10/09/17 Family Disease History - Family Disease History Family History: Unable to Obtain Review of Systems - Review of Systems Constitutional: reports: Chills, Fever, Weakness Eyes: reports: No Symptoms HENT: reports: No Symptoms Neck: reports: No Symptoms Cardiovascular: reports: Shortness of Breath Respiratory: reports: Cough, Orthopnea, SOB, SOB on Exertion, Wheezing Gastrointestinal: reports: No Symptoms Genitourinary: reports: No Symptoms Breasts: reports: No Symptoms Reported Musculoskeletal: reports: Other (generalized bodyaches) Integumentary: reports: No Symptoms Neurological: reports: Weakness Endocrine: reports: No Symptoms Hematology/Lymphatic: reports: No Symptoms Psychiatric: reports: No Symptoms Physical Examination Vital Signs: Vital Signs Temperature 103.4 F H 10/26/17 18:56 Pulse Rate 124 H 10/26/17 20:50 Respiratory Rate 20 10/26/17 18:54 Blood Pressure 86/54 10/26/17 20:50 O2 Sat by Pulse Oximetry (%) 95 10/26/17 19:07 Constitutional: Yes: Moderate Distress, Obese Eyes: Yes: WNL, Conjunctiva Clear, EOM Intact, PERRL HENT: Yes: WNL, Atraumatic, Normocephalic Neck: Yes: WNL, Supple, Trachea Midline Cardiovascular: Yes: Tachycardia, S1, S2 Respiratory: Yes: On BiPap, Rhonchi, SOB, Tachypnea, Wheezes Gastrointestinal: Yes: WNL, Normal Bowel Sounds, Soft, Abdomen, Obese ...Rectal Exam: Yes: Deferred Renal/: Yes: [place] Present (yellow urine in drainage bag) Breast(s): Yes: WNL Musculoskeletal: Yes: Other (generalized bodyaches) Extremities: Yes: WNL Edema: Yes Peripheral Pulses WNL: Yes Integumentary: Yes: Bruising (LLE), Pressure Ulcer (LLE lateral aspect with wound vac) Wound/Incision: Yes: Other (wound vac to LLE) Neurological: Yes: WNL Labs: CBC, BMP 10/26/17 18:30 Imaging - Results Chest X-ray: Image Reviewed EKG: Image Reviewed (Sinus tachycardia with PACs Nonspecific ST & T wave abnormality QT/QTc 296/423) Problem List - Problems (1) Acute exacerbation of chronic obstructive pulmonary disease (COPD) Code(s): J44.1 - CHRONIC OBSTRUCTIVE PULMONARY DISEASE W (ACUTE) EXACERBATION (2) Sepsis Code(s): A41.9 - SEPSIS, UNSPECIFIED ORGANISM (3) Influenza Code(s): J11.1 - FLU DUE TO UNIDENTIFIED INFLUENZA VIRUS W OTH RESP MANIFEST (4) Pneumonia Code(s): J18.9 - PNEUMONIA, UNSPECIFIED ORGANISM (5) Tachycardia Code(s): R00.0 - TACHYCARDIA, UNSPECIFIED (6) CHF (congestive heart failure) Code(s): I50.9 - HEART FAILURE, UNSPECIFIED (7) Sarcoidosis of lung Code(s): D86.0 - SARCOIDOSIS OF LUNG (8) Wound of left lower extremity Code(s): S81.802A - UNSPECIFIED OPEN WOUND, LEFT LOWER LEG, INITIAL ENCOUNTER (9) CKD (chronic kidney disease) Code(s): N18.9 - CHRONIC KIDNEY DISEASE, UNSPECIFIED (10) HTN (hypertension) Code(s): I10 - ESSENTIAL (PRIMARY) HYPERTENSION Qualifiers: Hypertension type: essential hypertension Qualified Code(s): I10 - Essential (primary) hypertension (11) DVT prophylaxis Code(s): [id number] - Assessment/Plan This is a 72 y/o woman with a PMHx of: COPD (3L), Sarcoidosis, HTN, DM, L- leg DVT (on Coumadin), L- leg wound (wound vac). Admitted to Telemetry Acute on Chronic COPD, CHF Exacerbation, Sepsis likely secondary to Influenza A, Pneumonia. Plan: 1. Pulm: Acute on Chronic COPD- Continue Bipap titrate, ABG-pending, reviewed VBG 66, continue steroids IV, Duonebs, Appreciate Pulm consult, Monitor CBC, BMP Sepsis- SIRS Criteria met IV, T Max 103.4, R 30s-40s, BP 80s-50s, improved with fluids boluses, maintain MAP => 65, Lactic Acidemia 3.5~1.4, post fluid resuscitation, BCx2 pending, UC pending, +Influenza A likely source with superimposed pneumonia, Continue ABX, Appreciate ID consult, Monitor vitals, CBCD, BMP, consider ICU if condition further deteriorates- severe sepsis Pneumonia- Chest Xray image ?RML, will treat empirically HAP, CURB65 3, Appreciate ID consult, Blood Cultures-pending, Urine Culture- pending, Monitor CBCD, BMP Sarcoidosis- Continue to monitor and treat with interventions accordingly 2. Card: CHF- Likely Acute on Chronic, Echo, Appreciate Cardiology consult, Hold Lasix- 2 /2 Hypotension, On BIPAP, titrate, Repeat ABG Hypertension- Hold BP, diuretic meds secondary to Hypotension, Maintain MAP => 65, continue fluids boluses cautiously secondary to HF Hypocalcemia- 6.7 corrected Ca 8.1 Supratherapeutic INR- 3.19, Serial INRs, Hold Coumadin until INR repeated 3. Endocrine: DM- Monitor BGMs, Hold ISS until Diet resumed, BMP in am 4. Left Leg Wound: Appreciate Vascular Consult Wound Vac 5. Continue home meds, Hold antiHTNs, diuretics 2/2 hypotension 6. F/E/N Fluid restriction Replete Lytes prn NPO 7. DVT Prophylaxis Coumadin monitor INR Code Status: Full Code Dispo: Requires Inpatient Care Visit type - Emergency Visit Emergency Visit: Yes ED Registration Date: 10/26/17 Care time: The patient presented to the Emergency Department on the above date and was hospitalized for further evaluation of their emergent condition. - New Patient This patient is new to me today: Yes Date on this admission: 10/26/17 - Critical Care Critical Care patient: No
[2017-10-26] MEDS ORDERED: IPRATROPIUM BR 0.02% 0.5 MG/2.5 ML VIAL.NEB. NEB ONE (22:22)
[2017-10-26 22:23] LABS: ALBUMIN 2.3 g/dl (3.4-5.0); ANION GAP 6 (8-16); BILIRUBIN,TOTAL 0.2 mg/dL (0.2-1.0); BLOOD UREA NITROGEN 14 mg/dL (7-18); CHLORIDE 106 mmol/L (98-107); CO2 30 mmol/L (21-32); CREATININE 0.9 mg/dL (0.55-1.02); GLUCOSE,RANDOM 118 mg/dL (74-106); POTASSIUM 3.8 mmol/L (3.5-5.1); SGOT/AST 14 U/L (15-37); SGPT/ALT 18 U/L (12-78); SODIUM 142 mmol/L (136-145); TOT PROT 4.5 g/dl (6.4-8.2)
[2017-10-26 22:24] LABS: ALK PHOS 49 U/L (45-117)
[2017-10-26 22:37] LABS: CALCIUM 6.7 mg/dL (8.5-10.1)
[2017-10-27 00:27] LABS: ARTERIAL BLD GAS O2 SATURATION 99.1 % (90-98.9); ARTERIAL BLOOD GAS BASE EXCESS 1.1 meq/l (-2-2); ARTERIAL BLOOD GAS pH 7.26 (7.35-7.45)
[2017-10-27 00:29] LABS: ALLENS TEST POSITIVE
[2017-10-27 00:32] LABS: ARTERIAL BLOOD GAS PCO2 65.7 mmHg (35-45)
--- NOTE | 2017-10-27 08:17 | CONSULT ---
- Consultation REQUESTING PROVIDER: Joby Cooney - Wound Care CONSULT REQUEST: We have been asked to surgically evaluate this patient for chronic LLE wound. PCP: Digna Walton Electro Mechanical Engineer: Dr. Freeman HPI:Called to eval 72 yo female with PMHx noted below. Sent in by her PCP for further evaluation secondary to increased SOB and fever. While in ED Triage she had a Tmax 103.F. We have been asked to evaluate a wound on her LLE which has a VAC from outside facility. CXR while in ER reviewed. Denies n/v/d/c, CP, palpitations, chest pain, headache and dizziness. Denies dysuria, frequency, urgency and hematuria. PMHx: Sarcoidosis, DM, HTN, COPD, Obesity, LLE DVT (on coumadin) PSHx: Hysterectomy, Repair left hip fracture 1978 Home Meds Albuterol 2.5/Ipratropium 0.5 [Duoneb -] 1 amp NEB QIDR amp 12/04/16 Calcium Carbonate/Vitamin D3 [Calcium 600-Vit D3 200 Tablet] 1 each PO DAILY # 30 tab 10/09/17 Diltiazem [Cardizem -] 30 mg PO Q6HPO #120 tablet 10/09/17 Divalproex *ER* [Depakote *ER* -] 500 mg PO DAILY #30 tab 10/09/17 Docusate Sodium [Colace] 100 mg PO TID #30 tab 10/09/17 Furosemide [Lasix -] 40 mg PO BID@0600,1400 #60 tablet 10/09/17 Mirtazapine [Remeron Soltab -] 15 mg PO DAILY #30 tab 10/09/17 Montelukast Na [Singulair -] 10 mg PO HS #30 tablet 10/09/17 Omeprazole 40 mg PO AM #30 tab 10/09/17 Oxybutynin Chloride [Ditropan -] 15 mg PO DAILY #30 tab 10/09/17 Potassium Chloride [K-Dur -] 10 meq PO DAILY #30 tab 10/09/17 Prednisone 10 mg PO ASDIR #65 tablet 10/09/17 Sennosides [Senna -] 1 tab PO TID #30 tablet 10/09/17 Sennosides [Senna] 8.6 mg PO TID #30 tab 10/09/17 Temazepam [Restoril -] 30 mg PO HS #30 tab MDD 1 10/09/17 Warfarin Na [Coumadin -] 5 mg PO ASDIR #60 tab 10/09/17 Allergies: NKDA ROS: Systems reviewed and considered negative except for what's contained in HPI PE: GENERAL: Well developed, well nourished. Awake and alert. NAD HEENT:NC. AT. NECK: Supple. Full ROM. No JVD. Carotid pulses 2+ and symmetric, without bruits. No thyromegaly. No lymphadenopathy. COR: RRR PULM: + b/l wheezing and rhonchi in all ta ABD: + Obese body habitus. Soft. NT. + bowel sounds in all quadrants MUSCULOSKEL: No CVAT bilat LE: Wound VAC in place on lateral left knee. Not warm, no erythema, no drainage. non-tender. +dp bilat. warm. cap refill<3 sec Last Vital Signs Temp Pulse Resp BP Pulse Ox 98.3 F 102 H 18 109/57 94 L 10/27/17 06:38 10/27/17 06:49 10/27/17 06:49 10/27/17 06:49 10/27/17 06:49 CBC, BMP 10/26/17 18:30 10/26/17 21:00 Blood Type Blood Type Cancelled 10/26/17 18:30 INR, PTT INR 3.19 (0.82-1.09) H D 10/26/17 18:30 Problem List - Problems (1) Wound of left lower extremity Assessment/Plan: While in hospital, VAC should be changed every other day (--) --> ordered No surgical intervention needed. Code(s): S81.802A - UNSPECIFIED OPEN WOUND, LEFT LOWER LEG, INITIAL ENCOUNTER (2) COPD exacerbation Assessment/Plan: Management per Pulmonary Code(s): J44.1 - CHRONIC OBSTRUCTIVE PULMONARY DISEASE W (ACUTE) EXACERBATION (3) Sarcoidosis of lung Code(s): D86.0 - SARCOIDOSIS OF LUNG Visit type - Case Type Case Type: ED Admission - Emergency Emergency Visit: Yes ED Registration Date: 10/27/17 Care time: The patient presented to the Emergency Department on the above date and was hospitalized for further evaluation of their emergent condition. - New patient This patient is new to me today: Yes Date on this admission: 10/27/17
[2017-10-27] MEDS: ALBUTEROL SO4 2.5/IPRATROPIUM 0.5 INH SOL 3 ML VIAL.NEB. NEB SCH ×4 (08:53→20:10)
[2017-10-27 09:17] LABS: ARTERIAL BLD GAS O2 SATURATION 92.7 % (90-98.9); ARTERIAL BLOOD GAS BASE EXCESS 1.9 meq/l (-2-2); ARTERIAL BLOOD GAS PCO2 54.6 mmHg (35-45); ARTERIAL BLOOD GAS PO2 67.4 mmHg (70-100); ARTERIAL BLOOD GAS pH 7.33 (7.35-7.45)
[2017-10-27 09:18] LABS: ALLENS TEST POSITIVE
[2017-10-27] MEDS ORDERED: AZITHROMYCIN IVPB 500 MG in DEXTROSE 5%-WATER - 250 ML IVPB SCH (10:00)
--- NOTE | 2017-10-27 10:08 | PN ---
Progress Note, Physician History of Present Illness: 72 y/o woman with a past medical history of COPD (on 3LNC), Sarcoidosis, HTN, DM , DVT (on Coumadin), L- leg wound (wound vac). Who presents to the ED with SOB and fever. pt c/o weakness--seen this am noted with low bp--start ivf repeat labs and icu - Current Medication List Current Medications: Active Medications Albuterol/Ipratropium (Duoneb -) 1 amp NEB RQID [facility] Chlorhexidine Gluconate (Hibiclens For Decolonization -) 1 applic TP HS [facility] Divalproex Sodium (Depakote *Er* -) 500 mg PO DAILY [facility] Docusate Sodium (Colace -) 100 mg PO TID [facility] Azithromycin 500 mg/ Dextrose 250 mls @ 250 mls/hr IVPB DAILY [facility] Ceftriaxone Sodium 1 gm/ (Dextrose) 50 mls @ 100 mls/hr IVPB DAILY [facility] Sodium Chloride (Normal Saline -) 250 mls @ 150 mls/hr IV ASDIR [facility] Methylprednisolone Sodium Succinate (Solu-Medrol -) 40 mg IVPUSH Q6H-IV [facility] Montelukast Sodium (Singulair -) 10 mg PO HS [facility] Mupirocin (Bactroban Ointment (For Decolonization) -) 1 applic NS BID [facility] Stop: 11/01/17 21:59 Non-Formulary Medication (Calcium Carbonate/Vitamin D3 [Calcium 600-Vit D3 200 Tablet]) 1 each PO DAILY [facility] Non-Formulary Medication (Mirtazapine) 15 mg PO DAILY [facility] Non-Formulary Medication (Omeprazole) 40 mg PO AM [facility] Oseltamivir Phosphate (Tamiflu -) 75 mg PO BID [facility] Stop: 11/01/17 09:59 Oxybutynin Chloride (Ditropan -) 15 mg PO DAILY [facility] Potassium Chloride (K-Dur -) 10 meq PO DAILY [facility] Senna (Senna -) tab PO TID [facility] Temazepam (Restoril -) 30 mg PO HS [facility] Warfarin Sodium (Coumadin -) 5 mg PO SUTUTHFRSA@1800 [facility] Warfarin Sodium (Coumadin -) 2.5 mg PO MOWE@1800 [facility] - Objective Vital Signs: Vital Signs Temperature 98.3 F 10/27/17 06:38 Pulse Rate 106 H 10/27/17 09:11 Respiratory Rate 16 10/27/17 09:09 Blood Pressure 88/54 10/27/17 09:09 O2 Sat by Pulse Oximetry (%) 95 10/27/17 09:11 Cardiovascular: Yes: Murmur, S1, S2 Respiratory: Yes: CTA Bilaterally, On Nasal O2 Gastrointestinal: Yes: Normal Bowel Sounds, Soft. No: Tenderness Edema: No Wound/Incision: Yes: Other (vac) Neurological: Yes: Alert, Oriented Labs: CBC, BMP 10/26/17 18:30 10/26/17 21:00 INR, PTT INR 3.19 (0.82-1.09) H D 10/26/17 18:30 Problem List - Problems (1) Influenza Assessment/Plan: TAMIFLU ISOLATION ID CONSULT Code(s): J11.1 - FLU DUE TO UNIDENTIFIED INFLUENZA VIRUS W OTH RESP MANIFEST (2) Sepsis Assessment/Plan: CULTURES IV ABX RX FOR FLU IVF ICU MONITORING Code(s): A41.9 - SEPSIS, UNSPECIFIED ORGANISM (3) Acute exacerbation of chronic obstructive pulmonary disease (COPD) Assessment/Plan: NEBS STEROIDS Code(s): J44.1 - CHRONIC OBSTRUCTIVE PULMONARY DISEASE W (ACUTE) EXACERBATION (4) Wound of left lower extremity Assessment/Plan: VAC SURGERY ON CASE Code(s): S81.802A - UNSPECIFIED OPEN WOUND, LEFT LOWER LEG, INITIAL ENCOUNTER (5) Acute on chronic respiratory failure with hypoxia and hypercapnia Assessment/Plan: ABOVE Code(s): J96.21 - ACUTE AND CHRONIC RESPIRATORY FAILURE WITH HYPOXIA; J96.22 - ACUTE AND CHRONIC RESPIRATORY FAILURE WITH HYPERCAPNIA (6) CKD (chronic kidney disease) Code(s): N18.9 - CHRONIC KIDNEY DISEASE, UNSPECIFIED (7) PAF (paroxysmal atrial fibrillation) Assessment/Plan: HOLD COUMADIN FOLLOW INR CARDIO Code(s): I48.0 - PAROXYSMAL ATRIAL FIBRILLATION
--- NOTE | 2017-10-27 10:31 | EKG ---
Test Reason : Blood Pressure : / mmHG Vent. Rate : 121 BPM Atrial Rate : 121 BPM P-R Int : 120 ms QRS Dur : 068 ms QT Int : 298 ms P-R-T Axes : 015 032 027 degrees QTc Int : 423 ms SINUS TACHYCARDIA WITH OCCASIONAL PREMATURE VENTRICULAR COMPLEXES NONSPECIFIC T WAVE ABNORMALITY ABNORMAL ECG WHEN COMPARED WITH ECG OF 08-OCT-2017 07:43, PREMATURE VENTRICULAR COMPLEXES ARE NOW PRESENT VENT. RATE HAS INCREASED BY 50 BPM NON-SPECIFIC CHANGE IN ST SEGMENT IN ANTERIOR LEADS NONSPECIFIC T WAVE ABNORMALITY, WORSE IN ANTEROLATERAL LEADS Confirmed by NARDA PURVIS, TABATHA ([id number]) on 10/27/2017 10:30:33 AM Referred By: Confirmed By:TABATHA LABOY MD
[2017-10-27 11:08] LABS: BASO % 0.9 % (0-2.0); HEMATOCRIT 31.6 % (32.4-45.2); HEMOGLOBIN 9.7 GM/dL (10.7-15.3); LYMPH % 16.8 % (8-40); MCHC 30.6 g/dl (32.0-36.0); MEAN CELL VOLUME 94.8 fl (80-96); MEAN PLT VOLUME 7.9 fl (7.5-11.1); MONO % 5.3 % (3.8-10.2); PLATELET COUNT 107 K/MM3 (134-434); RBC 3.33 M/mm3 (3.60-5.2); RDW 17.4 % (11.6-15.6); WHITE BLOOD COUNT 3.4 K/mm3 (4.0-10.0)
[2017-10-27] MEDS: SODIUM CHLORIDE 250 ML IV SCH (11:09)
[2017-10-27] MEDS: CEFTRIAXONE 1 G/50 ML PREMIX 50 ML IVPB SCH (11:17)
[2017-10-27] MEDS: methylPREDNISolone NA SUCC 40 MG/1 ML VIAL IVPUSH SCH ×3 (11:17→21:14)
[2017-10-27] MEDS: OSELTAMIVIR PHOSPHATE 75 MG CAPSULE PO SCH ×2 (11:18→21:57)
[2017-10-27] MEDS ORDERED: OSELTAMIVIR PHOSPHATE 75 MG CAPSULE ONE (11:18)
[2017-10-27] MEDS ORDERED: methylPREDNISolone NA SUCC 40 MG/1 ML VIAL ONE (11:19)
[2017-10-27] MEDS ORDERED: AZITHROMYCIN IVPB 250 ML IVPB ONE (11:19)
[2017-10-27] MEDS ORDERED: CEFTRIAXONE 1 GM/50 ML BAG ONE (11:19)
[2017-10-27] MEDS: DIVALPROEX NA *ER* EXTEND REL 500 MG TABLET.SA (FP) PO SCH (11:22)
[2017-10-27] MEDS: PANTOPRAZOLE 40 MG TABLET (FP) PO SCH (11:22)
[2017-10-27] MEDS: POTASSIUM CHLORIDE TABS 10 MEQ TABLET.ER (FP) PO SCH (11:23)
[2017-10-27] MEDS: CALCIUM 500MG/VIT-D 200 UNITS COMBO TABLET (FP) PO SCH (11:24)
[2017-10-27] MEDS ORDERED: POTASSIUM CHLORIDE TABS 10 MEQ TABLET.ER (FP) ONE (11:24)
[2017-10-27] MEDS ORDERED: PANTOPRAZOLE 40 MG TABLET (FP) ONE (11:24)
[2017-10-27 11:41] LABS: ALBUMIN 2.4 g/dl (3.4-5.0); ANION GAP 5 (8-16); BLOOD UREA NITROGEN 16 mg/dL (7-18); CHLORIDE 107 mmol/L (98-107); CO2 30 mmol/L (21-32); CREATININE 0.9 mg/dL (0.55-1.02); GLUCOSE,RANDOM 138 mg/dL (74-106); POTASSIUM 5.1 mmol/L (3.5-5.1); SGOT/AST 17 U/L (15-37); SGPT/ALT 20 U/L (12-78); SODIUM 142 mmol/L (136-145); TOT PROT 4.9 g/dl (6.4-8.2)
[2017-10-27 11:44] LABS: ALK PHOS 52 U/L (45-117); BILIRUBIN,TOTAL 1.1 mg/dL (0.2-1.0); INR 2.62 (0.82-1.09); PROTHROMBIN TIME (PATIENT) 29.6 SEC (9.98-11.88)
[2017-10-27 11:50] LABS: CALCIUM 6.3 mg/dL (8.5-10.1)
[2017-10-27] MEDS ORDERED: VANCOMYCIN 1 GRAM (PRE-DOCKED) 1,000 MG/250 ML BAG IVPB SCH (14:15)
[2017-10-27] MEDS: DOCUSATE SODIUM 100 MG CAPSULE (FP) PO SCH ×2 (14:52→21:15)
[2017-10-27] MEDS: SENNOSIDES 8.6MG TABLET (FP) PO SCH ×2 (14:54→21:18)
--- NOTE | 2017-10-27 15:12 | CON.ID ---
Consult Consult Specialty:: infectious disease Referred by:: dr pope Reason for Consultation:: fever - History of Present Illness Chief Complaint: cough and fever History of Present Illness: 72 year old female with copd and sarcoid on home oxygen 3 liters, prednisone 30 mg daily devleoped fever and cough, yesterday felt more SOB and went to see her PMD ysterday, she was started on antibiotics, she felt more sob and came to ED INFLUENZA A positive she remains SOB no chest pain, no abd pain no dysuria she has a vac on her RLE she has a wound there +MRSA - History Source History Provided By: Patient, Family Member, Medical Record Limitations to Obtaining History: Clinical Condition - Past Medical History Cardio/Vascular: Yes: CHF, Deep Vein Thrombosis, HTN Pulmonary: Yes: COPD, O2 Dependent, Other (sarcoidosis) Musculoskeletal: Yes: Chronic low back pain Rheumatology: Yes: Sarcoidosis Endocrine: Yes: Diabetes Mellitus - Past Surgical History Past Surgical History: Yes: Hysterectomy, Joint Replacement - Alcohol/Substance Use Hx Alcohol Use: No History of Substance Use: reports: None - Smoking History Smoking history: Former smoker Have you smoked in the past 12 months: No Aproximately how many cigarettes per day: 0 If you are a former smoker, when did you quit?: 30 years ago - Social History Usual Living Arrangement: Alone ADL: Independent History of Recent Travel: No Home Medications - Allergies Allergies/Adverse Reactions: Allergies Allergy/AdvReac Type Severity Reaction Status Date / Time No Known Allergies Allergy Verified 10/01/17 09:10 - Home Medications Home Medications: Ambulatory Orders Albuterol 2.5/Ipratropium 0.5 [Duoneb -] 1 amp [facility] QIDR amp 12/04/16 Calcium Carbonate/Vitamin D3 [Calcium 600-Vit D3 200 Tablet] 1 each PO DAILY # 30 tab 10/09/17 Diltiazem [Cardizem -] 30 mg PO Q6HPO #120 tablet 10/09/17 Divalproex *ER* [Depakote *ER* -] 500 mg PO DAILY #30 tab 10/09/17 Docusate Sodium [Colace] 100 mg PO TID #30 tab 10/09/17 Furosemide [Lasix -] 40 mg PO BID@0600,1400 #60 tablet 10/09/17 Mirtazapine [Remeron Soltab -] 15 mg PO DAILY #30 tab 10/09/17 Montelukast Na [Singulair -] 10 mg PO HS #30 tablet 10/09/17 Omeprazole 40 mg PO AM #30 tab 10/09/17 Oxybutynin Chloride [Ditropan -] 15 mg PO DAILY #30 tab 10/09/17 Potassium Chloride [K-Dur -] 10 meq PO DAILY #30 tab 10/09/17 Prednisone 10 mg PO ASDIR #65 tablet 10/09/17 Sennosides [Senna] 8.6 mg PO TID #30 tab 10/09/17 Temazepam [Restoril -] 30 mg PO HS #30 tab MDD 1 10/09/17 Warfarin Na [Coumadin -] 5 mg PO ASDIR #60 tab 10/09/17 Family Disease History - Family Disease History Family History: Unable to Obtain Review of Systems - Review of Systems Constitutional: reports: Fever HENT: reports: No Symptoms. denies: Difficult Swallowing Cardiovascular: denies: Chest Pain Respiratory: reports: Cough, SOB Gastrointestinal: reports: No Symptoms Genitourinary: reports: No Symptoms Musculoskeletal: reports: Other (vac on right leg) Physical Exam Vital Signs: Vital Signs Temperature 100.0 F H 10/27/17 12:14 Pulse Rate 110 H 10/27/17 14:34 Respiratory Rate 26 H 10/27/17 14:34 Blood Pressure 90/55 10/27/17 14:34 O2 Sat by Pulse Oximetry (%) 97 10/27/17 14:34 Constitutional: Yes: Well Nourished, No Distress, Calm, Other Eyes: Yes: Conjunctiva Clear HENT: Yes: Atraumatic, Normocephalic. No: Thrush Neck: Yes: Supple, Trachea Midline Cardiovascular: Yes: Regular Rate and Rhythm Respiratory: Yes: Rhonchi, Wheezes Gastrointestinal: Yes: Normal Bowel Sounds, Soft Extremities: Yes: Other (left hip with healed wound, vac removed, clean ulcer lateral to the knee) Psychiatric: Yes: Alert, Oriented Labs: CBC, BMP 10/27/17 11:03 10/27/17 11:03 Microbiology 10/26/17 19:26 Nasopharyngeal Swab Influenza Types A,B Antigen (ARMANDO) - Final 10/26/17 19:26 Nasopharyngeal Swab - Final Imaging - Results Chest X-ray: Report Reviewed, Image Reviewed Problem List - Problems (1) Influenza A Code(s): J10.1 - FLU DUE TO OTH IDENT INFLUENZA VIRUS W OTH RESP MANIFEST (2) Acute exacerbation of chronic obstructive pulmonary disease (COPD) Code(s): J44.1 - CHRONIC OBSTRUCTIVE PULMONARY DISEASE W (ACUTE) EXACERBATION (3) Wound of left lower extremity Code(s): S81.802A - UNSPECIFIED OPEN WOUND, LEFT LOWER LEG, INITIAL ENCOUNTER (4) MRSA (methicillin resistant staph aureus) culture positive Code(s): Z22.322 - CARRIER OR SUSPECTED CARRIER OF METHICILLIN RESIS STAPH Assessment/Plan continue droplet isolation, MRSA isolation contue tamiflu nebs and steroids per pulmonary rocephin and vancomycin until cultures are back pneumonia urinary antigens
[2017-10-27] MEDS ORDERED: VANCOMYCIN 1 GRAM (PRE-DOCKED) 1,000 MG/250 ML BAG IVPB ONE (15:56)
--- NOTE | 2017-10-27 16:03 | CON.PULM ---
Consult Consult Specialty:: PULMONARY Referred by:: Dr. Walton Reason for Consultation:: shortness of breath - History of Present Illness Chief Complaint: shortness of breath History of Present Illness: 72yo female with h/o HTN, DM, COPD, sarcoidosis, chronic hypoxic respiratory failure on home O2, h/o DVT on anticoagulation, LLE wound with wound vac, recent hospitalization for CODP exacerbation who presents with worsening shortness of breath. +subjective fevers and chills. +sick contact from granddaughter. Found to be influenza A positive. +cough with green sputum, chills and sweats. No chest pain or palpitations. - History Source History Provided By: Patient, Medical Record Limitations to Obtaining History: Clinical Condition - Past Medical History Cardio/Vascular: Yes: CHF, Deep Vein Thrombosis, HTN Pulmonary: Yes: COPD, O2 Dependent, Other (sarcoidosis) Musculoskeletal: Yes: Chronic low back pain Rheumatology: Yes: Sarcoidosis Endocrine: Yes: Diabetes Mellitus - Past Surgical History Past Surgical History: Yes: Hysterectomy, Joint Replacement - Alcohol/Substance Use Hx Alcohol Use: No History of Substance Use: reports: None - Smoking History Smoking history: Former smoker Have you smoked in the past 12 months: No Aproximately how many cigarettes per day: 0 If you are a former smoker, when did you quit?: 30 years ago - Social History Usual Living Arrangement: Alone ADL: Independent History of Recent Travel: No Home Medications - Allergies Allergies/Adverse Reactions: Allergies Allergy/AdvReac Type Severity Reaction Status Date / Time No Known Allergies Allergy Verified 10/01/17 09:10 - Home Medications Home Medications: Ambulatory Orders Albuterol 2.5/Ipratropium 0.5 [Duoneb -] 1 amp NEB QIDR amp 12/04/16 Calcium Carbonate/Vitamin D3 [Calcium 600-Vit D3 200 Tablet] 1 each PO DAILY # 30 tab 10/09/17 Diltiazem [Cardizem -] 30 mg PO Q6HPO #120 tablet 10/09/17 Divalproex *ER* [Depakote *ER* -] 500 mg PO DAILY #30 tab 10/09/17 Docusate Sodium [Colace] 100 mg PO TID #30 tab 10/09/17 Furosemide [Lasix -] 40 mg PO BID@0600,1400 #60 tablet 10/09/17 Mirtazapine [Remeron Soltab -] 15 mg PO DAILY #30 tab 10/09/17 Montelukast Na [Singulair -] 10 mg PO HS #30 tablet 10/09/17 Omeprazole 40 mg PO AM #30 tab 10/09/17 Oxybutynin Chloride [Ditropan -] 15 mg PO DAILY #30 tab 10/09/17 Potassium Chloride [K-Dur -] 10 meq PO DAILY #30 tab 10/09/17 Prednisone 10 mg PO ASDIR #65 tablet 10/09/17 Sennosides [Senna] 8.6 mg PO TID #30 tab 10/09/17 Temazepam [Restoril -] 30 mg PO HS #30 tab MDD 1 10/09/17 Warfarin Na [Coumadin -] 5 mg PO ASDIR #60 tab 10/09/17 Review of Systems - Review of Systems Constitutional: reports: Chills, Fever, Malaise, Weakness Eyes: denies: Recent Change in Vision HENT: denies: Nasal Congestion, Throat Pain Neck: denies: Stiffness, Tenderness Cardiovascular: reports: Shortness of Breath. denies: Chest Pain, Edema, Palpitations Respiratory: reports: Cough, Exercise Intolerance, SOB, SOB on Exertion, Wheezing. denies: Hemoptysis Gastrointestinal: denies: Abdominal Pain, Nausea, Vomiting Genitourinary: denies: Dysuria, Hematuria Neurological: denies: Dizziness, Headache Physical Exam Vital Sings: Vital Signs Temperature 99.4 F 10/27/17 15:11 Pulse Rate 107 H 10/27/17 15:54 Respiratory Rate 16 10/27/17 15:54 Blood Pressure 98/68 10/27/17 15:54 O2 Sat by Pulse Oximetry (%) 97 10/27/17 15:54 Constitutional: Yes: Moderate Distress Eyes: Yes: Conjunctiva Clear, EOM Intact HENT: Yes: Atraumatic, Normocephalic Neck: Yes: Supple, Trachea Midline Cardiovascular: Yes: Regular Rate and Rhythm Respiratory: Yes: Rhonchi, Wheezes ...Clubbing: No Gastrointestinal: Yes: Normal Bowel Sounds, Soft. No: Tenderness Edema: Yes Neurological: Yes: Alert, Oriented Labs: CBC, BMP 10/27/17 11:03 10/27/17 11:03 ABG Results ABG pH 7.33 (7.35-7.45) L 10/27/17 09:10 ABG pCO2 at Pt Temp 54.6 mmHg (35-45) H 10/27/17 09:10 ABG pO2 at Pt Temp 67.4 mmHg (70-100) L D 10/27/17 09:10 ABG HCO3 27.8 meq/L (22-26) H 10/27/17 09:10 ABG O2 Sat (Measured) 92.7 % (90-98.9) 10/27/17 09:10 ABG O2 Content 11.5 % vol (15-22) L 10/27/17 09:10 ABG Base Excess 1.9 meq/l (-2-2) 10/27/17 09:10 Imaging - Results Chest X-ray: Report Reviewed, Image Reviewed (chronic changes) Assessment/Plan Acute on Chronic Hypoxic and Hypercapneic Respiratory Failure Influenza A Acute COPD Exacerbation Sarcoidosis h/o DVT HTN DM - tamiflu, antibiotics per ID - f/u cultures - IV medrol - inhaled bronchodilators standing and PRN - O2 to keep SpO2 >90% - BiPAP to assist in work of breathing - glucose control while on systemic steroids - monitor ABG - continue anticoagulation Thank you for this consult Mitch Hunt MD
--- NOTE | 2017-10-27 16:34 | CON.CARD ---
Consult Consult Specialty:: Cardiology Referred by:: Dr. Middleton Reason for Consultation:: History of atrial fibrillation and SOB - History of Present Illness Chief Complaint: Shortness of breath. History of Present Illness: 72 year-old obese woman with a PMHx of paroxysmal atrial fibrillation, HTN, DM, DVT (on Coumadin), severe COPD (O2 dependent on 3L NC ), sarcoidosis, , L- leg wound (wound vac) presented to ER . Who presents to the ED 10/26/2017 with SOB and fever. Per patient's daughter, the patient was seen at the PMDs office started on Ceftin and Tamiflu. She was recently treated for COPD exacerbation. The patient was seen by ID for influenza A and wound infection with MRSA. She has mild SOB while on O2 NC. But she denies recent palpitation or chest pain. ECG in ED shows sinus rhythm. - History Source History Provided By: Patient, Medical Record Limitations to Obtaining History: No Limitations - Past Medical History Cardio/Vascular: Yes: CHF, Deep Vein Thrombosis, HTN Pulmonary: Yes: COPD, O2 Dependent, Other (sarcoidosis) Musculoskeletal: Yes: Chronic low back pain Rheumatology: Yes: Sarcoidosis Endocrine: Yes: Diabetes Mellitus - Past Surgical History Past Surgical History: Yes: Hysterectomy, Joint Replacement - Alcohol/Substance Use Hx Alcohol Use: No History of Substance Use: reports: None - Smoking History Smoking history: Former smoker Have you smoked in the past 12 months: No Aproximately how many cigarettes per day: 0 If you are a former smoker, when did you quit?: 30 years ago - Social History Usual Living Arrangement: Alone ADL: Independent History of Recent Travel: No Home Medications - Allergies Allergies/Adverse Reactions: Allergies Allergy/AdvReac Type Severity Reaction Status Date / Time No Known Allergies Allergy Verified 10/01/17 09:10 - Home Medications Home Medications: Ambulatory Orders Albuterol 2.5/Ipratropium 0.5 [Duoneb -] 1 amp NEB QIDR amp 12/04/16 Calcium Carbonate/Vitamin D3 [Calcium 600-Vit D3 200 Tablet] 1 each PO DAILY # 30 tab 10/09/17 Diltiazem [Cardizem -] 30 mg PO Q6HPO #120 tablet 10/09/17 Divalproex *ER* [Depakote *ER* -] 500 mg PO DAILY #30 tab 10/09/17 Docusate Sodium [Colace] 100 mg PO TID #30 tab 10/09/17 Furosemide [Lasix -] 40 mg PO BID@0600,1400 #60 tablet 10/09/17 Mirtazapine [Remeron Soltab -] 15 mg PO DAILY #30 tab 10/09/17 Montelukast Na [Singulair -] 10 mg PO HS #30 tablet 10/09/17 Omeprazole 40 mg PO AM #30 tab 10/09/17 Oxybutynin Chloride [Ditropan -] 15 mg PO DAILY #30 tab 10/09/17 Potassium Chloride [K-Dur -] 10 meq PO DAILY #30 tab 10/09/17 Prednisone 10 mg PO ASDIR #65 tablet 10/09/17 Sennosides [Senna] 8.6 mg PO TID #30 tab 10/09/17 Temazepam [Restoril -] 30 mg PO HS #30 tab MDD 1 10/09/17 Warfarin Na [Coumadin -] 5 mg PO ASDIR #60 tab 10/09/17 Review of Systems - Review of Systems Constitutional: reports: Chills, Fever Eyes: reports: No Symptoms HENT: reports: No Symptoms Neck: reports: No Symptoms Cardiovascular: reports: Shortness of Breath Respiratory: reports: Cough, SOB, SOB on Exertion, Wheezing Gastrointestinal: reports: No Symptoms Genitourinary: reports: No Symptoms Breasts: reports: No Symptoms Reported Musculoskeletal: reports: Back Pain Integumentary: reports: Wound Neurological: reports: No Symptoms Endocrine: reports: No Symptoms Hematology/Lymphatic: reports: No Symptoms Vital Signs: Vital Signs Temperature 99.4 F 10/27/17 15:11 Pulse Rate 107 H 10/27/17 15:54 Respiratory Rate 16 10/27/17 15:54 Blood Pressure 98/68 10/27/17 15:54 O2 Sat by Pulse Oximetry (%) 97 10/27/17 15:54 Constitutional: Yes: Well Nourished, Obese Eyes: Yes: Conjunctiva Clear, EOM Intact HENT: Yes: Atraumatic, Normocephalic Neck: Yes: Supple, Trachea Midline Respiratory: Yes: Regular, Diminished, Hyperresonant, Tachypnea, Wheezes Gastrointestinal: Yes: Normal Bowel Sounds, Soft, Abdomen, Obese Cardiovascular: Yes: Regular Rate and Rhythm, Tachycardia JVD: No Carotid Bruit: No PMI: Non-Displaced Heart Sounds: Yes: S1, S2 Musculoskeletal: Yes: Back Pain Edema: Yes Edema: LLE: Trace, RLE: Trace Peripheral Pulses WNL: Yes - Other Data Labs, Other Data: CBC, BMP 10/27/17 11:03 10/27/17 11:03 INR, PTT INR 2.62 (0.82-1.09) H 10/27/17 11:03 Troponin, BNP 10/26/17 10/26/17 10/26/17 18:30 21:00 21:00 Troponin I Cancelled 0.03 B-Natriuretic Peptide 637.48 H 10/27/17 11:03 Troponin I < 0.02 B-Natriuretic Peptide Troponin, BNP 10/26/17 10/26/17 10/26/17 18:30 21:00 21:00 Troponin I Cancelled 0.03 B-Natriuretic Peptide 637.48 H 10/27/17 11:03 Troponin I < 0.02 B-Natriuretic Peptide Sinus tachycardia at rate of 103 bpm. Normal [address]. Normal ST-T. Low voltage. Ejection Fraction %: LVEF > or = 40 % Imaging - Results EKG: Image Reviewed (Sinus tachycardia at rate of 103 bpm. Normal axis. Normal ST-T. Low voltage.) Assessment/Plan 72 year-old obese woman with a PMHx of paroxysmal atrial fibrillation, HTN, DM, DVT (on Coumadin), severe COPD (O2 dependent on 3L NC ), sarcoidosis, , L- leg wound (wound vac) presented to ER . Who presents to the ED 10/26/2017 with SOB and fever. Per patient's daughter, the patient was seen at the PMDs office started on Ceftin and Tamiflu. She was recently treated for COPD exacerbation. The patient was seen by ID for influenza A and wound infection with MRSA. She has mild SOB while on O2 NC. But she denies recent palpitation or chest pain. ECG in ED shows sinus rhythm. 1) Paroxysmal atrial fibrillation: the patient is in normal sinus rhythm without recurrent palpitation. Continue Diltiazem for heart rate and BP control.' Continue Warfarin for stroke prevention. 2) Diastolic CHF: Echocardiogram on 10/04/2017 showed preserved LV systolic function with LVEF 55%. Her dyspnea is predominantly caused by COPD. No physical signs of fluid overload. BNP is mildly elevated. Continue Lasix PO 40 mg BID. COPD and influenza A management as per ID and pulmonary. Please call us for reconsult as needed.
[2017-10-27] MEDS: VANCOMYCIN 1,000 MG in DEXTROSE 5%-WATER - 250 ML IVPB SCH (16:47)
[2017-10-27] MEDS ORDERED: WARFARIN NA 2.5 MG TABLET (FP) PO SCH (18:00)
[2017-10-27] MEDS ORDERED: PT OWN MED DRAWER 7, Y5N ONE (21:09)
[2017-10-27] MEDS: TEMAZEPAM 15 MG CAPSULE PO SCH (21:14)
[2017-10-27] MEDS: MONTELUKAST NA 10 MG TABLET PO SCH (21:15)
[2017-10-27] MEDS: MIRTAZAPINE 15 MG TABLET (FP) PO SCH (21:15)
[2017-10-27] MEDS ORDERED: CHLORHEXIDINE GLUCONATE 4% CLEANSER FOR DECOLONIZATION TP SCH (22:00)
[2017-10-27] MEDS ORDERED: MUPIROCIN 2% TOPICAL OINTMENT FOR DECOLONIZATION NS SCH (22:00)
[2017-10-28] MEDS: methylPREDNISolone NA SUCC 40 MG/1 ML VIAL IVPUSH SCH ×4 (03:41→21:56)
[2017-10-28] MEDS: VANCOMYCIN 1,000 MG in DEXTROSE 5%-WATER - 250 ML IVPB SCH (03:55)
[2017-10-28] MEDS: DOCUSATE SODIUM 100 MG CAPSULE (FP) PO SCH ×3 (05:58→21:56)
[2017-10-28] MEDS: SENNOSIDES 8.6MG TABLET (FP) PO SCH ×3 (05:58→21:56)
[2017-10-28] MEDS: PANTOPRAZOLE 40 MG TABLET (FP) PO SCH (05:59)
[2017-10-28 06:09] LABS: BASO % 0.4 % (0-2.0); EOS % 0.1 % (0-4.5); HEMATOCRIT 29.6 % (32.4-45.2); HEMOGLOBIN 9.3 GM/dL (10.7-15.3); LYMPH % 13.7 % (8-40); MCH 29.8 pg (25.7-33.7); MCHC 31.4 g/dl (32.0-36.0); MEAN PLT VOLUME 8.6 fl (7.5-11.1); MONO % 6.8 % (3.8-10.2); PLATELET COUNT 101 K/MM3 (134-434); RBC 3.11 M/mm3 (3.60-5.2); WHITE BLOOD COUNT 3.1 K/mm3 (4.0-10.0)
[2017-10-28] MEDS ORDERED: PT OWN MED DRAWER 7, Y5N ONE ×2 (06:31→21:53)
[2017-10-28 06:46] LABS: ALBUMIN 2.2 g/dl (3.4-5.0); ALK PHOS 46 U/L (45-117); ANION GAP 5 (8-16); BLOOD UREA NITROGEN 16 mg/dL (7-18); CHLORIDE 109 mmol/L (98-107); CO2 29 mmol/L (21-32); CREATININE 0.8 mg/dL (0.55-1.02); GLUCOSE,RANDOM 229 mg/dL (74-106); POTASSIUM 5.1 mmol/L (3.5-5.1); SGOT/AST 14 U/L (15-37); SGPT/ALT 20 U/L (12-78); SODIUM 143 mmol/L (136-145); TOT PROT 4.7 g/dl (6.4-8.2)
[2017-10-28 06:49] LABS: BILIRUBIN,TOTAL < 0.1 mg/dL (0.2-1.0)
[2017-10-28 06:50] LABS: CALCIUM 6.9 mg/dL (8.5-10.1)
[2017-10-28] MEDS: ALBUTEROL SO4 2.5/IPRATROPIUM 0.5 INH SOL 3 ML VIAL.NEB. NEB SCH ×4 (07:40→20:50)
--- NOTE | 2017-10-28 07:45 | EKG ---
Test Reason : Blood Pressure : / mmHG Vent. Rate : 102 BPM Atrial Rate : 102 BPM P-R Int : 150 ms QRS Dur : 070 ms QT Int : 306 ms P-R-T Axes : 031 022 044 degrees QTc Int : 398 ms SINUS TACHYCARDIA LOW VOLTAGE QRS BORDERLINE ECG WHEN COMPARED WITH ECG OF 26-OCT-2017 18:22, PREMATURE VENTRICULAR COMPLEXES ARE NO LONGER PRESENT Confirmed by NARDA PURVIS, TABATHA ([id number]) on 10/27/2017 11:28:57 AM Referred By: Confirmed By:TABATHA LABOY MD
--- NOTE | 2017-10-28 09:18 | PN ---
Progress Note, Physician History of Present Illness: 72 y/o woman with a past medical history of COPD (on 3LNC), Sarcoidosis, HTN, DM , DVT (on Coumadin), L- leg wound (wound vac). Who presents to the ED with SOB and fever. pt c/o weakness--seen this am noted with low bp-- ivf repeat labs pending - Current Medication List Current Medications: Active Medications Albuterol/Ipratropium (Duoneb -) 1 amp NEB RQID [facility] Last Admin: 10/28/17 07:40 Dose: 1 amp Calcium Carbonate/Cholecalciferol (Os-Norman 500+D -) 1 tab PO DAILY [facility] Last Admin: 10/27/17 11:24 Dose: Not Given Divalproex Sodium (Depakote *Er* -) 500 mg PO DAILY [facility] Last Admin: 10/27/17 11:22 Dose: 500 mg Docusate Sodium (Colace -) 100 mg PO TID [facility] Last Admin: 10/28/17 05:58 Dose: 100 mg CEFTRIAXONE 1 G/50 ML PREMIX (Ceftriaxone 1 Gm-D5w Bag) 50 mls @ 100 mls/hr IVPB DAILY [facility] Last Admin: 10/27/17 11:17 Dose: 100 mls/hr Sodium Chloride (Normal Saline -) 250 mls @ 150 mls/hr IV ASDIR [facility] Last Admin: 10/27/17 11:09 Dose: 150 mls/hr Vancomycin HCl 1,000 mg/ (Dextrose) 250 mls @ 166.667 mls/hr IVPB Q12H [facility] Last Admin: 10/28/17 03:55 Dose: 166.667 mls/hr Methylprednisolone Sodium Succinate (Solu-Medrol -) 40 mg IVPUSH Q6H-IV [facility] Last Admin: 10/28/17 03:41 Dose: 40 mg Mirtazapine (Remeron -) 15 mg PO HS [facility] Last Admin: 10/27/17 21:15 Dose: 15 mg Montelukast Sodium (Singulair -) 10 mg PO HS [facility] Last Admin: 10/27/17 21:15 Dose: 10 mg Oseltamivir Phosphate (Tamiflu -) 75 mg PO BID [facility] Stop: 11/01/17 09:59 Last Admin: 10/27/17 21:57 Dose: 75 mg Pantoprazole Sodium (Protonix -) 40 mg PO AM [facility] Last Admin: 10/28/17 05:59 Dose: 40 mg Potassium Chloride (K-Dur -) 10 meq PO DAILY [facility] Last Admin: 10/27/17 11:23 Dose: 10 meq Senna (Senna -) 1 tab PO TID [facility] Last Admin: 10/28/17 05:58 Dose: 1 tab Solifenacin (Vesicare -) 10 mg PO DAILY [facility] Temazepam (Restoril -) 30 mg PO HS [facility] Last Admin: 10/27/17 21:14 Dose: 30 mg Warfarin Sodium (Coumadin -) 5 mg PO SUTUTHFRSA@1800 [facility] Warfarin Sodium (Coumadin -) 2.5 mg PO MOWE@1800 [facility] Last Admin: 10/27/17 18:48 Dose: 2.5 mg - Objective Vital Signs: Vital Signs Temperature 97.6 F 10/28/17 05:55 Pulse Rate 74 10/28/17 05:55 Respiratory Rate 25 H 10/28/17 05:55 Blood Pressure 100/57 10/28/17 05:55 O2 Sat by Pulse Oximetry (%) 98 10/28/17 07:40 Cardiovascular: Yes: S1, S2 Respiratory: Yes: On BiPap, Rhonchi Gastrointestinal: Yes: Normal Bowel Sounds, Soft Labs: CBC, BMP 10/28/17 05:35 10/28/17 05:35 INR, PTT INR 2.62 (0.82-1.09) H 10/27/17 11:03 Problem List - Problems (1) Influenza Assessment/Plan: TAMIFLU ISOLATION ID CONSULT Code(s): J11.1 - FLU DUE TO UNIDENTIFIED INFLUENZA VIRUS W OTH RESP MANIFEST (2) Sepsis Assessment/Plan: CULTURES IV ABX RX FOR FLU IVF ICU MONITORING Code(s): A41.9 - SEPSIS, UNSPECIFIED ORGANISM (3) Acute exacerbation of chronic obstructive pulmonary disease (COPD) Assessment/Plan: NEBS STEROIDS Code(s): J44.1 - CHRONIC OBSTRUCTIVE PULMONARY DISEASE W (ACUTE) EXACERBATION (4) Wound of left lower extremity Assessment/Plan: VAC SURGERY ON CASE Code(s): S81.802A - UNSPECIFIED OPEN WOUND, LEFT LOWER LEG, INITIAL ENCOUNTER (5) Acute on chronic respiratory failure with hypoxia and hypercapnia Assessment/Plan: ABOVE bipap Code(s): J96.21 - ACUTE AND CHRONIC RESPIRATORY FAILURE WITH HYPOXIA; J96.22 - ACUTE AND CHRONIC RESPIRATORY FAILURE WITH HYPERCAPNIA (6) CKD (chronic kidney disease) Code(s): N18.9 - CHRONIC KIDNEY DISEASE, UNSPECIFIED (7) PAF (paroxysmal atrial fibrillation) Assessment/Plan: RESUME COUMADIN FOLLOW INR CARDIO Code(s): I48.0 - PAROXYSMAL ATRIAL FIBRILLATION
[2017-10-28] MEDS: POTASSIUM CHLORIDE TABS 10 MEQ TABLET.ER (FP) PO SCH (10:41)
[2017-10-28] MEDS: OSELTAMIVIR PHOSPHATE 75 MG CAPSULE PO SCH ×2 (10:41→21:56)
[2017-10-28] MEDS: CEFTRIAXONE 1 G/50 ML PREMIX 50 ML IVPB SCH (10:41)
[2017-10-28] MEDS: CALCIUM 500MG/VIT-D 200 UNITS COMBO TABLET (FP) PO SCH (10:41)
[2017-10-28] MEDS: DIVALPROEX NA *ER* EXTEND REL 500 MG TABLET.SA (FP) PO SCH (10:41)
[2017-10-28] MEDS: SODIUM CHLORIDE 250 ML IV SCH (10:41)
[2017-10-28] MEDS: SOLIFENACIN SUCCINATE 5 MG TAB (FP) PO SCH (10:41)
--- NOTE | 2017-10-28 13:58 | PN ---
Progress Note, Physician Chief Complaint: ID Complains SOB and wheezing Tamiflu T max 103.4 - Current Medication List Current Medications: Active Medications Albuterol/Ipratropium (Duoneb -) 1 amp NEB RQID [facility] Last Admin: 10/28/17 11:50 Dose: 1 amp Calcium Carbonate/Cholecalciferol (Os-Norman 500+D -) 1 tab PO DAILY [facility] Last Admin: 10/28/17 10:41 Dose: 1 tab Divalproex Sodium (Depakote *Er* -) 500 mg PO DAILY [facility] Last Admin: 10/28/17 10:41 Dose: 500 mg Docusate Sodium (Colace -) 100 mg PO TID [facility] Last Admin: 10/28/17 05:58 Dose: 100 mg CEFTRIAXONE 1 G/50 ML PREMIX (Ceftriaxone 1 Gm-D5w Bag) 50 mls @ 100 mls/hr IVPB DAILY [facility] Last Admin: 10/28/17 10:41 Dose: 100 mls/hr Sodium Chloride (Normal Saline -) 250 mls @ 150 mls/hr IV ASDIR [facility] Last Admin: 10/28/17 10:41 Dose: Not Given Vancomycin HCl 1,000 mg/ (Dextrose) 250 mls @ 166.667 mls/hr IVPB Q12H [facility] Last Admin: 10/28/17 03:55 Dose: 166.667 mls/hr Methylprednisolone Sodium Succinate (Solu-Medrol -) 40 mg IVPUSH Q6H-IV [facility] Last Admin: 10/28/17 09:41 Dose: 40 mg Mirtazapine (Remeron -) 15 mg PO HS [facility] Last Admin: 10/27/17 21:15 Dose: 15 mg Montelukast Sodium (Singulair -) 10 mg PO HS [facility] Last Admin: 10/27/17 21:15 Dose: 10 mg Oseltamivir Phosphate (Tamiflu -) 75 mg PO BID [facility] Stop: 11/01/17 09:59 Last Admin: 10/28/17 10:41 Dose: 75 mg Pantoprazole Sodium (Protonix -) 40 mg PO AM [facility] Last Admin: 10/28/17 05:59 Dose: 40 mg Potassium Chloride (K-Dur -) 10 meq PO DAILY [facility] Last Admin: 10/28/17 10:41 Dose: 10 meq Senna (Senna -) 1 tab PO TID [facility] Last Admin: 10/28/17 05:58 Dose: 1 tab Solifenacin (Vesicare -) 10 mg PO DAILY [facility] Last Admin: 10/28/17 10:41 Dose: 10 mg Temazepam (Restoril -) 30 mg PO HS [facility] Last Admin: 10/27/17 21:14 Dose: 30 mg Warfarin Sodium (Coumadin -) 5 mg PO SUTUTHFRSA@1800 [facility] Warfarin Sodium (Coumadin -) 2.5 mg PO MOWE@1800 [facility] Last Admin: 10/27/17 18:48 Dose: 2.5 mg - Objective Vital Signs: Vital Signs Temperature 97.6 F 10/28/17 05:55 Pulse Rate 74 10/28/17 05:55 Respiratory Rate 25 H 10/28/17 05:55 Blood Pressure 100/57 10/28/17 05:55 O2 Sat by Pulse Oximetry (%) 97 10/28/17 10:00 Constitutional: Yes: Moderate Distress, Obese Cardiovascular: Yes: S1, S2 Respiratory: Yes: WNL, Regular, CTA Bilaterally, Diminished, Wheezes Gastrointestinal: Yes: Soft. No: Tenderness, Tenderness, Epigastrium Extremities: Yes: Other (VAC dressing left leg) Edema: Yes Labs: CBC, BMP 10/28/17 05:35 10/28/17 05:35 INR, PTT INR 2.62 (0.82-1.09) H 10/27/17 11:03 Assessment/Plan Microbiology 10/26/17 19:26 Nasopharyngeal Swab Influenza Types A,B Antigen (ARMANDO) - Final 10/26/17 19:26 Nasopharyngeal Swab - Final 10/26/17 18:44 Urine - Urine [place] Urine Culture - Final NO GROWTH OBTAINED 10/26/17 18:37 Blood - Peripheral Venous Blood Culture - Preliminary NO GROWTH OBTAINED AFTER 24 HOURS, INCUBATION TO CONTINUE FOR 4 DAYS. 10/26/17 18:37 Blood - Peripheral Venous Blood Culture - Preliminary NO GROWTH OBTAINED AFTER 24 HOURS, INCUBATION TO CONTINUE FOR 4 DAYS. Laboratory Tests 10/28/17 10/28/17 05:35 05:35 WBC 3.1 L RBC 3.11 L Hgb 9.3 L Plt Count 101 L Creat Clearance w eGFR > 60 Assessment Acute respiratory failure Influenza A COPD Plan Continue current management steroids Tamiflu Antibiotics can be stopped as cultures neg Delio PURVIS
--- NOTE | 2017-10-28 14:20 | PN ---
Progress Note (short form) - Note Progress Note: PULMONARY Feels slightly improved but still visibly tachypneic at rest. Using BiPAP. Last Vital Signs Temp Pulse Resp BP Pulse Ox 97.6 F 74 25 H 100/57 97 10/28/17 05:55 10/28/17 05:55 10/28/17 05:55 10/28/17 05:55 10/28/17 10:00 Intake & Output 10/25/17 10/26/17 10/27/17 10/28/17 23:59 23:59 23:59 23:59 Output Total 60 900 250 Balance -60 -900 -250 Weight 97.427 kg Gen: tachypneic at rest Heart: RRR Lng: bilateral rhonchi, wheezes Abd: soft, nontender Ext: +edema CBC, BMP 10/28/17 05:35 10/28/17 05:35 Active Medications Albuterol/Ipratropium (Duoneb -) 1 amp NEB RQID [facility] Last Admin: 10/28/17 11:50 Dose: 1 amp Calcium Carbonate/Cholecalciferol (Os-Norman 500+D -) 1 tab PO DAILY [facility] Last Admin: 10/28/17 10:41 Dose: 1 tab Divalproex Sodium (Depakote *Er* -) 500 mg PO DAILY [facility] Last Admin: 10/28/17 10:41 Dose: 500 mg Docusate Sodium (Colace -) 100 mg PO TID [facility] Last Admin: 10/28/17 05:58 Dose: 100 mg Sodium Chloride (Normal Saline -) 250 mls @ 150 mls/hr IV ASDIR [facility] Last Admin: 10/28/17 10:41 Dose: Not Given Methylprednisolone Sodium Succinate (Solu-Medrol -) 40 mg IVPUSH Q6H-IV [facility] Last Admin: 10/28/17 09:41 Dose: 40 mg Mirtazapine (Remeron -) 15 mg PO HS [facility] Last Admin: 10/27/17 21:15 Dose: 15 mg Montelukast Sodium (Singulair -) 10 mg PO HS [facility] Last Admin: 10/27/17 21:15 Dose: 10 mg Oseltamivir Phosphate (Tamiflu -) 75 mg PO BID [facility] Stop: 11/01/17 09:59 Last Admin: 10/28/17 10:41 Dose: 75 mg Pantoprazole Sodium (Protonix -) 40 mg PO AM [facility] Last Admin: 10/28/17 05:59 Dose: 40 mg Potassium Chloride (K-Dur -) 10 meq PO DAILY [facility] Last Admin: 10/28/17 10:41 Dose: 10 meq Senna (Senna -) 1 tab PO TID [facility] Last Admin: 10/28/17 05:58 Dose: 1 tab Solifenacin (Vesicare -) 10 mg PO DAILY [facility] Last Admin: 10/28/17 10:41 Dose: 10 mg Temazepam (Restoril -) 30 mg PO HS [facility] Last Admin: 10/27/17 21:14 Dose: 30 mg Warfarin Sodium (Coumadin -) 5 mg PO SUTUTHFRSA@1800 [facility] Warfarin Sodium (Coumadin -) 2.5 mg PO MOWE@1800 [facility] Last Admin: 10/27/17 18:48 Dose: 2.5 mg A/P Acute on Chronic Hypoxic and Hypercapneic Respiratory Failure Influenza A Acute COPD Exacerbation Sarcoidosis h/o DVT HTN DM - tamiflu - f/u cultures - IV medrol at current dose - inhaled bronchodilators standing and PRN - O2 to keep SpO2 >90% - BiPAP to assist in work of breathing - glucose control while on systemic steroids - monitor ABG - continue anticoagulation
[2017-10-28 16:59] LABS: INR 2.12 (0.82-1.09); PROTHROMBIN TIME (PATIENT) 23.9 SEC (9.98-11.88)
[2017-10-28] MEDS: WARFARIN NA 5 MG TABLET (UD) PO SCH (17:26)
[2017-10-28] MEDS: MONTELUKAST NA 10 MG TABLET PO SCH (21:56)
[2017-10-28] MEDS: MIRTAZAPINE 15 MG TABLET (FP) PO SCH (21:56)
[2017-10-28] MEDS: TEMAZEPAM 15 MG CAPSULE PO SCH (21:56)
[2017-10-29] MEDS: methylPREDNISolone NA SUCC 40 MG/1 ML VIAL IVPUSH SCH ×4 (02:20→22:04)
[2017-10-29] MEDS: SENNOSIDES 8.6MG TABLET (FP) PO SCH ×3 (06:03→22:04)
[2017-10-29] MEDS: PANTOPRAZOLE 40 MG TABLET (FP) PO SCH (06:03)
[2017-10-29] MEDS: DOCUSATE SODIUM 100 MG CAPSULE (FP) PO SCH ×3 (06:03→22:04)
[2017-10-29 07:29] LABS: BASO % 0.6 % (0-2.0); HEMATOCRIT 30.3 % (32.4-45.2); HEMOGLOBIN 9.4 GM/dL (10.7-15.3); MCH 29.3 pg (25.7-33.7); MCHC 31.1 g/dl (32.0-36.0); MEAN CELL VOLUME 94.1 fl (80-96); MEAN PLT VOLUME 8.7 fl (7.5-11.1); MONO % 4.4 % (3.8-10.2); PLATELET COUNT 115 K/MM3 (134-434); RBC 3.22 M/mm3 (3.60-5.2); RDW 17.3 % (11.6-15.6); WHITE BLOOD COUNT 4.4 K/mm3 (4.0-10.0)
[2017-10-29] MEDS: ALBUTEROL SO4 2.5/IPRATROPIUM 0.5 INH SOL 3 ML VIAL.NEB. NEB SCH ×4 (07:30→20:25)
[2017-10-29 07:38] LABS: INR 1.95 (0.82-1.09)
[2017-10-29 07:57] LABS: CHLORIDE 109 mmol/L (98-107); SODIUM 142 mmol/L (136-145)
[2017-10-29 08:04] LABS: ALBUMIN 2.4 g/dl (3.4-5.0); ALK PHOS 48 U/L (45-117); ANION GAP 5 (8-16); BILIRUBIN,TOTAL 0.2 mg/dL (0.2-1.0); BLOOD UREA NITROGEN 21 mg/dL (7-18); CALCIUM 7.3 mg/dL (8.5-10.1); CO2 28 mmol/L (21-32); CREATININE 0.9 mg/dL (0.55-1.02); GLUCOSE,RANDOM 163 mg/dL (74-106); SGOT/AST 13 U/L (15-37); SGPT/ALT 21 U/L (12-78); TOT PROT 4.9 g/dl (6.4-8.2)
[2017-10-29 08:12] LABS: POTASSIUM 5.6 mmol/L (3.5-5.1)
[2017-10-29] MEDS ORDERED: PT OWN MED DRAWER 7, Y5N ONE ×2 (08:48→21:45)
[2017-10-29] MEDS: DIVALPROEX NA *ER* EXTEND REL 500 MG TABLET.SA (FP) PO SCH (09:03)
[2017-10-29] MEDS: POTASSIUM CHLORIDE TABS 10 MEQ TABLET.ER (FP) PO SCH (09:03)
[2017-10-29] MEDS: OSELTAMIVIR PHOSPHATE 75 MG CAPSULE PO SCH ×2 (09:04→22:04)
[2017-10-29] MEDS: CALCIUM 500MG/VIT-D 200 UNITS COMBO TABLET (FP) PO SCH (09:04)
[2017-10-29] MEDS: SOLIFENACIN SUCCINATE 5 MG TAB (FP) PO SCH (09:21)
--- NOTE | 2017-10-29 10:19 | PN ---
Progress Note (short form) - Note Progress Note: still wheezing overall feels better Vital Signs Period Temp Pulse Resp BP Sys/Rosario Pulse Ox Last 24 Hr 97.1 F-98.5 F 76-98 18-18 106-116/51-69 95-98 cor-rrr llungs bilateral wheezing abd soft,nt ext vac in place (wound shallow and clean) CBC, BMP 10/29/17 07:14 10/29/17 07:14 Microbiology 10/26/17 18:37 Blood - Peripheral Venous Blood Culture - Preliminary NO GROWTH OBTAINED AFTER 48 HOURS, INCUBATION TO CONTINUE FOR 3 DAYS. 10/26/17 18:37 Blood - Peripheral Venous Blood Culture - Preliminary NO GROWTH OBTAINED AFTER 48 HOURS, INCUBATION TO CONTINUE FOR 3 DAYS. 10/27/17 23:22 Urine For Antigen Detection Legionella Antigen - Final 10/27/17 23:22 Urine For Antigen Detection Streptococcus pneumoniae Antigen (M - Final 10/26/17 18:44 Urine - Urine [place] Urine Culture - Final NO GROWTH OBTAINED 10/26/17 19:26 Nasopharyngeal Swab Influenza Types A,B Antigen (ARMANDO) - Final 10/26/17 19:26 Nasopharyngeal Swab - Final a/p Influenza A COPD Sarcoid continue droplet isolation continue tamiflu COPD management per pulmonary Problem List - Problems (1) Influenza A Code(s): J10.1 - FLU DUE TO OTH IDENT INFLUENZA VIRUS W OTH RESP MANIFEST (2) Acute exacerbation of chronic obstructive pulmonary disease (COPD) Code(s): J44.1 - CHRONIC OBSTRUCTIVE PULMONARY DISEASE W (ACUTE) EXACERBATION (3) Wound of left lower extremity Code(s): S81.802A - UNSPECIFIED OPEN WOUND, LEFT LOWER LEG, INITIAL ENCOUNTER (4) MRSA (methicillin resistant staph aureus) culture positive Code(s): Z22.322 - CARRIER OR SUSPECTED CARRIER OF METHICILLIN RESIS STAPH
--- NOTE | 2017-10-29 12:07 | PN ---
Progress Note, Physician Chief Complaint: awake coughing sob - Current Medication List Current Medications: Active Medications Albuterol/Ipratropium (Duoneb -) 1 amp NEB RQID [facility] Last Admin: 10/29/17 11:05 Dose: 1 amp Calcium Carbonate/Cholecalciferol (Os-Norman 500+D -) 1 tab PO DAILY [facility] Last Admin: 10/29/17 09:04 Dose: 1 tab Divalproex Sodium (Depakote *Er* -) 500 mg PO DAILY [facility] Last Admin: 10/29/17 09:03 Dose: 500 mg Docusate Sodium (Colace -) 100 mg PO TID [facility] Last Admin: 10/29/17 06:03 Dose: 100 mg Methylprednisolone Sodium Succinate (Solu-Medrol -) 40 mg IVPUSH Q6H-IV [facility] Last Admin: 10/29/17 09:03 Dose: 40 mg Mirtazapine (Remeron -) 15 mg PO [facility] Last Admin: 10/28/17 21:56 Dose: 15 mg Montelukast Sodium (Singulair -) 10 mg PO [facility] Last Admin: 10/28/17 21:56 Dose: 10 mg Oseltamivir Phosphate (Tamiflu -) 75 mg PO BID [facility] Stop: 11/01/17 09:59 Last Admin: 10/29/17 09:04 Dose: 75 mg Pantoprazole Sodium (Protonix -) 40 mg PO AM [facility] Last Admin: 10/29/17 06:03 Dose: 40 mg Potassium Chloride (K-Dur -) 10 meq PO DAILY [facility] Last Admin: 10/29/17 09:03 Dose: 10 meq Senna (Senna -) 1 tab PO TID [facility] Last Admin: 10/29/17 06:03 Dose: 1 tab Solifenacin (Vesicare -) 10 mg PO DAILY [facility] Last Admin: 10/29/17 09:21 Dose: 10 mg Temazepam (Restoril -) 30 mg PO [facility] Last Admin: 10/28/17 21:56 Dose: 30 mg Warfarin Sodium (Coumadin -) 5 mg PO SUTUTHFRSA@1800 [facility] Last Admin: 10/28/17 17:26 Dose: 5 mg Warfarin Sodium (Coumadin -) 2.5 mg PO MOWE@1800 [facility] Last Admin: 10/27/17 18:48 Dose: 2.5 mg - Objective Vital Signs: Vital Signs Temperature 98.3 F 10/29/17 05:48 Pulse Rate 98 H 10/29/17 05:48 Respiratory Rate 18 10/29/17 05:48 Blood Pressure 116/63 10/29/17 05:48 O2 Sat by Pulse Oximetry (%) 98 10/28/17 21:00 Constitutional: Yes: Mild Distress Eyes: Yes: WNL HENT: Yes: WNL Neck: Yes: WNL Cardiovascular: Yes: Pulse Irregular Respiratory: Yes: Cough, On Nasal O2, Poor Air Entry, SOB Gastrointestinal: Yes: WNL ...Rectal Exam: Yes: Other Genitourinary: Yes: Incontinence Musculoskeletal: Yes: Muscle Weakness Extremities: Yes: WNL Edema: Yes Peripheral Pulses WNL: Yes Integumentary: Yes: WNL Wound/Incision: Yes: Clean/Dry Neurological: Yes: Pre-Existing Deficit ...Motor Strength: LLE, RLE Psychiatric: Yes: Other Labs: CBC, BMP 10/29/17 07:14 10/29/17 07:14 INR, PTT INR 1.95 (0.82-1.09) H 10/29/17 07:14 Problem List - Problems (1) Acute exacerbation of chronic obstructive pulmonary disease (COPD) Code(s): J44.1 - CHRONIC OBSTRUCTIVE PULMONARY DISEASE W (ACUTE) EXACERBATION (2) DVT prophylaxis Code(s): [id number] - (3) Influenza Code(s): J11.1 - FLU DUE TO UNIDENTIFIED INFLUENZA VIRUS W OTH RESP MANIFEST (4) Influenza A Code(s): J10.1 - FLU DUE TO OTH IDENT INFLUENZA VIRUS W OTH RESP MANIFEST Assessment/Plan tamiflu resp support steroids 02 nc pulm/id follow up on coumadin
--- NOTE | 2017-10-29 14:11 | EKG ---
Test Reason : Blood Pressure : / mmHG Vent. Rate : 082 BPM Atrial Rate : 082 BPM P-R Int : 124 ms QRS Dur : 070 ms QT Int : 344 ms P-R-T Axes : 068 025 023 degrees QTc Int : 401 ms NORMAL SINUS RHYTHM LOW VOLTAGE QRS WHEN COMPARED WITH ECG OF 27-OCT-2017 11:00, NO SIGNIFICANT CHANGE WAS FOUND Confirmed by JENNA GARCIA MD ([id number]) on 10/29/2017 2:10:52 PM Referred By: JOHN POLANCO DR Confirmed By:JENNA GARCIA MD
--- NOTE | 2017-10-29 14:13 | PN ---
Progress Note, Physician History of Present Illness: PULMONARY ALERT,STILL MILDLY TACHYPNEIC. - Current Medication List Current Medications: Active Medications Albuterol/Ipratropium (Duoneb -) 1 amp NEB RQID [facility] Last Admin: 10/29/17 11:05 Dose: 1 amp Calcium Carbonate/Cholecalciferol (Os-Norman 500+D -) 1 tab PO DAILY [facility] Last Admin: 10/29/17 09:04 Dose: 1 tab Divalproex Sodium (Depakote *Er* -) 500 mg PO DAILY [facility] Last Admin: 10/29/17 09:03 Dose: 500 mg Docusate Sodium (Colace -) 100 mg PO TID [facility] Last Admin: 10/29/17 14:03 Dose: 100 mg Methylprednisolone Sodium Succinate (Solu-Medrol -) 40 mg IVPUSH Q6H-IV [facility] Last Admin: 10/29/17 09:03 Dose: 40 mg Mirtazapine (Remeron -) 15 mg PO HS [facility] Last Admin: 10/28/17 21:56 Dose: 15 mg Montelukast Sodium (Singulair -) 10 mg PO [facility] Last Admin: 10/28/17 21:56 Dose: 10 mg Oseltamivir Phosphate (Tamiflu -) 75 mg PO BID [facility] Stop: 11/01/17 09:59 Last Admin: 10/29/17 09:04 Dose: 75 mg Pantoprazole Sodium (Protonix -) 40 mg PO AM [facility] Last Admin: 10/29/17 06:03 Dose: 40 mg Potassium Chloride (K-Dur -) 10 meq PO DAILY [facility] Last Admin: 10/29/17 09:03 Dose: 10 meq Senna (Senna -) 1 tab PO TID [facility] Last Admin: 10/29/17 14:03 Dose: 1 tab Solifenacin (Vesicare -) 10 mg PO DAILY [facility] Last Admin: 10/29/17 09:21 Dose: 10 mg Temazepam (Restoril -) 30 mg PO [facility] Last Admin: 10/28/17 21:56 Dose: 30 mg Warfarin Sodium (Coumadin -) 5 mg PO SUTUTHFRSA@1800 [facility] Last Admin: 10/28/17 17:26 Dose: 5 mg Warfarin Sodium (Coumadin -) 2.5 mg PO MOWE@1800 [facility] Last Admin: 10/27/17 18:48 Dose: 2.5 mg - Objective Vital Signs: Vital Signs Temperature 97.6 F 10/29/17 11:00 Pulse Rate 104 H 10/29/17 11:00 Respiratory Rate 24 10/29/17 11:00 Blood Pressure 127/69 10/29/17 11:00 O2 Sat by Pulse Oximetry (%) 98 10/29/17 09:00 Constitutional: Yes: Well Nourished, Mild Distress Eyes: Yes: WNL HENT: Yes: WNL Neck: Yes: WNL Cardiovascular: Yes: Regular Rate and Rhythm, S1, S2 Respiratory: Yes: Rhonchi, Tachypnea Gastrointestinal: Yes: Normal Bowel Sounds, Soft Extremities: Yes: WNL Edema: Yes Labs: CBC, BMP 10/29/17 07:14 10/29/17 07:14 INR, PTT INR 1.95 (0.82-1.09) H 10/29/17 07:14 Problem List - Problems (1) Acute exacerbation of chronic obstructive pulmonary disease (COPD) Code(s): J44.1 - CHRONIC OBSTRUCTIVE PULMONARY DISEASE W (ACUTE) EXACERBATION (2) Influenza A Code(s): J10.1 - FLU DUE TO OTH IDENT INFLUENZA VIRUS W OTH RESP MANIFEST (3) Pneumonia Code(s): J18.9 - PNEUMONIA, UNSPECIFIED ORGANISM (4) Acute on chronic respiratory failure with hypoxia and hypercapnia Code(s): J96.21 - ACUTE AND CHRONIC RESPIRATORY FAILURE WITH HYPOXIA; J96.22 - ACUTE AND CHRONIC RESPIRATORY FAILURE WITH HYPERCAPNIA (5) CHF (congestive heart failure) Code(s): I50.9 - HEART FAILURE, UNSPECIFIED (6) DVT (deep venous thrombosis) Code(s): I82.409 - ACUTE EMBOLISM AND THOMBOS UNSP DEEP VN UNSP LOWER EXTREMITY Qualifiers: DVT location: lower extremity (7) HTN (hypertension) Code(s): I10 - ESSENTIAL (PRIMARY) HYPERTENSION Qualifiers: Hypertension type: essential hypertension Qualified Code(s): I10 - Essential (primary) hypertension (8) PAF (paroxysmal atrial fibrillation) Code(s): I48.0 - PAROXYSMAL ATRIAL FIBRILLATION (9) Pulmonary hypertension Code(s): I27.2 - OTHER SECONDARY PULMONARY HYPERTENSION * DO NOT USE * (10) Sarcoid Code(s): D86.9 - SARCOIDOSIS, UNSPECIFIED Assessment/Plan A/P Acute on Chronic Hypoxic and Hypercapneic Respiratory Failure Influenza A Acute COPD Exacerbation Sarcoidosis h/o DVT HTN DM - tamiflu - IV medrol at current dose - inhaled bronchodilators standing and PRN - O2 to keep SpO2 >90% - BiPAP as needed - glucose control while on systemic steroids - monitor ABG - anticoagulation DR NORTON
[2017-10-29] MEDS: WARFARIN NA 5 MG TABLET (UD) PO SCH (17:09)
[2017-10-29] MEDS: TEMAZEPAM 15 MG CAPSULE PO SCH (22:04)
[2017-10-29] MEDS: MIRTAZAPINE 15 MG TABLET (FP) PO SCH (22:05)
[2017-10-29] MEDS: MONTELUKAST NA 10 MG TABLET PO SCH (22:05)
[2017-10-30] MEDS: methylPREDNISolone NA SUCC 40 MG/1 ML VIAL IVPUSH SCH ×4 (02:56→21:13)
[2017-10-30] MEDS: DOCUSATE SODIUM 100 MG CAPSULE (FP) PO SCH ×3 (05:44→21:13)
[2017-10-30] MEDS: SENNOSIDES 8.6MG TABLET (FP) PO SCH ×3 (05:44→21:13)
[2017-10-30] MEDS: PANTOPRAZOLE 40 MG TABLET (FP) PO SCH (06:02)
[2017-10-30] MEDS: ALBUTEROL SO4 2.5/IPRATROPIUM 0.5 INH SOL 3 ML VIAL.NEB. NEB SCH ×4 (07:50→20:12)
[2017-10-30 07:55] LABS: INR 2.73 (0.82-1.09); PROTHROMBIN TIME (PATIENT) 30.8 SEC (9.98-11.88)
[2017-10-30] MEDS: SOLIFENACIN SUCCINATE 5 MG TAB (FP) PO SCH (09:13)
[2017-10-30] MEDS: OSELTAMIVIR PHOSPHATE 75 MG CAPSULE PO SCH ×2 (09:14→21:14)
[2017-10-30] MEDS: CALCIUM 500MG/VIT-D 200 UNITS COMBO TABLET (FP) PO SCH (09:14)
[2017-10-30 10:23] LABS: BASO % 0.1 % (0-2.0); HEMATOCRIT 30.5 % (32.4-45.2); HEMOGLOBIN 9.4 GM/dL (10.7-15.3); LYMPH % 10.7 % (8-40); MCHC 30.9 g/dl (32.0-36.0); MEAN CELL VOLUME 93.7 fl (80-96); MEAN PLT VOLUME 8.2 fl (7.5-11.1); MONO % 5.2 % (3.8-10.2); PLATELET COUNT 119 K/MM3 (134-434); RBC 3.26 M/mm3 (3.60-5.2); RDW 17.8 % (11.6-15.6); WHITE BLOOD COUNT 4.3 K/mm3 (4.0-10.0)
[2017-10-30 10:28] LABS: ALBUMIN 2.4 g/dl (3.4-5.0); ALK PHOS 48 U/L (45-117); ANION GAP 4 (8-16); BILIRUBIN,TOTAL 0.2 mg/dL (0.2-1.0); BLOOD UREA NITROGEN 25 mg/dL (7-18); CALCIUM 7.7 mg/dL (8.5-10.1); CHLORIDE 106 mmol/L (98-107); CO2 30 mmol/L (21-32); GLUCOSE,RANDOM 193 mg/dL (74-106); POTASSIUM 5.7 mmol/L (3.5-5.1); SGOT/AST 8 U/L (15-37); SGPT/ALT 19 U/L (12-78); SODIUM 140 mmol/L (136-145)
--- NOTE | 2017-10-30 11:42 | PN ---
Progress Note, Physician History of Present Illness: pulmonary alert,feeling better,less dyspneic - Current Medication List Current Medications: Active Medications Albuterol/Ipratropium (Duoneb -) 1 amp NEB RQID [facility] Last Admin: 10/30/17 07:50 Dose: 1 amp Calcium Carbonate/Cholecalciferol (Os-Norman 500+D -) 1 tab PO DAILY [facility] Last Admin: 10/30/17 09:14 Dose: 1 tab Divalproex Sodium (Depakote *Er* -) 500 mg PO DAILY [facility] Last Admin: 10/29/17 09:03 Dose: 500 mg Docusate Sodium (Colace -) 100 mg PO TID [facility] Last Admin: 10/30/17 05:44 Dose: 100 mg Methylprednisolone Sodium Succinate (Solu-Medrol -) 40 mg IVPUSH Q6H-IV [facility] Last Admin: 10/30/17 09:15 Dose: 40 mg Mirtazapine (Remeron -) 15 mg PO [facility] Last Admin: 10/29/17 22:05 Dose: 15 mg Montelukast Sodium (Singulair -) 10 mg PO [facility] Last Admin: 10/29/17 22:05 Dose: 10 mg Oseltamivir Phosphate (Tamiflu -) 75 mg PO BID [facility] Stop: 11/01/17 09:59 Last Admin: 10/30/17 09:14 Dose: 75 mg Pantoprazole Sodium (Protonix -) 40 mg PO AM [facility] Last Admin: 10/30/17 06:02 Dose: 40 mg Potassium Chloride (K-Dur -) 10 meq PO DAILY [facility] Last Admin: 10/29/17 09:03 Dose: 10 meq Senna (Senna -) 1 tab PO TID [facility] Last Admin: 10/30/17 05:44 Dose: 1 tab Solifenacin (Vesicare -) 10 mg PO DAILY [facility] Last Admin: 10/30/17 09:13 Dose: 10 mg Temazepam (Restoril -) 30 mg PO [facility] Last Admin: 10/29/17 22:04 Dose: 30 mg Warfarin Sodium (Coumadin -) 5 mg PO SUTUTHFRSA@1800 [facility] Last Admin: 10/29/17 17:09 Dose: 5 mg Warfarin Sodium (Coumadin -) 2.5 mg PO MOWE@1800 [facility] Last Admin: 10/27/17 18:48 Dose: 2.5 mg - Objective Vital Signs: Vital Signs Temperature 98.3 F 10/30/17 06:00 Pulse Rate 101 H 10/30/17 06:00 Respiratory Rate 20 10/30/17 06:00 Blood Pressure 123/77 10/30/17 06:00 O2 Sat by Pulse Oximetry (%) 99 10/30/17 08:32 Constitutional: Yes: Well Nourished, Calm Eyes: Yes: WNL HENT: Yes: WNL Neck: Yes: WNL Cardiovascular: Yes: Regular Rate and Rhythm, Pulse Irregular, S1, S2 Respiratory: Yes: Rales (bilateral crackles and rhonchi) Gastrointestinal: Yes: Normal Bowel Sounds, Soft Extremities: Yes: WNL Edema: Yes Labs: CBC, BMP 10/30/17 10:05 10/30/17 10:05 INR, PTT INR 2.73 (0.82-1.09) H D 10/30/17 06:30 Problem List - Problems (1) Acute exacerbation of chronic obstructive pulmonary disease (COPD) Code(s): J44.1 - CHRONIC OBSTRUCTIVE PULMONARY DISEASE W (ACUTE) EXACERBATION (2) Influenza A Code(s): J10.1 - FLU DUE TO OTH IDENT INFLUENZA VIRUS W OTH RESP MANIFEST (3) Pneumonia Code(s): J18.9 - PNEUMONIA, UNSPECIFIED ORGANISM (4) Acute on chronic respiratory failure with hypoxia and hypercapnia Code(s): J96.21 - ACUTE AND CHRONIC RESPIRATORY FAILURE WITH HYPOXIA; J96.22 - ACUTE AND CHRONIC RESPIRATORY FAILURE WITH HYPERCAPNIA (5) CHF (congestive heart failure) Code(s): I50.9 - HEART FAILURE, UNSPECIFIED (6) DVT (deep venous thrombosis) Code(s): I82.409 - ACUTE EMBOLISM AND THOMBOS UNSP DEEP VN UNSP LOWER EXTREMITY Qualifiers: DVT location: lower extremity (7) HTN (hypertension) Code(s): I10 - ESSENTIAL (PRIMARY) HYPERTENSION Qualifiers: Hypertension type: essential hypertension Qualified Code(s): I10 - Essential (primary) hypertension (8) PAF (paroxysmal atrial fibrillation) Code(s): I48.0 - PAROXYSMAL ATRIAL FIBRILLATION (9) Pulmonary hypertension Code(s): I27.2 - OTHER SECONDARY PULMONARY HYPERTENSION * DO NOT USE * (10) Sarcoid Code(s): D86.9 - SARCOIDOSIS, UNSPECIFIED Assessment/Plan A/P Acute on Chronic Hypoxic and Hypercapneic Respiratory Failure Influenza A Acute COPD Exacerbation Sarcoidosis h/o DVT HTN DM - tamiflu - IV medrol at current dose - inhaled bronchodilators standing and PRN - O2 to keep SpO2 >90% - BiPAP as needed - glucose control while on systemic steroids - monitor ABG - anticoagulation DR NORTON
[2017-10-30] MEDS: DIVALPROEX NA *ER* EXTEND REL 500 MG TABLET.SA (FP) PO SCH (12:19)
--- NOTE | 2017-10-30 12:57 | PN ---
Progress Note, Physician - Current Medication List Current Medications: Active Medications Albuterol/Ipratropium (Duoneb -) 1 amp NEB RQID [facility] Last Admin: 10/30/17 07:50 Dose: 1 amp Calcium Carbonate/Cholecalciferol (Os-Norman 500+D -) 1 tab PO DAILY [facility] Last Admin: 10/30/17 09:14 Dose: 1 tab Divalproex Sodium (Depakote *Er* -) 500 mg PO DAILY [facility] Last Admin: 10/29/17 09:03 Dose: 500 mg Docusate Sodium (Colace -) 100 mg PO TID [facility] Last Admin: 10/30/17 05:44 Dose: 100 mg Methylprednisolone Sodium Succinate (Solu-Medrol -) 40 mg IVPUSH Q6H-IV [facility] Last Admin: 10/30/17 09:15 Dose: 40 mg Mirtazapine (Remeron -) 15 mg PO [facility] Last Admin: 10/29/17 22:05 Dose: 15 mg Montelukast Sodium (Singulair -) 10 mg PO [facility] Last Admin: 10/29/17 22:05 Dose: 10 mg Oseltamivir Phosphate (Tamiflu -) 75 mg PO BID [facility] Stop: 11/01/17 09:59 Last Admin: 10/30/17 09:14 Dose: 75 mg Pantoprazole Sodium (Protonix -) 40 mg PO AM [facility] Last Admin: 10/30/17 06:02 Dose: 40 mg Senna (Senna -) 1 tab PO TID [facility] Last Admin: 10/30/17 05:44 Dose: 1 tab Solifenacin (Vesicare -) 10 mg PO DAILY [facility] Last Admin: 10/30/17 09:13 Dose: 10 mg Temazepam (Restoril -) 30 mg PO [facility] Last Admin: 10/29/17 22:04 Dose: 30 mg Warfarin Sodium (Coumadin -) 5 mg PO SUTUTHFRSA@1800 [facility] Last Admin: 10/29/17 17:09 Dose: 5 mg Warfarin Sodium (Coumadin -) 2.5 mg PO MOWE@1800 [facility] Last Admin: 10/27/17 18:48 Dose: 2.5 mg - Objective Vital Signs: Vital Signs Temperature 98.3 F 10/30/17 06:00 Pulse Rate 101 H 10/30/17 06:00 Respiratory Rate 20 10/30/17 06:00 Blood Pressure 123/77 10/30/17 06:00 O2 Sat by Pulse Oximetry (%) 99 10/30/17 08:32 Cardiovascular: Yes: S1, S2 Respiratory: Yes: On Nasal O2, Rhonchi Gastrointestinal: Yes: Normal Bowel Sounds, Soft Labs: CBC, BMP 10/30/17 10:05 10/30/17 10:05 INR, PTT INR 2.73 (0.82-1.09) H D 10/30/17 06:30 Problem List - Problems (1) Influenza Assessment/Plan: TAMIFLU ISOLATION ID CONSULT Code(s): J11.1 - FLU DUE TO UNIDENTIFIED INFLUENZA VIRUS W OTH RESP MANIFEST (2) Sepsis Assessment/Plan: CULTURES IV ABX PER ID RX FOR FLU Code(s): A41.9 - SEPSIS, UNSPECIFIED ORGANISM (3) Acute exacerbation of chronic obstructive pulmonary disease (COPD) Assessment/Plan: NEBS STEROIDS Code(s): J44.1 - CHRONIC OBSTRUCTIVE PULMONARY DISEASE W (ACUTE) EXACERBATION (4) Wound of left lower extremity Assessment/Plan: VAC SURGERY ON CASE Code(s): S81.802A - UNSPECIFIED OPEN WOUND, LEFT LOWER LEG, INITIAL ENCOUNTER (5) Acute on chronic respiratory failure with hypoxia and hypercapnia Assessment/Plan: ABOVE bipap Code(s): J96.21 - ACUTE AND CHRONIC RESPIRATORY FAILURE WITH HYPOXIA; J96.22 - ACUTE AND CHRONIC RESPIRATORY FAILURE WITH HYPERCAPNIA (6) CKD (chronic kidney disease) Assessment/Plan: IMPROVED FOLLOW LABS K HIGH--DC SUPPLEMENT Code(s): N18.9 - CHRONIC KIDNEY DISEASE, UNSPECIFIED (7) PAF (paroxysmal atrial fibrillation) Assessment/Plan: ON COUMADIN FOLLOW INR CARDIO Code(s): I48.0 - PAROXYSMAL ATRIAL FIBRILLATION (8) Hyperkalemia Assessment/Plan: STOP K FOLLOW LABS Code(s): E87.5 - HYPERKALEMIA
[2017-10-30] MEDS: POTASSIUM CHLORIDE TABS 10 MEQ TABLET.ER (FP) PO SCH (13:19)
[2017-10-30] MEDS ORDERED: PT OWN MED DRAWER 7, Y5N ONE ×2 (14:18→21:10)
[2017-10-30] MEDS: WARFARIN NA 5 MG TABLET (UD) PO SCH (17:19)
[2017-10-30] MEDS: MIRTAZAPINE 15 MG TABLET (FP) PO SCH (21:13)
[2017-10-30] MEDS: MONTELUKAST NA 10 MG TABLET PO SCH (21:13)
[2017-10-30] MEDS: TEMAZEPAM 15 MG CAPSULE PO SCH (21:13)
[2017-10-30] MEDS ORDERED: ACETAMINOPHEN 325 MG TABLET (FP) PO ONE (21:45)
[2017-10-31] MEDS: methylPREDNISolone NA SUCC 40 MG/1 ML VIAL IVPUSH SCH ×4 (03:47→20:03)
[2017-10-31] MEDS: SENNOSIDES 8.6MG TABLET (FP) PO SCH ×3 (05:59→22:40)
[2017-10-31] MEDS: PANTOPRAZOLE 40 MG TABLET (FP) PO SCH (05:59)
[2017-10-31] MEDS: DOCUSATE SODIUM 100 MG CAPSULE (FP) PO SCH ×3 (05:59→22:40)
[2017-10-31] MEDS: ALBUTEROL SO4 2.5/IPRATROPIUM 0.5 INH SOL 3 ML VIAL.NEB. NEB SCH ×4 (08:00→20:20)
[2017-10-31 08:05] LABS: INR 3.39 (0.82-1.09); PROTHROMBIN TIME (PATIENT) 38.3 SEC (9.98-11.88)
[2017-10-31 08:20] LABS: CHLORIDE 105 mmol/L (98-107); POTASSIUM 5.9 mmol/L (3.5-5.1); SODIUM 140 mmol/L (136-145)
[2017-10-31 08:32] LABS: ANION GAP 5 (8-16); BLOOD UREA NITROGEN 29 mg/dL (7-18); CALCIUM 8.4 mg/dL (8.5-10.1); CO2 30 mmol/L (21-32); GLUCOSE,RANDOM 162 mg/dL (74-106)
--- NOTE | 2017-10-31 08:52 | PN ---
Progress Note, Physician Chief Complaint: Influenza History of Present Illness: Just finishing up her Neb tx -still wheezing, SOB -seen by Pulmonary - Current Medication List Current Medications: Active Medications Albuterol/Ipratropium (Duoneb -) 1 amp NEB RQID [facility] Last Admin: 10/30/17 20:12 Dose: 1 amp Calcium Carbonate/Cholecalciferol (Os-Norman 500+D -) 1 tab PO DAILY [facility] Last Admin: 10/30/17 09:14 Dose: 1 tab Divalproex Sodium (Depakote *Er* -) 500 mg PO DAILY [facility] Last Admin: 10/30/17 12:19 Dose: 500 mg Docusate Sodium (Colace -) 100 mg PO TID [facility] Last Admin: 10/31/17 05:59 Dose: 100 mg Methylprednisolone Sodium Succinate (Solu-Medrol -) 40 mg IVPUSH Q6H-IV [facility] Last Admin: 10/31/17 08:42 Dose: 40 mg Mirtazapine (Remeron -) 15 mg PO HS [facility] Last Admin: 10/30/17 21:13 Dose: 15 mg Montelukast Sodium (Singulair -) 10 mg PO HS [facility] Last Admin: 10/30/17 21:13 Dose: 10 mg Oseltamivir Phosphate (Tamiflu -) 75 mg PO BID [facility] Stop: 11/01/17 09:59 Last Admin: 10/30/17 21:14 Dose: 75 mg Pantoprazole Sodium (Protonix -) 40 mg PO AM [facility] Last Admin: 10/31/17 05:59 Dose: 40 mg Senna (Senna -) 1 tab PO TID [facility] Last Admin: 10/31/17 05:59 Dose: 1 tab Solifenacin (Vesicare -) 10 mg PO DAILY [facility] Last Admin: 10/30/17 09:13 Dose: 10 mg Temazepam (Restoril -) 30 mg PO HS [facility] Last Admin: 10/30/17 21:13 Dose: 30 mg Warfarin Sodium (Coumadin -) 5 mg PO SUTUTHFRSA@1800 [facility] Last Admin: 10/30/17 17:19 Dose: 5 mg Warfarin Sodium (Coumadin -) 2.5 mg PO MOWE@1800 [facility] Last Admin: 10/27/17 18:48 Dose: 2.5 mg - Objective Vital Signs: Vital Signs Temperature 98.0 F 10/31/17 06:00 Pulse Rate 86 10/31/17 06:00 Respiratory Rate 20 10/31/17 06:00 Blood Pressure 114/60 10/31/17 06:00 O2 Sat by Pulse Oximetry (%) 97 10/30/17 21:00 Constitutional: Yes: Well Nourished, No Distress, Calm Cardiovascular: Yes: Regular Rate and Rhythm Respiratory: Yes: On Nasal O2, Wheezes (diffuse) Gastrointestinal: Yes: Normal Bowel Sounds, Soft Musculoskeletal: Yes: WNL Extremities: Yes: WNL Edema: No Peripheral Pulses WNL: Yes Neurological: Yes: Alert, Oriented Psychiatric: Yes: Alert, Oriented Labs: CBC, BMP 10/30/17 10:05 10/31/17 06:30 INR, PTT INR 3.39 (0.82-1.09) H 10/31/17 06:30 Problem List - Problems (1) Acute exacerbation of chronic obstructive pulmonary disease (COPD) Assessment/Plan: -uses home O2 -repeat CXR today -still extremely SOB and wheezing despite on Q6H steroids + bronchodilators+ tamiflu 5 days -discussed with Pulmonary Code(s): J44.1 - CHRONIC OBSTRUCTIVE PULMONARY DISEASE W (ACUTE) EXACERBATION (2) Influenza A Assessment/Plan: -on tamiflu Code(s): J10.1 - FLU DUE TO OTH IDENT INFLUENZA VIRUS W OTH RESP MANIFEST (3) Bronchitis Code(s): J40 - BRONCHITIS, NOT SPECIFIED ACUTE OR CHRONIC Assessment/Plan see problem list
[2017-10-31] MEDS ORDERED: PT OWN MED DRAWER 7, Y5N ONE ×2 (08:55→22:38)
[2017-10-31] MEDS: ACETAMINOPHEN 325 MG TABLET (FP) PO PRN (08:59)
[2017-10-31] MEDS: CALCIUM 500MG/VIT-D 200 UNITS COMBO TABLET (FP) PO SCH (09:02)
[2017-10-31] MEDS: OSELTAMIVIR PHOSPHATE 75 MG CAPSULE PO SCH ×2 (09:02→22:40)
[2017-10-31] MEDS: DIVALPROEX NA *ER* EXTEND REL 500 MG TABLET.SA (FP) PO SCH (09:02)
[2017-10-31] MEDS: SOLIFENACIN SUCCINATE 5 MG TAB (FP) PO SCH (09:02)
[2017-10-31] MEDS ORDERED: SODIUM POLYSTYRENE SULFONATE 15 GM/60 ML BOTTLE PO ONE (12:07)
--- NOTE | 2017-10-31 12:07 | PN ---
Progress Note, Physician History of Present Illness: PULMONARY STILL DYSPNEIC,+ COUGH,+ CONGESTION - Current Medication List Current Medications: Active Medications Acetaminophen (Tylenol -) 650 mg PO Q4H PRN PRN Reason: PAIN Last Admin: 10/31/17 08:59 Dose: 650 mg Albuterol/Ipratropium (Duoneb -) 1 amp NEB RQID [facility] Last Admin: 10/31/17 08:00 Dose: 1 amp Budesonide (Pulmicort 0.25 Mg Nebulizer -) 1 amp NEB RBID [facility] Calcium Carbonate/Cholecalciferol (Os-Norman 500+D -) 1 tab PO DAILY [facility] Last Admin: 10/31/17 09:02 Dose: 1 tab Divalproex Sodium (Depakote *Er* -) 500 mg PO DAILY [facility] Last Admin: 10/31/17 09:02 Dose: 500 mg Docusate Sodium (Colace -) 100 mg PO TID [facility] Last Admin: 10/31/17 05:59 Dose: 100 mg Methylprednisolone Sodium Succinate (Solu-Medrol -) 40 mg IVPUSH Q6H-IV [facility] Last Admin: 10/31/17 08:42 Dose: 40 mg Mirtazapine (Remeron -) 15 mg PO HS [facility] Last Admin: 10/30/17 21:13 Dose: 15 mg Montelukast Sodium (Singulair -) 10 mg PO HS [facility] Last Admin: 10/30/17 21:13 Dose: 10 mg Oseltamivir Phosphate (Tamiflu -) 75 mg PO BID [facility] Stop: 11/01/17 09:59 Last Admin: 10/31/17 09:02 Dose: 75 mg Pantoprazole Sodium (Protonix -) 40 mg PO AM [facility] Last Admin: 10/31/17 05:59 Dose: 40 mg Senna (Senna -) 1 tab PO TID [facility] Last Admin: 10/31/17 05:59 Dose: 1 tab Solifenacin (Vesicare -) 10 mg PO DAILY [facility] Last Admin: 10/31/17 09:02 Dose: 10 mg Temazepam (Restoril -) 30 mg PO HS [facility] Last Admin: 10/30/17 21:13 Dose: 30 mg Warfarin Sodium (Coumadin -) 5 mg PO SUTUTHFRSA@1800 [facility] Last Admin: 10/30/17 17:19 Dose: 5 mg Warfarin Sodium (Coumadin -) 2.5 mg PO MOWE@1800 [facility] Last Admin: 10/27/17 18:48 Dose: 2.5 mg - Objective Vital Signs: Vital Signs Temperature 98.4 F 10/31/17 10:00 Pulse Rate 94 H 10/31/17 10:00 Respiratory Rate 25 H 10/31/17 10:00 Blood Pressure 130/70 10/31/17 10:00 O2 Sat by Pulse Oximetry (%) 97 10/31/17 12:01 Constitutional: Yes: Well Nourished, Mild Distress Eyes: Yes: WNL HENT: Yes: WNL Neck: Yes: WNL Cardiovascular: Yes: Regular Rate and Rhythm, S1, S2 Respiratory: Yes: Rhonchi, Wheezes (CALI WHEEZES AND RHONCHI) Gastrointestinal: Yes: Normal Bowel Sounds, Soft Extremities: Yes: WNL Edema: Yes Labs: CBC, BMP 10/30/17 10:05 10/31/17 06:30 INR, PTT INR 3.39 (0.82-1.09) H 10/31/17 06:30 Problem List - Problems (1) Acute exacerbation of chronic obstructive pulmonary disease (COPD) Code(s): J44.1 - CHRONIC OBSTRUCTIVE PULMONARY DISEASE W (ACUTE) EXACERBATION (2) Influenza A Code(s): J10.1 - FLU DUE TO OTH IDENT INFLUENZA VIRUS W OTH RESP MANIFEST (3) Pneumonia Code(s): J18.9 - PNEUMONIA, UNSPECIFIED ORGANISM (4) Acute on chronic respiratory failure with hypoxia and hypercapnia Code(s): J96.21 - ACUTE AND CHRONIC RESPIRATORY FAILURE WITH HYPOXIA; J96.22 - ACUTE AND CHRONIC RESPIRATORY FAILURE WITH HYPERCAPNIA (5) CHF (congestive heart failure) Code(s): I50.9 - HEART FAILURE, UNSPECIFIED (6) DVT (deep venous thrombosis) Code(s): I82.409 - ACUTE EMBOLISM AND THOMBOS UNSP DEEP VN UNSP LOWER EXTREMITY Qualifiers: DVT location: lower extremity (7) HTN (hypertension) Code(s): I10 - ESSENTIAL (PRIMARY) HYPERTENSION Qualifiers: Hypertension type: essential hypertension Qualified Code(s): I10 - Essential (primary) hypertension (8) PAF (paroxysmal atrial fibrillation) Code(s): I48.0 - PAROXYSMAL ATRIAL FIBRILLATION (9) Pulmonary hypertension Code(s): I27.2 - OTHER SECONDARY PULMONARY HYPERTENSION * DO NOT USE * (10) Sarcoid Code(s): D86.9 - SARCOIDOSIS, UNSPECIFIED Assessment/Plan A/P Acute on Chronic Hypoxic and Hypercapneic Respiratory Failure Influenza A Acute COPD Exacerbation Sarcoidosis h/o DVT HTN DM - tamiflu - increase IV medrol to 60 q6 - inhaled bronchodilators standing and PRN - O2 to keep SpO2 >90% - BiPAP as needed - glucose control while on systemic steroids - monitor ABG - anticoagulation - chest x-ray - armando NORTON
[2017-10-31] MEDS ORDERED: BUDESONIDE 0.5 MG/2 ML INH SUSP VIAL NEB ONE (20:01)
[2017-10-31] MEDS: BUDESONIDE 0.25 MG/2ML INH SUSP VIAL NEB SCH (20:30)
[2017-10-31] MEDS: TEMAZEPAM 15 MG CAPSULE PO SCH (22:40)
[2017-10-31] MEDS: MIRTAZAPINE 15 MG TABLET (FP) PO SCH (22:40)
[2017-10-31] MEDS: MONTELUKAST NA 10 MG TABLET PO SCH (22:40)
[2017-11-01] MEDS: methylPREDNISolone NA SUCC 40 MG/1 ML VIAL IVPUSH SCH ×4 (02:56→21:44)
[2017-11-01] MEDS: SENNOSIDES 8.6MG TABLET (FP) PO SCH ×3 (06:11→21:44)
[2017-11-01] MEDS: DOCUSATE SODIUM 100 MG CAPSULE (FP) PO SCH ×3 (06:11→21:44)
[2017-11-01] MEDS: PANTOPRAZOLE 40 MG TABLET (FP) PO SCH (06:11)
[2017-11-01 07:04] LABS: INR 3.72 (0.82-1.09)
[2017-11-01] MEDS: ALBUTEROL SO4 2.5/IPRATROPIUM 0.5 INH SOL 3 ML VIAL.NEB. NEB SCH ×4 (07:41→20:03)
[2017-11-01] MEDS ORDERED: PT OWN MED DRAWER 7, Y5N ONE ×3 (07:46→10:57)
[2017-11-01] MEDS: BUDESONIDE 0.25 MG/2ML INH SUSP VIAL NEB SCH (08:15)
[2017-11-01] MEDS: CALCIUM 500MG/VIT-D 200 UNITS COMBO TABLET (FP) PO SCH (09:00)
[2017-11-01] MEDS: SOLIFENACIN SUCCINATE 5 MG TAB (FP) PO SCH (09:00)
[2017-11-01] MEDS: DIVALPROEX NA *ER* EXTEND REL 500 MG TABLET.SA (FP) PO SCH (09:00)
--- NOTE | 2017-11-01 11:35 | PN ---
Progress Note, Physician Chief Complaint: ID Off all antibiotics - Current Medication List Current Medications: Active Medications Acetaminophen (Tylenol -) 650 mg PO Q4H PRN PRN Reason: PAIN Last Admin: 10/31/17 08:59 Dose: 650 mg Albuterol/Ipratropium (Duoneb -) 1 amp NEB RQID [facility] Last Admin: 11/01/17 11:03 Dose: 1 amp Budesonide (Pulmicort 0.25 Mg Nebulizer -) 1 amp NEB RBID [facility] Last Admin: 11/01/17 08:15 Dose: 1 amp Calcium Carbonate/Cholecalciferol (Os-Norman 500+D -) 1 tab PO DAILY [facility] Last Admin: 11/01/17 09:00 Dose: 1 tab Divalproex Sodium (Depakote *Er* -) 500 mg PO DAILY [facility] Last Admin: 11/01/17 09:00 Dose: 500 mg Docusate Sodium (Colace -) 100 mg PO TID [facility] Last Admin: 11/01/17 06:11 Dose: 100 mg Methylprednisolone Sodium Succinate (Solu-Medrol -) 60 mg IVPUSH Q6H-IV [facility] Last Admin: 11/01/17 09:00 Dose: 60 mg Mirtazapine (Remeron -) 15 mg PO [facility] Last Admin: 10/31/17 22:40 Dose: 15 mg Montelukast Sodium (Singulair -) 10 mg PO HS [facility] Last Admin: 10/31/17 22:40 Dose: 10 mg Pantoprazole Sodium (Protonix -) 40 mg PO AM [facility] Last Admin: 11/01/17 06:11 Dose: 40 mg Senna (Senna -) 1 tab PO TID [facility] Last Admin: 11/01/17 06:11 Dose: 1 tab Solifenacin (Vesicare -) 10 mg PO DAILY [facility] Last Admin: 11/01/17 09:00 Dose: 10 mg Temazepam (Restoril -) 30 mg PO [facility] Last Admin: 10/31/17 22:40 Dose: 30 mg Warfarin Sodium (Coumadin -) 5 mg PO SUTUTHFRSA@1800 [facility] Last Admin: 10/30/17 17:19 Dose: 5 mg Warfarin Sodium (Coumadin -) 2.5 mg PO MOWE@1800 [facility] Last Admin: 10/27/17 18:48 Dose: 2.5 mg - Objective Vital Signs: Vital Signs Temperature 97.6 F 11/01/17 06:00 Pulse Rate 99 H 11/01/17 07:40 Respiratory Rate 18 11/01/17 09:00 Blood Pressure 122/67 11/01/17 06:00 O2 Sat by Pulse Oximetry (%) 98 11/01/17 09:00 Constitutional: Yes: No Distress Cardiovascular: Yes: Regular Rate and Rhythm, S1, S2 Respiratory: Yes: Accessory Muscle Use, Wheezes Gastrointestinal: Yes: Soft. No: Tenderness, Tenderness, Epigastrium Labs: CBC, BMP 10/30/17 10:05 10/31/17 06:30 INR, PTT INR 3.72 (0.82-1.09) H 11/01/17 06:37 Assessment/Plan Microbiology 10/27/17 23:22 Urine For Antigen Detection Legionella Antigen - Final 10/27/17 23:22 Urine For Antigen Detection Streptococcus pneumoniae Antigen (M - Final 10/26/17 19:26 Nasopharyngeal Swab Influenza Types A,B Antigen (ARMANDO) - Final 10/26/17 19:26 Nasopharyngeal Swab - Final 10/26/17 18:44 Urine - Urine [place] Urine Culture - Final NO GROWTH OBTAINED 10/26/17 18:37 Blood - Peripheral Venous Blood Culture - Final NO GROWTH AFTER 5 DAYS INCUBATION 10/26/17 18:37 Blood - Peripheral Venous Blood Culture - Final NO GROWTH AFTER 5 DAYS INCUBATION 10/26/17 18:37 Blood - Peripheral Venous Blood Culture - Preliminary NO GROWTH OBTAINED AFTER 24 HOURS, INCUBATION TO CONTINUE FOR 4 DAYS. 10/26/17 18:37 Blood - Peripheral Venous Blood Culture - Preliminary NO GROWTH OBTAINED AFTER 24 HOURS, INCUBATION TO CONTINUE FOR 4 DAYS. Laboratory Tests 10/30/17 10/31/17 10:05 06:30 WBC 4.3 RBC 3.26 L Hgb 9.4 L Plt Count 119 L BUN 29 H Creatinine 1.0 Assessment Post treatment for Influenza A. COPD Plan Can stop droplet precautions tomorrow 7 days Delio PURVIS
--- NOTE | 2017-11-01 12:10 | PN ---
Progress Note, Physician History of Present Illness: PULMONARY STILL DYSPNEIC ON NASAL O2,LESS WHEEZES - Current Medication List Current Medications: Active Medications Acetaminophen (Tylenol -) 650 mg PO Q4H PRN PRN Reason: PAIN Last Admin: 10/31/17 08:59 Dose: 650 mg Albuterol/Ipratropium (Duoneb -) 1 amp NEB RQID [facility] Last Admin: 11/01/17 11:03 Dose: 1 amp Budesonide (Pulmicort 0.25 Mg Nebulizer -) 1 amp NEB RBID [facility] Last Admin: 11/01/17 08:15 Dose: 1 amp Calcium Carbonate/Cholecalciferol (Os-Norman 500+D -) 1 tab PO DAILY [facility] Last Admin: 11/01/17 09:00 Dose: 1 tab Divalproex Sodium (Depakote *Er* -) 500 mg PO DAILY [facility] Last Admin: 11/01/17 09:00 Dose: 500 mg Docusate Sodium (Colace -) 100 mg PO TID [facility] Last Admin: 11/01/17 06:11 Dose: 100 mg Methylprednisolone Sodium Succinate (Solu-Medrol -) 60 mg IVPUSH Q6H-IV [facility] Last Admin: 11/01/17 09:00 Dose: 60 mg Mirtazapine (Remeron -) 15 mg PO [facility] Last Admin: 10/31/17 22:40 Dose: 15 mg Montelukast Sodium (Singulair -) 10 mg PO [facility] Last Admin: 10/31/17 22:40 Dose: 10 mg Pantoprazole Sodium (Protonix -) 40 mg PO AM [facility] Last Admin: 11/01/17 06:11 Dose: 40 mg Senna (Senna -) 1 tab PO TID [facility] Last Admin: 11/01/17 06:11 Dose: 1 tab Solifenacin (Vesicare -) 10 mg PO DAILY [facility] Last Admin: 11/01/17 09:00 Dose: 10 mg Temazepam (Restoril -) 30 mg PO [facility] Last Admin: 10/31/17 22:40 Dose: 30 mg Warfarin Sodium (Coumadin -) 5 mg PO SUTUTHFRSA@1800 [facility] Last Admin: 10/30/17 17:19 Dose: 5 mg Warfarin Sodium (Coumadin -) 2.5 mg PO MOWE@1800 [facility] Last Admin: 10/27/17 18:48 Dose: 2.5 mg - Objective Vital Signs: Vital Signs Temperature 97.6 F 11/01/17 06:00 Pulse Rate 99 H 11/01/17 07:40 Respiratory Rate 18 11/01/17 09:00 Blood Pressure 122/67 11/01/17 06:00 O2 Sat by Pulse Oximetry (%) 98 11/01/17 09:00 Constitutional: Yes: Well Nourished, Other (MILDLY DYSPNEIC) Eyes: Yes: WNL, Occular Prosthesis Neck: Yes: WNL Cardiovascular: Yes: Regular Rate and Rhythm, S1, S2 Respiratory: Yes: Wheezes (LESS WHEEZES CALI) Gastrointestinal: Yes: Normal Bowel Sounds, Soft Extremities: Yes: WNL Edema: Yes Labs: CBC, BMP Problem List - Problems (1) Acute exacerbation of chronic obstructive pulmonary disease (COPD) Code(s): J44.1 - CHRONIC OBSTRUCTIVE PULMONARY DISEASE W (ACUTE) EXACERBATION (2) Influenza A Code(s): J10.1 - FLU DUE TO OTH IDENT INFLUENZA VIRUS W OTH RESP MANIFEST (3) Pneumonia Code(s): J18.9 - PNEUMONIA, UNSPECIFIED ORGANISM (4) Acute on chronic respiratory failure with hypoxia and hypercapnia Code(s): J96.21 - ACUTE AND CHRONIC RESPIRATORY FAILURE WITH HYPOXIA; J96.22 - ACUTE AND CHRONIC RESPIRATORY FAILURE WITH HYPERCAPNIA (5) CHF (congestive heart failure) Code(s): I50.9 - HEART FAILURE, UNSPECIFIED (6) DVT (deep venous thrombosis) Code(s): I82.409 - ACUTE EMBOLISM AND THOMBOS UNSP DEEP VN UNSP LOWER EXTREMITY Qualifiers: DVT location: lower extremity (7) HTN (hypertension) Code(s): I10 - ESSENTIAL (PRIMARY) HYPERTENSION Qualifiers: Hypertension type: essential hypertension Qualified Code(s): I10 - Essential (primary) hypertension (8) PAF (paroxysmal atrial fibrillation) Code(s): I48.0 - PAROXYSMAL ATRIAL FIBRILLATION (9) Pulmonary hypertension Code(s): I27.2 - OTHER SECONDARY PULMONARY HYPERTENSION * DO NOT USE * (10) Sarcoid Code(s): D86.9 - SARCOIDOSIS, UNSPECIFIED Assessment/Plan A/P Acute on Chronic Hypoxic and Hypercapneic Respiratory Failure Influenza A Acute COPD Exacerbation Sarcoidosis h/o DVT HTN DM - tamiflu - increase IV medrol to 60 q6 - inhaled bronchodilators standing and PRN - O2 to keep SpO2 >90% - BiPAP as needed - glucose control while on systemic steroids - monitor ABG - anticoagulation - chest x-ray - kayaxalate - bmp DR NORTON
[2017-11-01 12:50] LABS: ANION GAP 1 (8-16); BLOOD UREA NITROGEN 28 mg/dL (7-18); CALCIUM 8.1 mg/dL (8.5-10.1); CHLORIDE 103 mmol/L (98-107); CO2 36 mmol/L (21-32); GLUCOSE,RANDOM 198 mg/dL (74-106); POTASSIUM 5.3 mmol/L (3.5-5.1); SODIUM 140 mmol/L (136-145)
--- NOTE | 2017-11-01 14:13 | PN ---
Progress Note, Physician Chief Complaint: AWAKE ALERT STILL SOB ON NC - Current Medication List Current Medications: Active Medications Acetaminophen (Tylenol -) 650 mg PO Q4H PRN PRN Reason: PAIN Last Admin: 10/31/17 08:59 Dose: 650 mg Albuterol/Ipratropium (Duoneb -) 1 amp NEB RQID [facility] Last Admin: 11/01/17 11:03 Dose: 1 amp Budesonide (Pulmicort 0.25 Mg Nebulizer -) 1 amp NEB RBID [facility] Last Admin: 11/01/17 08:15 Dose: 1 amp Calcium Carbonate/Cholecalciferol (Os-Norman 500+D -) 1 tab PO DAILY [facility] Last Admin: 11/01/17 09:00 Dose: 1 tab Divalproex Sodium (Depakote *Er* -) 500 mg PO DAILY [facility] Last Admin: 11/01/17 09:00 Dose: 500 mg Docusate Sodium (Colace -) 100 mg PO TID [facility] Last Admin: 11/01/17 13:23 Dose: 100 mg Methylprednisolone Sodium Succinate (Solu-Medrol -) 60 mg IVPUSH Q6H-IV [facility] Last Admin: 11/01/17 09:00 Dose: 60 mg Mirtazapine (Remeron -) 15 mg PO HS [facility] Last Admin: 10/31/17 22:40 Dose: 15 mg Montelukast Sodium (Singulair -) 10 mg PO HS [facility] Last Admin: 10/31/17 22:40 Dose: 10 mg Pantoprazole Sodium (Protonix -) 40 mg PO AM [facility] Last Admin: 11/01/17 06:11 Dose: 40 mg Senna (Senna -) 1 tab PO TID [facility] Last Admin: 11/01/17 13:23 Dose: 1 tab Solifenacin (Vesicare -) 10 mg PO DAILY [facility] Last Admin: 11/01/17 09:00 Dose: 10 mg Temazepam (Restoril -) 30 mg PO HS [facility] Last Admin: 10/31/17 22:40 Dose: 30 mg Warfarin Sodium (Coumadin -) 5 mg PO SUTUTHFRSA@1800 [facility] Last Admin: 10/30/17 17:19 Dose: 5 mg Warfarin Sodium (Coumadin -) 2.5 mg PO MOWE@1800 [facility] Last Admin: 10/27/17 18:48 Dose: 2.5 mg - Objective Vital Signs: Vital Signs Temperature 97.9 F 11/01/17 14:01 Pulse Rate 99 H 11/01/17 14:01 Respiratory Rate 20 11/01/17 14:01 Blood Pressure 119/61 11/01/17 14:01 O2 Sat by Pulse Oximetry (%) 98 11/01/17 09:00 Constitutional: Yes: Mild Distress Eyes: Yes: WNL HENT: Yes: WNL Neck: Yes: WNL Cardiovascular: Yes: WNL Respiratory: Yes: On Nasal O2 Gastrointestinal: Yes: WNL Genitourinary: Yes: [place] Present Musculoskeletal: Yes: Muscle Weakness Extremities: Yes: Other Edema: Yes Edema: LLE: 1+, RLE: 1+ Peripheral Pulses WNL: Yes Integumentary: Yes: Other Wound/Incision: Yes: Dressing Dry and Intact (WOUND VAC LEFT LEG) Neurological: Yes: Pre-Existing Deficit ...Motor Strength: LLE, RLE Psychiatric: Yes: Other Labs: CBC, BMP 10/30/17 10:05 11/01/17 06:08 INR, PTT INR 3.72 (0.82-1.09) H 11/01/17 06:37 Problem List - Problems (1) Acute exacerbation of chronic obstructive pulmonary disease (COPD) Code(s): J44.1 - CHRONIC OBSTRUCTIVE PULMONARY DISEASE W (ACUTE) EXACERBATION (2) DVT prophylaxis Code(s): [id number] - (3) Influenza Code(s): J11.1 - FLU DUE TO UNIDENTIFIED INFLUENZA VIRUS W OTH RESP MANIFEST (4) Influenza A Code(s): J10.1 - FLU DUE TO OTH IDENT INFLUENZA VIRUS W OTH RESP MANIFEST (5) Wound cellulitis after surgery Assessment/Plan: LEFT LEG WOUND VAC FROM PRIOR DEBRIDEMENT AT [facility] Code(s): T81.4XXA - INFECTION FOLLOWING A PROCEDURE, INITIAL ENCOUNTER Qualifiers: Encounter type: sequela Qualified Code(s): T81.4XXS - Infection following a procedure, sequela Assessment/Plan TAMIFLU COMPLETED STEROIDS IV NEBS 02 SUPPORT PULM/ID CONSULT APPRECIATED LEFT LEG WOUND VAC
[2017-11-01] MEDS: MONTELUKAST NA 10 MG TABLET PO SCH (21:44)
[2017-11-01] MEDS: TEMAZEPAM 15 MG CAPSULE PO SCH (21:44)
[2017-11-01] MEDS: MIRTAZAPINE 15 MG TABLET (FP) PO SCH (21:44)
--- NOTE | 2017-11-02 01:44 | HOSP ---
Subjective - Review of Symptoms Events since last encounter: called by RN to evaluate redness and swelling to bilat lower extremities Subjective: Pt daughter reported to nurse increased redness and excessive warmth to RLE earlier in evening. Pt denies c/o pain. Physical Examination Vital Signs: Vital Signs Temperature 98.1 F 11/01/17 18:39 Pulse Rate 89 11/01/17 18:39 Respiratory Rate 18 11/01/17 18:39 Blood Pressure 125/66 11/01/17 18:39 O2 Sat by Pulse Oximetry (%) 98 11/01/17 09:00 Edema: Yes Edema: LLE: 1+ (no erythema, warm to touch, no excessive warmth), RLE: 1+ (no erythema, warm to touch, no excessive warmth) Peripheral Pulses WNL: Yes Peripheral Pulses: Left Doralis Pedis: 2+, Right Dorsalis Pedis: 2+ Labs: CBC, BMP 10/30/17 10:05 11/01/17 06:08 Hospitalist Encounter Assessment: edema to b/l le - no indication of cellulitis at this time - B/L LE duplex ordered to r/o DVT as pt has been nonmobile.
[2017-11-02] MEDS: methylPREDNISolone NA SUCC 40 MG/1 ML VIAL IVPUSH SCH ×4 (03:48→21:33)
[2017-11-02] MEDS: DOCUSATE SODIUM 100 MG CAPSULE (FP) PO SCH ×3 (05:38→21:32)
[2017-11-02] MEDS: SENNOSIDES 8.6MG TABLET (FP) PO SCH ×3 (05:38→21:32)
[2017-11-02] MEDS: PANTOPRAZOLE 40 MG TABLET (FP) PO SCH (06:29)
[2017-11-02 07:36] LABS: INR 2.07 (0.82-1.09); PROTHROMBIN TIME (PATIENT) 23.4 SEC (9.98-11.88)
[2017-11-02] MEDS: ALBUTEROL SO4 2.5/IPRATROPIUM 0.5 INH SOL 3 ML VIAL.NEB. NEB SCH ×4 (08:20→20:40)
[2017-11-02] MEDS ORDERED: PT OWN MED DRAWER 7, Y5N ONE ×2 (08:23→10:24)
[2017-11-02] MEDS: BUDESONIDE 0.25 MG/2ML INH SUSP VIAL NEB SCH ×2 (08:30→20:40)
[2017-11-02] MEDS: SOLIFENACIN SUCCINATE 5 MG TAB (FP) PO SCH (10:37)
[2017-11-02] MEDS: CALCIUM 500MG/VIT-D 200 UNITS COMBO TABLET (FP) PO SCH (10:38)
[2017-11-02] MEDS: DIVALPROEX NA *ER* EXTEND REL 500 MG TABLET.SA (FP) PO SCH (10:38)
--- NOTE | 2017-11-02 12:55 | PN ---
Progress Note, Physician History of Present Illness: pulmonary alert,feeling better,less dyspneic,less congested - Current Medication List Current Medications: Active Medications Acetaminophen (Tylenol -) 650 mg PO Q4H PRN PRN Reason: PAIN Last Admin: 10/31/17 08:59 Dose: 650 mg Albuterol/Ipratropium (Duoneb -) 1 amp NEB RQID [facility] Last Admin: 11/02/17 11:31 Dose: 1 amp Budesonide (Pulmicort 0.25 Mg Nebulizer -) 1 amp NEB RBID [facility] Last Admin: 11/02/17 08:30 Dose: 1 amp Calcium Carbonate/Cholecalciferol (Os-Norman 500+D -) 1 tab PO DAILY [facility] Last Admin: 11/02/17 10:38 Dose: 1 tab Divalproex Sodium (Depakote *Er* -) 500 mg PO DAILY [facility] Last Admin: 11/02/17 10:38 Dose: 500 mg Docusate Sodium (Colace -) 100 mg PO TID [facility] Last Admin: 11/02/17 05:38 Dose: 100 mg Methylprednisolone Sodium Succinate (Solu-Medrol -) 60 mg IVPUSH Q6H-IV [facility] Last Admin: 11/02/17 10:38 Dose: 60 mg Mirtazapine (Remeron -) 15 mg PO HS [facility] Last Admin: 11/01/17 21:44 Dose: 15 mg Montelukast Sodium (Singulair -) 10 mg PO HS [facility] Last Admin: 11/01/17 21:44 Dose: 10 mg Pantoprazole Sodium (Protonix -) 40 mg PO AM [facility] Last Admin: 11/02/17 06:29 Dose: 40 mg Senna (Senna -) 1 tab PO TID [facility] Last Admin: 11/02/17 05:38 Dose: 1 tab Solifenacin (Vesicare -) 10 mg PO DAILY [facility] Last Admin: 11/02/17 10:37 Dose: 10 mg Temazepam (Restoril -) 30 mg PO HS [facility] Last Admin: 11/01/17 21:44 Dose: 30 mg Warfarin Sodium (Coumadin -) 5 mg PO SUTUTHFRSA@1800 [facility] Last Admin: 10/30/17 17:19 Dose: 5 mg Warfarin Sodium (Coumadin -) 2.5 mg PO MOWE@1800 [facility] Last Admin: 10/27/17 18:48 Dose: 2.5 mg - Objective Vital Signs: Vital Signs Temperature 98.3 F 11/02/17 06:00 Pulse Rate 98 H 11/02/17 10:24 Respiratory Rate 20 11/02/17 06:00 Blood Pressure 116/64 11/02/17 06:00 O2 Sat by Pulse Oximetry (%) 96 11/02/17 10:24 Constitutional: Yes: Well Nourished, Calm Eyes: Yes: WNL HENT: Yes: WNL Neck: Yes: WNL Cardiovascular: Yes: Regular Rate and Rhythm, S1, S2 Respiratory: Yes: Rhonchi, Wheezes (scattered dionicio wheezes and rhonchi) Gastrointestinal: Yes: Normal Bowel Sounds, Soft Extremities: Yes: WNL Edema: Yes Labs: CBC, BMP 10/30/17 10:05 11/01/17 06:08 INR, PTT INR 2.07 (0.82-1.09) H D 11/02/17 05:35 Problem List - Problems (1) Acute exacerbation of chronic obstructive pulmonary disease (COPD) Code(s): J44.1 - CHRONIC OBSTRUCTIVE PULMONARY DISEASE W (ACUTE) EXACERBATION (2) Influenza A Code(s): J10.1 - FLU DUE TO OTH IDENT INFLUENZA VIRUS W OTH RESP MANIFEST (3) Pneumonia Code(s): J18.9 - PNEUMONIA, UNSPECIFIED ORGANISM (4) Acute on chronic respiratory failure with hypoxia and hypercapnia Code(s): J96.21 - ACUTE AND CHRONIC RESPIRATORY FAILURE WITH HYPOXIA; J96.22 - ACUTE AND CHRONIC RESPIRATORY FAILURE WITH HYPERCAPNIA (5) CHF (congestive heart failure) Code(s): I50.9 - HEART FAILURE, UNSPECIFIED (6) DVT (deep venous thrombosis) Code(s): I82.409 - ACUTE EMBOLISM AND THOMBOS UNSP DEEP VN UNSP LOWER EXTREMITY Qualifiers: DVT location: lower extremity (7) HTN (hypertension) Code(s): I10 - ESSENTIAL (PRIMARY) HYPERTENSION Qualifiers: Hypertension type: essential hypertension Qualified Code(s): I10 - Essential (primary) hypertension (8) PAF (paroxysmal atrial fibrillation) Code(s): I48.0 - PAROXYSMAL ATRIAL FIBRILLATION (9) Pulmonary hypertension Code(s): I27.2 - OTHER SECONDARY PULMONARY HYPERTENSION * DO NOT USE * (10) Sarcoid Code(s): D86.9 - SARCOIDOSIS, UNSPECIFIED Assessment/Plan A/P Acute on Chronic Hypoxic and Hypercapneic Respiratory Failure Influenza A Acute COPD Exacerbation Sarcoidosis h/o DVT HTN DM - IV medrol to 60 q8 - inhaled bronchodilators standing and PRN - O2 to keep SpO2 >90% - BiPAP as needed - glucose control while on systemic steroids - monitor ABG - anticoagulation - chest x-ray - kayaxalate - bmp DR NORTON
[2017-11-02 14:35] LABS: ANION GAP 6 (8-16); BLOOD UREA NITROGEN 30 mg/dL (7-18); CALCIUM 7.7 mg/dL (8.5-10.1); CHLORIDE 101 mmol/L (98-107); CO2 33 mmol/L (21-32); GLUCOSE,RANDOM 219 mg/dL (74-106); POTASSIUM 5.5 mmol/L (3.5-5.1); SODIUM 140 mmol/L (136-145)
--- NOTE | 2017-11-02 14:47 | PN ---
Progress Note, Physician Chief Complaint: AWAKE ALERT SOB IMPROVING EDEMA B/L LEGS WORSE - Current Medication List Current Medications: Active Medications Acetaminophen (Tylenol -) 650 mg PO Q4H PRN PRN Reason: PAIN Last Admin: 10/31/17 08:59 Dose: 650 mg Albuterol/Ipratropium (Duoneb -) 1 amp NEB RQID [facility] Last Admin: 11/02/17 11:31 Dose: 1 amp Budesonide (Pulmicort 0.25 Mg Nebulizer -) 1 amp NEB RBID [facility] Last Admin: 11/02/17 08:30 Dose: 1 amp Calcium Carbonate/Cholecalciferol (Os-Norman 500+D -) 1 tab PO DAILY [facility] Last Admin: 11/02/17 10:38 Dose: 1 tab Divalproex Sodium (Depakote *Er* -) 500 mg PO DAILY [facility] Last Admin: 11/02/17 10:38 Dose: 500 mg Docusate Sodium (Colace -) 100 mg PO TID [facility] Last Admin: 11/02/17 05:38 Dose: 100 mg Furosemide (Lasix Injection -) 40 mg IVPUSH DAILY [facility] Methylprednisolone Sodium Succinate (Solu-Medrol -) 60 mg IVPUSH Q6H-IV [facility] Last Admin: 11/02/17 10:38 Dose: 60 mg Mirtazapine (Remeron -) 15 mg PO HS [facility] Last Admin: 11/01/17 21:44 Dose: 15 mg Montelukast Sodium (Singulair -) 10 mg PO HS [facility] Last Admin: 11/01/17 21:44 Dose: 10 mg Pantoprazole Sodium (Protonix -) 40 mg PO AM [facility] Last Admin: 11/02/17 06:29 Dose: 40 mg Senna (Senna -) 1 tab PO TID [facility] Last Admin: 11/02/17 05:38 Dose: 1 tab Solifenacin (Vesicare -) 10 mg PO DAILY [facility] Last Admin: 11/02/17 10:37 Dose: 10 mg Temazepam (Restoril -) 30 mg PO HS [facility] Last Admin: 11/01/17 21:44 Dose: 30 mg Warfarin Sodium (Coumadin -) 5 mg PO SUTUTHFRSA@1800 [facility] Last Admin: 10/30/17 17:19 Dose: 5 mg Warfarin Sodium (Coumadin -) 2.5 mg PO MOWE@1800 [facility] Last Admin: 02/07/18 18:48 Dose: 2.5 mg - Objective Vital Signs: Vital Signs Temperature 97.5 F L 11/02/17 14:00 Pulse Rate 94 H 11/02/17 14:00 Respiratory Rate 20 11/02/17 14:00 Blood Pressure 124/61 11/02/17 14:00 O2 Sat by Pulse Oximetry (%) 96 11/02/17 10:24 Constitutional: Yes: Mild Distress Eyes: Yes: WNL HENT: Yes: WNL Neck: Yes: WNL Cardiovascular: Yes: WNL Respiratory: Yes: On Nasal O2, SOB Gastrointestinal: Yes: WNL Genitourinary: Yes: [place] Present Musculoskeletal: Yes: Muscle Weakness Extremities: Yes: Other Edema: Yes Edema: LLE: 2+, RLE: 2+ Peripheral Pulses WNL: Yes Integumentary: Yes: Pressure Ulcer, Venous Stasis Changes Wound/Incision: Yes: Draining, Other (WOUND VAC) ...Motor Strength: LLE, RLE Psychiatric: Yes: Other Labs: CBC, BMP 10/30/17 10:05 INR, PTT INR 2.07 (0.82-1.09) H D 11/02/17 05:35 Problem List - Problems (1) Acute exacerbation of chronic obstructive pulmonary disease (COPD) Code(s): J44.1 - CHRONIC OBSTRUCTIVE PULMONARY DISEASE W (ACUTE) EXACERBATION (2) DVT prophylaxis Code(s): [id number] - (3) Influenza Code(s): J11.1 - FLU DUE TO UNIDENTIFIED INFLUENZA VIRUS W OTH RESP MANIFEST (4) Influenza A Code(s): J10.1 - FLU DUE TO OTH IDENT INFLUENZA VIRUS W OTH RESP MANIFEST (5) Wound cellulitis after surgery Code(s): T81.4XXA - INFECTION FOLLOWING A PROCEDURE, INITIAL ENCOUNTER Qualifiers: Encounter type: sequela Qualified Code(s): T81.4XXS - Infection following a procedure, sequela Assessment/Plan LASIX 40MG IV DVT NEGATIVE DOPPLER WOUND VAC AND TREATMENT SNF TO [facility] OR [facility] OFF RESP ISOLATION KEEP DELONG BEC SHE BECOMES SOB WHEN TURNING
[2017-11-02] MEDS: FUROSEMIDE 40 MG/4 ML INJECTABLE VIAL IVPUSH SCH (16:55)
[2017-11-02] MEDS ORDERED: BUDESONIDE 0.5 MG/2 ML INH SUSP VIAL NEB ONE (19:41)
[2017-11-02] MEDS: ACETAMINOPHEN 325 MG TABLET (FP) PO PRN (20:37)
[2017-11-02] MEDS: MONTELUKAST NA 10 MG TABLET PO SCH (21:32)
[2017-11-02] MEDS: MIRTAZAPINE 15 MG TABLET (FP) PO SCH (21:33)
[2017-11-02] MEDS: TEMAZEPAM 15 MG CAPSULE PO SCH (21:33)
[2017-11-03] MEDS: methylPREDNISolone NA SUCC 40 MG/1 ML VIAL IVPUSH SCH ×4 (02:29→22:22)
[2017-11-03] MEDS: DOCUSATE SODIUM 100 MG CAPSULE (FP) PO SCH ×3 (06:14→21:53)
[2017-11-03] MEDS: SENNOSIDES 8.6MG TABLET (FP) PO SCH ×3 (06:14→21:53)
[2017-11-03] MEDS: PANTOPRAZOLE 40 MG TABLET (FP) PO SCH (06:14)
[2017-11-03 07:10] LABS: INR 1.34 (0.82-1.09); PROTHROMBIN TIME (PATIENT) 15.1 SEC (9.98-11.88)
[2017-11-03 08:00] LABS: CHLORIDE 97 mmol/L (98-107); POTASSIUM 5.5 mmol/L (3.5-5.1); SODIUM 138 mmol/L (136-145)
[2017-11-03 08:05] LABS: ANION GAP 6 (8-16); BLOOD UREA NITROGEN 36 mg/dL (7-18); CALCIUM 7.9 mg/dL (8.5-10.1); CO2 35 mmol/L (21-32); GLUCOSE,RANDOM 246 mg/dL (74-106); HEMATOCRIT 30.9 % (32.4-45.2); HEMOGLOBIN 9.8 GM/dL (10.7-15.3); MAGNESIUM 2.4 mg/dL (1.8-2.4); MCH 29.5 pg (25.7-33.7); MCHC 31.8 g/dl (32.0-36.0); MEAN CELL VOLUME 92.8 fl (80-96); MEAN PLT VOLUME 8.3 fl (7.5-11.1); PLATELET COUNT 174 K/MM3 (134-434); RBC 3.33 M/mm3 (3.60-5.2); RDW 17.3 % (11.6-15.6); WHITE BLOOD COUNT 5.7 K/mm3 (4.0-10.0)
[2017-11-03] MEDS: ALBUTEROL SO4 2.5/IPRATROPIUM 0.5 INH SOL 3 ML VIAL.NEB. NEB SCH ×4 (08:10→20:39)
[2017-11-03] MEDS ORDERED: PT OWN MED DRAWER 7, Y5N ONE ×3 (08:18→20:28)
[2017-11-03] MEDS: BUDESONIDE 0.25 MG/2ML INH SUSP VIAL NEB SCH ×2 (08:20→20:39)
[2017-11-03] MEDS: SOLIFENACIN SUCCINATE 5 MG TAB (FP) PO SCH (11:11)
[2017-11-03] MEDS: CALCIUM 500MG/VIT-D 200 UNITS COMBO TABLET (FP) PO SCH (11:12)
[2017-11-03] MEDS: DIVALPROEX NA *ER* EXTEND REL 500 MG TABLET.SA (FP) PO SCH (11:13)
[2017-11-03] MEDS: FUROSEMIDE 40 MG/4 ML INJECTABLE VIAL IVPUSH SCH (11:14)
--- NOTE | 2017-11-03 13:15 | PN ---
Progress Note, Physician History of Present Illness: PULMONARY AWAKE,MILDLY TACHYPNEIC AT REST - Current Medication List Current Medications: Active Medications Acetaminophen (Tylenol -) 650 mg PO Q4H PRN PRN Reason: PAIN Last Admin: 11/02/17 20:37 Dose: 650 mg Albuterol/Ipratropium (Duoneb -) 1 amp NEB RQID [facility] Last Admin: 11/03/17 11:49 Dose: 1 amp Budesonide (Pulmicort 0.25 Mg Nebulizer -) 1 amp NEB RBID [facility] Last Admin: 11/03/17 08:20 Dose: 1 amp Calcium Carbonate/Cholecalciferol (Os-Norman 500+D -) 1 tab PO DAILY [facility] Last Admin: 11/03/17 11:12 Dose: 1 tab Divalproex Sodium (Depakote *Er* -) 500 mg PO DAILY [facility] Last Admin: 11/03/17 11:13 Dose: 500 mg Docusate Sodium (Colace -) 100 mg PO TID [facility] Last Admin: 11/03/17 06:14 Dose: 100 mg Furosemide (Lasix Injection -) 40 mg IVPUSH DAILY [facility] Last Admin: 11/03/17 11:14 Dose: 40 mg Methylprednisolone Sodium Succinate (Solu-Medrol -) 60 mg IVPUSH Q6H-IV [facility] Last Admin: 11/03/17 11:13 Dose: 60 mg Mirtazapine (Remeron -) 15 mg PO HS [facility] Last Admin: 11/02/17 21:33 Dose: 15 mg Montelukast Sodium (Singulair -) 10 mg PO HS [facility] Last Admin: 11/02/17 21:32 Dose: 10 mg Pantoprazole Sodium (Protonix -) 40 mg PO AM [facility] Last Admin: 11/03/17 06:14 Dose: 40 mg Senna (Senna -) 1 tab PO TID [facility] Last Admin: 11/03/17 06:14 Dose: 1 tab Solifenacin (Vesicare -) 10 mg PO DAILY [facility] Last Admin: 11/03/17 11:11 Dose: 10 mg Temazepam (Restoril -) 30 mg PO HS [facility] Last Admin: 11/02/17 21:33 Dose: 30 mg Warfarin Sodium (Coumadin -) 5 mg PO SUTUTHFRSA@1800 [facility] Warfarin Sodium (Coumadin -) 2.5 mg PO MOWE@1800 [facility] - Objective Vital Signs: Vital Signs Temperature 97 F L 11/03/17 10:00 Pulse Rate 103 H 11/03/17 11:08 Respiratory Rate 20 11/03/17 10:00 Blood Pressure 122/70 11/03/17 10:00 O2 Sat by Pulse Oximetry (%) 97 11/03/17 11:08 Constitutional: Yes: Well Nourished, Calm, Other (MILD TACHYPNEA) Eyes: Yes: WNL HENT: Yes: WNL Neck: Yes: WNL Cardiovascular: Yes: Regular Rate and Rhythm, S1, S2 Respiratory: Yes: Rhonchi, Wheezes (SCATTERED CALI WHEEZES AND RHONCHI) Gastrointestinal: Yes: Normal Bowel Sounds, Soft Extremities: Yes: WNL Edema: Yes Labs: CBC, BMP 11/03/17 06:00 11/03/17 06:00 INR, PTT INR 1.34 (0.82-1.09) H D 11/03/17 05:30 Problem List - Problems (1) Acute exacerbation of chronic obstructive pulmonary disease (COPD) Code(s): J44.1 - CHRONIC OBSTRUCTIVE PULMONARY DISEASE W (ACUTE) EXACERBATION (2) Influenza A Code(s): J10.1 - FLU DUE TO OTH IDENT INFLUENZA VIRUS W OTH RESP MANIFEST (3) Pneumonia Code(s): J18.9 - PNEUMONIA, UNSPECIFIED ORGANISM (4) Acute on chronic respiratory failure with hypoxia and hypercapnia Code(s): J96.21 - ACUTE AND CHRONIC RESPIRATORY FAILURE WITH HYPOXIA; J96.22 - ACUTE AND CHRONIC RESPIRATORY FAILURE WITH HYPERCAPNIA (5) CHF (congestive heart failure) Code(s): I50.9 - HEART FAILURE, UNSPECIFIED (6) DVT (deep venous thrombosis) Code(s): I82.409 - ACUTE EMBOLISM AND THOMBOS UNSP DEEP VN UNSP LOWER EXTREMITY Qualifiers: DVT location: lower extremity (7) HTN (hypertension) Code(s): I10 - ESSENTIAL (PRIMARY) HYPERTENSION Qualifiers: Hypertension type: essential hypertension Qualified Code(s): I10 - Essential (primary) hypertension (8) PAF (paroxysmal atrial fibrillation) Code(s): I48.0 - PAROXYSMAL ATRIAL FIBRILLATION (9) Pulmonary hypertension Code(s): I27.2 - OTHER SECONDARY PULMONARY HYPERTENSION * DO NOT USE * (10) Sarcoid Code(s): D86.9 - SARCOIDOSIS, UNSPECIFIED Assessment/Plan A/P Acute on Chronic Hypoxic and Hypercapneic Respiratory Failure Influenza A Acute COPD Exacerbation Sarcoidosis h/o DVT HTN DM - IV medrol 60 q6H - inhaled bronchodilators standing and PRN - O2 to keep SpO2 >90% - BiPAP as needed - glucose control while on systemic steroids - monitor ABG - anticoagulation - chest x-ray - bmp DR NORTON
--- NOTE | 2017-11-03 14:05 | PN ---
Progress Note, Physician Chief Complaint: AWAKE IN BED DELONG REMOVED AND PATIENT C/O URINATED EXCESSIVELY WITH LASIX IV. WOULD LIKE DELONG REINSERTED. - Current Medication List Current Medications: Active Medications Acetaminophen (Tylenol -) 650 mg PO Q4H PRN PRN Reason: PAIN Last Admin: 11/02/17 20:37 Dose: 650 mg Albuterol/Ipratropium (Duoneb -) 1 amp NEB RQID [facility] Last Admin: 11/03/17 11:49 Dose: 1 amp Budesonide (Pulmicort 0.25 Mg Nebulizer -) 1 amp NEB RBID [facility] Last Admin: 11/03/17 08:20 Dose: 1 amp Calcium Carbonate/Cholecalciferol (Os-Norman 500+D -) 1 tab PO DAILY [facility] Last Admin: 11/03/17 11:12 Dose: 1 tab Divalproex Sodium (Depakote *Er* -) 500 mg PO DAILY [facility] Last Admin: 11/03/17 11:13 Dose: 500 mg Docusate Sodium (Colace -) 100 mg PO TID [facility] Last Admin: 11/03/17 13:28 Dose: 100 mg Furosemide (Lasix Injection -) 40 mg IVPUSH DAILY [facility] Last Admin: 11/03/17 11:14 Dose: 40 mg Methylprednisolone Sodium Succinate (Solu-Medrol -) 60 mg IVPUSH Q6H-IV [facility] Last Admin: 11/03/17 11:13 Dose: 60 mg Mirtazapine (Remeron -) 15 mg PO HS [facility] Last Admin: 11/02/17 21:33 Dose: 15 mg Montelukast Sodium (Singulair -) 10 mg PO HS [facility] Last Admin: 11/02/17 21:32 Dose: 10 mg Pantoprazole Sodium (Protonix -) 40 mg PO AM [facility] Last Admin: 11/03/17 06:14 Dose: 40 mg Senna (Senna -) 1 tab PO TID [facility] Last Admin: 11/03/17 13:28 Dose: 1 tab Solifenacin (Vesicare -) 10 mg PO DAILY [facility] Last Admin: 11/03/17 11:11 Dose: 10 mg Temazepam (Restoril -) 30 mg PO [facility] Last Admin: 11/02/17 21:33 Dose: 30 mg Warfarin Sodium (Coumadin -) 5 mg PO SUTUTHFRSA@1800 [facility] Warfarin Sodium (Coumadin -) 2.5 mg PO MOWE@1800 [facility] - Objective Vital Signs: Vital Signs Temperature 97 F L 11/03/17 10:00 Pulse Rate 103 H 11/03/17 11:08 Respiratory Rate 20 11/03/17 10:00 Blood Pressure 122/70 11/03/17 10:00 O2 Sat by Pulse Oximetry (%) 97 11/03/17 11:08 Constitutional: Yes: Mild Distress Eyes: Yes: WNL HENT: Yes: WNL Neck: Yes: WNL Cardiovascular: Yes: WNL Respiratory: Yes: On Nasal O2, SOB Gastrointestinal: Yes: WNL Genitourinary: Yes: Incontinence Musculoskeletal: Yes: Muscle Weakness Extremities: Yes: WNL Edema: Yes Edema: LLE: 2+, RLE: 2+ Peripheral Pulses WNL: Yes Integumentary: Yes: Pressure Ulcer Wound/Incision: Yes: Other (WOUNDVAC LEFT LEG) Neurological: Yes: Pre-Existing Deficit, Unsteady Gait ...Motor Strength: LLE, RLE Psychiatric: Yes: Other Labs: CBC, BMP 11/03/17 06:00 11/03/17 06:00 INR, PTT INR 1.34 (0.82-1.09) H D 11/03/17 05:30 Problem List - Problems (1) Acute exacerbation of chronic obstructive pulmonary disease (COPD) Code(s): J44.1 - CHRONIC OBSTRUCTIVE PULMONARY DISEASE W (ACUTE) EXACERBATION (2) DVT prophylaxis Code(s): KOC5432 - (3) Influenza Code(s): J11.1 - FLU DUE TO UNIDENTIFIED INFLUENZA VIRUS W OTH RESP MANIFEST (4) Influenza A Code(s): J10.1 - FLU DUE TO OTH IDENT INFLUENZA VIRUS W OTH RESP MANIFEST (5) Wound cellulitis after surgery Code(s): T81.4XXA - INFECTION FOLLOWING A PROCEDURE, INITIAL ENCOUNTER Qualifiers: Encounter type: sequela Qualified Code(s): T81.4XXS - Infection following a procedure, sequela Assessment/Plan REINSERT DELONG TAPER OFF STEROIDS PER PULMONARY OOB TO CHAIR PT SNF FOR PULM REHAB AND WOUND CARE INR SUB-THERAPEUTIC WILL RESTART COUMADIN AND LOVENOX BRIDGE
--- NOTE | 2017-11-03 17:29 | CONSULT ---
Consult Consult Specialty:: Nephrology Reason for Consultation:: CKD and hyperkalemia - History of Present Illness Chief Complaint: initially presented with shortness of breath History of Present Illness: Pt is a 72 year old female with pmhx of COPD, sarcoid, CKD, DM,DVT, and HTN who was initially admitted for treatment of dyspnea. She is on 3 liters NC at home. I was called to evaluate her for hyperkalemia and azotemia. She complains of lower extremity edema. She is on IV lasix and complains of frequent urination. She wants the lee catheter back in. She denies chest pain or palpitations. She is awake and alert. SHe has a wound aon her left leg which has a wound vac attached to it. - History Source History Provided By: Patient, Medical Record - Past Medical History Cardio/Vascular: Yes: CHF, Deep Vein Thrombosis, HTN Pulmonary: Yes: COPD, O2 Dependent, Other (sarcoidosis) Musculoskeletal: Yes: Chronic low back pain Rheumatology: Yes: Sarcoidosis Endocrine: Yes: Diabetes Mellitus - Past Surgical History Past Surgical History: Yes: Hysterectomy, Joint Replacement - Alcohol/Substance Use Hx Alcohol Use: No History of Substance Use: reports: None - Smoking History Smoking history: Former smoker Have you smoked in the past 12 months: No Aproximately how many cigarettes per day: 0 If you are a former smoker, when did you quit?: 30 years ago - Social History Usual Living Arrangement: Alone ADL: Independent History of Recent Travel: No Home Medications - Allergies Allergies/Adverse Reactions: Allergies Allergy/AdvReac Type Severity Reaction Status Date / Time No Known Allergies Allergy Verified 10/01/17 09:10 - Home Medications Home Medications: Ambulatory Orders Acetaminophen [Tylenol] 650 mg PO Q6H PRN 10/27/17 Albuterol 2.5/Ipratropium 0.5 [Duoneb -] 1 neb IH QID 10/27/17 Bisacodyl [Correctol] 5 mg PO TID 10/27/17 Budesonide/Formeterol Fumarate [SYMBICORT 160/4.5mcg -] 2 inh IH Q12H 10/27/17 Calcium Carbonate/Vitamin D3 [Calcium 600 + Vit D 200 Tablet] 1 each PO DAILY Cefuroxime Axetil [Ceftin -] 500 mg PO BID 10/27/17 Diltiazem [Cardizem -] 30 mg PO Q6H 10/27/17 Divalproex *ER* [Depakote *ER* -] 500 mg PO DAILY 10/27/17 Docusate Sodium [Colace] 100 mg PO TID 10/27/17 Furosemide [Lasix -] 40 mg PO DAILY 10/27/17 Lipase/Protease/Amylase [Zenpep Dr 10,000 Units Capsule] 2 each PO TIDCM Mirtazapine 15 mg PO HS 10/27/17 Montelukast Sodium [Singulair] 10 mg PO HS 10/27/17 Omeprazole Magnesium [Prilosec Otc] 40 mg PO DAILY 10/27/17 Oseltamivir Phosphate [Tamiflu] 75 mg PO BID 10/27/17 Oxybutynin Chloride [Ditropan Xl] 15 mg PO DAILY 10/27/17 Oxycodone HCl 5 mg PO Q3H PRN 10/27/17 Potassium Chloride [K-Dur -] 10 meq PO DAILY 10/27/17 Prednisone 30 mg PO DAILY 10/27/17 Sennosides [Argenis-[place]] 8.6 mg PO TID 10/27/17 Temazepam [Restoril] 30 mg PO HS 10/27/17 Tiotropium [place] [Spiriva] 18 mcg IH DAILY 10/27/17 Warfarin Na [Coumadin] 4 mg PO HS 10/27/17 Family Disease History - Family Disease History Family History: Denies Review of Systems - Review of Systems Constitutional: reports: Malaise Eyes: reports: No Symptoms HENT: reports: No Symptoms Neck: reports: No Symptoms Cardiovascular: reports: Edema, Shortness of Breath Respiratory: reports: SOB, SOB on Exertion Gastrointestinal: reports: No Symptoms Genitourinary: reports: No Symptoms Musculoskeletal: reports: No Symptoms Integumentary: reports: Other (erythema) Neurological: reports: No Symptoms Endocrine: reports: No Symptoms Psychiatric: reports: No Symptoms Physical Exam Vital Signs: Vital Signs Temperature 98.1 F 11/03/17 15:57 Pulse Rate 109 H 11/03/17 15:57 Respiratory Rate 22 11/03/17 15:57 Blood Pressure 123/71 11/03/17 15:57 O2 Sat by Pulse Oximetry (%) 97 11/03/17 11:08 Constitutional: Yes: Calm Eyes: Yes: Conjunctiva Clear Cardiovascular: Yes: S1, S2 Respiratory: Yes: On Nasal O2, Rhonchi Gastrointestinal: Yes: Soft, Abdomen, Obese Renal/: Yes: Incontinence Musculoskeletal: Yes: Muscle Weakness Edema: Yes Edema: LLE: 2+, RLE: 2+ Neurological: Yes: Oriented Psychiatric: Yes: Oriented Labs: CBC, BMP 11/03/17 06:00 11/03/17 06:00 Laboratory Tests 10/07/17 10/08/17 10/26/17 07:30 06:40 18:44 Sodium Potassium Chloride Anion Gap BUN Creatinine 1.1 H 1.1 H Urine pH 5.0 Urine Glucose (UA) Negative Urine Blood 2+ H 10/26/17 11/01/17 11/02/17 21:00 06:08 13:25 Sodium Potassium 5.3 H 5.5 H Chloride Anion Gap BUN Creatinine 0.9 1.0 Urine pH Urine Glucose (UA) Urine Blood 11/03/17 06:00 Sodium 138 Potassium 5.5 H Chloride 97 L Anion Gap 6 L BUN 36 H Creatinine 1.0 Urine pH Urine Glucose (UA) Urine Blood Imaging - Results Chest X-ray: Report Reviewed Problem List - Problems (1) Acute exacerbation of chronic obstructive pulmonary disease (COPD) Code(s): J44.1 - CHRONIC OBSTRUCTIVE PULMONARY DISEASE W (ACUTE) EXACERBATION (2) Hyperkalemia Code(s): E87.5 - HYPERKALEMIA (3) CHF (congestive heart failure) Code(s): I50.9 - HEART FAILURE, UNSPECIFIED (4) CKD (chronic kidney disease) Code(s): N18.9 - CHRONIC KIDNEY DISEASE, UNSPECIFIED (5) Sarcoid Code(s): D86.9 - SARCOIDOSIS, UNSPECIFIED Assessment/Plan Current Medications Generic Name Dose Route Start Last Admin Trade Name Freq PRN Reason Stop Dose Admin Acetaminophen 650 mg 10/31/17 08:47 11/02/17 20:37 Tylenol - PO 650 mg Q4H PRN Administration PAIN Albuterol/Ipratropium 1 amp 11/02/17 20:00 11/03/17 16:14 Duoneb - NEB 1 amp RQID [facility] Administration Budesonide 1 amp 10/31/17 20:00 11/03/17 08:20 Pulmicort 0.25 Mg Nebulizer - NEB 1 amp RBID [facility] Administration Calcium Carbonate/Cholecalciferol 1 tab 11/03/17 10:00 11/03/17 11:12 Os-Norman 500+D - PO 1 tab DAILY [facility] Administration Divalproex Sodium 500 mg 11/03/17 10:00 11/03/17 11:13 Depakote *Er* - PO 500 mg DAILY [facility] Administration Docusate Sodium 100 mg 11/02/17 22:00 11/03/17 13:28 Colace - PO 100 mg TID [facility] Administration Enoxaparin Sodium 100 mg 11/03/17 22:00 Lovenox - SQ BID [facility] Furosemide 40 mg 11/02/17 14:45 11/03/17 11:14 Lasix Injection - IVPUSH 40 mg DAILY [facility] Administration Methylprednisolone Sodium Succinate 60 mg 10/31/17 12:08 11/03/17 11:13 Solu-Medrol - IVPUSH 60 mg Q6H-IV [facility] Administration Mirtazapine 15 mg 11/02/17 22:00 11/02/17 21:33 Remeron - PO 15 mg HS [facility] Administration Montelukast Sodium 10 mg 11/02/17 22:00 11/02/17 21:32 Singulair - PO 10 mg HS [facility] Administration Pantoprazole Sodium 40 mg 11/03/17 07:00 11/03/17 06:14 Protonix - PO 40 mg AM [facility] Administration Senna 1 tab 11/02/17 22:00 11/03/17 13:28 Senna - PO 1 tab TID [facility] Administration Solifenacin 10 mg 11/03/17 10:00 11/03/17 11:11 Vesicare - PO 10 mg DAILY [facility] Administration Temazepam 30 mg 11/02/17 22:00 11/02/17 21:33 Restoril - PO 30 mg HS [facility] Administration Warfarin Sodium 5 mg 11/04/17 18:00 Coumadin - PO SUTUTHFRSA@1800 [facility] Warfarin Sodium 2.5 mg 11/03/17 18:00 Coumadin - PO MOWE@1800 [facility] Impression 1. CKD 2. sarcoid 3. hyperkalemia 4. hx DVT 5. COPD 6. HTN 7. left leg wound with wound vac 8. fluid overload Plan - cont with lasix - start low potassium diet - repeat labs in am - repeat ua and lytes - possible sarcoid involvement of kidneys - discussed fluid and sodium restriction - will avoid kayexylate unless potassium rises further - lasix will help waste potassium
[2017-11-03] MEDS ORDERED: WARFARIN NA 2.5 MG TABLET (FP) PO SCH (18:00)
[2017-11-03 19:43] LABS: URINE APPEARANCE CLEAR; URINE BILIRUBIN NEGATIVE (NEGATIVE); URINE BLOOD NEGATIVE (NEGATIVE); URINE COLOR STRAW; URINE GLUCOSE (UA) 3+ (NEGATIVE); URINE KETONE NEGATIVE (NEGATIVE); URINE LEUK ESTERASE NEGATIVE (NEGATIVE); URINE NITRITE NEGATIVE (NEGATIVE); URINE PROTEIN NEGATIVE (NEGATIVE); URINE UROBILINOGEN NEGATIVE mg/dL (0.2-1.0)
[2017-11-03] MEDS: INSULIN SLIDING SCALE (NOVOLOG) 1 VIAL SQ SCH (21:52)
[2017-11-03] MEDS: MONTELUKAST NA 10 MG TABLET PO SCH (21:53)
[2017-11-03] MEDS: TEMAZEPAM 15 MG CAPSULE PO SCH (21:53)
[2017-11-03] MEDS: ENOXAPARIN NA (PORCINE) 100 MG/1 ML DISP.SYRIN SQ SCH (21:54)
[2017-11-03] MEDS: MIRTAZAPINE 15 MG TABLET (FP) PO SCH (21:54)
[2017-11-04] MEDS: methylPREDNISolone NA SUCC 40 MG/1 ML VIAL IVPUSH SCH ×3 (02:39→15:53)
[2017-11-04] MEDS: WARFARIN NA 2.5 MG TABLET (FP) PO SCH (05:15)
[2017-11-04] MEDS: INSULIN SLIDING SCALE (NOVOLOG) 1 VIAL SQ SCH ×4 (06:27→22:00)
[2017-11-04] MEDS: PANTOPRAZOLE 40 MG TABLET (FP) PO SCH (06:27)
[2017-11-04] MEDS: SENNOSIDES 8.6MG TABLET (FP) PO SCH ×3 (06:27→22:00)
[2017-11-04] MEDS: DOCUSATE SODIUM 100 MG CAPSULE (FP) PO SCH ×3 (06:27→22:00)
[2017-11-04] MEDS: BUDESONIDE 0.25 MG/2ML INH SUSP VIAL NEB SCH ×2 (07:39→20:18)
[2017-11-04] MEDS: ALBUTEROL SO4 2.5/IPRATROPIUM 0.5 INH SOL 3 ML VIAL.NEB. NEB SCH ×4 (07:40→20:20)
[2017-11-04 07:54] LABS: HEMATOCRIT 31.7 % (32.4-45.2); MCH 29.3 pg (25.7-33.7); MCHC 31.6 g/dl (32.0-36.0); MEAN CELL VOLUME 92.7 fl (80-96); MEAN PLT VOLUME 8.2 fl (7.5-11.1); PLATELET COUNT 177 K/MM3 (134-434); RBC 3.42 M/mm3 (3.60-5.2); RDW 17.5 % (11.6-15.6); WHITE BLOOD COUNT 6.5 K/mm3 (4.0-10.0)
[2017-11-04 08:07] LABS: INR 1.11 (0.82-1.09); PROTHROMBIN TIME (PATIENT) 12.5 SEC (9.98-11.88)
[2017-11-04 08:30] LABS: CALCIUM 8.1 mg/dL (8.5-10.1); CHLORIDE 96 mmol/L (98-107); POTASSIUM 5.2 mmol/L (3.5-5.1); SODIUM 139 mmol/L (136-145)
[2017-11-04 08:36] LABS: ALBUMIN 2.4 g/dl (3.4-5.0); ALK PHOS 51 U/L (45-117); ANION GAP 4 (8-16); BILIRUBIN,TOTAL 0.3 mg/dL (0.2-1.0); BLOOD UREA NITROGEN 34 mg/dL (7-18); CO2 39 mmol/L (21-32); CREATININE 0.9 mg/dL (0.55-1.02); GLUCOSE,RANDOM 227 mg/dL (74-106); SGOT/AST 6 U/L (15-37); SGPT/ALT 19 U/L (12-78)
[2017-11-04] MEDS ORDERED: PT OWN MED DRAWER 7, Y5N ONE (09:20)
[2017-11-04] MEDS: ENOXAPARIN NA (PORCINE) 100 MG/1 ML DISP.SYRIN SQ SCH ×2 (09:32→22:00)
[2017-11-04] MEDS: FUROSEMIDE 40 MG/4 ML INJECTABLE VIAL IVPUSH SCH (09:32)
[2017-11-04] MEDS: SOLIFENACIN SUCCINATE 5 MG TAB (FP) PO SCH (09:32)
[2017-11-04] MEDS: DIVALPROEX NA *ER* EXTEND REL 500 MG TABLET.SA (FP) PO SCH (09:33)
[2017-11-04] MEDS: CALCIUM 500MG/VIT-D 200 UNITS COMBO TABLET (FP) PO SCH (09:33)
--- NOTE | 2017-11-04 11:21 | DS ---
Physical Examination Vital Signs: Vital Signs Temperature 98.3 F 11/04/17 05:00 Pulse Rate 71 11/04/17 07:39 Respiratory Rate 20 11/04/17 05:00 Blood Pressure 120/74 11/04/17 05:00 O2 Sat by Pulse Oximetry (%) 98 11/04/17 07:39 Findings/Remarks: READY FOR DISCHARGE Constitutional: Yes: Mild Distress Eyes: Yes: WNL HENT: Yes: WNL Neck: Yes: WNL Cardiovascular: Yes: WNL Respiratory: Yes: Cough, On Nasal O2, SOB on Exertion Gastrointestinal: Yes: WNL Renal/: Yes: WNL Musculoskeletal: Yes: WNL Extremities: Yes: WNL Edema: Yes Peripheral Pulses WNL: Yes Integumentary: Yes: Pressure Ulcer Wound/Incision: Yes: Dressing Dry and Intact, Other (WOUND VAC LEFT LEG) Neurological: Yes: Pre-Existing Deficit ...Motor Strength: LLE, RLE Psychiatric: Yes: WNL Labs: CBC, BMP 11/04/17 07:00 11/04/17 07:00 Discharge Summary Reason For Visit: PNEUMONIA/ACUTE EXACERBATION OF COPD Current Active Problems Acute exacerbation of chronic obstructive pulmonary disease (COPD) (Acute) DVT prophylaxis (Acute) Hyperkalemia (Acute) Influenza (Acute) Influenza A (Acute) MRSA (methicillin resistant staph aureus) culture positive (Acute) Pneumonia (Acute) Sepsis (Acute) Wound cellulitis after surgery (Acute) Wound of left lower extremity (Acute) Procedures: Principal: LABS/XRAYS Hospital Course: ADMITTED FOR SOB/FLU/RESP DISTRESS, WOUND VAC LEFT LEG, EDEMA Condition: Stable - Instructions Diet, Activity, Other Instructions: LOW SALT, LOW POTASSIUM/ADA WOUND CARE FOLLOW UP [facility] Referrals: Digna Walton MD [Primary Care Provider] - Disposition: S[facility]IOR CARE FACILITY - Home Medications Comprehensive Discharge Medication List: Ambulatory Orders Acetaminophen [Tylenol] 650 mg PO Q6H PRN 10/27/17 Albuterol 2.5/Ipratropium 0.5 [Duoneb -] 1 neb IH QID 10/27/17 Bisacodyl [Correctol] 5 mg PO TID 10/27/17 Budesonide/Formeterol Fumarate [SYMBICORT 160/4.5mcg -] 2 inh IH Q12H 10/27/17 Calcium Carbonate/Vitamin D3 [Calcium 600 + Vit D 200 Tablet] 1 each PO DAILY Cefuroxime Axetil [Ceftin -] 500 mg PO BID 10/27/17 Diltiazem [Cardizem -] 30 mg PO Q6H 10/27/17 Divalproex *ER* [Depakote *ER* -] 500 mg PO DAILY 10/27/17 Docusate Sodium [Colace] 100 mg PO TID 10/27/17 Furosemide [Lasix -] 40 mg PO DAILY 10/27/17 Lipase/Protease/Amylase [Zenpep Dr 10,000 Units Capsule] 2 each PO TIDCM Mirtazapine 15 mg PO HS 10/27/17 Montelukast Sodium [Singulair] 10 mg PO HS 10/27/17 Omeprazole Magnesium [Prilosec Otc] 40 mg PO DAILY 10/27/17 Oseltamivir Phosphate [Tamiflu] 75 mg PO BID 10/27/17 Oxybutynin Chloride [Ditropan Xl] 15 mg PO DAILY 10/27/17 Oxycodone HCl 5 mg PO Q3H PRN 10/27/17 Potassium Chloride [K-Dur -] 10 meq PO DAILY 10/27/17 Prednisone 30 mg PO DAILY 10/27/17 Sennosides [Argenis-[place]] 8.6 mg PO TID 10/27/17 Temazepam [Restoril] 30 mg PO HS 10/27/17 Tiotropium [place] [Spiriva] 18 mcg IH DAILY 10/27/17 Warfarin Na [Coumadin] 4 mg PO HS 10/27/17
--- NOTE | 2017-11-04 15:05 | PN ---
Progress Note (short form) - Note Progress Note: Still with some congested cough. Overall breathing appears stable. No CP. Currently on NC O2. Intake & Output 11/01/17 11/02/17 11/03/17 11/04/17 23:59 23:59 23:59 23:59 Intake Total 700 140 40 Output Total 1000 2800 2400 500 Balance -300 -2660 -2360 -500 Last Vital Signs Temp Pulse Resp BP Pulse Ox 98.3 F 100 H 26 H 114/57 98 11/04/17 09:00 11/04/17 09:00 11/04/17 09:00 11/04/17 09:00 11/04/17 09:00 Active Medications Acetaminophen (Tylenol -) 650 mg PO Q4H PRN PRN Reason: PAIN Last Admin: 11/02/17 20:37 Dose: 650 mg Albuterol/Ipratropium (Duoneb -) 1 amp NEB RQID [facility] Last Admin: 11/04/17 11:12 Dose: 1 amp Budesonide (Pulmicort 0.25 Mg Nebulizer -) 1 amp NEB RBID [facility] Last Admin: 11/04/17 07:39 Dose: 1 amp Calcium Carbonate/Cholecalciferol (Os-Norman 500+D -) 1 tab PO DAILY [facility] Last Admin: 11/04/17 09:33 Dose: 1 tab Divalproex Sodium (Depakote *Er* -) 500 mg PO DAILY [facility] Last Admin: 11/04/17 09:33 Dose: 500 mg Docusate Sodium (Colace -) 100 mg PO TID [facility] Last Admin: 11/04/17 06:27 Dose: 100 mg Enoxaparin Sodium (Lovenox -) 100 mg SQ BID [facility] Last Admin: 11/04/17 09:32 Dose: 100 mg Furosemide (Lasix -) 20 mg PO BID@0600,1400 [facility] Insulin Aspart (Novolog Vial Sliding Scale -) 1 vial SQ ACHS [facility] PRN Reason: Protocol Last Admin: 11/04/17 12:17 Dose: 4 units Methylprednisolone Sodium Succinate (Solu-Medrol -) 60 mg IVPUSH Q6H-IV [facility] Last Admin: 11/04/17 09:31 Dose: 60 mg Mirtazapine (Remeron -) 15 mg PO HS [facility] Last Admin: 11/03/17 21:54 Dose: 15 mg Montelukast Sodium (Singulair -) 10 mg PO HS [facility] Last Admin: 11/03/17 21:53 Dose: 10 mg Pantoprazole Sodium (Protonix -) 40 mg PO AM [facility] Last Admin: 11/04/17 06:27 Dose: 40 mg Senna (Senna -) 1 tab PO TID [facility] Last Admin: 11/04/17 06:27 Dose: 1 tab Solifenacin (Vesicare -) 10 mg PO DAILY [facility] Last Admin: 11/04/17 09:32 Dose: 10 mg Temazepam (Restoril -) 30 mg PO HS [facility] Last Admin: 11/03/17 21:53 Dose: 30 mg Warfarin Sodium (Coumadin -) 5 mg PO SUTUTHFRSA@1800 [facility] Warfarin Sodium (Coumadin -) 2.5 mg PO MOWE@1800 [facility] Last Admin: 11/03/17 17:49 Dose: 2.5 mg Constitutional: Yes: Mildly tachypneic at rest Eyes: Yes: WNL HENT: Yes: WNL Neck: Yes: WNL Cardiovascular: Yes: Regular Rate and Rhythm, S1, S2 Respiratory: Yes: Scattered Rhonchi, no active Wheezes Gastrointestinal: Yes: Normal Bowel Sounds, Soft Extremities: Yes: WNL Edema: Yes Labs: Laboratory Results - last 24 hr 11/03/17 11/03/17 11/03/17 19:15 19:15 21:51 WBC RBC Hgb Hct MCV MCH MCHC RDW Plt Count MPV PT with INR INR Sodium Potassium Chloride Carbon Dioxide Anion Gap BUN Creatinine Creat Clearance w eGFR POC Glucometer 354 Random Glucose Calcium Total Bilirubin AST ALT Alkaline Phosphatase Total Protein Albumin Urine Color Straw Urine Appearance Clear Urine pH 5.0 Ur Specific [place] 1.007 Urine Protein Negative Urine Glucose (UA) 3+ H Urine Ketones Negative Urine Blood Negative Urine Nitrite Negative Urine Bilirubin Negative Urine Urobilinogen Negative Ur Leukocyte Esterase Negative Ur Random Sodium 121 Ur Random Potassium 24.2 Ur Random Chloride 147 11/04/17 11/04/17 11/04/17 06:22 07:00 07:00 WBC 6.5 RBC 3.42 L Hgb 10.0 L Hct 31.7 L MCV 92.7 MCH 29.3 MCHC 31.6 L RDW 17.5 H Plt Count 177 MPV 8.2 PT with INR 12.50 H INR 1.11 Sodium Potassium Chloride Carbon Dioxide Anion Gap BUN Creatinine Creat Clearance w eGFR POC Glucometer 235 Random Glucose Calcium Total Bilirubin AST ALT Alkaline Phosphatase Total Protein Albumin Urine Color Urine Appearance Urine pH Ur Specific [place] Urine Protein Urine Glucose (UA) Urine Ketones Urine Blood Urine Nitrite Urine Bilirubin Urine Urobilinogen Ur Leukocyte Esterase Ur Random Sodium Ur Random Potassium Ur Random Chloride 11/04/17 11/04/17 07:00 12:04 WBC RBC Hgb Hct MCV MCH MCHC RDW Plt Count MPV PT with INR INR Sodium 139 Potassium 5.2 H Chloride 96 L Carbon Dioxide 39 H Anion Gap 4 L BUN 34 H Creatinine 0.9 Creat Clearance w eGFR > 60 POC Glucometer 244 Random Glucose 227 H Calcium 8.1 L Total Bilirubin 0.3 D AST 6 L ALT 19 Alkaline Phosphatase 51 Total Protein 5.0 L Albumin 2.4 L Urine Color Urine Appearance Urine pH Ur Specific [place] Urine Protein Urine Glucose (UA) Urine Ketones Urine Blood Urine Nitrite Urine Bilirubin Urine Urobilinogen Ur Leukocyte Esterase Ur Random Sodium Ur Random Potassium Ur Random Chloride Problem List - Problems (1) Acute exacerbation of chronic obstructive pulmonary disease (COPD) Code(s): J44.1 - CHRONIC OBSTRUCTIVE PULMONARY DISEASE W (ACUTE) EXACERBATION (2) Influenza A Code(s): J10.1 - FLU DUE TO OTH IDENT INFLUENZA VIRUS W OTH RESP MANIFEST (3) Pneumonia Code(s): J18.9 - PNEUMONIA, UNSPECIFIED ORGANISM (4) Acute on chronic respiratory failure with hypoxia and hypercapnia Code(s): J96.21 - ACUTE AND CHRONIC RESPIRATORY FAILURE WITH HYPOXIA; J96.22 - ACUTE AND CHRONIC RESPIRATORY FAILURE WITH HYPERCAPNIA (5) CHF (congestive heart failure) Code(s): I50.9 - HEART FAILURE, UNSPECIFIED (6) DVT (deep venous thrombosis) Code(s): I82.409 - ACUTE EMBOLISM AND THOMBOS UNSP DEEP VN UNSP LOWER EXTREMITY Qualifiers: DVT location: lower extremity (7) HTN (hypertension) Code(s): I10 - ESSENTIAL (PRIMARY) HYPERTENSION Qualifiers: Hypertension type: essential hypertension Qualified Code(s): I10 - Essential (primary) hypertension (8) PAF (paroxysmal atrial fibrillation) Code(s): I48.0 - PAROXYSMAL ATRIAL FIBRILLATION (9) Pulmonary hypertension Code(s): I27.2 - OTHER SECONDARY PULMONARY HYPERTENSION * DO NOT USE * (10) Sarcoid Code(s): D86.9 - SARCOIDOSIS, UNSPECIFIED Assessment/Plan: Acute on Chronic Hypoxic and Hypercapneic Respiratory Failure Influenza A Acute COPD Exacerbation Sarcoidosis h/o DVT HTN DM - Trial of Prednisone - inhaled bronchodilators standing and PRN - O2 to keep SpO2 >90% - BiPAP as needed - glucose control while on systemic steroids - anticoagulation - If stable can D/C in AM : D/W PMD Dr Shen
[2017-11-04] MEDS: FUROSEMIDE 20 MG TABLET (FP) PO SCH (15:10)
--- NOTE | 2017-11-04 15:33 | PN ---
Progress Note, Physician History of Present Illness: Pt seen and examined at bedside. She is awake and alert. She feels more comfortable than she was yesterday. - Current Medication List Current Medications: Active Medications Acetaminophen (Tylenol -) 650 mg PO Q4H PRN PRN Reason: PAIN Last Admin: 11/02/17 20:37 Dose: 650 mg Albuterol/Ipratropium (Duoneb -) 1 amp NEB RQID ON LICENSE OF [facility] Last Admin: 11/04/17 11:12 Dose: 1 amp Budesonide (Pulmicort 0.25 Mg Nebulizer -) 1 amp NEB RBID ON LICENSE OF [facility] Last Admin: 11/04/17 07:39 Dose: 1 amp Calcium Carbonate/Cholecalciferol (Os-Norman 500+D -) 1 tab PO DAILY ON LICENSE OF [facility] Last Admin: 11/04/17 09:33 Dose: 1 tab Divalproex Sodium (Depakote *Er* -) 500 mg PO DAILY ON LICENSE OF [facility] Last Admin: 11/04/17 09:33 Dose: 500 mg Docusate Sodium (Colace -) 100 mg PO TID ON LICENSE OF [facility] Last Admin: 11/04/17 15:10 Dose: 100 mg Enoxaparin Sodium (Lovenox -) 100 mg SQ BID ON LICENSE OF [facility] Last Admin: 11/04/17 09:32 Dose: 100 mg Furosemide (Lasix -) 20 mg PO BID@0600,1400 ON LICENSE OF [facility] Last Admin: 11/04/17 15:10 Dose: 20 mg Insulin Aspart (Novolog Vial Sliding Scale -) 1 vial SQ ACHS ON LICENSE OF [facility] PRN Reason: Protocol Last Admin: 11/04/17 12:17 Dose: 4 units Mirtazapine (Remeron -) 15 mg PO HS ON LICENSE OF [facility] Last Admin: 11/03/17 21:54 Dose: 15 mg Montelukast Sodium (Singulair -) 10 mg PO HS ON LICENSE OF [facility] Last Admin: 11/03/17 21:53 Dose: 10 mg Pantoprazole Sodium (Protonix -) 40 mg PO AM ON LICENSE OF [facility] Last Admin: 11/04/17 06:27 Dose: 40 mg Prednisone (Deltasone -) 40 mg PO DAILY ON LICENSE OF [facility] Senna (Senna -) 1 tab PO TID ON LICENSE OF [facility] Last Admin: 11/04/17 15:10 Dose: 1 tab Solifenacin (Vesicare -) 10 mg PO DAILY ON LICENSE OF [facility] Last Admin: 11/04/17 09:32 Dose: 10 mg Temazepam (Restoril -) 30 mg PO HS ON LICENSE OF [facility] Last Admin: 11/03/17 21:53 Dose: 30 mg Warfarin Sodium (Coumadin -) 5 mg PO SUTUTHFRSA@1800 PHOEBE Warfarin Sodium (Coumadin -) 2.5 mg PO MOWE@1800 ON LICENSE OF [facility] Last Admin: 11/03/17 17:49 Dose: 2.5 mg - Objective Vital Signs: Vital Signs Temperature 98.3 F 11/04/17 09:00 Pulse Rate 100 H 11/04/17 09:00 Respiratory Rate 26 H 11/04/17 09:00 Blood Pressure 114/57 11/04/17 09:00 O2 Sat by Pulse Oximetry (%) 98 11/04/17 09:00 Constitutional: Yes: Calm Eyes: Yes: Conjunctiva Clear HENT: Yes: Atraumatic Neck: Yes: Supple Cardiovascular: Yes: S1, S2 Respiratory: Yes: On Nasal O2, Wheezes Gastrointestinal: Yes: Soft Genitourinary: Yes: [place] Present Musculoskeletal: Yes: Muscle Weakness Edema: Yes Edema: LLE: 1+, RLE: 1+ Neurological: Yes: Oriented Psychiatric: Yes: Oriented Labs: CBC, BMP 11/04/17 07:00 11/04/17 07:00 INR, PTT INR 1.11 (0.82-1.09) 11/04/17 07:00 Problem List - Problems (1) Acute exacerbation of chronic obstructive pulmonary disease (COPD) Code(s): J44.1 - CHRONIC OBSTRUCTIVE PULMONARY DISEASE W (ACUTE) EXACERBATION (2) Hyperkalemia Code(s): E87.5 - HYPERKALEMIA (3) CHF (congestive heart failure) Code(s): I50.9 - HEART FAILURE, UNSPECIFIED (4) CKD (chronic kidney disease) Code(s): N18.9 - CHRONIC KIDNEY DISEASE, UNSPECIFIED (5) Sarcoid Code(s): D86.9 - SARCOIDOSIS, UNSPECIFIED Assessment/Plan Current Medications Generic Name Dose Route Start Last Admin Trade Name Freq PRN Reason Stop Dose Admin Acetaminophen 650 mg 10/31/17 08:47 11/02/17 20:37 Tylenol - PO 650 mg Q4H PRN Administration PAIN Albuterol/Ipratropium 1 amp 11/02/17 20:00 11/04/17 11:12 Duoneb - NEB 1 amp RQID [facility]OEBE Administration Budesonide 1 amp 10/31/17 20:00 11/04/17 07:39 Pulmicort 0.25 Mg Nebulizer - NEB 1 amp RBID [facility]OEBE Administration Calcium Carbonate/Cholecalciferol 1 tab 11/03/17 10:00 11/04/17 09:33 Os-Norman 500+D - PO 1 tab DAILY [facility]OEBE Administration Divalproex Sodium 500 mg 11/03/17 10:00 11/04/17 09:33 Depakote *Er* - PO 500 mg DAILY [facility]BE Administration Docusate Sodium 100 mg 11/02/17 22:00 11/04/17 15:10 Colace - PO 100 mg TID PHOEBE Administration Enoxaparin Sodium 100 mg 11/03/17 22:00 11/04/17 09:32 Lovenox - SQ 100 mg BID PHOEBE Administration Furosemide 20 mg 11/04/17 14:00 11/04/17 15:10 Lasix - PO 20 mg BID@0600,1400 PHOEBE Administration Insulin Aspart 1 vial 11/03/17 22:00 11/04/17 12:17 Novolog Vial Sliding Scale - SQ 4 units ACHS PHOEBE Administration Protocol Mirtazapine 15 mg 11/02/17 22:00 11/03/17 21:54 Remeron - PO 15 mg HS [facility]OEBE Administration Montelukast Sodium 10 mg 11/02/17 22:00 11/03/17 21:53 Singulair - PO 10 mg HS PHOEBE Administration Pantoprazole Sodium 40 mg 11/03/17 07:00 11/04/17 06:27 Protonix - PO 40 mg AM [facility]BE Administration Prednisone 40 mg 11/04/17 15:15 Deltasone - PO DAILY [facility] Senna 1 tab 11/02/17 22:00 11/04/17 15:10 Senna - PO 1 tab TID [facility] Administration Solifenacin 10 mg 11/03/17 10:00 11/04/17 09:32 Vesicare - PO 10 mg DAILY [facility] Administration Temazepam 30 mg 11/02/17 22:00 11/03/17 21:53 Restoril - PO 30 mg HS [facility]OEBE Administration Warfarin Sodium 5 mg 11/04/17 18:00 Coumadin - PO SUTUTHFRSA@1800 PH[facility]BE Warfarin Sodium 2.5 mg 11/03/17 18:00 02/14/18 17:49 Coumadin - PO 2.5 mg MOWE@1800 PH[facility]BE Administration Impression 1. CKD 2. sarcoid 3. hyperkalemia 4. hx DVT 5. COPD 6. HTN 7. left leg wound with wound vac 8. fluid overload Plan - potassium is improving - cont low K diet - cont lasix - cont prednisone with taper - monitor renal function - will need outpt follow up - lasix will help waste potassium
[2017-11-04] MEDS: predniSONE 20 MG TABLET (UD) PO SCH (15:36)
[2017-11-04] MEDS: TEMAZEPAM 15 MG CAPSULE PO SCH (22:00)
[2017-11-04] MEDS: MIRTAZAPINE 15 MG TABLET (FP) PO SCH (22:00)
[2017-11-04] MEDS: MONTELUKAST NA 10 MG TABLET PO SCH (22:00)
[2017-11-05] MEDS: INSULIN SLIDING SCALE (NOVOLOG) 1 VIAL SQ SCH ×3 (06:23→16:06)
[2017-11-05] MEDS: DOCUSATE SODIUM 100 MG CAPSULE (FP) PO SCH ×2 (06:23→13:28)
[2017-11-05] MEDS: SENNOSIDES 8.6MG TABLET (FP) PO SCH ×2 (06:23→13:28)
[2017-11-05] MEDS: FUROSEMIDE 20 MG TABLET (FP) PO SCH ×2 (06:23→13:28)
[2017-11-05] MEDS: PANTOPRAZOLE 40 MG TABLET (FP) PO SCH (06:23)
[2017-11-05 07:11] LABS: CHLORIDE 99 mmol/L (98-107); POTASSIUM 4.6 mmol/L (3.5-5.1); SODIUM 143 mmol/L (136-145)
[2017-11-05 07:14] LABS: INR 1.24 (0.82-1.09)
[2017-11-05 07:15] LABS: ANION GAP 1 (8-16); BLOOD UREA NITROGEN 33 mg/dL (7-18); CALCIUM 8.4 mg/dL (8.5-10.1); CO2 43 mmol/L (21-32); CREATININE 0.9 mg/dL (0.55-1.02); GLUCOSE,RANDOM 182 mg/dL (74-106)
[2017-11-05] MEDS: BUDESONIDE 0.25 MG/2ML INH SUSP VIAL NEB SCH ×2 (07:25→22:31)
[2017-11-05] MEDS: ALBUTEROL SO4 2.5/IPRATROPIUM 0.5 INH SOL 3 ML VIAL.NEB. NEB SCH ×4 (07:25→20:10)
[2017-11-05] MEDS ORDERED: PT OWN MED DRAWER 7, Y5N ONE ×2 (07:36→09:56)
[2017-11-05] MEDS: predniSONE 20 MG TABLET (UD) PO SCH (09:58)
[2017-11-05] MEDS: DIVALPROEX NA *ER* EXTEND REL 500 MG TABLET.SA (FP) PO SCH (09:58)
[2017-11-05] MEDS: ENOXAPARIN NA (PORCINE) 100 MG/1 ML DISP.SYRIN SQ SCH (09:58)
[2017-11-05] MEDS: CALCIUM 500MG/VIT-D 200 UNITS COMBO TABLET (FP) PO SCH (09:58)
[2017-11-05] MEDS: SOLIFENACIN SUCCINATE 5 MG TAB (FP) PO SCH (09:58)
--- NOTE | 2017-11-05 16:14 | PN ---
Progress Note, Physician History of Present Illness: Pt seen and examined at bedside. She is awake and alert. She denies chest pain. - Current Medication List Current Medications: Active Medications Acetaminophen (Tylenol -) 650 mg PO Q4H PRN PRN Reason: PAIN Last Admin: 11/02/17 20:37 Dose: 650 mg Albuterol/Ipratropium (Duoneb -) 1 amp NEB RQID [facility] Last Admin: 11/05/17 11:33 Dose: 1 amp Budesonide (Pulmicort 0.25 Mg Nebulizer -) 1 amp NEB RBID [facility] Last Admin: 11/05/17 07:25 Dose: 1 amp Calcium Carbonate/Cholecalciferol (Os-Norman 500+D -) 1 tab PO DAILY [facility] Last Admin: 11/05/17 09:58 Dose: 1 tab Divalproex Sodium (Depakote *Er* -) 500 mg PO DAILY [facility] Last Admin: 11/05/17 09:58 Dose: 500 mg Docusate Sodium (Colace -) 100 mg PO TID [facility] Last Admin: 11/05/17 13:28 Dose: 100 mg Enoxaparin Sodium (Lovenox -) 100 mg SQ BID [facility] Last Admin: 11/05/17 09:58 Dose: 100 mg Furosemide (Lasix -) 20 mg PO BID@0600,1400 [facility] Last Admin: 11/05/17 13:28 Dose: 20 mg Insulin Aspart (Novolog Vial Sliding Scale -) 1 vial SQ ACHS [facility] PRN Reason: Protocol Last Admin: 11/05/17 16:06 Dose: 4 units Mirtazapine (Remeron -) 15 mg PO HS [facility] Last Admin: 11/04/17 22:00 Dose: 15 mg Montelukast Sodium (Singulair -) 10 mg PO HS [facility] Last Admin: 11/04/17 22:00 Dose: 10 mg Pantoprazole Sodium (Protonix -) 40 mg PO AM [facility] Last Admin: 11/05/17 06:23 Dose: 40 mg Prednisone (Deltasone -) 40 mg PO DAILY [facility] Last Admin: 11/05/17 09:58 Dose: 40 mg Senna (Senna -) 1 tab PO TID [facility] Last Admin: 11/05/17 13:28 Dose: 1 tab Solifenacin (Vesicare -) 10 mg PO DAILY [facility] Last Admin: 11/05/17 09:58 Dose: 10 mg Temazepam (Restoril -) 30 mg PO HS [facility] Last Admin: 11/04/17 22:00 Dose: 30 mg Warfarin Sodium (Coumadin -) 5 mg PO SUTUTHFRSA@1800 [facility] Last Admin: 11/04/17 05:15 Dose: 5 mg Warfarin Sodium (Coumadin -) 2.5 mg PO MOWE@1800 [facility] Last Admin: 11/03/17 17:49 Dose: 2.5 mg - Objective Vital Signs: Vital Signs Temperature 98.4 F 11/05/17 13:15 Pulse Rate 108 H 11/05/17 13:15 Respiratory Rate 24 11/05/17 13:15 Blood Pressure 100/51 11/05/17 13:15 O2 Sat by Pulse Oximetry (%) 98 11/05/17 09:00 Constitutional: Yes: Calm Eyes: Yes: Conjunctiva Clear HENT: Yes: Atraumatic Cardiovascular: Yes: S1, S2 Respiratory: Yes: On Nasal O2, Wheezes Gastrointestinal: Yes: Soft, Abdomen, Obese Genitourinary: Yes: [place] Present Musculoskeletal: Yes: Other (wound vac left leg) Edema: Yes Edema: LLE: 1+, RLE: 1+ Neurological: Yes: Oriented Psychiatric: Yes: Oriented Labs: CBC, BMP 11/04/17 07:00 11/05/17 05:30 INR, PTT INR 1.24 (0.82-1.09) H 11/05/17 05:30 Problem List - Problems (1) Acute exacerbation of chronic obstructive pulmonary disease (COPD) Code(s): J44.1 - CHRONIC OBSTRUCTIVE PULMONARY DISEASE W (ACUTE) EXACERBATION (2) Hyperkalemia Code(s): E87.5 - HYPERKALEMIA (3) CHF (congestive heart failure) Code(s): I50.9 - HEART FAILURE, UNSPECIFIED (4) CKD (chronic kidney disease) Code(s): N18.9 - CHRONIC KIDNEY DISEASE, UNSPECIFIED (5) Sarcoid Code(s): D86.9 - SARCOIDOSIS, UNSPECIFIED Assessment/Plan Current Medications Generic Name Dose Route Start Last Admin Trade Name Freq PRN Reason Stop Dose Admin Acetaminophen 650 mg 10/31/17 08:47 11/02/17 20:37 Tylenol - PO 650 mg Q4H PRN Administration PAIN Albuterol/Ipratropium 1 amp 11/02/17 20:00 11/05/17 11:33 Duoneb - NEB 1 amp RQID [facility]OE[facility] Administration Budesonide 1 amp 10/31/17 20:00 11/05/17 07:25 Pulmicort 0.25 Mg Nebulizer - NEB 1 amp RBID [facility] Administration Calcium Carbonate/Cholecalciferol 1 tab 11/03/17 10:00 11/05/17 09:58 Os-Norman 500+D - PO 1 tab DAILY [facility] Administration Divalproex Sodium 500 mg 11/03/17 10:00 11/05/17 09:58 Depakote *Er* - PO 500 mg DAILY [facility] Administration Docusate Sodium 100 mg 11/02/17 22:00 11/05/17 13:28 Colace - PO 100 mg TID PHOEBE Administration Enoxaparin Sodium 100 mg 11/03/17 22:00 11/05/17 09:58 Lovenox - SQ 100 mg BID [facility] Administration Furosemide 20 mg 11/04/17 14:00 11/05/17 13:28 Lasix - PO 20 mg BID@0600,1400 PHOE[facility] Administration Insulin Aspart 1 vial 11/03/17 22:00 11/05/17 16:06 Novolog Vial Sliding Scale - SQ 4 units ACHS PHOEBE Administration Protocol Mirtazapine 15 mg 11/02/17 22:00 11/04/17 22:00 Remeron - PO 15 mg HS PHOEBE Administration Montelukast Sodium 10 mg 11/02/17 22:00 11/04/17 22:00 Singulair - PO 10 mg HS PHOEBE Administration Pantoprazole Sodium 40 mg 11/03/17 07:00 11/05/17 06:23 Protonix - PO 40 mg AM [facility] Administration Prednisone 40 mg 11/04/17 15:15 11/05/17 09:58 Deltasone - PO 40 mg DAILY [facility] Administration Senna 1 tab 11/02/17 22:00 11/05/17 13:28 Senna - PO 1 tab TID [facility] Administration Solifenacin 10 mg 11/03/17 10:00 11/05/17 09:58 Vesicare - PO 10 mg DAILY [facility] Administration Temazepam 30 mg 11/02/17 22:00 11/04/17 22:00 Restoril - PO 30 mg HS [facility]OE[facility] Administration Warfarin Sodium 5 mg 11/04/17 18:00 11/04/17 05:15 Coumadin - PO 5 mg SUTUTHFRSA@1800 [facility] Administration Warfarin Sodium 2.5 mg 11/03/17 18:00 11/03/17 17:49 Coumadin - PO 2.5 mg MOWE@1800 PH[facility] Administration Impression 1. CKD 2. sarcoid 3. hyperkalemia 4. hx DVT 5. COPD 6. HTN 7. left leg wound with wound vac 8. fluid overload Plan - cont current meds - potassium stable - cont low potassium diet - cont diuretics - will need outpt follow up and workup - cont prednisone with taper
[2017-11-05] MEDS: WARFARIN NA 2.5 MG TABLET (FP) PO SCH (17:12)
--- NOTE | 2017-11-05 18:11 | CON.GI ---
Consult Consult Specialty:: GI Referred by:: md Isabelle - History of Present Illness History of Present Illness: 72 y/o female was admitted for exacerbation of COPD and CKD was doing well until today when she developed 6/10 ruq pain. She denies nausea,vomiting and fever. She is current ly NPO and is awaiting an ultrasound. - Past Medical History Cardio/Vascular: Yes: CHF, Deep Vein Thrombosis, HTN Pulmonary: Yes: COPD, O2 Dependent, Other (sarcoidosis) Musculoskeletal: Yes: Chronic low back pain Rheumatology: Yes: Sarcoidosis Endocrine: Yes: Diabetes Mellitus - Past Surgical History Past Surgical History: Yes: Hysterectomy, Joint Replacement - Alcohol/Substance Use Hx Alcohol Use: No History of Substance Use: reports: None - Smoking History Smoking history: Former smoker Have you smoked in the past 12 months: No Aproximately how many cigarettes per day: 0 If you are a former smoker, when did you quit?: 30 years ago - Social History Usual Living Arrangement: Alone ADL: Independent History of Recent Travel: No Home Medications - Allergies Allergies/Adverse Reactions: Allergies Allergy/AdvReac Type Severity Reaction Status Date / Time No Known Allergies Allergy Verified 10/01/17 09:10 - Home Medications Home Medications: Ambulatory Orders Acetaminophen [Tylenol] 650 mg PO Q6H PRN 10/27/17 Albuterol 2.5/Ipratropium 0.5 [Duoneb -] 1 neb IH QID 10/27/17 Bisacodyl [Correctol] 5 mg PO TID 10/27/17 Budesonide/Formeterol Fumarate [SYMBICORT 160/4.5mcg -] 2 inh IH Q12H 10/27/17 Calcium Carbonate/Vitamin D3 [Calcium 600 + Vit D 200 Tablet] 1 each PO DAILY Cefuroxime Axetil [Ceftin -] 500 mg PO BID 10/27/17 Diltiazem [Cardizem -] 30 mg PO Q6H 10/27/17 Divalproex *ER* [Depakote *ER* -] 500 mg PO DAILY 10/27/17 Docusate Sodium [Colace] 100 mg PO TID 10/27/17 Furosemide [Lasix -] 40 mg PO DAILY 10/27/17 Lipase/Protease/Amylase [Zenpep Dr 10,000 Units Capsule] 2 each PO TIDCM Mirtazapine 15 mg PO HS 10/27/17 Montelukast Sodium [Singulair] 10 mg PO HS 10/27/17 Omeprazole Magnesium [Prilosec Otc] 40 mg PO DAILY 10/27/17 Oseltamivir Phosphate [Tamiflu] 75 mg PO BID 10/27/17 Oxybutynin Chloride [Ditropan Xl] 15 mg PO DAILY 10/27/17 Oxycodone HCl 5 mg PO Q3H PRN 10/27/17 Potassium Chloride [K-Dur -] 10 meq PO DAILY 10/27/17 Prednisone 30 mg PO DAILY 10/27/17 Sennosides [Argenis-[place]] 8.6 mg PO TID 10/27/17 Temazepam [Restoril] 30 mg PO HS 10/27/17 Tiotropium [place] [Spiriva] 18 mcg IH DAILY 10/27/17 Warfarin Na [Coumadin] 4 mg PO HS 10/27/17 Acetaminophen [Tylenol .Regular Strength -] 650 mg PO Q4H PRN tablet 11/05/17 Albuterol 2.5/Ipratropium 0.5 [Duoneb -] 1 amp NEB RQID amp 11/05/17 Budesonide [Pulmicort 0.25 mg Nebulizer -] 1 amp NEB RBID amp 11/05/17 Calcium 500Mg/Vit-D 200 Units [Os-Norman 500+D -] 1 tab PO DAILY tab 11/05/17 Divalproex *ER* [Depakote *ER* -] 500 mg PO DAILY tablet.sa 11/05/17 Docusate Sodium [Colace -] 100 mg PO TID capsule 11/05/17 Enoxaparin [Lovenox -] 100 mg SQ BID disp.syrin 11/05/17 Furosemide [Lasix -] 20 mg PO BID@0600,1400 tablet 11/05/17 Insulin Sliding Scale [Novolog Vial Sliding Scale -] 1 vial SQ ACHS units 11/05 Mirtazapine [Remeron -] 15 mg PO HS tablet 11/05/17 Montelukast Na [Singulair -] 10 mg PO HS tablet 11/05/17 Pantoprazole Sodium [Protonix -] 40 mg PO AM tablet.ec 11/05/17 Sennosides [Senna -] 1 tab PO TID tablet 11/05/17 Solifenacin Succinate [Vesicare -] 10 mg PO DAILY tab 11/05/17 Temazepam [Restoril -] 30 mg PO HS capsule MDD 30 11/05/17 Warfarin Na [Coumadin -] 2.5 mg PO MOWE@1800 tablet 11/05/17 Warfarin Na [Coumadin -] 5 mg PO SUTUTHFRSA@1800 tablet 11/05/17 predniSONE [Deltasone -] 40 mg PO DAILY tablet 11/05/17 Physical Exam-GI Vital Signs: Vital Signs Temperature 98.4 F 11/05/17 13:15 Pulse Rate 108 H 11/05/17 13:15 Respiratory Rate 24 11/05/17 13:15 Blood Pressure 100/51 11/05/17 13:15 O2 Sat by Pulse Oximetry (%) 98 11/05/17 09:00 Constitutional: Yes: Obese Eyes: Yes: Conjunctiva Clear, Occular Prosthesis Neck: Yes: Trachea Midline Cardiovascular: Yes: Regular Rate and Rhythm Respiratory: Yes: CTA Bilaterally ...Palpate: Yes: Tenderness (--ruq tenderness). No: Firm/Rigid, Guarding, Hepatomegaly, Mass, Pulsatile Mass, Splenomegaly Labs: CBC, BMP 11/04/17 07:00 11/05/17 05:30 INR, PTT INR 1.24 (0.82-1.09) H 11/05/17 05:30 Problem List - Problems (1) RUQ abdominal pain Assessment/Plan: r/o acalculous cholecystitis R> await ultrasound keep NPO will follow Thank you Code(s): R10.11 - RIGHT UPPER QUADRANT PAIN
[2017-11-05] MEDS ORDERED: INSULIN (NOVOLOG) ASPART 100 UNITS/ML 10ML VIAL ONE (18:16)
[2017-11-05] MEDS ORDERED: SODIUM CHLORIDE 1,000 ML IV SCH (21:45)
[2017-11-05] MEDS ORDERED: FUROSEMIDE 40 MG/4 ML INJECTABLE VIAL IVPUSH ONE (22:49)
[2017-11-05] MEDS ORDERED: ACETAMINOPHEN 650 MG SUPP.RECT PR ONE (22:50)
--- NOTE | 2017-11-05 22:50 | HOSP ---
Subjective - Review of Symptoms Events since last encounter: Hospitalist Encounter Notified by RN, that the patient was in ST 150's. Orders placed for EKG, Portable CXR, CBCD, BMP, Lactic Acid by nonprofit financial controller INFERTILITY MEDICAL ASSISTANT Subjective: A Arrived to bedside, patient is alert, awake, oriented to name. Patient received tachypneic, with pursed lip breathing, on 3LNC Spo2 94-95% 72 y/o woman with a PMHx of COPD, CHF, Sarcoidosis, DVT- LLE. Admitted for Acute on Chronic COPD Exacerbation, Influenza A. Plan: Lasix 40mg IV ABG Rectal Temp Tylenol pr EKG-reviewed ST 150's Chest Xray image- pulmonary vascular congestion CBCD, BMP, Lactic Acid, ABG -pending Will need BIPAP Pulmonary: Yes: Dyspnea Cardiovascular: Yes: Palpitations Physical Examination Vital Signs: Vital Signs Temperature 98.5 F 11/05/17 18:48 Pulse Rate 90 11/05/17 18:48 Respiratory Rate 20 11/05/17 18:48 Blood Pressure 105/59 11/05/17 18:48 O2 Sat by Pulse Oximetry (%) 98 11/05/17 09:00 Constitutional: Yes: Moderate Distress, Obese Eyes: Yes: Conjunctiva Clear, PERRL Cardiovascular: Yes: Tachycardia, S1, S2 Respiratory: Yes: On Nasal O2, Rhonchi, Tachypnea, Wheezes Neurological: Yes: Alert, Oriented, Cran Nerves II-XII Intact ...Motor Strength: WNL Psychiatric: Yes: WNL, Alert, Oriented Labs: CBC, BMP 11/04/17 07:00 11/05/17 05:30 Critical Care Total Critical Care Time (in minutes): 60 Critical Care Statement: The care of this patient involved high complexity decision making to prevent further life threatening deterioration of the patient 's condition and/or to evaluate & treat vital organ system(s) failure or risk of failure.
--- NOTE | 2017-11-05 23:13 | PROC ---
Procedure Note Procedure: Anesthesia Card Seller Code 99 Pt unconscious, CPR started. DL x 2 with Mac 3 DVVC #7 ETT passed without trauma +ETCO2 +BS=BL Tube taped at 20cm at the lip care left to Code team Edwin Dempsey MD
[2017-11-05] MEDS ORDERED: FUROSEMIDE 40 MG/4 ML INJECTABLE VIAL IVPB ONE (23:14)
[2017-11-05 23:22] LABS: HEMATOCRIT 24.3 % (32.4-45.2); HEMOGLOBIN 7.4 GM/dL (10.7-15.3); MCH 29.2 pg (25.7-33.7); MCHC 30.3 g/dl (32.0-36.0); MEAN CELL VOLUME 96.3 fl (80-96); PLATELET COUNT 132 K/MM3 (134-434); RBC 2.52 M/mm3 (3.60-5.2); RDW 18.1 % (11.6-15.6); WHITE BLOOD COUNT 17.3 K/mm3 (4.0-10.0)
[2017-11-06 00:01] LABS: ANION GAP 18 (8-16); BLOOD UREA NITROGEN 40 mg/dL (7-18); CALCIUM 8.1 mg/dL (8.5-10.1); CHLORIDE 89 mmol/L (98-107); CO2 31 mmol/L (21-32); CREATININE 1.7 mg/dL (0.55-1.02); POTASSIUM 5.8 mmol/L (3.5-5.1); SODIUM 138 mmol/L (136-145)
[2017-11-06 00:25] LABS: GLUCOSE,RANDOM 404 mg/dL (74-106)
[2017-11-06 01:17] VITALS: BP 98/54; PULSE 128; TEMP 97.9
[2017-11-06] MEDS: DOCUSATE SODIUM 100 MG CAPSULE (FP) PO SCH (02:06)
[2017-11-06] MEDS: TEMAZEPAM 15 MG CAPSULE PO SCH (02:07)
[2017-11-06] MEDS: ENOXAPARIN NA (PORCINE) 100 MG/1 ML DISP.SYRIN SQ SCH (02:07)
[2017-11-06] MEDS: MIRTAZAPINE 15 MG TABLET (FP) PO SCH (02:07)
[2017-11-06] MEDS: SENNOSIDES 8.6MG TABLET (FP) PO SCH (02:07)
[2017-11-06] MEDS: INSULIN SLIDING SCALE (NOVOLOG) 1 VIAL SQ SCH (02:07)
[2017-11-06] MEDS: MONTELUKAST NA 10 MG TABLET PO SCH (02:07)
--- NOTE | 2017-11-06 02:33 | RAPID ---
Physical Examination Vital Signs: Vital Signs Temperature 97.9 F 11/05/17 21:00 Pulse Rate 128 H 11/05/17 21:00 Respiratory Rate 20 11/05/17 21:00 Blood Pressure 98/54 11/05/17 21:00 O2 Sat by Pulse Oximetry (%) 94 L 11/05/17 21:00 Constitutional: Yes: Obese Eyes: Yes: Other (pupils non reactive- fixed) Cardiovascular: Yes: Other (bradycardia- PEA- Asystole) Respiratory: Yes: Intubated (BVM), Other (no spontaneous respirations) Gastrointestinal: Yes: Abdomen, Obese, Distention Integumentary: Yes: Bruising (eccyhmotic bruising upper extremities) Wound/Incision: Yes: Other (wound vac to LLE) Neurological: Yes: Unresponsive Labs: CBC, BMP 11/05/17 22:50 11/05/17 22:50 Laboratory Results - last 24 hr 11/05/17 11/05/17 11/05/17 11:20 16:05 20:34 WBC RBC Hgb Hct MCV MCH MCHC RDW Plt Count MPV Sodium Potassium Chloride Carbon Dioxide Anion Gap BUN Creatinine POC Glucometer 179 248 340 Random Glucose Calcium Creatine Kinase Troponin I 11/05/17 11/05/17 11/05/17 22:50 22:50 22:50 WBC 17.3 H D RBC 2.52 L D Hgb 7.4 L D Hct 24.3 L D MCV 96.3 H MCH 29.2 MCHC 30.3 L RDW 18.1 H Plt Count 132 L D MPV 10.0 D Sodium 138 Potassium 5.8 H Chloride 89 L Carbon Dioxide 31 Anion Gap 18 H BUN 40 H Creatinine 1.7 H POC Glucometer Random Glucose 404 H* Calcium 8.1 L Creatine Kinase 81 Troponin I 0.14 H Cancelled 11/05/17 22:59 WBC RBC Hgb Hct MCV MCH MCHC RDW Plt Count MPV Sodium Potassium Chloride Carbon Dioxide Anion Gap BUN Creatinine POC Glucometer 344 Random Glucose Calcium Creatine Kinase Troponin I Intake & Output 11/03/17 11/04/17 11/05/17 11/06/17 23:59 23:59 23:59 23:59 Intake Total 40 650 200 Output Total 2400 2900 1500 Balance -2360 -2250 -1300 ABG Results ABG pH 7.33 (7.35-7.45) L 10/27/17 09:10 ABG pCO2 at Pt Temp 54.6 mmHg (35-45) H 10/27/17 09:10 ABG pO2 at Pt Temp 67.4 mmHg (70-100) L D 10/27/17 09:10 ABG HCO3 27.8 meq/L (22-26) H 10/27/17 09:10 ABG O2 Sat (Measured) 92.7 % (90-98.9) 10/27/17 09:10 ABG O2 Content 11.5 % vol (15-22) L 10/27/17 09:10 ABG Base Excess 1.9 meq/l (-2-2) 10/27/17 09:10 Rapid Response - Rapid Response Assessment: Rapid Response Paged Overhead At bedside, patient became unresponsive, ?seizure like activity, grinding teeth with decorticate posturing, agonal respirations Ativan ordered BVM initiated to maintain airway, respiratory therapist at bedside 22:56- Patient became pulseless CODE [address] Rodriguez, Dr. Brett Rosado. Nursing staff at bedside See Code sheet 23:26- Patient remained in asystole. Pronounced by Dr. Rodriguez 23:45- Patient's daughter Ms Leatha Amado, and other family arrived at bedside Support and empathy given to patient's daughter and other family member's RN to call ODN, and [facility] Total Critical Care Time (in minutes): 90 Critical Care Statement: The care of this patient involved high complexity decision making to prevent further life threatening deterioration of the patient 's condition and/or to evaluate & treat vital organ system(s) failure or risk of failure.
--- NOTE | 2017-11-06 12:14 | EKG ---
Test Reason : Blood Pressure : / mmHG Vent. Rate : 156 BPM Atrial Rate : 156 BPM P-R Int : 112 ms QRS Dur : 062 ms QT Int : 246 ms P-R-T Axes : 026 048 085 degrees QTc Int : 396 ms SINUS TACHYCARDIA WITH PREMATURE ATRIAL COMPLEXES NONSPECIFIC ST AND T WAVE ABNORMALITY ABNORMAL ECG WHEN COMPARED WITH ECG OF 28-OCT-2017 08:50, PREMATURE ATRIAL COMPLEXES ARE NOW PRESENT VENT. RATE HAS INCREASED BY 74 BPM NON-SPECIFIC CHANGE IN ST SEGMENT IN ANTERIOR LEADS NONSPECIFIC T WAVE ABNORMALITY NOW EVIDENT IN LATERAL LEADS Confirmed by PROSPER CHICAS MD ([id number]) on 11/06/2017 12:13:53 PM Referred By: Confirmed By:PROSPER CHICAS MD
== END 2017-11-05 23:30 | disposition expired | DRG 871 ==
LOC: JER 17:45 → INTOOBSV 19:59 → JERBED 19:59 → OBSVTOIN 10-27 06:41 → J4S 10-27 18:34
PROVIDERS: ADMIT Internal Medicine; ATTEND Family Medicine
PROC: 5A09357 Assistance with Respiratory Ventilation, Less than 24 Consecutive Hours, Continuous Positive Airway Pressure (ICD-10-PCS; 2017-10-27)
PROC: 5A12012 Performance of Cardiac Output, Single, Manual (ICD-10-PCS; principal; 2017-11-05)
PROC: 0CHY7BZ Insertion of Airway into Mouth and Throat, Via Natural or Artificial Opening (ICD-10-PCS; 2017-11-05)
DX: A41.89 Other specified sepsis (principal); J18.9 Pneumonia, unspecified organism; J96.21 Acute and chronic respiratory failure with hypoxia; J96.22 Acute and chronic respiratory failure with hypercapnia; J44.1 Chronic obstructive pulmonary disease with (acute) exacerbation; I13.0 Hypertensive heart and chronic kidney disease with heart failure and stage 1 through stage 4 chronic kidney disease, or unspecified chronic kidney disease; I50.30 Unspecified diastolic (congestive) heart failure; J44.0 Chronic obstructive pulmonary disease with (acute) lower respiratory infection; D86.89 Sarcoidosis of other sites; M54.5 Low back pain; D64.9 Anemia, unspecified; R00.0 Tachycardia, unspecified; S81.802A Unspecified open wound, left lower leg, initial encounter; X58.XXXA Exposure to other specified factors, initial encounter; E83.51 Hypocalcemia; R10.11 Right upper quadrant pain; E87.5 Hyperkalemia; J20.9 Acute bronchitis, unspecified; I48.0 Paroxysmal atrial fibrillation; E11.22 Type 2 diabetes mellitus with diabetic chronic kidney disease; N18.9 Chronic kidney disease, unspecified; E66.8 Other obesity; Z68.34 Body mass index [BMI] 34.0-34.9, adult; L89.302 Pressure ulcer of unspecified buttock, stage 2; L89.152 Pressure ulcer of sacral region, stage 2; I27.20 Pulmonary hypertension, unspecified; I46.9 Cardiac arrest, cause unspecified; J10.1 Influenza due to other identified influenza virus with other respiratory manifestations; Z86.718 Personal history of other venous thrombosis and embolism; Z99.81 Dependence on supplemental oxygen; Z90.710 Acquired absence of both cervix and uterus; Z87.891 Personal history of nicotine dependence; Z22.322 Carrier or suspected carrier of Methicillin resistant Staphylococcus aureus; Z79.01 Long term (current) use of anticoagulants
CPT/HCPCS: 36415; 36600; 71045-TC-FY; 76705-TC; 80048; 80053; 81003; 81015; 82436; 82550; 82803; 82962; 83605; 83735; 83880; 84133; 84300; 84484; 85025; 85027; 85610; 85730; 87040; 87086; 87804; 87899; 93005; 93010; 93970-TC; 94640; 94660; 97116-GP; 97162-GP; 99285-25; G0378